=== PATIENT | female | born 1940 | race Caucasian/White ===

== ENCOUNTER 2020-01-12 11:29 | Outpatient (REF) | payer MEDICARE, SELFPAY ==
[2020-01-12 13:48] LABS: MANUAL DIFF FLAG NO
[2020-01-12 13:54] LABS: Basophils Percent Auto 0.4 % (0-2); Eosinophils Absolute Auto 0.4 X10*3/uL (0.0-0.4); Eosinophils Percent Auto 7.9 % (0-4); Hematocrit 42.9 % (37-47); Hemoglobin 13.9 g/dl (12.0-16.0); Imm Gran Abs Auto 0.05 X10*3/uL (0.00-0.03); Lymphocytes Absolute Auto 1.6 X10*3/uL (1.2-4.9); Lymphocytes Percent Auto 32.5 % (20-40); Mean Corpuscular HGB Conc 32.4 g/dl (31.0-35.0); Mean Corpuscular Hemoglobin 31.7 pg (27.0-33.0); Mean Corpuscular Volume 97.7 fL (80-98); Mean Platelet Volume 10.7 fL (9.4-12.3); Monocytes Absolute Auto 0.3 X10*3/uL (0.1-1.2); Monocytes Percent Auto 5.2 % (2-11); Neutrophils Absolute Auto 2.7 X10*3/uL (2.0-8.3); Platelet Count 162 X10*3/uL (160-400); Red Blood Count 4.39 X10*6/uL (4.20-5.50); Red Cell Distribution Width 12.6 % (11.0-16.0)
[2020-01-12 14:06] LABS: Estimated Average Glucose 103 mg/dL; Hemoglobin A1c % 5.2 %
[2020-01-12 14:30] LABS: Alanine Aminotransferase 18 U/L (0-31); Alkaline Phosphatase 49 U/L (39-117); Anion Gap 12 (12-20); Anion Gap 13 (12-20); Aspartate Amino Transferase 23 U/L (5-31); Bilirubin Total 0.5 mg/dL (0.0-1.0); Blood Urea Nitrogen 15 mg/dL (9-16); Calcium 9.1 mg/dL (8.4-10.2); Carbon Dioxide 29 mmol/L (22-29); Carbon Dioxide 30 mmol/L (22-29); Chloride 105 mmol/L (96-108); Estimated Glomerular Filt Rate > 60; Glucose Random 101 mg/dL (60-115); Glucose Random 99 mg/dL (60-115); Potassium 4.5 mmol/l (3.3-5.1); Potassium 5.3 mmol/l (3.3-5.1); Sodium 142 mmol/L (135-145); Total Protein 6.4 g/dL (6.5-8.0)
[2020-01-12 14:55] LABS: Free T4 (Free Thyroxine) 1.28 ng/dL (0.71-1.85); Thyroid Stimulating Hormone 4.03 mIU/mL (0.32-4.0)
== END 2020-01-12 11:30 | disposition home or self-care (01) ==
LOC: HO.10HDL 11:29
PROVIDERS: Referring Provider Internal Medicine Medical Oncology; Visit Provider Internal Medicine
DX: I10 Essential (primary) hypertension (principal); R73.03 Prediabetes; E03.9 Hypothyroidism, unspecified; C18.9 Malignant neoplasm of colon, unspecified; E66.3 Overweight
CPT/HCPCS: 36415; 80048; 80053; 82378; 83036; 84439; 84443; 85025

== ENCOUNTER 2020-09-14 06:26 | Day surgery (SDC) | payer MEDICARE, SELFPAY ==
[2020-09-08 15:21] VITALS: BMI 25.7
--- NOTE | 2020-09-13 10:17 | P.CONAN_ITS ---
Documented by User: Kat Condonney 09/13/20 10:18 HPI - Anesthesia Eval Consult details Narrative: 80yo F for Colonoscopy *multiple med allergies* h/o parital colectomy 2016 [facility] Past Medical History Medical History Anxiety Arthritis Barretts esophagus GERD (gastroesophageal reflux disease) History of colon cancer History of right bundle branch block (RBBB) Hyperlipidemia Hypothyroidism PONV (postoperative nausea and vomiting) Surgical History Surgical History History of breast biopsy History of cataract extraction with lens replacement History of foot surgery History of hysterectomy History of partial colectomy History of thyroidectomy History of total right knee replacement (TKR) Hx of colonoscopy Hx of esophagogastroduodenoscopy Social History Social History Are you a primary client care consultant to a significant other at home: No Do you presently have visiting nurse or other home services: No Patient Tobacco Use Status: Former Tobacco user Quit Date: 1966 Tobacco use type: Cigarette Use of substances other than those prescribed or required for medical reasons: No Have you been hit, kicked, punched, or otherwise hurt by someone within the past year? If so, by whom?: No Are you DNR?: No Advance Directives: No Advance Directives Information Provided: Yes Advance Directives on File: Yes Advance Directives Date on File: 01/12/20 Recently lost weight without trying: No Eating poorly because of decreased appetite: No Nutrition Risks: No Nutritional Risk Patient : No Meds Allergies Allergy/AdvReac Type Severity Reaction Status Date / Time adhesive tape [ADHESIVE TAPE] Allergy Intermediate ITCH, Rash Unverified 09/08/20 14:49 cefazolin [From KEFZOL] Allergy Intermediate RASH Unverified 09/08/20 14:49 clindamycin [From CLEOCIN] Allergy Intermediate RASH Unverified 09/08/20 14:49 gentamicin [From GARAMYCIN] Allergy Intermediate RASH Unverified 09/08/20 14:49 atropine Allergy Unknown localized Verified 09/08/20 15:17 eye rxn cephalexin Allergy Unknown Rash Verified 09/08/20 15:18 morphine [MORPHINE] AdvReac Intermediate VOMITING Unverified 09/08/20 14:49 Doxycycline Monohydrate Allergy Unknown Rash Uncoded 09/08/20 15:18 Home Medications Medication Instructions Recorded Confirmed Last Taken Type acetaminophen [Tylenol Extra 500 mg PO Q6H PRN 09/08/20 09/08/20 Unknown History Strength] alprazolam 1 tab PO DAILY PRN 09/08/20 09/08/20 09/14/20 History atorvastatin 1 tab PO DAILY 09/08/20 09/08/20 Unknown History diphenhydramine-acetaminophen 1 tab PO BEDTIME PRN 09/08/20 09/08/20 Unknown History [Tylenol PM Extra Strength] levothyroxine 1 tab PO DAILY 09/08/20 09/08/20 09/14/20 History lorazepam 1 tab PO DAILY PRN 09/08/20 09/08/20 Unknown History multivitamin,dc-sjob-Kk-FA-min tab 09/08/20 Unknown History [Multivitamin And Mineral] omeprazole 20 mg PO DAILY 09/08/20 09/08/20 09/14/20 History simethicone [Gas-X] 80 mg PO BEDTIME 09/08/20 09/08/20 Unknown History vit C,J-Wm-gthrt-lutein-zeaxan 1 tab PO BID 09/08/20 09/08/20 Unknown History [PreserVision AREDS-2] Exam Exam Date and Time: September 13, 2020 1017 Height,Weight and Vital Signs: Height 5 ft 4 in Weight 68.039 kg Assessment and Plan Assessment Anesthesia Assessment: Chart Reviewed Documented by User: Darcy Lewis 09/14/20 07:31 [facility] Past Medical History Medical History Anxiety Arthritis Barretts esophagus GERD (gastroesophageal reflux disease) History of colon cancer History of right bundle branch block (RBBB) Hyperlipidemia Hypothyroidism PONV (postoperative nausea and vomiting) Surgical History Surgical History History of breast biopsy History of cataract extraction with lens replacement History of foot surgery History of hysterectomy History of partial colectomy History of thyroidectomy History of total right knee replacement (TKR) Hx of colonoscopy Hx of esophagogastroduodenoscopy Social History Social History Are you a primary client care consultant to a significant other at home: No Do you presently have visiting nurse or other home services: No Patient Tobacco Use Status: Former Tobacco user Quit Date: 1966 Tobacco use type: Cigarette Use of substances other than those prescribed or required for medical reasons: No Have you been hit, kicked, punched, or otherwise hurt by someone within the past year? If so, by whom?: No Are you DNR?: No Advance Directives: No Advance Directives Information Provided: Yes Advance Directives on File: Yes Advance Directives Date on File: 01/12/20 Recently lost weight without trying: No Eating poorly because of decreased appetite: No Nutrition Risks: No Nutritional Risk Patient : No Meds Allergies Allergy/AdvReac Type Severity Reaction Status Date / Time adhesive tape [ADHESIVE TAPE] Allergy Intermediate ITCH, Rash Unverified 09/08/20 14:49 cefazolin [From KEFZOL] Allergy Intermediate RASH Unverified 09/08/20 14:49 clindamycin [From CLEOCIN] Allergy Intermediate RASH Unverified 09/08/20 14:49 gentamicin [From GARAMYCIN] Allergy Intermediate RASH Unverified 09/08/20 14:49 atropine Allergy Unknown localized Verified 09/08/20 15:17 eye rxn cephalexin Allergy Unknown Rash Verified 09/08/20 15:18 morphine [MORPHINE] AdvReac Intermediate VOMITING Unverified 09/08/20 14:49 Doxycycline Monohydrate Allergy Unknown Rash Uncoded 09/08/20 15:18 Home Medications Medication Instructions Recorded Confirmed Last Taken Type acetaminophen [Tylenol Extra 500 mg PO Q6H PRN 09/08/20 09/08/20 Unknown History Strength] alprazolam 1 tab PO DAILY PRN 09/08/20 09/08/20 09/14/20 History atorvastatin 1 tab PO DAILY 09/08/20 09/08/20 Unknown History diphenhydramine-acetaminophen 1 tab PO BEDTIME PRN 09/08/20 09/08/20 Unknown History [Tylenol PM Extra Strength] levothyroxine 1 tab PO DAILY 09/08/20 09/08/20 09/14/20 History lorazepam 1 tab PO DAILY PRN 09/08/20 09/08/20 Unknown History multivitamin,hg-jrae-Eq-FA-min tab 09/08/20 Unknown History [Multivitamin And Mineral] omeprazole 20 mg PO DAILY 09/08/20 09/08/20 09/14/20 History simethicone [Gas-X] 80 mg PO BEDTIME 09/08/20 09/08/20 Unknown History vit C,M-Ls-koheu-lutein-zeaxan 1 tab PO BID 09/08/20 09/08/20 Unknown History [PreserVision AREDS-2] Exam Airway Mallampati Class: III (Prominent upper incisors) TM Dist: >3cm Neck ROM: Full Loose/Missing/Broken Teeth: No Heart: RRR Lungs: CTA Assessment and Plan Assessment Anesthesia Assessment: Anesthesia Plan Discussed and Chart Reviewed Final Anesthetic Review NPO: Yes ASA Class: II Final Preanesthetic Review: Meds/Allgs Chart Reviewed, Consent Obtained/Reviewed and Anes Risks/Benef Reviewed Patient Risk: Low Procedure Risk: Low Anesthetic Plan Anesthetic Plan: MAC: Disposition: Standard PACU
[2020-09-14 06:54] VITALS: BP 134/72; PULSE 96; RESP 16; TEMP 36.9; O2SAT 96
[2020-09-14] MEDS: Lactated Ringers 1,000 ML 100 ML IVCONT (07:14)
[2020-09-14 08:32] VITALS: BP 118/62; PULSE 76; RESP 18; TEMP 36.1; O2SAT 100
--- NOTE | 2020-09-14 08:37 | P.BOP_ITS ---
Brief Operative Note Date of Service: 09/14/20 Pre-op diagnosis: Screening Post-op diagnosis: other (Polyps, Diverticulosis) Procedure: Colonoscopy to the anastomosis with snare polypectomy Surgeon: Grayson Keene Anesthesia: MAC Was an Combiner Operator used for this Procedure?: No Estimated blood loss (mL): 0 Pathology: other (A. Rectal polyps) Condition: stable Disposition: PACU
[2020-09-14 08:48] VITALS: BP 122/71; PULSE 82; RESP 16; TEMP 36.1; O2SAT 97
--- NOTE | 2020-09-14 10:38 | OP_ITS ---
SURGEON: Grayson Keene MD INDICATIONS: The patient presents for followup of personal history of colon cancer and tubular adenoma of the colon. Full consent has been obtained from her for this, including risks of bleeding and perforation. PREOPERATIVE DIAGNOSIS: Personal history of tubular adenoma of the colon, personal history of colon cancer, and colorectal cancer screening. POSTOPERATIVE DIAGNOSIS: Personal history of tubular adenoma of the colon, personal history of colon cancer, and colorectal cancer screening, rectal polyps, normal anastomosis, sigmoid diverticulosis, and internal and external hemorrhoids. PROCEDURE PERFORMED: Colonoscopy to the anastomosis with snare polypectomy. ESTIMATED BLOOD LOSS: COMPLICATIONS: ANESTHESIA: Medication used, monitored anesthesia care. ASSISTANTS: SPECIMENS: DESCRIPTION OF PROCEDURE: The patient was placed in left lateral decubitus position. The digital rectal exam revealed external hemorrhoidal tissue. The Olympus video pediatric colonoscope was entered into the rectum and advanced to the level of the anastomosis. Advancement past the sigmoid colon was somewhat difficult. Once at the anastomosis, I was able to visualize both normal small bowel and large bowel mucosa. The anastomosis appeared normal. The scope was then slowly withdrawn assessing all mucosal surfaces carefully. Preparation was excellent. There was a moderate amount of sigmoid diverticulosis. In the proximal rectum were 2 approximately 10 mm polyps, which were probably hyperplastic. These were both snared and recovered by suction. Both polypectomy sites appeared clean, without any sign of residual polyp nor bleeding. I did not visualize any other polyps, colitis, or angiodysplasia. In the rectum, scope was retroflexed visualizing internal hemorrhoids, but no other pathology. The rectal mucosa appeared normal. The scope was straightened and withdrawn from the patient. She tolerated the procedure well and was returned to the recovery area in stable condition. IMPRESSION: 1. Rectal polyps, status post snare polypectomy. 2. Diverticulosis. 3. Normal anastomosis. 4. Internal and external hemorrhoids. PLAN: The results of the pathology will be checked. She was instructed not to use any aspirin and NSAIDs for 1 week. Theoretically, she should have another colonoscopy in 2 to 3 years, although at that point she would be in her mid-80s and we would obviously have to take her clinical condition into account. She will otherwise see me on a p.r.n. basis. This has been discussed with her . MD GRACIE Rodriguez/VIKTOR / [id number] RIRI
== END 2020-09-14 09:28 | disposition home or self-care (01) ==
PROVIDERS: PCP Internal Medicine; Visit Provider Internal Medicine
PROC: 0DJD8ZZ Inspection of Lower Intestinal Tract, Via Natural or Artificial Opening Endoscopic (ICD-10-PCS; CPT 45378; principal; 2020-09-14 07:30)
DX: Z12.11 Encounter for screening for malignant neoplasm of colon (principal); K62.1 Rectal polyp; K57.30 Diverticulosis of large intestine without perforation or abscess without bleeding; K64.4 Residual hemorrhoidal skin tags; K64.8 Other hemorrhoids; Z85.038 Personal history of other malignant neoplasm of large intestine; Z86.010 Personal history of colon polyps; Z98.0 Intestinal bypass and anastomosis status
CPT/HCPCS: 45385; 88305; 88341; 88342; 88360

== ENCOUNTER 2020-09-23 12:02 | Outpatient (REF) | payer MEDICARE, SELFPAY ==
[2020-09-23 13:55] LABS: Anion Gap 13 (12-20); Blood Urea Nitrogen 15 mg/dL (9-16); Calcium 8.9 mg/dL (8.4-10.2); Carbon Dioxide 28 mmol/L (22-29); Chloride 106 mmol/L (96-108); Estimated Glomerular Filt Rate > 60; Glucose Random 83 mg/dL (60-115); Potassium 4.3 mmol/L (3.3-5.1); Sodium 143 mmol/L (135-145)
[2020-09-23 14:13] LABS: Free T4 (Free Thyroxine) 1.26 ng/dL (0.71-1.85); Thyroid Stimulating Hormone 1.67 uIU/mL (0.32-4.0)
== END 2020-09-23 12:03 | disposition home or self-care (01) ==
LOC: HO.10HDL 12:02
PROVIDERS: PCP Internal Medicine; Visit Provider Internal Medicine
DX: E03.9 Hypothyroidism, unspecified (principal); I10 Essential (primary) hypertension
CPT/HCPCS: 36415; 80048; 84439; 84443

== ENCOUNTER 2021-02-07 14:11 | Outpatient (REF) | payer MEDICARE, SELFPAY ==
--- NOTE | ~2021-02-07 | MM_ITS ---
EXAMINATION: MM SCREENING DIGITAL BREAST TOMOSYNTHESIS, BILATERAL CLINICAL INFORMATION: Screening. Asymptomatic. The lifetime risk of breast cancer based on the Tyrer-Cuzick Model is 1%. COMPARISON: Mammography: 12/24/2019, 12/18/2018, 12/02/2017 TECHNIQUE: Digital breast tomosynthesis is performed in both the craniocaudal and mediolateral oblique views along with computer-aided detection (CAD). Synthesized 2D images are generated from the tomosynthesis. Additional left MLO view is provided. FINDINGS: There are scattered areas of fibroglandular density (ACR BI-RADS breast composition Category b). There are no significant masses, abnormal calcifications, or other abnormalities. MM/MM tomosynthesis screening BI IMPRESSION: No mammographic evidence of malignancy. ASSESSMENT: BI-RADS 1: Negative RECOMMENDATION: Routine annual mammography screening. This patient's information was entered into a reminder system with a target due date for their next mammogram.
--- NOTE | ~2021-02-07 | MM_ITS ---
EXAMINATION: BONE DENSITOMETRY CLINICAL INDICATION: Menopause. COMPARISON: Previous BD dated 01/20/2019 and baseline BD dated 02/18/2006. TECHNIQUE: Using a [employer] DXA System (software version: 13.1) manufactured by [employer], dual-energy x-ray absorptiometry was performed of the lumbar spine and left hip. The images are of good technical quality. Summary results are attached. FINDINGS: AP SPINE L1-L4: Current: BMD 0.857 g/cm2, Z-score -1.0, T-score -2.7, osteoporosis, 2.1% decrease from previous, 10.4% decrease from baseline (<5% change is not significant). Prior: BMD 0.875 g/cm2. Baseline: BMD 0.956 g/cm2. LEFT FEMUR, NECK: Current: BMD 0.707 g/cm2, Z-score -0.2, T-score -2.4, osteopenia. Prior: BMD 0.703 g/cm2. Baseline: BMD 0.807 g/cm2. LEFT FEMUR, TOTAL: Current: BMD 0.747 g/cm2, Z-score 0.0, T-score -2.1, osteopenia, 0.8% increase from previous, 15.7% decrease from baseline (<5% change is not significant). Prior: BMD 0.741 g/cm2. Baseline: BMD 0.886 g/cm2. IDENTIFIED RISK FACTORS: Menopause, hysterectomy, bilateral oophorectomy, history of fracture (adult), height loss, family history (parental hip fracture). HISTORY OF FRACTURE: Wrist. MEDICATIONS: Calcium supplements or multivitamin, vitamin D. MM/XR DEXA axial skeleton IMPRESSION: 1. DIAGNOSIS: Osteoporosis based on the lowest T-score value of -2.7 in the lumbar spine applying World Health Organization criteria. 2. 10 2. 10-YEAR FRACTURE RISK PREDICTION, FRAX: According to the guidelines, FRAX calculation should only be performed on patients in the osteopenia bone density category. 3. Treatment Recommendations: NOF guidelines recommend consideration for treatment in postmenopausal women and men age 50 and older presenting with the following: -A hip or vertebral (clinical or morphometric) fracture. -T-score less than or equal to -2.5 at the femoral neck or spine after appropriate evaluation to exclude secondary causes. -Low bone mass at the hip or spine and a 10-year fracture probability by FRAX of greater than or equal to 3% for hip fracture or greater than or equal to 20% for major osteoporotic fracture based on the [place] adapted WHO algorithm. 4. Other Recommendations: All treatment decisions require clinical judgment and consideration of individual patient factors, including patient preferences, comorbidities, previous drug use, risk factors not captured in the FRAX model (e.g. frailty, falls, vitamin D deficiency, increased bone turnover, interval significant decline in bone density) and possible under or overestimation of fracture risk by FRAX. Additional medical evaluation for secondary cause of low bone mineral density may be appropriate. FUTURE SCAN RECOMMENDATION: People with diagnosed cases of osteoporosis or at high risk for fracture should have regular bone mineral density tests. For patients eligible for Medicare, routine testing is allowed once every 2 years. The testing frequency can be increased to one year for patients who have rapidly progressing disease, those who are receiving or discontinuing medical therapy to restore bone mass, or have additional risk factors.
== END 2021-02-07 14:12 | disposition home or self-care (01) ==
LOC: HO.MAMMO 14:11
PROVIDERS: Visit Provider Internal Medicine
DX: Z12.31 Encounter for screening mammogram for malignant neoplasm of breast (principal); Z13.820 Encounter for screening for osteoporosis; M81.0 Age-related osteoporosis without current pathological fracture; Z78.0 Asymptomatic menopausal state; Z98.890 Other specified postprocedural states; Z79.899 Other long term (current) drug therapy
CPT/HCPCS: 77063; 77067; 77080

== ENCOUNTER 2021-03-14 10:39 | Outpatient (REF) | payer MEDICARE, SELFPAY ==
[2021-03-14 13:52] LABS: Basophils Percent Auto 0.2 % (0-2); Eosinophils Absolute Auto 0.3 X10*3/uL (0.0-0.4); Imm Gran Abs Auto 0.04 X10*3/uL (0.00-0.03)
[2021-03-14 13:53] LABS: Eosinophils Percent Auto 6.5 % (0-4); Hemoglobin 13.3 g/dl (12.0-16.0); Lymphocytes Absolute Auto 1.9 X10*3/uL (1.2-4.9); Lymphocytes Percent Auto 45.3 % (20-40); Mean Corpuscular HGB Conc 32.4 g/dl (31.0-35.0); Mean Corpuscular Hemoglobin 31.7 pg (27.0-33.0); Mean Corpuscular Volume 97.9 fL (80.0-98.0); Mean Platelet Volume 10.5 fL (9.4-12.3); Monocytes Absolute Auto 0.3 X10*3/uL (0.1-1.2); Neutrophils Absolute Auto 1.7 x10*3/uL (2.0-8.3); Red Blood Count 4.19 X10*6/uL (4.20-5.50); Red Cell Distribution Width 12.8 % (11.0-16.0)
[2021-03-14 13:54] LABS: Appearance Urine CLEAR; Color Urine YELLOW; Glucose Urine UA NEG (NEG); Leukocyte Esterase Urine NEG (NEG); Nitrite Urine NEG (NEG); Specific Gravity - Urine 1.025 (1.005-1.025); Urine Blood NEG (NEG); Urine Ketones NEG (NEG); Urine Protein NEG (NEG-TRACE)
[2021-03-14 14:01] LABS: Platelet Count 126 X10*3/uL (160-400); White Blood Count 4.2 X10*3/uL (4.8-10.8)
[2021-03-14 14:02] LABS: MANUAL DIFF FLAG NO
[2021-03-14 14:25] LABS: Alanine Aminotransferase 17 U/L (0-31); Albumin Level 3.9 g/dL (3.5-5.0); Alkaline Phosphatase 47 U/L (39-117); Anion Gap 10 (12-20); Aspartate Amino Transferase 24 U/L (5-31); Bilirubin Total 0.7 mg/dL (0.0-1.0); Blood Urea Nitrogen 17 mg/dL (9-16); Carbon Dioxide 30 mmol/L (22-29); Chloride 106 mmol/L (96-108); Cholesterol 149 mg/dL; Estimated Glomerular Filt Rate > 60; Glucose Fasting 101 mg/dL (60-99); HDL Cholesterol 51 mg/dL; LDL Cholesterol Calculated 80 mg/dl; Potassium 4.3 mmol/L (3.3-5.1); Sodium 142 mmol/L (135-145); Total Protein 6.3 g/dL (6.5-8.0); Triglycerides 92 mg/dL
[2021-03-14 14:52] LABS: Free T4 (Free Thyroxine) 1.11 ng/dL (0.71-1.85); Thyroid Stimulating Hormone 4.53 uIU/mL (0.32-4.0)
[2021-03-14 15:00] LABS: Vitamin B12 1223 pg/mL (200-900)
== END 2021-03-14 10:40 | disposition home or self-care (01) ==
LOC: HO.10HDL 10:39
PROVIDERS: Visit Provider Internal Medicine
DX: I10 Essential (primary) hypertension (principal); E78.00 Pure hypercholesterolemia, unspecified; E03.9 Hypothyroidism, unspecified; M85.80 Other specified disorders of bone density and structure, unspecified site; Z85.038 Personal history of other malignant neoplasm of large intestine
CPT/HCPCS: 36415; 80053; 80061; 81003; 82306; 82607; 84439; 84443; 85025

== ENCOUNTER 2021-10-17 10:28 | Outpatient (REF) | payer MEDICARE, SELFPAY ==
[2021-10-17 14:14] LABS: Alanine Aminotransferase 19 U/L (0-31); Alkaline Phosphatase 53 U/L (39-117); Anion Gap 12 (12-20); Aspartate Amino Transferase 28 U/L (5-31); Bilirubin Total 0.5 mg/dL (0.0-1.0); Blood Urea Nitrogen 13 mg/dL (9-16); Calcium 8.9 mg/dL (8.4-10.2); Carbon Dioxide 30 mmol/L (22-29); Chloride 103 mmol/L (96-108); Estimated Glomerular Filt Rate > 60; Glucose Fasting 109 mg/dL (60-99); Potassium 4.3 mmol/L (3.3-5.1); Sodium 141 mmol/L (135-145); Total Protein 6.5 g/dL (6.5-8.0)
[2021-10-17 14:37] LABS: Free T4 (Free Thyroxine) 1.19 ng/dL (0.71-1.85)
== END 2021-10-17 10:29 | disposition home or self-care (01) ==
LOC: HO.10HDL 10:28
PROVIDERS: Visit Provider Internal Medicine
DX: E03.9 Hypothyroidism, unspecified (principal); E78.00 Pure hypercholesterolemia, unspecified; K21.9 Gastro-esophageal reflux disease without esophagitis
CPT/HCPCS: 36415; 80053; 84439; 84443

== ENCOUNTER 2021-11-11 08:31 | Emergency (ER) | payer MEDICARE, SELFPAY ==
--- NOTE | ~2021-11-11 | XR_ITS ---
EXAMINATION: 1. RADIOGRAPHS CHEST 2. RADIOGRAPHS RIGHT HIP WITH PELVIS CLINICAL INFORMATION: Pain after fall COMPARISON: Chest x-ray June 21, 2017 TECHNIQUE: 2 views of the chest, frontal view of the pelvis and 2 views of the right hip were obtained. FINDINGS: Chest x-ray: Cardiac silhouette is normal in size. Atherosclerotic disease of the aortic arch. The lungs are well aerated. There is mild asymmetric elevation of the left hemidiaphragm. Subtle opacity left lung base is nonspecific but suspected to represent atelectasis. There are mild degenerative changes of the visualized thoracic spine. Right hip: Visualized portions of the proximal right femur demonstrate no fracture. Right femoral head is well-seated within the acetabulum. There is moderate narrowing of the right femoral acetabular joint space. The pelvic ring is intact. Degenerative changes of the left hip also noted. Vascular calcifications appreciated. Suture line projects over the right lower abdomen. XR/XR hip RT w PEL1V IMPRESSION: -No acute pulmonary pathology. -Degenerative changes of the right hip without fracture or dislocation.
--- NOTE | ~2021-11-11 | XR_ITS ---
EXAMINATION: 1. RADIOGRAPHS CHEST 2. RADIOGRAPHS RIGHT HIP WITH PELVIS CLINICAL INFORMATION: Pain after fall COMPARISON: Chest x-ray June 21, 2017 TECHNIQUE: 2 views of the chest, frontal view of the pelvis and 2 views of the right hip were obtained. FINDINGS: Chest x-ray: Cardiac silhouette is normal in size. Atherosclerotic disease of the aortic arch. The lungs are well aerated. There is mild asymmetric elevation of the left hemidiaphragm. Subtle opacity left lung base is nonspecific but suspected to represent atelectasis. There are mild degenerative changes of the visualized thoracic spine. Right hip: Visualized portions of the proximal right femur demonstrate no fracture. Right femoral head is well-seated within the acetabulum. There is moderate narrowing of the right femoral acetabular joint space. The pelvic ring is intact. Degenerative changes of the left hip also noted. Vascular calcifications appreciated. Suture line projects over the right lower abdomen. XR/XR chest 2V IMPRESSION: -No acute pulmonary pathology. -Degenerative changes of the right hip without fracture or dislocation.
[2021-11-11 08:42] VITALS: BP 151/81; BP 156/76; PULSE 93; PULSE 98; RESP 18; TEMP 37.1; O2SAT 95; O2SAT 96; BMI 25.7
--- NOTE | 2021-11-11 08:50 | ED.FALL ---
HPI - Fall General Chief Complaint: Fall Stated Complaint: R leg pain post fall Time Seen by Provider: 11/11/21 08:46 Source: patient and EMS Mode of arrival: EMS Limitations: no limitations History of Present Illness HPI Narrative: 81-year-old female with a history of high cholesterol, hypothyroidism, anxiety presents with complaints of right hip pain after a fall during the night. Patient tells me she went up to go to the bathroom and she slipped falling landing on the right hip. She denies hitting her or loss of consciousness. She denies any anticoagulation. She currently does have shingles on the right upper extremity and started Valtrex and gabapentin on Saturday. Patient reports her picked her up and when he did he wrapped his arms around her chest. She felt some discomfort when he lifted her and still has some slight chest discomfort. No shortness of breath, cough, abdominal pain, fevers, chills, headache, neck pain or back pain. Patient reports initially she was able to walk a few steps on the right lower extremity but when she woke up this morning she was unable to ambulate due to pain. Related Data Home Medications Medication Instructions Recorded Confirmed alprazolam 0.25 mg tablet 1 tab PO BEDTIME PRN Anxiety 09/08/20 11/11/21 atorvastatin 40 mg tablet 1 tab PO BEDTIME 09/08/20 11/11/21 diphenhydramine 25 1 tab PO BEDTIME PRN Sleep 09/08/20 11/11/21 mg-acetaminophen 500 mg tablet (Tylenol PM Extra Strength) levothyroxine 100 mcg tablet 1 tab PO DAILY 09/08/20 11/11/21 lorazepam 0.5 mg tablet 1 tab PO DAILY PRN Anxiety 09/08/20 09/08/20 omeprazole 20 mg capsule,delayed 20 mg PO DAILY 09/08/20 11/11/21 release simethicone 80 mg chewable tablet 80 mg PO DAILY PRN GAS 09/08/20 11/11/21 vit C 250 mg-vit E 90 mg-zinc 40 1 tab PO BID 09/08/20 11/11/21 mg-copper 1 [id number] capsule (PreserVision AREDS-2) cholecalciferol (vitamin D3) 10 10 mcg PO DAILY 11/11/21 11/11/21 mcg (400 unit) capsule docusate sodium 100 mg capsule 100 mg PO DAILY 11/11/21 11/11/21 gabapentin 100 mg capsule 1 cap PO Q4H PRN pain 11/11/21 11/11/21 multivit with 1 tab PO DAILY 11/11/21 11/11/21 [id number]-[id number]-lutein 8 mg iron-400 mcg-300 mcg tablet (Centrum Silver Women) valacyclovir 1 gram tablet 1 tab PO TID 11/11/21 11/11/21 Previous Rx's Medication Instructions Recorded acetaminophen 300 mg-codeine 30 mg 1 tab PO Q6H PRN pain #10 tabs 11/11/21 tablet Allergies Allergy/AdvReac Type Severity Reaction Status Date / Time adhesive tape [ADHESIVE TAPE] Allergy Intermediate ITCH, Rash Verified 11/11/21 09:08 cefazolin [From KEFZOL] Allergy Intermediate RASH Verified 11/11/21 09:08 clindamycin [From CLEOCIN] Allergy Intermediate RASH Verified 11/11/21 09:08 gentamicin [From GARAMYCIN] Allergy Intermediate RASH Verified 11/11/21 09:08 atropine Allergy Unknown localized Verified 11/11/21 09:08 eye rxn cephalexin Allergy Unknown Rash Verified 11/11/21 09:08 Doxycycline Monohydrate Allergy Unknown Rash Uncoded 11/11/21 09:08 Review of Systems Review of Systems: Yes all other systems are reviewed and are negative Constitutional: Constitutional: Reports no additional constitutional complaints, Denies body ache(s), Denies chills, Denies fever(s), Denies headache(s) and Denies weakness Eyes: Eyes: Reports no additional eye complaints and Denies change in vision ENT: Reports system reviewed and no additional complaints, except as documented, Denies dizziness, Denies headache(s), Denies nasal congestion, Denies nasal discharge and Denies neck pain Cardiovascular: Cardiovascular: Reports no additional cardiovascular complaints, Reports chest pain, Denies leg edema and Denies dyspnea Respiratory: Respiratory: Reports no additional respiratory complaints, Denies cough and Denies dyspnea Gastrointestinal: Gastrointestinal: Reports no additional gastrointestinal complaints, Denies abdominal pain, Denies diarrhea, Denies nausea and Denies vomiting Genitourinary: Genitourinary: Reports no additional female genitourinary complaints and Denies urinary incontinence Musculoskeletal: Musculoskeletal: Reports no additional musculoskeletal complaints, Denies back pain, Reports arthralgias, Denies joint swelling, Reports limited range of motion, Denies neck pain, Denies numbness and Denies tingling Integumentary/Breasts: Skin/Breast: Reports system reviewed and no additional complaints, except as docu and Denies rash Neurologic: Reports system reviewed and no additional complaints, except as documented, Denies Abnormal speech present, Denies dizziness, Denies headache(s), Denies numbness, Denies tingling and Denies weakness PMF Past Medical History Attestation statement: The following information was validated with the patient. Source: old records reviewed and nursing notes reviewed Medical History Anxiety Arthritis Barretts esophagus GERD (gastroesophageal reflux disease) History of colon cancer History of right bundle branch block (RBBB) Hyperlipidemia Hypothyroidism PONV (postoperative nausea and vomiting) Surgical History History of breast biopsy History of cataract extraction with lens replacement History of foot surgery History of hysterectomy History of partial colectomy History of thyroidectomy History of total right knee replacement (TKR) Hx of colonoscopy Hx of esophagogastroduodenoscopy Social History Social History Are you a primary personal care home administrator to a significant other at home: No Do you presently have visiting nurse or other home services: No Patient Tobacco Use Status: Former Tobacco user Quit Date: 1966 Tobacco use type: Cigarette Advance Directives: Yes Advance Directives Information Provided: Yes Advance Directives on File: No Advance Directives Date on File: 01/12/20 Physical Exam Vital Signs: Vital Signs: Last Vital Signs Temp 98.2 F 11/11/21 16:00 Pulse 83 11/11/21 16:00 Resp 18 11/11/21 16:00 BP 129/50 L 11/11/21 16:00 Pulse Ox 98 11/11/21 16:00 O2 Del Method 11/11/21 16:00 O2 Flow Rate 94 11/11/21 12:13 BMI result Body Mass Index 25.7 Const: General: cooperative, healthy appearing, comfortable and no acute distress Orientation/consciousness: patient oriented x3 Limitations: no limitations HEENT: Head: Yes normal to inspection, No Ledezma's sign and No raccoon eyes Ears: hearing grossly normal bilaterally General nose exam: Normal external nose present Face and sinus: Yes normal facial exam Mouth: Normal oral and palatal mucosa present Throat: Yes posterior oropharynx normal Eyes: General: appearance normal, both eyes and all related structures Pupils: Equal, round and reactive pupils present Neck: Neck: Yes normal visual inspection Chest: Other: slight chest discomfort over the sternum with no ecchymosis or deformity or crepitus noted Chest palpation & inspection: normal inspection of the chest Resp: Effort & Inspection: normal respiratory effort Auscultation: clear to auscultation bilaterally Cardio: Rate: regular rate Rhythm: regular rhythm Peripheral pulses: Peripheral pulses 2+ throughout GI: Inspection: Yes normal to inspection Palpation (GI): Soft to palpation and nontender Auscultation: normal bowel sounds Back/Spine/Pelvis: Thoracic/Lumbar Spine: thoracic and lumbar spine normal to inspection Skin: General skin exam: no rashes or lesions noted Neuro: General: patient oriented x3, moves all extremities, no focal motor deficits, normal sensation to monofilament and Unable to assess gait Cranial nerves: Yes CN's II-XII intact bilaterally, Yes Equal, round and reactive pupils present, Yes Bilaterally intact EOM present, Yes Nystagmus not present, Yes Normal facial strength present and Yes Midline tongue present Cognition (Neuro): normal cognition Speech: No Abnormal speech present Gait exam (Neuro): Unable to assess gait Motor exam (neuro): 5/5 motor strength present throughout Sensory Exam: Normal double simultaneous stimulation for sensation Extrem: Other: There is tenderness over the right lateral hip and over the right posterior buttocks with no obvious shortening, rotation or deformity. There is no Ecchymosis over the hip however there is some slight ecchymosis noted over the perianal area. 2+ DP/PT pulses. Sensation normally distally over the right upper arm and extending down to the forearm and over the hand there are vesicle clustered like lesions noted that are painful General: Yes normal to inspection Course Course Course Narrative: x-rays of the right hip and pelvis show a nondisplaced pubic ramus fracture. No surgical intervention is warranted. Patient does live with her and is having difficulty with ambulation. She would likely benefit from short-term rehab and pain management. Will obtain a physical therapy consultation. Chest x-ray looks normal. Reviewed labs which show a thrombocytopenia no. Patient had a previous CBC which showed a mild thrombocytopenia. It does appear slightly worsened today. All other cell lines are normal. Additional labs are unremarkable including renal function. Patient is not on any anticoagulation or aspirin. ?idiopathic. No active bleeding. Due to fall with pelvic fracture will repeat CBC and 4 hours Reevaluation(s) Reevaluation #1: 1250-patient will be going to [facility] today for STR. Medications were reconciled. Patient placed in physician observation pending transfer. MDM - Fall MDM Narrative Medical decision making narrative: 81-year-old female here with mechanical fall with right hip pain and some chest discomfort after 's tried picking her up throughout the night. there is no head injury or loss of consciousness. Vitals are stable. Patient will need x-rays of hip and chest as well as labs and pain control. Consider fracture, contusion Medical Records Attestation: I reviewed the patient's medical records. Lab Data Attestation: I reviewed the patient's lab results. Result diagrams: 11/11/21 13:43 11/11/21 08:56 Labs: Lab Results 11/11/21 11/11/21 11/11/21 Range/Units 08:56 08:56 10:23 WBC 9.7 (4.8-10.8) X10*3/uL RBC 4.17 L (4.20-5.50) X10*6/uL Hgb 12.7 (12.0-16.0) g/dl Hct 38.7 (37.0-47.0) % MCV 92.8 (80.0-98.0) fL MCH 30.5 (27.0-33.0) pg MCHC 32.8 (31.0-35.0) g/dl RDW 12.8 (11.0-16.0) % Plt Count 76 L D (160-400) X10*3/uL MPV 10.4 (9.4-12.3) fL Immature Gran % (Auto) 3.4 H (0.0-0.4) % Neut % (Auto) 58.7 (45-73) % Lymph % (Auto) 24.3 (20-40) % Blaine % (Auto) 11.9 H (2-11) % Eos % (Auto) 1.5 (0-4) % Baso % (Auto) 0.2 (0-2) % Lymph # (Auto) 2.4 (1.2-4.9) X10*3/uL Blaine # (Auto) 1.2 (0.1-1.2) X10*3/uL Eos # (Auto) 0.2 (0.0-0.4) X10*3/uL Baso # (Auto) 0.0 (0.0-0.2) X10*3/uL Abs Immat Gran (auto) 0.33 H (0.00-0.03) X10*3/uL Absolute Neuts (auto) 5.7 (2.0-8.3) x10*3/uL Absolute Nucleated RBC 0.000 (0.0-0.012) X10*3/uL Nucleated RBC % (auto) 0.0 (0.0-0.2) /100WBC Sodium 138 (135-145) mmol/L Potassium 4.0 (3.3-5.1) mmol/L Chloride 101 (96-108) mmol/L Carbon Dioxide 27 (22-29) mmol/L Anion Gap 14 (12-20) BUN 11 (9-16) mg/dL Creatinine 0.68 (0.5-1.4) mg/dL Estim Creat Clear Calc 59.3 Estimated GFR > 60 Random Glucose 125 H (60-115) mg/dL Calcium 8.4 (8.4-10.2) mg/dL COVID-19 (KAREN) Negative (Negative) COVID-19 Clin Com See Note 11/11/21 Range/Units 13:43 WBC 7.6 (4.8-10.8) X10*3/uL RBC 4.17 L (4.20-5.50) X10*6/uL Hgb 12.7 (12.0-16.0) g/dl Hct 38.6 (37.0-47.0) % MCV 92.6 (80.0-98.0) fL MCH 30.5 (27.0-33.0) pg MCHC 32.9 (31.0-35.0) g/dl RDW 12.7 (11.0-16.0) % Plt Count 76 L (160-400) X10*3/uL MPV 10.0 (9.4-12.3) fL Immature Gran % (Auto) 3.3 H (0.0-0.4) % Neut % (Auto) 57.7 (45-73) % Lymph % (Auto) 20.8 (20-40) % Blaine % (Auto) 16.4 H (2-11) % Eos % (Auto) 1.7 (0-4) % Baso % (Auto) 0.1 (0-2) % Lymph # (Auto) 1.6 (1.2-4.9) X10*3/uL Blaine # (Auto) 1.3 H (0.1-1.2) X10*3/uL Eos # (Auto) 0.1 (0.0-0.4) X10*3/uL Baso # (Auto) 0.0 (0.0-0.2) X10*3/uL Abs Immat Gran (auto) 0.25 H (0.00-0.03) X10*3/uL Absolute Neuts (auto) 4.4 (2.0-8.3) x10*3/uL Absolute Nucleated RBC 0.000 (0.0-0.012) X10*3/uL Nucleated RBC % (auto) 0.0 (0.0-0.2) /100WBC Sodium (135-145) mmol/L Potassium (3.3-5.1) mmol/L Chloride (96-108) mmol/L Carbon Dioxide (22-29) mmol/L Anion Gap (12-20) BUN (9-16) mg/dL Creatinine (0.5-1.4) mg/dL Estim Creat Clear Calc Estimated GFR Random Glucose (60-115) mg/dL Calcium (8.4-10.2) mg/dL COVID-19 (KAREN) (Negative) COVID-19 Clin Com Imaging Data pelvic/hip xray: Attestation: I personally reviewed and interpreted this imaging study as follows: Radiologist's impression: There appears to be a subtle lucency through the medial aspect of the right inferior ramus with minimal offset which likely represents a nondisplaced fracture. This was discussed with the patient's care team. chest xray: Attestation: I personally reviewed and interpreted this imaging study as follows: Radiologist's impression: Chest x-ray: Cardiac silhouette is normal in size. Atherosclerotic disease of the aortic arch. The lungs are well aerated. There is mild asymmetric elevation of the left hemidiaphragm. Subtle opacity left lung base is nonspecific but suspected to represent atelectasis. There are mild degenerative changes of the visualized thoracic spine. Discharge Plan Discharge Clinical Impression: Fracture of pubic ramus Patient Disposition: Xfer SNF Transfer Details: [facility] Prescriptions: New acetaminophen-codeine 300-30 mg tablet 1 tab PO Q6H PRN (Reason: pain) Qty: 10 0RF No Action atorvastatin 40 mg tablet 1 tab PO BEDTIME levothyroxine 100 mcg tablet 1 tab PO DAILY alprazolam 0.25 mg tablet 1 tab PO BEDTIME PRN (Reason: Anxiety) lorazepam 0.5 mg tablet 1 tab PO DAILY PRN (Reason: Anxiety) omeprazole 20 mg Capsule,Delayed Release(Dr/Ec) 20 mg PO DAILY diphenhydramine-acetaminophen [Tylenol PM Extra Strength] 25-500 mg Tablet 1 tab PO BEDTIME PRN (Reason: Sleep) PreserVision AREDS-2 250-90-40-1 mg Capsule 1 tab PO BID simethicone [Gas-X] 80 mg Tablet,Chewable 80 mg PO DAILY PRN (Reason: GAS) valacyclovir 1 gram tablet 1 tab PO TID Rx Instructions: ORDERED 11/15/21 FOR 7 DAYS gabapentin 100 mg capsule 1 cap PO Q4H PRN (Reason: pain) Centrum Silver Women 8 mg iron-400 mcg-300 mcg Tablet 1 tab PO DAILY cholecalciferol (vitamin D3) 10 mcg (400 unit) Capsule 10 mcg PO DAILY docusate sodium 100 mg Capsule 100 mg PO DAILY Referrals: [facility] [Outside]
[2021-11-11 09:01] LABS: MANUAL DIFF FLAG NO
[2021-11-11 09:07] LABS: Basophils Percent Auto 0.2 % (0-2); Eosinophils Absolute Auto 0.2 X10*3/uL (0.0-0.4); Eosinophils Percent Auto 1.5 % (0-4); Hematocrit 38.7 % (37.0-47.0); Hemoglobin 12.7 g/dl (12.0-16.0); Imm Gran Abs Auto 0.33 X10*3/uL (0.00-0.03); Imm Gran Pct Auto 3.4 % (0.0-0.4); Lymphocytes Absolute Auto 2.4 X10*3/uL (1.2-4.9); Lymphocytes Percent Auto 24.3 % (20-40); Mean Corpuscular HGB Conc 32.8 g/dl (31.0-35.0); Mean Corpuscular Hemoglobin 30.5 pg (27.0-33.0); Mean Corpuscular Volume 92.8 fL (80.0-98.0); Monocytes Absolute Auto 1.2 X10*3/uL (0.1-1.2); Monocytes Percent Auto 11.9 % (2-11); Neutrophils Absolute Auto 5.7 x10*3/uL (2.0-8.3); Neutrophils Percent Auto 58.7 % (45-73); Red Blood Count 4.17 X10*6/uL (4.20-5.50); Red Cell Distribution Width 12.8 % (11.0-16.0); White Blood Count 9.7 X10*3/uL (4.8-10.8)
[2021-11-11] MEDS: ondansetron HCL 4 MG/2 ML VIAL IVPUSH ×2 (09:08→14:50)
[2021-11-11] MEDS: Morphine Sulfate 2 MG/ML CARTRIDGE IVPUSH ×2 (09:08→14:50)
[2021-11-11 09:16] LABS: Anion Gap 14 (12-20); Blood Urea Nitrogen 11 mg/dL (9-16); Calcium 8.4 mg/dL (8.4-10.2); Carbon Dioxide 27 mmol/L (22-29); Chloride 101 mmol/L (96-108); Creatinine Clr Calc Pharmacy 59.3; Estimated Glomerular Filt Rate > 60; Glucose Random 125 mg/dL (60-115); Sodium 138 mmol/L (135-145)
[2021-11-11 09:31] LABS: Mean Platelet Volume 10.4 fL (9.4-12.3); Platelet Count 76 X10*3/uL (160-400)
[2021-11-11 09:50] VITALS: BP 122/71; PULSE 94; RESP 14; TEMP 36.4; O2SAT 93
[2021-11-11 10:43] LABS: COVID-19 Test Negative (Negative)
--- NOTE | 2021-11-11 10:56 | PHA.MEDREC ---
MED REC COMPLETE, Patient also states she has a prescription for lorazepam at home that she will sometimes take. She has a recent prescription for alprazolam as needed at bedtime, so for now only put that on her list as this has been filled more recently Pharmacy Consult ? Medication Reconciliation Pharmacy has completed the medication reconciliation.
--- NOTE | 2021-11-11 12:09 | MHC.CM.ED ---
PER CONVERSATION WITH PATIENT, REFERRAL TO [facility]. PATIENT IS COVID VAX X 4. CM FOLLOWING. PATIENT DOES HAVE SHINGLES AND WILL NEED A PROVIDE ROOM.
[2021-11-11 12:13] VITALS: BP 138/65; PULSE 91; RESP 12; TEMP 36.6
--- NOTE | 2021-11-11 13:07 | MHC.CM.ED ---
PATIENT TO TRANSFER TO [facility] REQUEST MADE FOR A [employer]. UNIT, RN, PA, PATIENT AND SPOUSE AWARE OF PLAN.
[2021-11-11 13:48] LABS: MANUAL DIFF FLAG NO
[2021-11-11 13:52] LABS: Basophils Percent Auto 0.1 % (0-2); Eosinophils Absolute Auto 0.1 X10*3/uL (0.0-0.4); Eosinophils Percent Auto 1.7 % (0-4); Hematocrit 38.6 % (37.0-47.0); Hemoglobin 12.7 g/dl (12.0-16.0); Imm Gran Abs Auto 0.25 X10*3/uL (0.00-0.03); Imm Gran Pct Auto 3.3 % (0.0-0.4); Lymphocytes Absolute Auto 1.6 X10*3/uL (1.2-4.9); Lymphocytes Percent Auto 20.8 % (20-40); Mean Corpuscular HGB Conc 32.9 g/dl (31.0-35.0); Mean Corpuscular Hemoglobin 30.5 pg (27.0-33.0); Mean Corpuscular Volume 92.6 fL (80.0-98.0); Monocytes Absolute Auto 1.3 X10*3/uL (0.1-1.2); Monocytes Percent Auto 16.4 % (2-11); Neutrophils Absolute Auto 4.4 x10*3/uL (2.0-8.3); Neutrophils Percent Auto 57.7 % (45-73); Red Blood Count 4.17 X10*6/uL (4.20-5.50); Red Cell Distribution Width 12.7 % (11.0-16.0); White Blood Count 7.6 X10*3/uL (4.8-10.8)
[2021-11-11 13:53] LABS: Platelet Count 76 X10*3/uL (160-400)
[2021-11-11 14:49] VITALS: BP 136/60; PULSE 87; O2SAT 96
[2021-11-11 16:00] VITALS: BP 129/50; PULSE 83; RESP 18; TEMP 36.8; O2SAT 98
--- NOTE | 2021-11-11 16:54 | PC.NURSE ---
PATIENT WAS ASSISTED WITH THE BEDPAN ,VOID LARGE AMOUNT OF URINE .CARE GIVEN .
[2021-11-11 18:00] VITALS: BP 140/53; PULSE 88; RESP 16; TEMP 36.6; O2SAT 98
--- NOTE | 2021-11-11 18:47 | PC.NURSE ---
pt resting comfortably in bed, reports 4/10 pain. pt ate dinner. awaiting transport to [facility]
--- NOTE | 2021-11-11 19:01 | PC.NURSE ---
IV removed, pt left via [facility].
== END 2021-11-11 19:14 | disposition skilled nursing facility (03) ==
PROVIDERS: Nurse Practitioner Family; Emergency Provider Emergency Medicine; PCP Internal Medicine
DX: S32.591A Other specified fracture of right pubis, initial encounter for closed fracture (principal); W01.0XXA Fall on same level from slipping, tripping and stumbling without subsequent striking against object, initial encounter; Z20.822 Contact with and (suspected) exposure to COVID-19; Y93.89 Activity, other specified; Y92.012 Bathroom of single-family (private) house as the place of occurrence of the external cause; Y99.9 Unspecified external cause status
CPT/HCPCS: 36415; 71046; 73502; 80048; 85025; 87635; 96374; 96375; 96376; 97162; 99284; 99285; J2270; J2405

== ENCOUNTER → 2021-11-30 11:17 | Outpatient (BNVA) | payer MEDICARE, SELFPAY | PROVIDERS: PCP Internal Medicine; Visit Provider Physician Assistant | DX: S32.591A Other specified fracture of right pubis, initial encounter for closed fracture (principal); W01.0XXA Fall on same level from slipping, tripping and stumbling without subsequent striking against object, initial encounter; Y93.89 Activity, other specified; Y92.002 Bathroom of unspecified non-institutional (private) residence as the place of occurrence of the external cause; Y99.8 Other external cause status | CPT/HCPCS: 99202 ==

== ENCOUNTER 2022-03-06 13:41 | Outpatient (REF) | payer MEDICARE, SELFPAY ==
--- NOTE | ~2022-03-06 | MM_ITS ---
EXAMINATION: MM SCREENING DIGITAL BREAST TOMOSYNTHESIS, BILATERAL CLINICAL INFORMATION: Screening. Asymptomatic. COMPARISON: Mammography: 02/07/2021, 12/24/2019, 12/18/2018 TECHNIQUE: Digital breast tomosynthesis is performed in both the craniocaudal and mediolateral oblique views along with computer-aided detection (CAD). Synthesized 2D images are generated from the tomosynthesis. FINDINGS: There are scattered areas of fibroglandular density (ACR BI-RADS breast composition Category b). There are no significant masses, abnormal calcifications, or other abnormalities. Parenchymal pattern is similar to prior studies. There is no developing density or architectural abnormality. The axilla and skin contours are unremarkable. No significant changes. MM/MM tomosynthesis screening BI IMPRESSION: No mammographic evidence of malignancy. ASSESSMENT: BI-RADS 1: Negative RECOMMENDATION: Routine annual mammography screening. This patient's information was entered into a reminder system with a target due date for their next mammogram.
== END 2022-03-06 13:42 | disposition home or self-care (01) ==
LOC: HO.MAMMO 13:41
PROVIDERS: PCP Internal Medicine; Visit Provider Internal Medicine Medical Oncology
DX: Z12.31 Encounter for screening mammogram for malignant neoplasm of breast (principal)
CPT/HCPCS: 77063; 77067

== ENCOUNTER 2022-03-20 09:45 | Outpatient (REF) | payer MEDICARE, SELFPAY ==
[2022-03-20 10:55] LABS: MANUAL DIFF FLAG NO
[2022-03-20 11:06] LABS: Basophils Percent Auto 0.2 % (0-2); Eosinophils Absolute Auto 0.2 X10*3/uL (0.0-0.4); Eosinophils Percent Auto 4.3 % (0-4); Hematocrit 43.7 % (37.0-47.0); Hemoglobin 13.7 g/dl (12.0-16.0); Imm Gran Abs Auto 0.04 X10*3/uL (0.00-0.03); Lymphocytes Percent Auto 47.5 % (20-40); Mean Corpuscular HGB Conc 31.4 g/dl (31.0-35.0); Mean Corpuscular Hemoglobin 30.1 pg (27.0-33.0); Mean Platelet Volume 10.5 fL (9.4-12.3); Monocytes Absolute Auto 0.2 X10*3/uL (0.1-1.2); Neutrophils Absolute Auto 1.8 x10*3/uL (2.0-8.3); Platelet Count 124 X10*3/uL (160-400); Red Blood Count 4.55 X10*6/uL (4.20-5.50); Red Cell Distribution Width 12.7 % (11.0-16.0); White Blood Count 4.2 X10*3/uL (4.8-10.8)
[2022-03-20 11:45] LABS: Alanine Aminotransferase 13 U/L (0-31); Albumin Level 3.9 g/dL (3.5-5.0); Alkaline Phosphatase 96 U/L (39-117); Anion Gap 11 (12-20); Aspartate Amino Transferase 23 U/L (5-31); Bilirubin Total 0.7 mg/dL (0.0-1.0); Blood Urea Nitrogen 17 mg/dL (9-16); Calcium 9.4 mg/dL (8.4-10.2); Carbon Dioxide 29 mmol/L (22-29); Chloride 106 mmol/L (96-108); Cholesterol 148 mg/dL; Estimated Glomerular Filt Rate > 60; Free T4 (Free Thyroxine) 1.05 ng/dL (0.71-1.85); Glucose Fasting 109 mg/dL (60-99); HDL Cholesterol 50 mg/dL; LDL Cholesterol Calculated 79 mg/dl; Potassium 3.9 mmol/L (3.3-5.1); Sodium 142 mmol/L (135-145); Thyroid Stimulating Hormone 4.44 uIU/mL (0.32-4.0); Total Protein 6.3 g/dL (6.5-8.0); Triglycerides 99 mg/dL; Vitamin D 25-OH Total 41.2 ng/mL (>30)
== END 2022-03-20 09:46 | disposition home or self-care (01) ==
LOC: HO.10HDL 09:45
PROVIDERS: Visit Provider Internal Medicine
DX: E78.00 Pure hypercholesterolemia, unspecified (principal); E03.9 Hypothyroidism, unspecified; I10 Essential (primary) hypertension; E55.9 Vitamin D deficiency, unspecified
CPT/HCPCS: 36415; 80053; 80061; 82306; 84439; 84443; 85025

== ENCOUNTER 2022-08-15 09:40 | Outpatient (REF) | payer MEDICARE, SELFPAY ==
[2022-08-15 11:07] LABS: Estimated Average Glucose 100 mg/dL; Hemoglobin A1c % 5.1 %
[2022-08-15 11:49] LABS: Anion Gap 12 (12-20); Blood Urea Nitrogen 13 mg/dL (9-16); Calcium 9.1 mg/dL (8.4-10.2); Carbon Dioxide 29 mmol/L (22-29); Chloride 106 mmol/L (96-108); Estimated Glomerular Filt Rate > 60; Glucose Random 113 mg/dL (60-115); Potassium 4.2 mmol/L (3.3-5.1); Sodium 143 mmol/L (135-145)
[2022-08-15 11:52] LABS: Free T4 (Free Thyroxine) 1.14 ng/dL (0.71-1.85); Thyroid Stimulating Hormone 2.67 uIU/mL (0.32-4.0)
== END 2022-08-15 09:41 | disposition home or self-care (01) ==
LOC: HO.10HDL 09:40
PROVIDERS: Visit Provider Internal Medicine
DX: E03.9 Hypothyroidism, unspecified (principal); R73.03 Prediabetes
CPT/HCPCS: 36415; 80048; 83036; 84439; 84443

== ENCOUNTER 2022-11-28 08:25 | Day surgery (SDC) | payer MEDICARE, SELFPAY ==
--- NOTE | 2022-11-27 10:13 | HO.ANESPROP2 ---
Documented by User: Kat Gentile NP 11/27/22 10:14 HPI - Anesthesia Eval Consult details Narrative: 82yo F [facility] Past Medical History Medical History Anxiety Arthritis Barretts esophagus GERD (gastroesophageal reflux disease) History of colon cancer History of right bundle branch block (RBBB) Hyperlipidemia Hypothyroidism PONV (postoperative nausea and vomiting) Surgical History Surgical History History of breast biopsy History of cataract extraction with lens replacement History of foot surgery History of hysterectomy History of partial colectomy History of thyroidectomy History of total right knee replacement (TKR) Hx of colonoscopy Hx of esophagogastroduodenoscopy Social History Social History Are you a primary summer child caregiver to a significant other at home: No Do you presently have visiting nurse or other home services: No Patient Tobacco Use Status: Former Tobacco user Quit Date: 1966 Tobacco use type: Cigarette Advance Directives: No Advance Directives Information Provided: Yes Advance Directives Date on File: 01/12/20 Meds Allergies Allergy/AdvReac Type Severity Reaction Status Date / Time adhesive tape [ADHESIVE TAPE] Allergy Intermediate ITCH, Rash Verified 11/11/21 09:08 cefazolin [From KEFZOL] Allergy Intermediate RASH Verified 11/11/21 09:08 clindamycin [From CLEOCIN] Allergy Intermediate RASH Verified 11/11/21 09:08 gentamicin [From GARAMYCIN] Allergy Intermediate RASH Verified 11/11/21 09:08 atropine Allergy Unknown localized Verified 11/11/21 09:08 eye rxn cephalexin Allergy Unknown Rash Verified 11/11/21 09:08 Doxycycline Monohydrate Allergy Unknown Rash Uncoded 11/11/21 09:08 Home Medications Medication Instructions Recorded Confirmed Last Taken Type alprazolam 0.25 mg tablet 1 tab PO BEDTIME PRN Anxiety 09/08/20 11/11/21 09/14/20 History atorvastatin 40 mg tablet 1 tab PO BEDTIME 09/08/20 11/11/21 Unknown History diphenhydramine 25 1 tab PO BEDTIME PRN Sleep 09/08/20 11/11/21 Unknown History mg-acetaminophen 500 mg tablet (Tylenol PM Extra Strength) levothyroxine 100 mcg tablet 1 tab PO DAILY 09/08/20 11/11/21 11/11/21 History lorazepam 0.5 mg tablet 1 tab PO DAILY PRN Anxiety 09/08/20 09/08/20 Unknown History omeprazole 20 mg capsule,delayed 20 mg PO DAILY 09/08/20 11/11/21 09/14/20 History release simethicone 80 mg chewable tablet 80 mg PO DAILY PRN GAS 09/08/20 11/11/21 Unknown History vit C 250 mg-vit E 90 mg-zinc 40 1 tab PO BID 09/08/20 11/11/21 Unknown History mg-copper 1 kv-lhieeq-jaqrdk capsule (PreserVision AREDS-2) cholecalciferol (vitamin D3) 10 10 mcg PO DAILY 11/11/21 11/11/21 Unknown History mcg (400 unit) capsule docusate sodium 100 mg capsule 100 mg PO DAILY 11/11/21 11/11/21 Unknown History gabapentin 100 mg capsule 1 cap PO Q4H PRN pain 11/11/21 11/11/21 Unknown History lgwrifwk-kxhe-fnqy 8 mg-folic 400 1 tab PO DAILY 11/11/21 11/11/21 Unknown History mcg-K 50 mcg-lutein 300 mcg tablet (Centrum Silver Women) valacyclovir 1 gram tablet 1 tab PO TID 11/11/21 11/11/21 11/11/21 History Exam Exam Date and Time: November 27, 2022 1013 Pertinent Lab Results Pertinent Lab Results: Laboratory Tests 08/15/22 09:50 Sodium 143 Potassium 4.2 Chloride 106 Carbon Dioxide 29 BUN 13 Creatinine 0.73 Assessment and Plan Assessment Anesthesia Assessment: Chart Reviewed Documented by User: Bonita Downs MD 11/28/22 09:44 PMFSH Past Medical History Medical History Anxiety Arthritis Barretts esophagus GERD (gastroesophageal reflux disease) History of colon cancer History of right bundle branch block (RBBB) Hyperlipidemia Hypothyroidism PONV (postoperative nausea and vomiting) Family History Family history of problems with anesthesia: No Surgical History Surgical History History of breast biopsy History of cataract extraction with lens replacement History of foot surgery History of hysterectomy History of partial colectomy History of thyroidectomy History of total right knee replacement (TKR) Hx of colonoscopy Hx of esophagogastroduodenoscopy History of Problems with Anesthesia: No Social History Social History Are you a primary summer child caregiver to a significant other at home: No Do you presently have visiting nurse or other home services: No Patient Tobacco Use Status: Former Tobacco user Quit Date: 1966 Tobacco use type: Cigarette Advance Directives: No Advance Directives Information Provided: Yes Advance Directives Date on File: 01/12/20 Meds Allergies Allergy/AdvReac Type Severity Reaction Status Date / Time adhesive tape [ADHESIVE TAPE] Allergy Intermediate ITCH, Rash Verified 11/11/21 09:08 cefazolin [From KEFZOL] Allergy Intermediate RASH Verified 11/11/21 09:08 clindamycin [From CLEOCIN] Allergy Intermediate RASH Verified 11/11/21 09:08 gentamicin [From GARAMYCIN] Allergy Intermediate RASH Verified 11/11/21 09:08 atropine Allergy Unknown localized Verified 11/11/21 09:08 eye rxn cephalexin Allergy Unknown Rash Verified 11/11/21 09:08 Doxycycline Monohydrate Allergy Unknown Rash Uncoded 11/11/21 09:08 Home Medications Medication Instructions Recorded Confirmed Last Taken Type alprazolam 0.25 mg tablet 1 tab PO BEDTIME PRN Anxiety 09/08/20 11/11/21 09/14/20 History atorvastatin 40 mg tablet 1 tab PO BEDTIME 09/08/20 11/11/21 Unknown History diphenhydramine 25 1 tab PO BEDTIME PRN Sleep 09/08/20 11/11/21 Unknown History mg-acetaminophen 500 mg tablet (Tylenol PM Extra Strength) levothyroxine 100 mcg tablet 1 tab PO DAILY 09/08/20 11/11/21 11/11/21 History lorazepam 0.5 mg tablet 1 tab PO DAILY PRN Anxiety 09/08/20 09/08/20 Unknown History omeprazole 20 mg capsule,delayed 20 mg PO DAILY 09/08/20 11/11/21 09/14/20 History release simethicone 80 mg chewable tablet 80 mg PO DAILY PRN GAS 09/08/20 11/11/21 Unknown History vit C 250 mg-vit E 90 mg-zinc 40 1 tab PO BID 09/08/20 11/11/21 Unknown History mg-copper 1 ev-pfkmkx-mkhspo capsule (PreserVision AREDS-2) cholecalciferol (vitamin D3) 10 10 mcg PO DAILY 11/11/21 11/11/21 Unknown History mcg (400 unit) capsule docusate sodium 100 mg capsule 100 mg PO DAILY 11/11/21 11/11/21 Unknown History gabapentin 100 mg capsule 1 cap PO Q4H PRN pain 11/11/21 11/11/21 Unknown History rofintpz-uyke-xhfb 8 mg-folic 400 1 tab PO DAILY 11/11/21 11/11/21 Unknown History mcg-K 50 mcg-lutein 300 mcg tablet (Centrum Silver Women) valacyclovir 1 gram tablet 1 tab PO TID 11/11/21 11/11/21 11/11/21 History Exam Airway Mallampati Class: II TM Dist: >3cm Neck ROM: Limited Heart: rrr Lungs: cta Assessment and Plan Assessment Anesthesia Assessment: Anesthesia Plan Discussed Final Anesthetic Review Family History of Problems with Anesthesia: No History of Problems with Anesthesia: No ASA Class: III Final Preanesthetic Review: No Changes in Pt Med Stat, Meds/Allgs Chart Reviewed, Consent Obtained/Reviewed and Anes Risks/Benef Reviewed Patient Risk: Low Procedure Risk: Low Anesthetic Plan Anesthetic Plan: MAC: Disposition: Standard PACU
--- OUTSIDE RECORDS SUMMARY | 2022-11-28 08:27 | XMS_ITS ---
Author Name Grayson Paredes Address [address] [place] [address] Organization Grayson Paredes III, MD Address [address] [place] [address] Care Team Providers Care Food And Beverage Lead Name Role Phone Grayson Paredes [facility] [phone] PROBLEMS Type Condition ICD9-CM Code RZO07-BR Code Onset Dates Condition Status SNOMED Code Problem GERD (gastroesophageal reflux disease) K21.9 Active 269635279 Problem Dyslipidemia E78.5 Active 229444427 Problem Hypothyroidism E03.9 Active 37550366 Problem Former smoker Z87.891 Active 8052500 Problem Internal hemorrhoids K64.8 Active 90179973 Problem Overweight (BMI 25.0-29.9) E66.3 Active 108792583 Problem Constipation K59.00 Active 38963987 Problem Hypokalemia E87.6 Active 08799926 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 38887720 Problem Ischemic colitis K55.9 Active 5930736 4 Problem Adenocarcinoma of colon C18.9 Active 588086605 ALLERGIES Substance Reaction Event Type Date Status Doxycycline Unknown Drug Allergy Apr, Active Cefazolin Sodium-Dextrose Unknown Drug Allergy Apr, Active Atropine Sulfate Unknown Drug Allergy Apr, Acti ve Surgical tape Unknown Non Drug Allergy Apr, Act kellen Cephalexin Unknown Drug Allergy Apr, Active Cleocin Unknown Drug Allergy Apr, Active ENCOUNTERS Encounter Location Date Diagnosis Grayson Paredes III, MD [address] [place] [address] [place] [address] Apr, Adenocarcinoma of colon C18.9 ; Former smoker Z87.891 ; GERD (gastroesophageal reflux disease) K21.9 ; Dyslipidemia E78.5 and Hypothyroidism E03.9 Grayson Paredes III, MD [address] [place] [address] [place] [address] 19 Jan, 2022 Encounter for screening mammogram for malignant neoplasm of breast Z12.31 ; Adenocarcinoma of colon C18.9 ; Former smoker Z87.891 and GERD (gastroesophageal reflux disease) K21.9 Grayson Paredes III, MD [address] [place] [address] [place] [address] 18 Jan, 2021 Adenocarcinoma of colon C18.9 ; Hypothyroidism E03.9 ; Dyslipidemia E78.5 ; GERD (gastroesophageal reflux disease) K21.9 ; Former smoker Z87.891 and Overweight (BMI 25.0-29.9) E66.3 Grayson Paredes III, MD [address] [place] [address] [place] [address] 16 Jul, 2020 Adenocarcinoma of colon C18.9 ; Hypothyroidism E03.9 ; Dyslipidemia E78.5 ; GERD (gastroesophageal reflux disease) K21.9 ; Former smoker Z87.891 and Overweight (BMI 25.0-29.9) E66.3 Grayson Paredes III, MD [address] [place] [address] [place] [address] 16 Jan, 2020 Adenocarcinoma of colon C18.9 ; Hypothyroidism E03.9 ; Dyslipidemia E78.5 ; GERD (gastroesophageal reflux disease) K21.9 ; Former smoker Z87.891 and Overweight (BMI 25.0-29.9) E66.3 Grayson Paredes III, MD [address] [place] [address] [place] [address] 15 Jul, 2019 Adenocarcinoma of colon C18.9 ; Overweight (BMI 25.0-29.9) E66.3 ; Hypothyroidism E03.9 ; GERD (gastroesophageal reflux disease) K21.9 ; Dyslipidemia E78.5 ; Constipation K59.00 and Former smoker Z87.891 Grayson Paredes III, MD [address] [place] [address] [place] [address] 16 Jan, 2019 Adenocarcinoma of colon C18.9 ; Hypothyroidism E03.9 ; Dyslipidemia E78.5 ; GERD (gastroesophageal reflux disease) K21.9 ; Constipation K59.00 ; Former smoker Z87.891 and Overweight (BMI 25.0-29.9) E66.3 Grayson Paredes III, MD [address] [place] [address] [place] [address] Jul, Adenocarcinoma of colon C18.9 ; Hypothyroidism E03.9 ; GERD (gastroesophageal reflux disease) K21.9 ; Former smoker Z87.891 and Overweight (BMI 25.0-29.9) E66.3 Grayson Paredes III, MD [address] [place] [address] [place] [address] Mar, Adenocarcinoma of colon C18.9 ; GERD (gastroesophageal reflux disease) K21.9 ; Dyslipidemia E78.5 ; Hypothyroidism E03.9 ; Former smoker Z87.891 and Overweight (BMI 25.0-29.9) E66.3 Grayson Paredes III, MD [address] [place] [address] [place] [address] Nov, Adenocarcinoma of colon C18.9 ; Hypothyroidism E03.9 ; Dyslipidemia E78.5 ; GERD (gastroesophageal reflux disease) K21.9 ; Former smoker Z87.891 and Overweight (BMI 25.0-29.9) E66.3 Grayson Paredes III, MD [address] [place] [address] [place] [address] Jul, Adenocarcinoma of colon C18.9 ; Hypothyroidism E03.9 ; Dyslipidemia E78.5 ; GERD (gastroesophageal reflux disease) K21.9 ; Former smoker Z87.891 and Overweight (BMI 25.0-29.9) E66.3 Grayson Paredes III, MD [address] [place] [address] [place] [address] Apr, Adenocarcinoma of colon C18.9 ; Former smoker Z87.891 and Overweight (BMI 25.0-29.9) E66.3 Grayson Paredes III, MD [address] [place] [address] [place] [address] Jan, Adenocarcinoma of colon C18.9 and Former smoker Z87.891 Grayson Paredes III, MD [address] [place] [address] [place] [address] Oct, Adenocarcinoma of colon C18.9 and Former smoker Z87.891 Grayson Paredes III, MD [address] [place] [address] [place] [address] Jul, Adenocarcinoma of colon C18.9 ; Ischemic colitis K55.9 ; Hypothyroidism E03.9 ; Former smoker Z87.891 and Pain, unspecified R52 Grayson Paredes III, MD [address] [place] [address] [place] [address] Jun, Adenocarcinoma of colon C18.9 and Former smoker Z87.891 Grayson Paredes III, MD [address] [place] [address] [place] [address] Jun, IMMUNIZATIONS No Known Immunizations SOCIAL HISTORY Qualifiers Date Former Smoker REASON FOR REFERRAL FUNCTIONAL STATUS PLAN OF CARE Activity Details VITAL SIGNS Height 64 in 2022-04-25 Height 64 in 2022-01-24 Height 64 in 2021-01-23 Height 64 in 2020-07-22 Height 64 in 2020-01-22 Height 64 in 2019-07-22 Height 64 in 2019-01-21 Height 64 in 2018-07-22 Height 64 in 2018-03-17 Height 64 in 2017-11-11 Height 64 in 2017-07-30 Height 64 in 2017-05-01 Height 64 in 2017-01-23 Height 64 in 2016-10-23 Height 64 in 2016-07-24 Height 64 in 2016-06-26 Weight 142 lbs 2022-04-25 Weight 136 lbs 2022-01-24 Weight 153 lbs 2021-01-23 Weight 156 lbs 2020-07-22 Weight 154 lbs 2020-01-22 Weight 150 lbs 2019-07-22 Weight 153 lbs 2019-01-21 Weight 148 lbs 2018-07-22 Weight 150 lbs 2018-03-17 Weight 149 lbs 2017-11-11 Weight 147 lbs 2017-07-30 Weight 146 lbs 2017-05-01 Weight 140 lbs 2017-01-23 Weight 135 lbs 2016-10-23 Weight 136 lbs 2016-07-24 Weight 138 lbs 2016-06-26 BMI 24.37 kg/m2 2022-04-25 BMI 23.34 kg/m2 2022-01-24 BMI 26.26 kg/m2 2021-01-23 BMI 26.77 kg/m2 2020-07-22 BMI 26.43 kg/m2 2020-01-22 BMI 25.74 kg/m2 2019-07-22 BMI 26.26 kg/m2 2019-01-21 BMI 25.40 kg/m2 2018-07-22 BMI 25.74 kg/m2 2018-03-17 BMI 25.57 kg/m2 2017-11-11 BMI 25.23 kg/m2 2017-07-30 BMI 25.06 kg/m2 2017-05-01 BMI 24.03 kg/m2 2017-01-23 BMI 23.17 kg/m2 2016-10-23 BMI 23.34 kg/m2 2016-07-24 BMI 23.69 kg/m2 2016-06-26 Heart Rate 77 /min 2022-04-25 Heart Rate 92 /min 2021-01-23 Heart Rate 86 /min 2020-07-22 Heart Rate 76 /min 2020-01-22 Heart Rate 88 /min 2019-01-21 Heart Rate 75 /min 2018-07-22 Heart Rate 86 /min 2018-03-17 Heart Rate 78 /min 2017-11-11 Heart Rate 88 /min 2017-07-30 Heart Rate 80 /min 2017-05-01 Heart Rate 87 /min 2017-01-23 Heart Rate 79 /min 2016-10-23 Heart Rate 88 /min 2016-07-24 Heart Rate 83 /min 2016-06-26 Temperature 97.0 degrees Fahrenheit Temperature 96.4 degrees Fahrenheit Temperature 97.0 degrees Fahrenheit Temperature 95.7 degrees Fahrenheit Oximetry 93 % 2017-11-11 Blood pressure systolic 114 mm Hg Blood pressure diastolic 60 mm Hg 2022-04 MEDICATIONS Medication Instructions Dosage Frequency Start Date End Date Duration Status ALPRAZolam 0.25 MG Orally Twice a day 1 tablet 12h Active Probiotic - as directed Active Atorvastatin Calcium 40 MG Orally Once a day 1 tablet 24h Active Levothyroxine Sodium 100 MCG Orally Saturday and Saturday 1 tablet on an empty stomach in the morning Active Tylenol 325 MG Orally every 6 hrs 2 tablets as needed 6h Active Gas Relief 80 MG Orally Four times a day 1 tablet after meals and at bedtime as needed 6h Active Centrum Silver Ultra Womens - Activ e Omeprazole Magnesium 20 MG Orally Once a day 1 tablet 30 minutes before morning meal 24h Active LORazepam 0.5 MG (Schedule IV Drug) TAKE 1 TABLET AT BEDTIME NEEDED Active Vitamin D3 25 MCG (1000 UT) Orally Once a day 1 tablet 24h Active PROCEDURES Procedure Date Ordered Result Body Site MEASURE BLOOD OXYGEN LEVEL Nov 11, 2017 PHONE E/M BY PHYS 11-20 MIN July 22, 2019 RESULTS Name Result Date Reference Range MM tomosynthesis screening BI 2022-03-06 PROFILE, FASTING (COMPREHENSIVE METABOLIC) 2019-07-14 NA 143 135-145 K 4.0 3.3-5.1 CL 101 96-108 CO2 29 22-29 ANION GAP 17 12-20 FASTING BLOOD SUGAR 123 60-99 BUN 15 9-16 CREATININE 0.79 0.5-1.4 ESTIMATED GFR >60 PROTEIN, TOTAL 6.5 6.5-8.0 ALBUMIN 4.1 3.5-5.0 BILIRUBIN, TOTAL 0.5 0.0-1.0 CALCIUM 9.1 8.4-10.2 ALK. PHOS. 62 39-117 GOT 24 5-31 GPT 18 0-31 LIPID PANEL 2019-07-14 CHOLESTEROL 151 TRIGLYCERIDE 110 HDL 51 LDL CALCULATED 78 FREE T4 (FT4) 2019-07-14 FREE T4 1.28 0.71-1.85 TSH (THYROID STIMULATING HORMONE) 2019-07 TSH 3.76 0.32-4.0 CEA 2019-07-14 CEA 2.00 CBC w DIFF 2019-07-14 WBC 7.2 4.8-10.8 ABSOLUTE NEUTROPHIL COUNT 3.0 2. 2-7.9 RBC 4.50 4.20-5.50 HEMOGLOBIN 14.7 12.0-16.0 HEMATOCRIT 42.4 37-47 MCV 94.3 80-98 MCH 32.7 27.0-33.0 MCHC 34.6 31.0-35.0 PLATELET COUNT 222 160-400 RDW 11.7 11.0-16.0 NEUTROPHILS 41.0 45-73 LYMPHOCYTES 43.1 20-40 MONOCYTES 5.1 2-11 EOSINOPHILS 9.7 0-4 BASOPHILS 1.2 0-2 VITAMIN D 25-OH TOTAL 2019-07-14 VITAMIN D 25-OH TOTAL 34.5 >30 URINALYSIS + MICROSCOPIC 2019-01-13 COLOR YELLOW APPEARANCE,(UA) CLEAR SPECIFIC GRAVITY 1.010 1.005-1.025 LEUKOCYTES TRACE NEG NITRITE NEG NEG PROTEIN,QUALITATIVE NEG NEG - TR GONZALES PH 6.5 5.0-8.0 URINE BLOOD NEG NEG KETONES NEG NEG GLUCOSE NEG NEG MICROSCOPIC WBC 1-4 0-4 MICROSCOPIC RBC 0 0 EPITHELIAL CELLS 1+ BACTERIA NONE RENAL EPITHELIAL CELLS TRACE MUCUS 2+ CRYSTALS URATE AMORPH 1+ PROFILE, RANDOM (COMPREHENSIVE METABOLIC) 2019-01-13 NA 142 135-145 K 4.7 3.3-5.1 CL 104 96-108 CO2 31 22-29 ANION GAP 12 12-20 GLUCOSE,RANDOM 109 60-115 BUN 16 9-16 CREATININE 0.78 0.5-1.4 ESTIMATED GFR >60 PROTEIN, TOTAL 6.5 6.5-8.0 ALBUMIN 4.1 3.5-5.0 BILIRUBIN, TOTAL 0.7 0.0-1.0 CALCIUM 9.4 8.4-10.2 ALK. PHOS. 65 39-117 GOT 22 5-31 GPT 17 0-31 LIPID PANEL 2019-01-13 CHOLESTEROL 168 TRIGLYCERIDE 108 HDL 54 LDL CALCULATED 93 FREE T4 (FT4) 2019-01-13 FREE T4 1.15 0.71-1.85 TSH (THYROID STIMULATING HORMONE) 2019-01 TSH 3.44 0.32-4.0 CEA 2019-01-13 CEA 1.80 CBC w DIFF 2019-01-13 WBC 7.3 4.8-10.8 ABSOLUTE NEUTROPHIL COUNT 3.7 2. 2-7.9 RBC 4.82 4.20-5.50 HEMOGLOBIN 15.3 12.0-16.0 HEMATOCRIT 44.9 37-47 MCV 93.2 80-98 MCH 31.7 27.0-33.0 MCHC 34.0 31.0-35.0 PLATELET COUNT 189 160-400 RDW 11.1 11.0-16.0 NEUTROPHILS 51.1 45-73 LYMPHOCYTES 33.8 20-40 MONOCYTES 5.8 2-11 EOSINOPHILS 7.9 0-4 BASOPHILS 1.4 0-2 PROFILE, RANDOM (COMPREHENSIVE METABOLIC) 2018-07-15 NA 142 135-145 K 4.2 3.3-5.1 CL 104 96-108 CO2 30 22-29 ANION GAP 12 12-20 GLUCOSE,RANDOM 115 60-115 BUN 15 9-16 CREATININE 0.81 0.5-1.4 ESTIMATED GFR >60 PROTEIN, TOTAL 6.3 6.5-8.0 ALBUMIN 4.0 3.5-5.0 BILIRUBIN, TOTAL 0.5 0.0-1.0 CALCIUM 9.4 8.4-10.2 ALK. PHOS. 55 39-117 GOT 20 5-31 GPT 15 0-31 CEA 2018-07-15 CEA 1.90 CBC w DIFF 2018-07-15 WBC 6.4 4.8-10.8 ABSOLUTE NEUTROPHIL COUNT 3.3 2. 2-7.9 RBC 4.64 4.20-5.50 HEMOGLOBIN 14.7 12.0-16.0 HEMATOCRIT 42.4 37-47 MCV 91.3 80-98 MCH 31.7 27.0-33.0 MCHC 34.7 31.0-35.0 PLATELET COUNT 173 160-400 RDW 11.0 11.0-16.0 NEUTROPHILS 51.1 45-73 LYMPHOCYTES 31.8 20-40 MONOCYTES 5.5 2-11 EOSINOPHILS 10.1 0-4 BASOPHILS 1.5 0-2 PROFILE, RANDOM (COMPREHENSIVE METABOLIC) 2018-03-07 NA 140 135-145 K 3.9 3.3-5.1 CL 103 96-108 CO2 31 22-29 ANION GAP 10 12-20 GLUCOSE,RANDOM 66 60-115 BUN 20 9-16 CREATININE 0.76 0.5-1.4 ESTIMATED GFR >60 PROTEIN, TOTAL 6.6 6.5-8.0 ALBUMIN 4.1 3.5-5.0 BILIRUBIN, TOTAL 0.7 0.0-1.0 CALCIUM 9.4 8.4-10.2 ALK. PHOS. 55 39-117 GOT 19 5-31 GPT 16 0-31 CEA 2018-03-07 CEA 2.00 CBC w DIFF 2018-03-07 WBC 6.8 4.8-10.8 ABSOLUTE NEUTROPHIL COUNT 3.1 2. 2-7.9 RBC 4.59 4.20-5.50 HEMOGLOBIN 14.9 12.0-16.0 HEMATOCRIT 43.5 37-47 MCV 94.6 80-98 MCH 32.4 27.0-33.0 MCHC 34.2 31.0-35.0 PLATELET COUNT 188 160-400 RDW 11.1 11.0-16.0 NEUTROPHILS 45.9 45-73 LYMPHOCYTES 35.5 20-40 MONOCYTES 7.3 2-11 EOSINOPHILS 9.8 0-4 BASOPHILS 1.4 0-2 SED RATE (ESR) 2018-03-07 SED RATE 6 0-20 PROFILE, RANDOM (COMPREHENSIVE METABOLIC) 2017-11-04 NA 141 135-145 K 4.2 3.3-5.1 CL 104 96-108 CO2 28 22-29 ANION GAP 13 12-20 GLUCOSE,RANDOM 80 60-115 BUN 17 9-16 CREATININE 0.78 0.5-1.4 ESTIMATED GFR >60 PROTEIN, TOTAL 6.6 6.5-8.0 ALBUMIN 4.2 3.5-5.0 BILIRUBIN, TOTAL 0.5 0.0-1.0 CALCIUM 9.3 8.4-10.2 ALK. PHOS. 56 39-117 GOT 24 5-31 GPT 19 0-31 CEA 2017-11-04 CEA 1.70 CBC w DIFF 2017-11-04 WBC 7.1 4.8-10.8 ABSOLUTE NEUTROPHIL COUNT 3.6 2. 2-7.9 RBC 4.70 4.20-5.50 HEMOGLOBIN 14.9 12.0-16.0 HEMATOCRIT 43.1 37-47 MCV 91.6 80-98 MCH 31.6 27.0-33.0 MCHC 34.5 31.0-35.0 PLATELET COUNT 183 160-400 RDW 11.0 11.0-16.0 NEUTROPHILS 50.7 45-73 LYMPHOCYTES 31.8 20-40 MONOCYTES 7.9 2-11 EOSINOPHILS 8.2 0-4 BASOPHILS 1.4 0-2 PROFILE, RANDOM (COMPREHENSIVE METABOLIC) 2017-07-19 NA 142 135-145 K 4.3 3.3-5.1 CL 104 96-108 CO2 30 22-29 ANION GAP 12 12-20 GLUCOSE,RANDOM 77 60-115 BUN 18 9-16 CREATININE 0.78 0.5-1.4 ESTIMATED GFR >60 PROTEIN, TOTAL 6.8 6.5-8.0 ALBUMIN 4.1 3.5-5.0 BILIRUBIN, TOTAL 0.6 0.0-1.0 CALCIUM 9.3 8.4-10.2 ALK. PHOS. 52 39-117 GOT 21 5-31 GPT 14 0-31 CEA 2017-07-19 CEA 1.70 CBC w DIFF 2017-07-19 WBC 7.4 4.8-10.8 ABSOLUTE NEUTROPHIL COUNT 3.7 2. 2-7.9 RBC 4.77 4.20-5.50 HEMOGLOBIN 14.8 12.0-16.0 HEMATOCRIT 43.0 37-47 MCV 90.1 80-98 MCH 30.9 27.0-33.0 MCHC 34.3 31.0-35.0 PLATELET COUNT 199 160-400 RDW 11.5 11.0-16.0 NEUTROPHILS 50.1 45-73 LYMPHOCYTES 33.4 20-40 MONOCYTES 6.5 2-11 EOSINOPHILS 8.6 0-4 BASOPHILS 1.5 0-2 PROFILE, RANDOM (COMPREHENSIVE METABOLIC) 2017-04-23 NA 143 135-145 K 4.0 3.3-5.1 CL 105 96-108 CO2 30 22-29 ANION GAP 12 12-20 GLUCOSE,RANDOM 140 60-115 BUN 24 9-16 CREATININE 0.80 0.5-1.4 ESTIMATED GFR >60 PROTEIN, TOTAL 6.4 6.5-8.0 ALBUMIN 3.8 3.5-5.0 BILIRUBIN, TOTAL 0.6 0.0-1.0 CALCIUM 9.0 8.4-10.2 ALK. PHOS. 52 39-117 GOT 19 5-31 GPT 15 0-31 CEA 2017-04-23 CEA 1.70 CBC w DIFF 2017-04-23 WBC 7.2 4.8-10.8 ABSOLUTE NEUTROPHIL COUNT 3.9 2. 2-7.9 RBC 4.51 4.20-5.50 HEMOGLOBIN 14.1 12.0-16.0 HEMATOCRIT 40.9 37-47 MCV 90.8 80-98 MCH 31.4 27.0-33.0 MCHC 34.6 31.0-35.0 PLATELET COUNT 200 160-400 RDW 11.9 11.0-16.0 NEUTROPHILS 53.6 45-73 LYMPHOCYTES 30.0 20-40 MONOCYTES 4.2 2-11 EOSINOPHILS 11.0 0-4 BASOPHILS 1.2 0-2 PROFILE, RANDOM (COMPREHENSIVE METABOLIC) 2016-10-16 NA 140 135-145 K 4.8 3.3-5.1 CL 102 96-108 CO2 31 22-29 ANION GAP 12 12-20 GLUCOSE,RANDOM 93 60-115 BUN 12 9-16 CREATININE 0.79 0.5-1.4 ESTIMATED GFR >60 PROTEIN, TOTAL 7.0 6.5-8.0 ALBUMIN 3.7 3.5-5.0 BILIRUBIN, TOTAL 0.3 0.0-1.0 CALCIUM 9.4 8.4-10.2 ALK. PHOS. 126 39-117 GOT 24 5-31 GPT 31 0-31 CEA 2016-10-16 CEA 1.50 CBC w DIFF 2016-10-16 WBC 14.4 4.8-10.8 ABSOLUTE NEUTROPHIL COUNT 10.5 2. 2-7.9 RBC 4.74 4.20-5.50 HEMOGLOBIN 13.8 12.0-16.0 HEMATOCRIT 41.5 37-47 MCV 87.4 80-98 MCH 29.2 27.0-33.0 MCHC 33.4 31.0-35.0 PLATELET COUNT 409 160-400 RDW 14.4 11.0-16.0 NEUTROPHILS 73.3 45-73 LYMPHOCYTES 17.0 20-40 MONOCYTES 5.9 2-11 EOSINOPHILS 3.0 0-4 BASOPHILS 0.8 0-2 SCREENING COLONOSCOPY REASON FOR VISIT follow up, History of colon cancer, Hypothyroid, Hyperlipidemia, GERD, History of ischemic colitis,History of colon cancer, Hypothyroid, Dyslipidemia, GERD, Hypothyroid, Adenocarcinoma of colon, Esophageal reflux, colon cancer, GERD, hypothyroidism, overweight, hyperlipidemia, colon cancer, hypothyroidism, hyperlipidemia, GERD, overweight, colon cancer, hypothyroid, dyslipidemia, GERD, colon cancer, colon cancer, colon cancer, colon cancer, colon cancer, colon cancer, colon cancer, colon cancer, colon cancer, colon cancer, recent hematochezia, colon cancer, rescheduled appt for tomorrow Insurance Providers Health Insurance Type Health Plan Insurance Address Health Plan Insurance Phone Health Plan Insurance Name Health Plan Coverage Dates Member ID Patient Relationship to Subscriber Patient Address Patient Phone Patient Name Patient Date of Subscriber ID Subscriber Name Subscriber Date of Group No [employer] [address] [facility] [id number] [facility] SH[facility] self Radha Catalucc i [id number] MEDICARE NGS [address] [place] [address] MEDICARE N[place] self Radha Catalucc i [id number]
--- OUTSIDE RECORDS SUMMARY | 2022-11-28 08:27 | XMS_ITS ---
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 Active 159894601 Problem Left lower quadrant pain R10.32 Active 567583200 Problem Diverticulosis of sigmoid colon K57.30 Active 398958131 Problem Personal history of colon cancer Z85.038 Active Problem Abdominal gas pain R14.1 Active 26163 2001 Problem Gastroesophageal reflux disease without esophagitis K21.9 Active 64091648 5 Problem Encounter for screening for malignant neoplasm of colon Z12.11 Active 644014224 ALLERGIES Substance Reaction Event Type Date Status Zocor Unknown Drug Allergy Sep, Active Atropine Sulfate Unknown Drug Allergy Sep, Acti ve Adhesive Tape Unknown Drug Allergy Sep, Active Garamycin Unknown Drug Allergy Sep, Active Cephalexin Unknown Drug Allergy Sep, Active Cleocin Unknown Drug Allergy Sep, Active Keflex Unknown Drug Allergy Sep, Active Doxycycline Unknown Drug Allergy Sep, Active ENCOUNTERS Encounter Location Date Diagnosis [facility] Outpatient [address], [place] [id number] Nov, [facility] [address] [place] [address] Sep, History of colon cancer Z85.038 ; Gastroesophageal reflux disease without esophagitis K21.9 ; History of adenomatous polyp of colon Z86.010 and Encounter for screening for malignant neoplasm of colon Z12.11 [facility] [address] [place] [address] Nov, [facility] Outpatient [address], [place] [id number] Sep, 2020 History of colon cancer Z85.038 ; History of adenomatous polyp of colon Z86.010 ; Rectal polyp K62.1 ; Diverticulosis of sigmoid colon K57.30 ; Internal hemorrhoid K64.8 ; External hemorrhoids K64.4 and 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 [facility] [address] [place] [address] August, Abdominal gas pain R14.1 ; Personal history of colon cancer Z85.038 ; History of adenomatous polyp of colon Z86.010 ; Preprocedural examination Z01.818 ; Encounter for screening for malignant neoplasm of colon Z12.11 and Gastroesophageal reflux disease without esophagitis K21.9 [facility] [address] [place] [address] August, [facility] Outpatient [address], [place] [id number] Jul, [facility] [address] [place] [address] Mar, Personal history of colon cancer Z85.038 ; History of adenomatous polyp of colon Z86.010 and Preprocedural examination Z01.818 [facility] Outpatient [address], [place] [id number] Jul, [facility] [address] [place] [address] Jun, Left lower quadrant pain R10.32 ; History of colon cancer Z85.038 and Encounter for screening for malignant neoplasm of colon Z12.11 [facility] [address] [place] [phone] Mar, [facility] [address] [place] [address] Jun, [facility] [address] [place] [address] Jun, [facility] Inpatient [address] [facility] [place] [id number] Jun, [facility] [address] [place] [address] Mar, [facility] [address] [facility] [place] [id number] Dec, [facility] [address] [place] [address] Nov, [facility] [address] [place] [address] Nov, GERD (gastroesophageal reflux disease) 530.81 ; Brito's esophagus 530.85 and Colon cancer screening V76.51 [facility] Outpatient [address], [place] [id number] Sep, [facility] ER [address], [place] [id number] Mar, [facility] Outpatient [address], [place] [id number] Jul, [facility] Outpatient [address], [place] [id number] Mar, IMMUNIZATIONS Vaccine Route Administration Date Status Influenza Unknown Jan 23, 2022 Administered Influenza Unknown Jan 20, 2020 Administered Influenza Unknown Dec 10, 2017 Administered Influenza Unknown Dec 07, 2016 Administered SOCIAL HISTORY Never Assessed REASON FOR REFERRAL FUNCTIONAL STATUS PLAN OF CARE Activity Details VITAL SIGNS Weight 143.0 lbs 2022-09-12 Weight 156 lbs 2020-08-10 Weight 152 lbs 2018-03-19 Weight 145 lbs 2017-06-27 Weight 182 lbs 2011-12-07 Height 64 in 2022-09-12 Height 64 in 2020-08-10 Height 64 in 2018-03-19 Height 64 in 2017-06-27 Height 64 in 2011-12-07 BMI 24.54 kg/m2 2022-09-12 BMI 26.77 kg/m2 2020-08-10 BMI 26.09 kg/m2 2018-03-19 BMI 24.89 kg/m2 2017-06-27 BMI 31.24 kg/m2 2011-12-07 Heart Rate 68 /min 2017-06-27 Heart Rate 84 /min 2011-12-07 Temperature 96.9 degrees Fahrenheit Temperature 98.0 degrees Fahrenheit Blood pressure systolic 000 mm Hg Blood pressure diastolic 00 mm Hg 2022-09 MEDICATIONS Medication Instructions Dosage Frequency Start Date End Date Duration Status Omeprazole 20 MG Orally QD 1 capsule 24h Active Probiotic - as directed Active Atorvastatin Calcium 40 MG Orally Once a day 1 tablet 24h Active Levothyroxine Sodium 100mcg Orally Saturday and Saturday 1 capsule Active Vitamin D-3 125 MCG (5000 UT) as directed Acti ve Tylenol PM Extra Strength 500-25 MG Orally Once a day 1 tablet at bedtime as needed 24h Active Gas-X 80 MG Orally prn 1 tablet after meals and at bedtime as needed Active Multi Vitamin/Minerals - Orally QD 1 24h Active Tylenol Extra Strength 500 MG Orally as needed 1 tablet as needed Active Stool Softener 100 MG Orally Once a day/prn 2 capsule as needed Active ALPRAZolam 0.25 MG Orally Twice a day prn anxiety 1 tablet Active LORazepam 0.5 MG Orally prn insomnia 1 tablet as needed Active PreserVision AREDS 2 Active Vitamin B Complex - as directed Active PROCEDURES Procedure Date Ordered Result Body Site LESION REMOVAL COLONOSCOPY September 14, 2020 HOSP SUB DAY-LOW CPLX Jun 05, 2016 BP SCR PRFRM RCMDD DEFIND SCR INTVL August 10, 2020 INIT HOSP-HI CPLX Jun 04, 2016 HOSP SUB DAY-LOW CPLX Jun 05, 2016 TOBACCO NON-USER August 10, 2020 BMI<30 AND >=22 CALC & DOCU June 27, 2017 INTRVL 3+YRS PTS CLNSCP DOCD September 14, 2020 INIT HOSP-HI CPLX Jun 04, 2016 PRES/ABSN URINE INCON ASSESS June 27, 2017 BP SCR PRFRM RCMDD DEFIND SCR INTVL June 27, 2017 Use for Medicare: COLOR[place] CANCR SCR;COLNSCPY BA ENEMA June 06, 2016 DOC MEDS VERIFIED W/PT OR RE September 12, 2022 TOBACCO NON-USER June 27, 2017 PRECOLON VISIT MEDICARE MEDICAID GIC Mar 19, 2018 PRES/ABSN URINE INCON ASSESS August 10, 2020 DOC MEDS VERIFIED W/PT OR RE June 27, 2017 BP SCR NOT PRFRM REC REASON NOS September 12, 2022 DOC MEDS VERIFIED W/PT OR RE August 10, 2020 FLU IMMUNIZE ORDER/ADMIN June 27, 2017 TOBACCO NON-USER September 12, 2022 RESULTS Name Result Date Reference Range Pathology 2020-09-14 GI BIOPSY 2018-07-30 G.I. BIOPSY GI BIOPSY 2017-07-24 G.I. BIOPSY CEA 2016-06-07 CEA 1.60 GI BIOPSY 2016-06-06 G.I. BIOPSY BASIC METABOLIC PROFILE FAST 2016-06-06 NA 141 135-145 K 3.1 3.3-5.1 CL 105 96-108 CO2 27 22-29 ANION GAP 12 12-20 FASTING BLOOD SUGAR 80 60-99 BUN 9 9-16 CREATININE 0.62 0.5-1.4 ESTIMATED GFR >60 ESTIMATED CrCl 64.5 CALCIUM 8.1 8.4-10.2 CBC w DIFF 2016-06-06 WBC 8.7 4.8-10.8 ABSOLUTE NEUTROPHIL COUNT 5.1 2. 2-7.9 RBC 3.81 4.20-5.50 HEMOGLOBIN 11.1 12.0-16.0 HEMATOCRIT 33.2 37-47 MCV 87.1 80-98 MCH 29.0 27.0-33.0 MCHC 33.4 31.0-35.0 PLATELET COUNT 198 160-400 RDW 11.8 11.0-16.0 NEUTROPHILS 58.0 45-73 LYMPHOCYTES 25.8 20-40 MONOCYTES 8.4 2-11 EOSINOPHILS 6.9 0-4 BASOPHILS 1.0 0-2 BASIC METABOLIC PROFILE FAST 2016-06-05 NA 140 135-145 K 3.4 3.3-5.1 CL 105 96-108 CO2 30 22-29 ANION GAP 8 12-20 FASTING BLOOD SUGAR 91 60-99 BUN 7 9-16 CREATININE 0.66 0.5-1.4 ESTIMATED GFR >60 ESTIMATED CrCl 60.6 CALCIUM 8.3 8.4-10.2 LIVER PROFILE 2016-06-05 PROTEIN, TOTAL 5.0 6.5-8.0 ALBUMIN 3.1 3.5-5.0 BILIRUBIN, TOTAL 0.5 0.0-1.0 BILIRUBIN, DIRECT 0.2 0.0-0.5 ALK. PHOS. 54 39-117 GOT 20 5-31 GPT 9 0-31 AMYLASE 2016-06-05 AMYLASE 36 28-100 LIPASE 2016-06-05 LIPASE 4 8-78 CRP 2016-06-05 CRP 0.70 < OR = 0.50 CBC with MANUAL DIFFERENTIAL 2016-06-05 WBC 9.8 4.8-10.8 ABSOLUTE NEUTROPHIL COUNT 5.7 2. 2-7.9 RBC 4.01 4.20-5.50 HEMOGLOBIN 11.4 12.0-16.0 HEMATOCRIT 35.3 37-47 MCV 87.9 80-98 MCH 28.4 27.0-33.0 MCHC 32.3 31.0-35.0 PLATELET COUNT 197 160-400 RDW 12.2 11.0-16.0 SEGS 59 45-73 BANDS 3 3-5 LYMPHOCYTES 24 20-40 MONOCYTES 7 2-11 EOSINOPHILS 6 0-4 BASOPHILS 1 0-1 PLATELET ESTIMATE NORMAL NORMAL PLATELET MORPHOLOGY NORMAL NORMAL RBC MORPHOLOGY 1+ POIK NORMAL RBC MORPHOLOGY ELLIPTOCYTES NORMAL RBC MORPHOLOGY 1+ HYPO NORMAL SED RATE (ESR) 2016-06-05 SED RATE 9 0-20 MRI ABDOMEN WOW CONT 2016-06-04 GI BIOPSY 2011-12-25 G.I. BIOPSY REASON FOR VISIT hx colon ca,hx polyps,screening, Patient presents today for a colon recall, requesting results of procedure , screeening, recall colonoscopy, PATIENT PRESENTS TODAY FOR recall colonoscopy, COVID Screen, Personal hx colon cancer, hx of polyps, patient presents today for pre-colon screening, hx of colon cancer, , PATIENT PRESENTS TODAY FOR Colon Screening, PATIENT PRESENTS TODAY FOR Colon Screening, ? when pt needs another colon, abnormal ct of colon, FYI, Bowel Prep RX, screening colonoscopy, EGD Insurance Providers Health Insurance Type Health Plan Insurance Address Health Plan Insurance Phone Health Plan Insurance Name Health Plan Coverage Dates Member ID Patient Relationship to Subscriber Patient Address Patient Phone Patient Name Patient Date of Subscriber ID Subscriber Name Subscriber Date of Group No MEDEX ATTN CLAIMS [address] [facility] [phone] MEDEX roge WEIR I [id number] MEDICARE OF [place] [address] [facility] [address] [place] [id number]
[2022-11-28 09:44] VITALS: BMI 24.0
[2022-11-28 09:50] VITALS: BP 139/69; PULSE 88; RESP 18; TEMP 31; O2SAT 98
[2022-11-28] MEDS: Lactated Ringers 1,000 ML 100 ML IVCONT (09:53)
[2022-11-28 11:00] VITALS: BP 93/46; PULSE 73; RESP 13; TEMP 36.2; O2SAT 99
--- NOTE | 2022-11-28 11:00 | P.BOP_ITS ---
Brief Operative Note Date of Service: 11/28/22 Pre-op diagnosis: Screening, History of colon cancer Post-op diagnosis: other (Colon polyp) Procedure: Colonoscopy to the anastomosis and small bowel with hot snare polypectomy Surgeon: Grayson Keene Anesthesia: MAC Was an Conservation Educator used for this Procedure?: No Estimated blood loss (mL): 0 Pathology: other (A. Rectal polyp) Condition: stable Disposition: PACU
--- NOTE | 2022-11-28 11:11 | OP_ITS ---
DATE OF SERVICE: 11/28/2022 SURGEON: Grayson Keene MD INDICATIONS: The patient presents for evaluation of colorectal cancer screening in regard to personal history of colon cancer and tubular adenomas of the colon. Full consent has been obtained from her for this, including risks of bleeding and perforation. PREOPERATIVE DIAGNOSIS: POSTOPERATIVE DIAGNOSIS: PROCEDURE PERFORMED: Colonoscopy to the anastomosis and small bowel with hot snare polypectomy. ESTIMATED BLOOD LOSS: COMPLICATIONS: ANESTHESIA: Monitored anesthesia care. ASSISTANTS: SPECIMENS: PREOPERATIVE DIAGNOSES: Personal history of colon cancer and colon polyps, colorectal cancer screening. POSTOPERATIVE DIAGNOSES: Personal history of colon cancer and colon polyps, colorectal cancer screening, diverticulosis, colon polyp, internal hemorrhoids. DESCRIPTION OF PROCEDURE: The patient was placed in the left lateral decubitus position. The digital rectal exam revealed no abnormalities. The Olympus video pediatric colonoscope was entered into the rectum and advanced to the level of the anastomosis. Advancement past the sigmoid colon was difficult. Once at the anastomosis, I did cannulate the small bowel, which appeared normal. The scope was withdrawn back in the colon. The entire anastomosis was well visualized and appeared normal. The scope was slowly withdrawn assessing all mucosal surfaces carefully. Preparation was excellent. There was a moderate amount of sigmoid diverticulosis with a lot of spasm, but adequate inspection was made. I did not visualize any sign of colitis nor angiodysplasia. The only polyp I visualized was in the proximal rectum. This was approximately 8 mm in diameter and was removed by hot snare polypectomy and then recovered by suction. The polypectomy site appeared clean, without any sign of residual polyp nor bleeding. I did not visualize any other polyps. In the rectum, scope was retroflexed visualizing internal hemorrhoids, but no other pathology. The rectal mucosa appeared normal. The scope was straightened and withdrawn from the patient. She tolerated the procedure well and was returned to recovery area in stable condition. IMPRESSION: 1. Colon polyp. 2. Diverticulosis. 3. Internal hemorrhoids. PLAN: The results of the pathology will be checked. At this point, given her age and previous findings, I do not think she would need any further screening colonoscopies. She was advised not to use any aspirin and NSAIDs for 1 week. This has been discussed with her . She will see me on a p.r.n. basis. MD GRACIE Rodriguez/VIKTOR / [phone] MTDKingsley
[2022-11-28 11:15] VITALS: BP 119/58; PULSE 84; RESP 14; O2SAT 100
[2022-11-28 11:30] VITALS: BP 113/56; PULSE 75; RESP 20; TEMP 36.4; O2SAT 98
--- NOTE | 2022-11-28 13:59 | PC.NURSE ---
Temperature at 0950 was 97.8 temporal, unable to edit original note.
== END 2022-11-28 12:01 | disposition home or self-care (01) ==
PROVIDERS: PCP Internal Medicine; Visit Provider Internal Medicine
PROC: 0DJD8ZZ Inspection of Lower Intestinal Tract, Via Natural or Artificial Opening Endoscopic (ICD-10-PCS; CPT 45378; principal; 2022-11-28 09:40)
DX: Z12.11 Encounter for screening for malignant neoplasm of colon (principal); D12.8 Benign neoplasm of rectum; K57.30 Diverticulosis of large intestine without perforation or abscess without bleeding; K64.8 Other hemorrhoids; K63.89 Other specified diseases of intestine; Z85.038 Personal history of other malignant neoplasm of large intestine; Z86.010 Personal history of colon polyps; E78.5 Hyperlipidemia, unspecified; K21.9 Gastro-esophageal reflux disease without esophagitis; Z79.899 Other long term (current) drug therapy
CPT/HCPCS: 45385; 88305

== ENCOUNTER 2023-02-12 10:16 | Outpatient (REF) | payer MEDICARE, SELFPAY ==
[2023-02-12 10:40] LABS: MANUAL DIFF FLAG NO
[2023-02-12 10:54] LABS: Basophils Percent Auto 0.4 % (0-2); Eosinophils Absolute Auto 0.2 X10*3/uL (0.0-0.4); Eosinophils Percent Auto 3.3 % (0-4); Hematocrit 44.7 % (37.0-47.0); Hemoglobin 14.3 g/dl (12.0-16.0); Imm Gran Abs Auto 0.03 X10*3/uL (0.00-0.03); Imm Gran Pct Auto 0.6 % (0.0-0.4); Lymphocytes Absolute Auto 1.9 X10*3/uL (1.2-4.9); Lymphocytes Percent Auto 38.9 % (20-40); Mean Corpuscular Volume 93.9 fL (80.0-98.0); Mean Platelet Volume 10.3 fL (9.4-12.3); Monocytes Absolute Auto 0.3 X10*3/uL (0.1-1.2); Monocytes Percent Auto 6.3 % (2-11); Neutrophils Absolute Auto 2.5 x10*3/uL (2.0-8.3); Neutrophils Percent Auto 50.5 % (45-73); Platelet Count 140 X10*3/uL (160-400); Red Blood Count 4.76 X10*6/uL (4.20-5.50); Red Cell Distribution Width 13.3 % (11.0-16.0); White Blood Count 4.9 X10*3/uL (4.8-10.8)
[2023-02-12 12:04] LABS: Alanine Aminotransferase 14 U/L (0-31); Albumin Level 3.9 g/dL (3.5-5.0); Alkaline Phosphatase 57 U/L (39-117); Anion Gap 12 (12-20); Aspartate Amino Transferase 24 U/L (5-31); Bilirubin Total 0.7 mg/dL (0.0-1.0); Blood Urea Nitrogen 13 mg/dL (9-16); Calcium 9.2 mg/dL (8.4-10.2); Carbon Dioxide 30 mmol/L (22-29); Chloride 104 mmol/L (96-108); Cholesterol 143 mg/dL (<200); Estimated Glomerular Filt Rate > 60; Glucose Fasting 118 mg/dL (60-99); HDL Cholesterol 54 mg/dL (>40); LDL Cholesterol Calculated 75 mg/dL (<100); Potassium 4.2 mmol/L (3.3-5.1); Sodium 142 mmol/L (135-145); Triglycerides 73 mg/dL (<150)
[2023-02-12 12:07] LABS: Free T4 (Free Thyroxine) 1.11 ng/dL (0.71-1.85); Thyroid Stimulating Hormone 3.71 uIU/mL (0.32-4.0)
== END 2023-02-12 10:17 | disposition home or self-care (01) ==
LOC: HO.10HDL 10:16
PROVIDERS: Visit Provider Internal Medicine
DX: E78.00 Pure hypercholesterolemia, unspecified (principal); E03.9 Hypothyroidism, unspecified; J44.9 Chronic obstructive pulmonary disease, unspecified; K21.9 Gastro-esophageal reflux disease without esophagitis
CPT/HCPCS: 36415; 80053; 80061; 84439; 84443; 85025

== ENCOUNTER 2023-04-10 12:27 | Outpatient (REF) | payer MEDICARE, SELFPAY ==
--- NOTE | ~2023-04-10 | MM_ITS ---
EXAMINATION: MM SCREENING DIGITAL BREAST TOMOSYNTHESIS, BILATERAL CLINICAL INFORMATION: Screening. Asymptomatic. COMPARISON: Mammography: 03/06/2022, 02/07/2021, 02/07/2021, 12/24/2019, 12/18/2018 TECHNIQUE: Digital breast tomosynthesis is performed in both the craniocaudal and mediolateral oblique views along with computer-aided detection (CAD). Synthesized 2D images are generated from the tomosynthesis. FINDINGS: There are scattered areas of fibroglandular density (ACR BI-RADS breast composition Category b). There are no suspicious masses, suspicious grouped calcifications, or areas of architectural distortion in either breast. The parenchymal pattern is stable from prior exams. No axillary or skin abnormalities. MM/MM tomosynthesis screening BI IMPRESSION: No mammographic evidence of malignancy. ASSESSMENT: BI-RADS BI-RADS 1 - Negative RECOMMENDATION: Routine annual mammography screening. 1 year F/U This examination should not preclude the clinical evaluation of a suspicious palpable abnormality. This patient's information was entered into a reminder system with a target due date for their next mammogram.
== END 2023-04-10 12:28 | disposition home or self-care (01) ==
LOC: HO.MAMMO 12:27
PROVIDERS: PCP Internal Medicine; Visit Provider Internal Medicine
DX: Z12.31 Encounter for screening mammogram for malignant neoplasm of breast (principal); Z13.820 Encounter for screening for osteoporosis; Z78.0 Asymptomatic menopausal state
CPT/HCPCS: 77063; 77067; 77080

== ENCOUNTER → 2023-04-10 13:00 | Outpatient (BNV) | payer MEDICARE, SELFPAY | PROVIDERS: PCP Internal Medicine; Visit Provider Radiology Diagnostic Radiology | DX: Z12.31 Encounter for screening mammogram for malignant neoplasm of breast (principal) | CPT/HCPCS: 77063; 77067 ==

== ENCOUNTER 2023-05-26 17:27 | Inpatient (IN) | payer MEDICARE, SELFPAY ==
--- NOTE | ~2023-05-26 | CT_ITS ---
EXAMINATION: CT ABDOMEN AND PELVIS WITH CONTRAST CLINICAL INFORMATION: rectal bleeding, hx colon ca COMPARISON: 06/24/2017 TECHNIQUE: Multidetector volumetric imaging was performed from the superior aspect of the liver through the pubic symphysis following administration of 85 mL Omnipaque 300 intravenous contrast. Sagittal and coronal reformatted images were obtained on the technologist workstation.. This CT examination was performed using dose optimization techniques as appropriate, variously including the following: *Automated exposure control *Adjustment of mA and/or kV according to patient size (this includes techniques or standardized protocols for targeted exams where dose is matched to indication/reason for exam; i.e. extremities or head) *Use of iterative reconstruction technique DLP: 313 mGy-cm FINDINGS: LUNG BASES: Atelectatic changes seen at the left lung base. LIVER, GALLBLADDER, AND BILIARY TREE: Low-attenuation probable cysts are seen within the liver parenchyma with ill-defined lesions with coarse calcification in the lateral segment 3 of the left lobe the liver and posterior segment 6, similar to the 2018 study. I do not appreciate any new hepatic lesions The gallbladder is unremarkable with no evidence of radiopaque gallstones, gallbladder wall thickening, or obvious pericholecystic inflammatory changes. PANCREAS: Atrophic pancreatic parenchyma with marked pancreatic ductal dilatation as noted on the prior study. Sequela of chronic pancreatitis would be suspected with this morphology and persistence from 2018. I do not appreciate any acute peripancreatic inflammatory changes or fluid to suggest superimposed acute pancreatitis. SPLEEN: Unremarkable. ADRENAL GLANDS: Unremarkable. KIDNEYS AND URETERS: The kidneys are normal in size, shape, and attenuation. Multiple low-attenuation probable cortical cysts seen throughout the kidneys bilaterally with a hyperdense 2.2 cm probable cyst in the lateral lower pole of the left kidney which was hyperdense on the 2018 CT scan as well. No further evaluation of these cysts would be needed. No hydronephrosis, hydroureter, or perinephric stranding. No calculi. BLADDER: Decompressed GASTROINTESTINAL TRACT: Oral contrast is seen throughout colon to the rectum. There is extensive colonic diverticulosis. I do not appreciate any focal colonic wall thickening or pericolonic inflammatory change to suggest diverticulitis. Patient is likely status post right hemicolectomy. Visualized small bowel is decompressed and unremarkable. Stomach is decompressed but there does appear to be diffuse mucosal thickening and a component of gastritis would be suspected given with this degree of decompression ABDOMINAL WALL: No significant hernia is appreciated. LYMPHOVASCULAR STRUCTURES: Vascular calcification within the aorta iliac system PELVIC VISCERA: Surgically absent OSSEOUS STRUCTURES: Multilevel degenerative changes in the spine. Healed right pubic fractures. No acute bony abnormality. CT/CT abdomen pelvis w IV con IMPRESSION: Chronic appearing and postoperative changes as described above. I do not appreciate any acute intra-abdominal process. There is extensive diverticulosis but I do not appreciate any focal colonic wall thickening or pericolonic inflammatory change to suggest diverticulitis. Patient is status post right hemicolectomy. There is diffuse mucosal thickening in the stomach and a component of gastritis would be suspected given this degree of decompression.
[2023-05-26 17:32] VITALS: BP 174/71; PULSE 82; RESP 16; TEMP 36.5; O2SAT 96; BMI 25.2
--- NOTE | 2023-05-26 17:34 | ED.GENADULT ---
HPI - General Adult General Chief complaint: General Medical Stated complaint: blood in stools since this morning, off/ on Time Seen by Provider: 05/26/23 18:06 Source: patient Mode of arrival: ambulatory History of Present Illness HPI narrative: 83-year-old female with prior history of colon CA with partial colectomy presents with new onset of multiple episodes of bowel movement today and noting that there was blood since last night in the toilet bowl and mixed in with stool. She denies any abdominal discomfort and states that her colonoscopy is up-to-date by Dr. Keene Related Data Home Medications Medication Instructions Recorded Confirmed alprazolam 0.25 mg tablet 1 tab PO BEDTIME PRN Anxiety 09/08/20 11/11/21 atorvastatin 40 mg tablet 1 tab PO BEDTIME 09/08/20 11/11/21 diphenhydramine 25 1 tab PO BEDTIME PRN Sleep 09/08/20 11/11/21 mg-acetaminophen 500 mg tablet (Tylenol PM Extra Strength) levothyroxine 100 mcg tablet 1 tab PO DAILY 09/08/20 11/11/21 lorazepam 0.5 mg tablet 1 tab PO DAILY PRN Anxiety 09/08/20 09/08/20 omeprazole 20 mg capsule,delayed 20 mg PO DAILY 09/08/20 11/11/21 release simethicone 80 mg chewable tablet 80 mg PO DAILY PRN GAS 09/08/20 11/11/21 vit C 250 mg-vit E 90 mg-zinc 40 1 tab PO BID 09/08/20 11/11/21 mg-copper 1 nb-jvbiqs-shvfsf capsule (PreserVision AREDS-2) cholecalciferol (vitamin D3) 10 10 mcg PO DAILY 11/11/21 11/11/21 mcg (400 unit) capsule docusate sodium 100 mg capsule 100 mg PO DAILY 11/11/21 11/11/21 gabapentin 100 mg capsule 1 cap PO Q4H PRN pain 11/11/21 11/11/21 vwztfsdr-uamt-pala 8 mg-folic 400 1 tab PO DAILY 11/11/21 11/11/21 mcg-K 50 mcg-lutein 300 mcg tablet (Centrum Silver Women) valacyclovir 1 gram tablet 1 tab PO TID 11/11/21 11/11/21 Previous Rx's Medication Instructions Recorded acetaminophen 300 mg-codeine 30 mg 1 tab PO Q6H PRN pain #10 tabs 11/11/21 tablet Allergies Allergy/AdvReac Type Severity Reaction Status Date / Time adhesive tape [ADHESIVE TAPE] Allergy Intermediate ITCH, Rash Verified 05/26/23 17:32 cefazolin [From KEFZOL] Allergy Intermediate RASH Verified 05/26/23 17:32 clindamycin [From CLEOCIN] Allergy Intermediate RASH Verified 05/26/23 17:32 gentamicin [From GARAMYCIN] Allergy Intermediate RASH Verified 05/26/23 17:32 atropine Allergy Unknown localized Verified 05/26/23 17:32 eye rxn cephalexin Allergy Unknown Rash Verified 05/26/23 17:32 Doxycycline Monohydrate Allergy Unknown Rash Uncoded 11/11/21 09:08 Review of Systems Review of Systems: Pertinent positives and negatives as stated in [facility] Past Medical History Source: nursing notes reviewed Medical History Arthritis History of right bundle branch block (RBBB) Anxiety PONV (postoperative nausea and vomiting) GERD (gastroesophageal reflux disease) History of colon cancer Hypothyroidism Barretts esophagus Hyperlipidemia Surgical History History of foot surgery History of cataract extraction with lens replacement Hx of esophagogastroduodenoscopy History of total right knee replacement (TKR) History of breast biopsy History of hysterectomy History of thyroidectomy Hx of colonoscopy History of partial colectomy Social History Social History Are you a primary care center manager to a significant other at home: No Do you presently have visiting nurse or other home services: No Patient Tobacco Use Status: Former Tobacco user Quit Date: quit 1966 Tobacco use type: Cigarette Advance Directives: No Advance Directives Information Provided: No Advance Directives Date on File: 01/12/20 Physical Exam ED Vital Signs: Vital Signs - 24 hr 05/26/23 17:32 05/26/23 18:29 05/26/23 21:35 Temperature 97.7 F 97.8 F 97.7 F Pulse Rate 82 86 89 Respiratory Rate 16 18 18 Blood Pressure 174/71 H 155/38 H 179/69 H Pulse Oximetry 96 98 97 Oxygen Delivery Method Room Air Room Air Room Air BMI result Body Mass Index 25.2 VITAL SIGNS: Reviewed. GENERAL: Well developed, well nourished, in no acute distress. HEAD: Normocephalic/atraumatic EYES: PERRLA, EOMI EARS: Ext canals without abnormality NOSE: Nares patent bilateral OROPHARYNX: no oral lesions noted, posterior pharynx clear NECK: Supple, no adenopathy LUNGS: Normal breath sounds. No adventitious sounds or accessory muscle use. SpO2<98> CARDIOVASCULAR: Regular rate and rhythm without noted murmurs ABDOMEN: Soft, non-tender, non-distended with bowel sounds. ANORECTAL: non-inflamed external hemorrhoids without friability, hard pieces of stool in rectal vault with brick red blood/stool contamination MUSCULOSKELETAL: No tenderness, deformities, or effusions noted on gross inspection. EXTREMITIES: No cyanosis, clubbing or edema. SKIN: Inspection of the skin reveals no rashes NEUROLOGIC: Alert and oriented x 4. Strength and sensation to light touch were grossly intact x 4. Course Course Course Narrative: RME:?83 yo female hx of colitis here for eval of BRBPR on passing BM and passing gas beginning this morning. Endorses blood in toilet bowl and on wiping. Has history of hemorrhoids - unsure if external or internal. Denies fever/ chills, N/V, abd pain. Last colonoscopy few mo ago was normal however hx of colon CA - in remission. no recent travel. no abx use. labs ordered, defer to primary provider for OBS +/- imaging. Full HPI, ROS and PE to be performed by the primary ED provider. Medications Administered Generic Name Dose Route Start Last Admin Trade Name Freq PRN Reason Stop Dose Admin Sodium Chloride 1,000 mls @ 125 mls/hr 05/26/23 20:12 05/26/23 20:29 Ns IVCONT 05/27/23 04:11 125 mls/hr .Q8H ONE Administration Discontinued Medications Generic Name Dose Route Start Last Admin Trade Name Freq PRN Reason Stop Dose Admin Iohexol 85 ml 05/26/23 22:07 05/26/23 22:08 Iohexol 350 Mg/Ml 100 Ml Infus..Btl IV 05/26/23 22:08 85 ml ONCE ONE Administration Medical Decision Making Medical Decision Making [facility] Narrative: 1900: 83-year-old female with history and clinical presentation, DDX: Doubt hemorrhoidal bleeding, suspect diverticular bleed although given patient's history of colon CA there is a possibility of possible recurrence, she has no abdominal discomfort and is not noted to be tachycardic or hypotensive and clinically otherwise appears well. She is not currently on any blood thinners. Colonoscopy 11/28/2022 with 1 polyp removed. I reviewed all investigations and hematologic indices are not significant for leukocytosis or left shift, there is no anemia and there is a chronic thrombocytopenia. Chemistry indices do not demonstrate an KAYA and there is no electrolyte or liver enzyme derangements. Stool guaiac is positive. 1947: I discussed the case with Dr. Betancourt who agrees with CT imaging study and given age and presentation defers to my clinical assessment for obs admit. Patient underwent CT scan of abdomen pelvis with both p.o. and IV contrast and on review of CT scan there are no acute intra-abdominal findings. Patient is typed and screened but will otherwise be admitted for observation, this was discussed with the inpatient hospitalist who accepts admission. Differential Diagnosis Differential Diagnoses: The differential diagnosis associated with the presentation includes Please see the discussion above Admission/Observation Consideration of admission/observation: Escalation of care including admission/observation considered Please see the discussion above Consult Healthcare Provider Management of the patient was discussed with: Hospitalist and [employer]ra[employer] Worker Please see the discussion above Lab Data MDM Lab Attestation statement: I reviewed the patient's lab results. Please see the discussion above 05/26/23 17:43 05/26/23 17:43 Labs: Lab Results 05/26/23 05/26/23 05/26/23 Range/Units 17:43 18:48 20:05 WBC 7.4 (4.8-10.8) X10*3/uL RBC 4.57 (4.20-5.50) X10*6/uL Hgb 14.1 (12.0-16.0) g/dl Hct 43.2 (37.0-47.0) % MCV 94.5 (80.0-98.0) fL MCH 30.9 (27.0-33.0) pg MCHC 32.6 (31.0-35.0) g/dl RDW 13.3 (11.0-16.0) % Plt Count 127 L (160-400) X10*3/uL MPV 11.1 (9.4-12.3) fL Immature Gran % (Auto) 0.5 H (0.0-0.4) % Neut % (Auto) 56.8 (45-73) % Lymph % (Auto) 30.6 (20-40) % Boundary % (Auto) 8.2 (2-11) % Eos % (Auto) 3.6 (0-4) % Baso % (Auto) 0.3 (0-2) % Lymph # (Auto) 2.3 (1.2-4.9) X10*3/uL Boundary # (Auto) 0.6 (0.1-1.2) X10*3/uL Eos # (Auto) 0.3 (0.0-0.4) X10*3/uL Baso # (Auto) 0.0 (0.0-0.2) X10*3/uL Abs Immat Gran (auto) 0.04 H (0.00-0.03) X10*3/uL Absolute Neuts (auto) 4.2 (2.0-8.3) x10*3/uL Absolute Nucleated RBC 0.000 (0.0-0.012) X10*3/uL Nucleated RBC % (auto) 0.0 (0.0-0.2) /100WBC Sodium 142 (135-145) mmol/L Potassium 3.9 (3.3-5.1) mmol/L Chloride 105 (96-108) mmol/L Carbon Dioxide 29 (22-29) mmol/L Anion Gap 12 (12-20) BUN 19 H (9-16) mg/dL Creatinine 0.86 (0.5-1.4) mg/dL Estim Creat Clear Calc 44.9 Estimated GFR > 60 Random Glucose 112 (60-115) mg/dL Calcium 9.0 (8.4-10.2) mg/dL Magnesium 2.2 (1.6-2.6) mg/dL Total Bilirubin 0.4 (0.0-1.0) mg/dL AST 24 (5-31) U/L ALT 15 (0-31) U/L Alkaline Phosphatase 68 (39-117) U/L Total Protein 7.0 (6.5-8.0) g/dL Albumin 4.0 (3.5-5.0) g/dL Stool Occult Blood POSITIVE (NEGATIVE) Blood Type A Positive Antibody Screen NEGATIVE Radiology Impression Discussion of test interpretation with radiology: I have reviewed the radiologist's reading. Radiologist Impression: Please see the discussion above External Record Review External record reviewed: Outpatient record, Prior outpatient labs and Prior outpatient radiology Critical Care Time Critical Care Time Critical Care Time: Yes Total Critical Care Time: 60 Attestation: I personally attest to this time spent taking care of the patient. Discharge Plan Discharge Clinical Impression: Acute GI bleeding Patient Disposition: Admitted As Inpatient
--- OUTSIDE RECORDS SUMMARY | 2023-05-26 17:44 | XMS_ITS | Patient Health Record ---
Author Name Unknown Organization [facility] Address [address] [place] [address] Care Team Providers Care Acid Filler Name Role Phone Sandip Castro MD Primary Care Provider Grayson Canas Unavailable [phone] ALLERGIES Allergen (clinical drug ingredient) Drug/Non Drug Allergy documented on EMR Reaction Allergy Type Onset Date Status Keflex Unknown Drug Allergy Active clindamycin Cleocin Unknown Drug Allergy Activ e cephalexin Cephalexin Unknown Drug Allergy Activ e atropine Atropine Sulfate Unknown Drug Allergy Active doxycycline Doxycycline Unknown Drug Allergy Act kellen Adhesive Tape Unknown Drug Allergy Act kellen Garamycin Unknown Drug Allergy Active simvastatin Zocor Unknown Drug Allergy Activ e REASON FOR REFERRAL No Information MEDICATIONS Medication SIG (Take, Route, Frequency, Duration) Notes Start Date End Date Status Levothyroxine Sodium 100mcg 1 capsule Or ally Saturday and Saturday Active Vitamin B Complex - as directed Orally Active Omeprazole 20 MG 1 capsule Orally QD Active Probiotic - as directed Orally Active Gas-X 80 MG 1 tablet after meals and at bedtime as needed Orally prn prn Active Vitamin D-3 125 MCG (5000 UT) as directed Orally Active PreserVision AREDS 2 2x daily Active ALPRAZolam 0.25 MG 1 tablet Orally Twic e a day prn anxiety Active Tylenol Extra Strength 500 MG 1 tablet as needed Orally as needed Active Tylenol PM Extra Strength 500-25 MG 1 tablet at bedtime as needed Orally Once a day Active Stool Softener 100 MG 2 capsule as neede d Orally Once a day/prn Active Atorvastatin Calcium 40 MG 1 tablet Oral ly Once a day Active Multi Vitamin/Minerals - 1 Orally QD Active LORazepam 0.5 MG 1 tablet as needed Orally prn insomnia prn Active IMMUNIZATIONS Vaccine Route Administration Date Status Comme nts Influenza Unknown 12/07/2016 Administered Influenza Unknown 12/10/2017 Administered Influenza Unknown 01/20/2020 Administered Influenza Unknown 01/23/2022 Administered SOCIAL HISTORY Sex Assigned At : Social History Observation Description Sex Assigned At Unknown PROBLEMS Problem Type ICD Code Onset Dates Problem Status W/U Status Risk SNOMED Code Notes Problem Left lower quadrant pain (R10.32) Active confirmed 982014416 Problem Encounter for screening for malignant neoplasm of colon (Z12.11) Active confirmed 086793495 Problem History of adenomatous polyp of colon (Z86.010) Active confirmed 959522722 Problem Gastroesophageal reflux disease without esophagitis (K21.9) Active confirmed 137534577 Problem Preprocedural examination (Z01.818) Active confirmed 752946665788416 Problem History of colon cancer (Z85.038) Active confirmed 327895768 Problem Personal history of colon cancer (Z85.038) Active confirmed 869967716 Problem Diverticulosis of sigmoid colon (K57.30) Active confirmed Diverticulosis of sigmoid colon (432273986) Problem Abdominal gas pain (R14.1) Active confirmed 86080702 Problem Diverticulosis of colon (K57.30) Active confirmed Diverticulosi s of colon (097829896) Problem 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 (670492843) Problem 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 History of gastrointestinal tract bypass (068829808) Encounters Encounter Location Date Provider Diagnosis [facility] Outpatient [address], [place] [id number] 11/28/2022 Grayson Keene Colon cancer screeni ng Z12.11 ; Colon polyp K63.5 ; History of colon cancer Z85.038 ; Diverticulosis of colon K57.30 ; Internal hemorrhoids K64.8 and Hx of Billroth II operation Z98.0 [facility] [address] [place] [address] 09/12/2022 Grayson Keene History of colon can cer Z85.038 ; Gastroesophageal reflux disease without esophagitis K21.9 ; History of adenomatous polyp of colon Z86.010 and Encounter for screening for malignant neoplasm of colon Z12.11 ASSESSMENTS Encounter Date Diagnosis Assessment Notes Treatment Notes Treatment Clinical Notes 11/28/2022 Colon cancer screeni ng (ICD-10 - Z12.11) 11/28/2022 Colon polyp (ICD-10 - K63.5) 09/12/2022 Gastroesophageal ref lux disease without esophagitis (ICD-10 - K21.9) 09/12/2022 History of colon can cer (ICD-10 - Z85.038) 11/28/2022 History of colon can cer (ICD-10 - Z85.038) 09/12/2022 History of adenomato us polyp of colon (ICD-10 - Z86.010) 11/28/2022 Diverticulosis of co bella (ICD-10 - K57.30) 09/12/2022 Encounter for screen ing for malignant neoplasm of colon (ICD-10 - Z12.11) 11/28/2022 Internal hemorrhoids (ICD-10 - K64.8) 11/28/2022 Hx of Billroth II operation (ICD-10 - Z98.0) PLAN OF TREATMENT Pending Test Test Name Order Date Pathology 11/28/2022 Future Test Test Name Order Date COLONOSCOPY 12/07/2011 COLONOSCOPY 06/27/2017 COLONOSCOPY 03/19/2018 COLONOSCOPY 08/10/2020 COLONOSCOPY 09/12/2022 Insurance Providers Payer Name Payer Address Payer Phone Subscriber Number Group Number Insured Name Patient Relationship to Insured Coverage Start Date Coverage End Date MEDICARE OF [place] [address] [place] [address] [phone] [id number] CARMELLA HILARIO Davis Self - patient is the insured [employer] ATT[employer] CLAIMS [address] [place] [address] [id number] CARMELLA DavisHILARIO Self - patient is the insured MEDICAL (GENERAL) HISTORY Medical History History ICD Code Hyperlipidemia Brito's esophagus/GERD--la st EGD was in 2006--no Briot's mucosa--upper endoscopies in 1999 and 2001 revealed a small area of Brito's esophagus, but followup endoscopies in 2004 and 2006 were negative for any Brito's mucosa Hx of colon polyps with tubu lar adenomas in 2001 and 2006--colonoscopy in 2011 revealed only a hyperplastic polyp and significant sigmoid diverticulosis Hypothyroidism Denies [place],DM,CVA,Lung disease,renal dise ase Colon cancer 06/3016--- adeno carcinoma of the hepatic flexure--underwent surgery with Dr. Alford with a right colectomy--she did not require any postoperative chemotherapy Colonoscopy 07/2017--hyperpla stic polyps only, divertciulosis,and internal hemorrhoids Colonoscopy 07/2018 with inflammatory shannan yps in the rectum Colonoscopy 09/2020 with hyperplastic shannan yps removed Shingles in 2021 Fractured pelvis in November of 2021 Surgical History Surgery Date(Month/Year) Partial throidectomy Hysterectomy Breast biopsy-benign Both ovaries removed Heel surgery Right knee replacement 2015 Right colectomy for colon cancer in 06/[address] Alford Cataract-lens implants in both eyes
--- OUTSIDE RECORDS SUMMARY | 2023-05-26 17:44 | XMS_ITS | Patient Health Record ---
Author Name Unknown Organization Grayson Paredes III, MD Address [address] [place] [address] Care Team Providers Care Brokerage Purchase And Sale Clerk Name Role Phone Sandip Castro MD Primary Care Provider Grayson Martin Unavailable [phone] ALLERGIES Allergen (clinical drug ingredient) Drug/Non Drug Allergy documented on EMR Reaction Allergy Type Onset Date Status doxycycline Doxycycline Unknown Drug Allergy Act kellen clindamycin Cleocin Unknown Drug Allergy Activ e cephalexin Cephalexin Unknown Drug Allergy Activ e cefazolin Cefazolin Sodium-Dextrose Unknown Drug Allergy Active atropine Atropine Sulfate Unknown Drug Allergy Active Surgical tape (uncoded) Unknown Allergy Active REASON FOR REFERRAL No Information MEDICATIONS Medication SIG (Take, Route, Frequency, Duration) Notes Start Date End Date Status Vitamin B Complex - as directed Orally Active Tylenol 325 MG 2 tablets as needed Orally every 6 hrs Active Vitamin D3 25 MCG (1000 UT) 1 tablet Ora lly Once a day Active Gas Relief 80 MG 1 tablet after meals and at bedtime as needed Orally Four times a day Active Omeprazole Magnesium 20 MG 1 tablet 30 m inutes before morning meal Orally Once a day Active Probiotic - as directed Orally Active Levothyroxine Sodium 100 MCG 1 tablet on an empty stomach in the morning Orally Saturday and Saturday Active Atorvastatin Calcium 40 MG 1 tablet Oral ly Once a day Active Centrum Silver Ultra Womens - Orally Active LORazepam 0.5 MG (Schedule IV Drug) T JOSÉ ANTONIO 1 TABLET AT BEDTIME NEEDED Oral Active ALPRAZolam 0.25 MG 1 tablet Orally e a day Active SOCIAL HISTORY Tobacco Use: Social History Observation Description Date Details (start date - stop date) Former Smoker NA - NA Sex Assigned At : Social History Observation Description Sex Assigned At Unknown Tobacco Use/Smoking Question Answer Notes Patient is a former smoker How long has it been since you last smoked? > 10 years Additional Findings: Tobacco Non-User Ex-cigaret te smoker Alcohol Screen Question Answer Notes Did you have a drink contain ing alcohol in the past year? Yes How often did you have a dri nk containing alcohol in the past year? Monthly or less (1 point) How many drinks did you have on a typical day when you were drinking in the past year? 1 or 2 drinks (0 point) How often did you have 6 or more drinks on one occasion in the past year? Never (0 point) Points 1 Interpretation Negative PROBLEMS Problem Type ICD Code Onset Dates Problem Status W/U Status Risk SNOMED Code Notes Problem Ischemic colitis (K55.9) Active confirmed 41369065 She presented initially with pancolitis and diarrhea. This has resolved. She has had no hematochezia or protracted diarrhea or watery stool. No change in her regimen was necessary today. Problem Hepatic flexure mass (K63.9) Active confirmed 426962262 Problem Hypokalemia (E87.6) Active confirmed 65521565 Problem Hypothyroidism (E03.9) Active confirmed 69025515 She was advise d to continue her thyroid medication. She appeared euthyroid today. Problem Dyslipidemia (E78.5) Active confirmed 834081904 Her fasting li pid profile shows good control of her lipids and no change in her regimen was made today. Problem GERD (gastroesophagea l reflux disease) (K21.9) Active confirmed 537618301 Her refl exes well controlled with fulo-vxy-kjjxlpp medications. Problem Internal hemorrhoids (K64.8) Active confirmed 40627143 Problem Constipation (K59.00) Active confirmed 35366776 This is an intermittent problem, not present today, which is well controlled with dlog-jmw-jsmtiyc medications. No hematochezia has been noted. Problem Former smoker (Z87.891) Active confirmed 3648388 She is highly motivated not to smoke. She has a plan to prevent relapse in times of stress or illness. Problem Adenocarcinoma of colon (C18.9) Active confirmed 440905541 There is no sign of recurrent disease or new primary. Surveillance will continue. She will proceed to see the solderer electronic to discuss colonoscopy. Problem Overweight (BMI 25.0-29.9) (E66.3) Active confirmed 782891238 Her weight is 150 on her scale at home today. This gives a body mass index 25.7. I recommended stabilizing her weight at this level in pursuing good nutrition. VITAL SIGNS Heart Rate 81 /min 04/29/2023 Temperature 97.5 degrees Fahrenheit 04/29/2023 Blood pressure diastolic 76 mm Hg 04/29/2023 Height 64 in 04/29/2023 Blood pressure systolic 140 mm Hg 04/29/2023 Weight 145 lbs 04/29/2023 BMI 24.89 kg/m2 04/29/2023 Encounters Encounter Location Date Provider Diagnosis Grayson Paredes III, MD [address] [place] [address] [address] [place], [place] [address] 04/29/2023 Grayson Paredes Adenocarcinoma of co bella C18.9 ; Former smoker Z87.891 ; Constipation K59.00 ; Hypothyroidism E03.9 and Dyslipidemia E78.5 ASSESSMENTS Encounter Date Diagnosis Assessment Notes Treatment Notes Treatment Clinical Notes 04/29/2023 Former smoker (ICD-10 - Z87.891) She is highly motivated not to smoke. She has a plan to prevent relapse in times of stress or illness. 04/29/2023 Adenocarcinoma of colon (ICD-10 - C18.9) There is no sign of recurrent disease or new primary. Surveillance will continue. She will proceed to see the solderer electronic to discuss colonoscopy. 04/29/2023 Constipation (ICD-10 - K59.00) This is an intermittent problem, not present today, which is well controlled with yise-yqr-nljcjgq medications. No hematochezia has been noted. 04/29/2023 Hypothyroidism (ICD-10 - E03.9) She was advised to continue her thyroid medication. She appeared euthyroid today. 04/29/2023 Dyslipidemia (ICD-10 - E78.5) Her fasting lipid profile shows good control of her lipids and no change in her regimen was made today. PLAN OF TREATMENT Pending Test Test Name Order Date PROFILE, RANDOM (COMPREHENSIVE METABOLIC ) 03/17/2018 PROFILE, RANDOM (COMPREHENSIVE METABOLIC ) 05/01/2017 PROFILE, RANDOM (COMPREHENSIVE METABOLIC ) 01/21/2019 PROFILE, RANDOM (COMPREHENSIVE METABOLIC ) 11/11/2017 PROFILE, RANDOM (COMPREHENSIVE METABOLIC ) 07/22/2018 PROFILE, RANDOM (COMPREHENSIVE METABOLIC ) 07/30/2017 PROFILE, RANDOM (COMPREHENSIVE METABOLIC ) 07/22/2019 CEA 03/17/2018 CEA 05/01/2017 CEA 01/21/2019 CEA 11/11/2017 CEA 07/22/2018 CEA 07/30/2017 CEA 07/22/2019 CBC w DIFF 07/30/2017 CBC w DIFF 07/22/2019 CBC w DIFF 03/17/2018 CBC w DIFF 05/01/2017 CBC w DIFF 01/21/2019 CBC w DIFF 11/11/2017 CBC w DIFF 07/22/2018 SED RATE (ESR) 11/11/2017 MAMMOGRAM DIGITAL BILATERAL SCREEN 01/24 Next Appt Details Provider Name:Grayson Paredes, 04/29/2024 02:15:00 PM, [address] [place] [address] [address], [place], [address], Insurance Providers Payer Name Payer Address Payer Phone Subscriber Number Group Number Insured Name Patient Relationship to Insured Coverage Start Date Coverage End Date MEDICARE NGS [address] [place] [address] [id number] Jon Radha gonzales Self - patient is the insured [facility] [address] [place], [place] [id number] [phone] [id number] Jon Radha gonzales Self - patient is the insured MEDICAL (GENERAL) HISTORY Medical History History ICD Code Ischemic colitis K55.9 Hypothyroidism E03.9 Dyslipidemia E78.5 GERD (gastroesophageal reflux disease) K 21.9 Internal hemorrhoids K64.8 adenocarcinoma of the hepatic flexure of the colon, Dr. Keene, Dr. Alford colonic polyps, tubular adenoma osteoarthritis right bundle branch block every 201 7 Surgical History Surgery Date(Month/Year) Knee replacement 2016 Colonoscopy showed a tubular adenoma in the transverse colon 2012 basal cell carcinoma on back excised [address] Chew 2018
[2023-05-26 17:48] LABS: MANUAL DIFF FLAG NO
[2023-05-26 18:04] LABS: Alanine Aminotransferase 15 U/L (0-31); Alkaline Phosphatase 68 U/L (39-117); Anion Gap 12 (12-20); Aspartate Amino Transferase 24 U/L (5-31); Bilirubin Total 0.4 mg/dL (0.0-1.0); Blood Urea Nitrogen 19 mg/dL (9-16); Carbon Dioxide 29 mmol/L (22-29); Chloride 105 mmol/L (96-108); Creatinine Clr Calc Pharmacy 44.9; Estimated Glomerular Filt Rate > 60; Glucose Random 112 mg/dL (60-115); Magnesium 2.2 mg/dL (1.6-2.6); Potassium 3.9 mmol/L (3.3-5.1); Sodium 142 mmol/L (135-145)
[2023-05-26 18:18] LABS: Basophils Percent Auto 0.3 % (0-2); Eosinophils Absolute Auto 0.3 X10*3/uL (0.0-0.4); Eosinophils Percent Auto 3.6 % (0-4); Hematocrit 43.2 % (37.0-47.0); Hemoglobin 14.1 g/dl (12.0-16.0); Imm Gran Abs Auto 0.04 X10*3/uL (0.00-0.03); Imm Gran Pct Auto 0.5 % (0.0-0.4); Lymphocytes Absolute Auto 2.3 X10*3/uL (1.2-4.9); Lymphocytes Percent Auto 30.6 % (20-40); Mean Corpuscular HGB Conc 32.6 g/dl (31.0-35.0); Mean Corpuscular Hemoglobin 30.9 pg (27.0-33.0); Mean Corpuscular Volume 94.5 fL (80.0-98.0); Mean Platelet Volume 11.1 fL (9.4-12.3); Monocytes Absolute Auto 0.6 X10*3/uL (0.1-1.2); Monocytes Percent Auto 8.2 % (2-11); Neutrophils Absolute Auto 4.2 x10*3/uL (2.0-8.3); Neutrophils Percent Auto 56.8 % (45-73); Platelet Count 127 X10*3/uL (160-400); Red Blood Count 4.57 X10*6/uL (4.20-5.50); Red Cell Distribution Width 13.3 % (11.0-16.0); White Blood Count 7.4 X10*3/uL (4.8-10.8)
[2023-05-26 18:29] VITALS: BP 155/38; PULSE 86; RESP 18; TEMP 36.6; O2SAT 98
[2023-05-26 18:55] LABS: OBS Int Ctl Valid YES; OBS1 POSITIVE (NEGATIVE)
--- NOTE | 2023-05-26 19:12 | PC.NURSE ---
Assumed care of pt at 1900. PT alert and oriented in no acute distress at this time. Call young within reach. Plan of care ongoing
[2023-05-26] MEDS: 0.9 % Sodium Chloride 1,000 ML 125 ML IVCONT (20:29)
[2023-05-26 21:35] VITALS: BP 179/69; PULSE 89; RESP 18; TEMP 36.5; O2SAT 97
[2023-05-26] MEDS: iohexoL 350 MG/ML 100 ML INFUS..BTL 85 ML IV (22:08)
--- NOTE | 2023-05-26 23:03 | PM.IMHP ---
History of Present Illness Date of Service: 05/26/23 Chief Complaint: GI bleed This is a 83-year-old female with pertinent history of colon cancer status post right hemicolectomy, mood disorder, gastroesophageal reflux disease, hypothyroidism, mixed hyperlipidemia who presents to the emergency department for evaluation of bright red blood per rectum. Patient states she started having painless bright red blood per rectum on the day of presentation. Patient had 5-6 episodes before coming to the ER. No nausea, vomiting, fever, chills or abdominal discomfort. This has not happened before. Patient does have history of colon cancer and is status post right hemicolectomy. States she follows with Dr. Keene and is compliant with her colonoscopy follow-ups. No chest discomfort, not on anticoagulation, palpitations, shortness of breath, changes in urinary habits. In the emergency department, stool occult blood positive. Gastroenterology was consulted who requested admission for observation. Review of Systems Constitutional: Constitutional: Reports no additional constitutional complaints Cardiovascular: Cardiovascular: Reports no additional cardiovascular complaints Respiratory: Respiratory: Reports no additional respiratory complaints Gastrointestinal: Gastrointestinal: Reports hematochezia Genitourinary: Genitourinary: Reports no additional female genitourinary complaints [facility] Medical History Arthritis History of right bundle branch block (RBBB) Anxiety PONV (postoperative nausea and vomiting) GERD (gastroesophageal reflux disease) History of colon cancer Hypothyroidism Barretts esophagus Hyperlipidemia Pertinent family history: No family history of early CAD Surgical History History of foot surgery History of cataract extraction with lens replacement Hx of esophagogastroduodenoscopy History of total right knee replacement (TKR) History of breast biopsy History of hysterectomy History of thyroidectomy Hx of colonoscopy History of partial colectomy Social History Are you a primary pet care associate to a significant other at home: No Do you presently have visiting nurse or other home services: No Patient Tobacco Use Status: Former Tobacco user Quit Date: 1966 Tobacco use type: Cigarette Advance Directives: No Advance Directives Information Provided: No Advance Directives Date on File: 01/12/20 Meds Allergies Allergy/AdvReac Type Severity Reaction Status Date / Time adhesive tape [ADHESIVE TAPE] Allergy Intermediate ITCH, Rash Verified 05/26/23 17:32 cefazolin [From KEFZOL] Allergy Intermediate RASH Verified 05/26/23 17:32 clindamycin [From CLEOCIN] Allergy Intermediate RASH Verified 05/26/23 17:32 gentamicin [From GARAMYCIN] Allergy Intermediate RASH Verified 05/26/23 17:32 atropine Allergy Unknown localized Verified 05/26/23 17:32 eye rxn cephalexin Allergy Unknown Rash Verified 05/26/23 17:32 Doxycycline Monohydrate Allergy Unknown Rash Uncoded 11/11/21 09:08 Active Medications: Current Medications Sodium Chloride (Ns) 1,000 mls @ 125 mls/hr IVCONT .Q8H ONE Stop: 05/27/23 04:11 Last Admin: 05/26/23 20:29 Dose: 125 mls/hr Home Medications Medication Instructions Recorded Confirmed Last Taken Type alprazolam 0.25 mg tablet 1 tab PO BEDTIME PRN Anxiety 09/08/20 11/11/21 09/14/20 History atorvastatin 40 mg tablet 1 tab PO BEDTIME 09/08/20 11/11/21 Unknown History diphenhydramine 25 1 tab PO BEDTIME PRN Sleep 09/08/20 11/11/21 Unknown History mg-acetaminophen 500 mg tablet (Tylenol PM Extra Strength) levothyroxine 100 mcg tablet 1 tab PO DAILY 09/08/20 11/11/21 11/11/21 History lorazepam 0.5 mg tablet 1 tab PO DAILY PRN Anxiety 09/08/20 09/08/20 Unknown History omeprazole 20 mg capsule,delayed 20 mg PO DAILY 09/08/20 11/11/21 11/28/22 08:15 History release simethicone 80 mg chewable tablet 80 mg PO DAILY PRN GAS 09/08/20 11/11/21 Unknown History vit C 250 mg-vit E 90 mg-zinc 40 1 tab PO BID 09/08/20 11/11/21 Unknown History mg-copper 1 [id number] capsule (PreserVision AREDS-2) cholecalciferol (vitamin D3) 10 10 mcg PO DAILY 11/11/21 11/11/21 Unknown History mcg (400 unit) capsule docusate sodium 100 mg capsule 100 mg PO DAILY 11/11/21 11/11/21 Unknown History gabapentin 100 mg capsule 1 cap PO Q4H PRN pain 11/11/21 11/11/21 Unknown History pgpamzet-fsjp-uvpf 8 mg-folic 400 1 tab PO DAILY 11/11/21 11/11/21 Unknown History mcg-K 50 mcg-lutein 300 mcg tablet (Centrum Silver Women) valacyclovir 1 gram tablet 1 tab PO TID 11/11/21 11/11/21 11/11/21 History Physical Exam Vital Signs and Narrative: Vital Signs: Last Vital Signs Temp 97.7 F 05/26/23 21:35 Pulse 89 05/26/23 21:35 Resp 18 05/26/23 21:35 BP 179/69 H 05/26/23 21:35 Pulse Ox 97 05/26/23 21:35 O2 Del Method Room Air 05/26/23 21:35 BMI result Body Mass Index 25.2 Elderly female lying in bed in no distress Neck supple, no JVD Regular rate and rhythm, S1-S2 heard Regular breath sounds bilaterally, no wheezing or crackles appreciated Abdomen soft nontender, no guarding, no rigidity Patient is awake, alert and oriented to self, place, time and person ; no focal motor deficit Psych: Normal mood No pedal edema Results Labs 05/26/23 17:43 05/26/23 17:43 Labs: Laboratory Results - last 24 hr 05/26/23 05/26/23 05/26/23 17:43 18:48 20:05 MCV 94.5 MCH 30.9 MCHC 32.6 RDW 13.3 Plt Count 127 L MPV 11.1 Immature Gran % (Auto) 0.5 H Neut % (Auto) 56.8 Lymph % (Auto) 30.6 [place] % (Auto) 8.2 Eos % (Auto) 3.6 Baso % (Auto) 0.3 Lymph # (Auto) 2.3 [place] # (Auto) 0.6 Eos # (Auto) 0.3 Baso # (Auto) 0.0 Abs Immat Gran (auto) 0.04 H Absolute Neuts (auto) 4.2 Absolute Nucleated RBC 0.000 Nucleated RBC % (auto) 0.0 Anion Gap 12 Estim Creat Clear Calc 44.9 Estimated GFR > 60 Random Glucose 112 Calcium 9.0 Magnesium 2.2 Total Bilirubin 0.4 AST 24 ALT 15 Alkaline Phosphatase 68 Total Protein 7.0 Albumin 4.0 Stool Occult Blood POSITIVE Blood Type A Positive Antibody Screen NEGATIVE Imaging Radiologist's Impressions: Impressions Abdomen/Pelvis CT 05/26/23 22:10 IMPRESSION: Chronic appearing and postoperative changes as described above. I do not appreciate any acute intra-abdominal process. There is extensive diverticulosis but I do not appreciate any focal colonic wall thickening or pericolonic inflammatory change to suggest diverticulitis. Patient is status post right hemicolectomy. There is diffuse mucosal thickening in the stomach and a component of gastritis would be suspected given this degree of decompression. Assessment and Plan (1) Acute GI bleeding: Status: Acute Plan This is a 83-year-old female with pertinent history of colon cancer status post right hemicolectomy, mood disorder, gastroesophageal reflux disease, hypothyroidism, mixed hyperlipidemia who presents to the emergency department for evaluation of bright red blood per rectum. #. Painless bright red blood per rectum: Will admit patient with cardiac monitoring. Consulted Gastroenterology, appreciate assistance. Closely monitor H&H. Imaging without any acute abnormalities #. Gastroesophageal reflux disease: On PPI #. Mood disorder: Continue home mood stabilizers #. Hypothyroidism: On Synthroid #. Mixed hyperlipidemia: On statin Med rec pending DVT prophylaxis: Mechanical Full code Quality Stroke Does the patient have a stroke diagnosis?: No VTE Prior VTE?: No VTE Risk Level:: Medical - moderate - high VTE Device Contraindication: N/A - Device Ordered VTE Drug Contraindication: Treatment Not Indicated
--- NOTE | 2023-05-26 23:40 | PC.NURSE ---
Addendum entered by Elsa Mcgill 05/27/23 06:11: Denies ABD pain, dizziness or SOB. Addendum entered by Elsa Mcgill 05/27/23 06:10: Denies diarrhea, reports gas and BRB with every BR use. Original Note: This business writer assumed care of this Pt at 2300. Pt A&Ox3, denies any pain. Reports having diarrhea more frequent after drinking CT scan drink with noticeable blood. IV fluids running per JUN.
[2023-05-26 23:58] VITALS: BP 163/51; PULSE 88; RESP 16; TEMP 36.4; O2SAT 96
[2023-05-27 03:05] VITALS: BP 161/64; PULSE 89; RESP 16; TEMP 36.5; O2SAT 99
--- NOTE | 2023-05-27 03:56 | PC.NURSE ---
Pt ambulated to BR with steady gait.
--- NOTE | 2023-05-27 05:09 | PC.NURSE ---
Med rec complete, Pt able to verbalize and provide med list.
[2023-05-27 05:46] LABS: PLT CLUMP 1; SCAN SMEAR FLAG 1
[2023-05-27 05:48] LABS: Basophils Percent Auto 0.3 % (0-2); Eosinophils Absolute Auto 0.2 X10*3/uL (0.0-0.4); Eosinophils Percent Auto 2.4 % (0-4); Hematocrit 42.9 % (37.0-47.0); Hemoglobin 13.8 g/dl (12.0-16.0); Imm Gran Abs Auto 0.07 X10*3/uL (0.00-0.03); Imm Gran Pct Auto 0.9 % (0.0-0.4); Lymphocytes Absolute Auto 1.8 X10*3/uL (1.2-4.9); Lymphocytes Percent Auto 22.1 % (20-40); Mean Corpuscular HGB Conc 32.2 g/dl (31.0-35.0); Mean Corpuscular Hemoglobin 30.5 pg (27.0-33.0); Mean Corpuscular Volume 94.9 fL (80.0-98.0); Mean Platelet Volume 10.5 fL (9.4-12.3); Monocytes Absolute Auto 0.6 X10*3/uL (0.1-1.2); Monocytes Percent Auto 7.5 % (2-11); Neutrophils Absolute Auto 5.3 x10*3/uL (2.0-8.3); Neutrophils Percent Auto 66.8 % (45-73); Red Blood Count 4.52 X10*6/uL (4.20-5.50); Red Cell Distribution Width 13.2 % (11.0-16.0)
[2023-05-27 05:50] LABS: MANUAL DIFF FLAG NO; Platelet Count 127 X10*3/uL (160-400); White Blood Count 8.2 X10*3/uL (4.8-10.8)
[2023-05-27 06:00] LABS: Anion Gap 11 (12-20); Blood Urea Nitrogen 11 mg/dL (9-16); Calcium 8.6 mg/dL (8.4-10.2); Carbon Dioxide 27 mmol/L (22-29); Chloride 105 mmol/L (96-108); Creatinine Clr Calc Pharmacy 55.2; Estimated Glomerular Filt Rate > 60; Glucose Random 99 mg/dL (60-115); Potassium 3.3 mmol/L (3.3-5.1); Sodium 140 mmol/L (135-145)
--- NOTE | 2023-05-27 07:49 | PC.NURSE ---
Assumed care of this patient at 7am, patient comfortable and pvc monitor and VSS. Denies any pain or SOB. Lungs clear throughout. Largest compliant is lack of sleep due to constant noise. Waiting on GI consult and Room assignment.
[2023-05-27] MEDS: Omeprazole 20 MG CAPSULE.DR PO (08:47)
[2023-05-27] MEDS: Cholecalciferol (Vitamin D3) 10 MCG TABLET PO (08:47)
[2023-05-27] MEDS: Levothyroxine Sodium 100 MCG TABLET PO (08:47)
[2023-05-27] MEDS: 0.9 % Sodium Chloride Flush 3 ML SYRINGE IVFLUSH ×3 (08:48→21:34)
[2023-05-27] MEDS: ALPRAZolam 0.25 MG TABLET PO ×2 (08:50→22:24)
--- NOTE | 2023-05-27 11:39 | P.PNIM_ITS ---
Subjective Subjective Date of Service: 05/27/23 Interval History: ongoing brbpr Physical Exam 2 Vital Signs: Vital Signs: Last Vital Signs Temp 97.7 F 05/27/23 03:05 Pulse 89 05/27/23 03:05 Resp 16 05/27/23 03:05 BP 161/64 H 05/27/23 03:05 Pulse Ox 99 05/27/23 03:05 O2 Del Method Room Air 05/27/23 03:05 BMI result Body Mass Index 25.2 General: AO X 3, no acute distress Resp: CTA bilateral, no accessory muscles used CVS: S1,S2,RRR GI: soft, non tender, non distended Neuro: motor grossly intact, alert Psych: appropriate affect, appropriate insight Objective Data Active Medications Acetaminophen (Acetaminophen 325 Mg Tablet) 650 mg PO Q6H PRN PRN Reason: Pain, Mild (Pain Scale 1-3) Alprazolam (Alprazolam 0.25 Mg Tablet) 0.25 mg PO BEDTIME PRN PRN Reason: Anxiety Last Admin: 05/27/23 08:50 Dose: 0.25 mg Documented By: MIREYA Atorvastatin Calcium (Atorvastatin Calcium 40 Mg Tablet) 40 mg PO BEDTIME [facility] Levothyroxine Sodium (Levothyroxine Sodium 100 Mcg Tablet) 100 mcg PO DAILY@0630 [facility] Last Admin: 05/27/23 08:47 Dose: 100 mcg Documented By: MIREYA Melatonin (Melatonin 3 Mg Tablet) 6 mg PO BEDTIME PRN PRN Reason: Insomnia Omeprazole (Omeprazole 20 Mg Capsule.Dr) 20 mg PO DAILY@0630 [facility] Last Admin: 05/27/23 08:47 Dose: 20 mg Documented By: MIREYA Ondansetron HCl (Ondansetron Hcl 4 Mg/2 Ml Vial) 4 mg IVPUSH Q8H PRN PRN Reason: Nausea and Vomiting Sodium Chloride (0.9 % Sodium Chloride Flush 3 Ml Syringe) 3 ml IVFLUSH QSHIFT [facility] Last Admin: 05/27/23 08:48 Dose: 3 ml Documented By: MIREYA Vitamin D (Cholecalciferol (Vitamin D3) 10 Mcg Tablet) 10 mcg PO DAILY [facility] Last Admin: 05/27/23 08:47 Dose: 10 mcg Documented By: MIREYA Labs 05/27/23 05:17 05/27/23 05:17 Labs: Laboratory Results - last 24 hr 05/26/23 05/26/23 05/26/23 17:43 18:48 20:05 MCV 94.5 MCH 30.9 MCHC 32.6 RDW 13.3 Plt Count 127 L MPV 11.1 Immature Gran % (Auto) 0.5 H Neut % (Auto) 56.8 Lymph % (Auto) 30.6 [place] % (Auto) 8.2 Eos % (Auto) 3.6 Baso % (Auto) 0.3 Lymph # (Auto) 2.3 [place] # (Auto) 0.6 Eos # (Auto) 0.3 Baso # (Auto) 0.0 Abs Immat Gran (auto) 0.04 H Absolute Neuts (auto) 4.2 Absolute Nucleated RBC 0.000 Nucleated RBC % (auto) 0.0 Anion Gap 12 Estim Creat Clear Calc 44.9 Estimated GFR > 60 Random Glucose 112 Calcium 9.0 Magnesium 2.2 Total Bilirubin 0.4 AST 24 ALT 15 Alkaline Phosphatase 68 Total Protein 7.0 Albumin 4.0 Stool Occult Blood POSITIVE Blood Type A Positive Antibody Screen NEGATIVE 05/27/23 05:17 MCV 94.9 MCH 30.5 MCHC 32.2 RDW 13.2 Plt Count 127 L MPV 10.5 Immature Gran % (Auto) 0.9 H Neut % (Auto) 66.8 Lymph % (Auto) 22.1 [place] % (Auto) 7.5 Eos % (Auto) 2.4 Baso % (Auto) 0.3 Lymph # (Auto) 1.8 [place] # (Auto) 0.6 Eos # (Auto) 0.2 Baso # (Auto) 0.0 Abs Immat Gran (auto) 0.07 H Absolute Neuts (auto) 5.3 Absolute Nucleated RBC 0.000 Nucleated RBC % (auto) 0.0 Anion Gap 11 L Estim Creat Clear Calc 55.2 Estimated GFR > 60 Random Glucose 99 Calcium 8.6 Magnesium Total Bilirubin AST ALT Alkaline Phosphatase Total Protein Albumin Stool Occult Blood Blood Type Antibody Screen Assessment and Plan (1) Acute GI bleeding: Status: Acute Plan 83F PMH colon ca s/p right hemicolectomy, gerd, mood disorder ,hypothyroid, hld, presented with brbpr brbpr hgb stable, monitor gi eval gerd ppi hypothyroid synthroid hld statin dvt prophylaxis - mechanical due to gi bleed full code reason for continued hospitalization: gi bleed ongoing Quality Stroke Does the patient have a stroke diagnosis?: No VTE Prior VTE?: No VTE Risk Level:: Medical - moderate - high VTE Device Contraindication: N/A - Device Ordered VTE Drug Contraindication: Treatment Not Indicated
--- NOTE | 2023-05-27 11:59 | CONS_ITS ---
DATE OF SERVICE: 05/27/2023 REFERRING PHYSICIAN: Tavo Nagy MD REASON FOR CONSULTATION: GI bleed. HISTORY OF PRESENT ILLNESS: The patient is a pleasant 83-year-old woman who was admitted to the hospital after presenting to the emergency room complaining of rectal bleeding. She reports symptoms began the morning of admission when she started to have rectal bleeding, which was painless. This was bright red blood and persisted. She came to the emergency department for evaluation. She was admitted to the hospital and overnight reports her stools, although still bloody, are becoming more cloudy and burgundy. She has no abdominal or rectal pain. Evaluation in the emergency room included laboratory studies, which are reviewed as well as abdominal and pelvic CT scanning. The CT scan showed postsurgical changes from her prior right colectomy for colon cancer, but no evidence of diverticulitis or colitis. Her hematocrit on admission was 43.2 and has remained stable overnight at 42.9. She has been tolerating a liquid diet. She denies any prior history of GI bleeding. She did undergo colonoscopy in November because of her personal history of colon cancer and polyps. This showed a small tubular adenoma in the rectum, but no evidence of recurrent carcinoma. Diverticulosis was noted as well. PAST MEDICAL HISTORY: 1. Colon cancer as above. 2. Hypothyroidism. 3. Brito esophagus. 4. Anxiety. 5. Arthritis. 6. Right bundle-branch block. 7. Hyperlipidemia. CURRENT MEDICATIONS: Her current medication list is reviewed in the chart. ALLERGIES: MULTIPLE MEDICATION ALLERGIES ARE REVIEWED. FAMILY HISTORY: This is reviewed with the patient and is noncontributory. SOCIAL HISTORY: There is no current tobacco, alcohol, or substance abuse. REVIEW OF SYSTEMS: SKIN: No pruritus. HEENT: Negative. CARDIOPULMONARY: She denies shortness of breath or chest pain. GASTROINTESTINAL: As above. GENITOURINARY: Negative. NEUROPSYCHIATRIC: Negative. PHYSICAL EXAMINATION: GENERAL: A pleasant female, lying comfortably in bed. VITAL SIGNS: Stable. SKIN: Anicteric. HEENT: No scleral icterus. NECK: Without lymphadenopathy or thyromegaly. LUNGS: Clear. HEART: A regular rate and rhythm. S1, S2. No murmur. ABDOMEN: Soft without focal masses or tenderness. Bowel sounds are present. No organomegaly is noted. EXTREMITIES: Without edema. LABORATORY DATA AND IMAGING STUDIES: Reviewed. IMPRESSION: Gastrointestinal bleeding. Her presentation appears most consistent with a diverticular bleed and I discussed this with her. This appears self-limited. Other possible causes would include hemorrhoidal bleeding, arteriovenous malformations and malignancy, which is extremely unlikely given her recent colonoscopy findings earlier in the year. At this time, she appears stable. I would recommend advancing her diet and once her bleeding has, she can be safely discharged home. Thanks for asking me to see her. I will follow her in the hospital with you. MD YI Ramirez/VIKTOR / [phone]
[2023-05-27 18:05] VITALS: BP 165/58; PULSE 82; RESP 14; TEMP 36.5; O2SAT 98
[2023-05-27 21:23] VITALS: BP 138/62; PULSE 75; RESP 16; TEMP 36.6; O2SAT 99
[2023-05-27] MEDS: Atorvastatin Calcium 40 MG TABLET PO (21:33)
[2023-05-27 23:24] VITALS: BP 147/72; PULSE 72; RESP 16; TEMP 36.8; O2SAT 98
--- NOTE | 2023-05-28 03:37 | PC.NURSE ---
TRANSFERRED FROM MAIN ER TO ER OVERFLOW BED 3 APPROX 8:30PM...ALERT..ORIENTED X3...VSS....DENIES NAUSEA OR PAIN...OOB TO BR WITH STEADY GAIT..DENIES DIZZYNESS...VOIDING IN BATHROOM...REPORTS SMALL SMEARS/STREAKS OF OLD BLOODY STOOL....TOLERATING REGULAR DIET W/O NAUSEA OR EMESIS...HS PRN XANAX FOR SLEEP PER REQUEST FOR SLEEP...RESTFULOVERNIGHT..DENIES/OFFERS NO COMPLAINTS
[2023-05-28 05:18] VITALS: BP 126/70; PULSE 72; RESP 18; TEMP 36.7; O2SAT 95
[2023-05-28] MEDS: Levothyroxine Sodium 100 MCG TABLET PO (05:32)
[2023-05-28] MEDS: Omeprazole 20 MG CAPSULE.DR PO (05:32)
[2023-05-28 05:37] LABS: PLT CLUMP 1; Red Cell Distribution Width 13.2 % (11.0-16.0)
[2023-05-28 05:39] LABS: Hematocrit 39.1 % (37.0-47.0); Hemoglobin 12.7 g/dl (12.0-16.0); Mean Corpuscular HGB Conc 32.5 g/dl (31.0-35.0); Mean Corpuscular Hemoglobin 30.5 pg (27.0-33.0); Mean Corpuscular Volume 93.8 fL (80.0-98.0); Mean Platelet Volume 10.6 fL (9.4-12.3); Red Blood Count 4.17 X10*6/uL (4.20-5.50); White Blood Count 6.7 X10*3/uL (4.8-10.8)
[2023-05-28 05:40] LABS: Platelet Count 119 X10*3/uL (160-400)
[2023-05-28 05:54] LABS: Anion Gap 12 (12-20); Blood Urea Nitrogen 14 mg/dL (9-16); Calcium 8.8 mg/dL (8.4-10.2); Carbon Dioxide 28 mmol/L (22-29); Chloride 106 mmol/L (96-108); Creatinine Clr Calc Pharmacy 51.5; Estimated Glomerular Filt Rate > 60; Glucose Fasting 90 mg/dL (60-99); Potassium 3.6 mmol/L (3.3-5.1); Sodium 142 mmol/L (135-145)
--- NOTE | 2023-05-28 07:09 | PC.NURSE ---
Resumed care of patient, she is currently resting comfortably, all needs met, call young within reach
[2023-05-28] MEDS: Cholecalciferol (Vitamin D3) 10 MCG TABLET PO (08:56)
[2023-05-28] MEDS: 0.9 % Sodium Chloride Flush 3 ML SYRINGE IVFLUSH ×2 (08:58→16:19)
--- NOTE | 2023-05-28 09:01 | HO.PM.IMPN ---
Subjective Subjective Date of Service: 05/28/23 Interval History: bleeding slowed, but still with some brbpr when passing gas Physical Exam Vital Signs: Vital Signs: Last Vital Signs Temp 98.0 F 05/28/23 05:18 Pulse 72 05/28/23 05:18 Resp 18 05/28/23 05:18 BP 126/70 05/28/23 05:18 Pulse Ox 95 05/28/23 05:18 O2 Del Method Room Air 05/28/23 05:18 BMI result Body Mass Index 25.2 General: AO X 3, no acute distress Resp: CTA bilateral, no accessory muscles used CVS: S1,S2,RRR GI: soft, non tender, non distended Neuro: motor grossly intact, alert Psych: appropriate affect, appropriate insight Objective Data Active Medications Acetaminophen (Acetaminophen 325 Mg Tablet) 650 mg PO Q6H PRN PRN Reason: Pain, Mild (Pain Scale 1-3) Alprazolam (Alprazolam 0.25 Mg Tablet) 0.25 mg PO BEDTIME PRN PRN Reason: Anxiety Last Admin: 05/27/23 22:24 Dose: 0.25 mg Documented By: RONNI Atorvastatin Calcium (Atorvastatin Calcium 40 Mg Tablet) 40 mg PO BEDTIME [facility] Last Admin: 05/27/23 21:33 Dose: 40 mg Documented By: RONNI Levothyroxine Sodium (Levothyroxine Sodium 100 Mcg Tablet) 100 mcg PO DAILY@629 [facility] Last Admin: 05/28/23 05:32 Dose: 100 mcg Documented By: RONNI Melatonin (Melatonin 3 Mg Tablet) 6 mg PO BEDTIME PRN PRN Reason: Insomnia Omeprazole (Omeprazole 20 Mg Capsule.Dr) 20 mg PO DAILY@629 [facility] Last Admin: 05/28/23 05:32 Dose: 20 mg Documented By: RONNI Ondansetron HCl (Ondansetron Hcl 4 Mg/2 Ml Vial) 4 mg IVPUSH Q8H PRN PRN Reason: Nausea and Vomiting Sodium Chloride (0.9 % Sodium Chloride Flush 3 Ml Syringe) 3 ml IVFLUSH QSHIFT [facility] Last Admin: 05/28/23 08:58 Dose: 3 ml Documented By: CAMMIE Vitamin D (Cholecalciferol (Vitamin D3) 10 Mcg Tablet) 10 mcg PO DAILY [facility] Last Admin: 05/28/23 08:56 Dose: 10 mcg Documented By: CAMMIE Labs 05/28/23 05:00 05/28/23 05:00 Labs: Laboratory Results - last 24 hr 05/28/23 05:00 MCV 93.8 MCH 30.5 MCHC 32.5 RDW 13.2 Plt Count 119 L MPV 10.6 Absolute Nucleated RBC 0.000 Nucleated RBC % (auto) 0.0 Anion Gap 12 Estim Creat Clear Calc 51.5 Estimated GFR > 60 Fasting Glucose 90 Calcium 8.8 Assessment and Plan (1) Acute GI bleeding: Status: Acute Plan 83F PMH colon ca s/p right hemicolectomy, gerd, mood disorder ,hypothyroid, hld, presented with brbpr brbpr likely diverticular vs hemorrhoidal hgb stable, monitor gi appreciated still with some blood when passing gas, will continue to monitor gerd ppi hypothyroid synthroid hld statin dvt prophylaxis - mechanical due to gi bleed full code reason for continued hospitalization: gi bleed ongoing Quality Stroke Does the patient have a stroke diagnosis?: No VTE Prior VTE?: No VTE Risk Level:: Medical - moderate - high VTE Device Contraindication: N/A - Device Ordered VTE Drug Contraindication: Treatment Not Indicated
--- NOTE | 2023-05-28 09:27 | PC.NURSE ---
Pt reporting she had a small nugget of stool Pt reporting when she wiped she still did have blood on the toilet paper.
[2023-05-28 15:25] VITALS: BP 146/65; PULSE 82; RESP 16; TEMP 36.4; O2SAT 98
[2023-05-28] MEDS: Atorvastatin Calcium 40 MG TABLET PO (20:42)
[2023-05-28] MEDS: ALPRAZolam 0.25 MG TABLET PO (20:43)
[2023-05-28 21:34] VITALS: BP 123/60; PULSE 77; RESP 16; TEMP 36.9; O2SAT 96
--- NOTE | 2023-05-28 23:53 | PC.NURSE ---
Assumed care for pt. Pt is currently in the right lateral position sleeping at the bedside. No apparent distress noted. Breaths are regular and unlabored. Pending bed assignment. Monitoring is ongoing.
--- NOTE | 2023-05-29 01:56 | PC.NURSE ---
Pt ambulatory to the restroom with steady gait.
[2023-05-29] MEDS: Omeprazole 20 MG CAPSULE.DR PO (06:09)
[2023-05-29] MEDS: Levothyroxine Sodium 100 MCG TABLET PO (06:09)
[2023-05-29 06:21] VITALS: BP 134/62; PULSE 76; RESP 18; TEMP 36.3; O2SAT 97
[2023-05-29 06:57] LABS: Hematocrit 38.2 % (37.0-47.0); Hemoglobin 12.6 g/dl (12.0-16.0); Mean Corpuscular Hemoglobin 30.5 pg (27.0-33.0); Mean Corpuscular Volume 92.5 fL (80.0-98.0); Mean Platelet Volume 10.6 fL (9.4-12.3); Platelet Count 118 X10*3/uL (160-400); Red Blood Count 4.13 X10*6/uL (4.20-5.50); Red Cell Distribution Width 13.2 % (11.0-16.0); White Blood Count 6.2 X10*3/uL (4.8-10.8)
[2023-05-29 07:02] LABS: Anion Gap 11 (12-20); Blood Urea Nitrogen 14 mg/dL (9-16); Calcium 8.6 mg/dL (8.4-10.2); Carbon Dioxide 28 mmol/L (22-29); Chloride 106 mmol/L (96-108); Creatinine Clr Calc Pharmacy 55.9; Estimated Glomerular Filt Rate > 60; Glucose Fasting 98 mg/dL (60-99); Potassium 3.6 mmol/L (3.3-5.1); Sodium 141 mmol/L (135-145)
[2023-05-29 08:00] VITALS: BP 147/70; PULSE 84; RESP 20; TEMP 36.4; O2SAT 99
[2023-05-29] MEDS: Cholecalciferol (Vitamin D3) 10 MCG TABLET PO (08:23)
[2023-05-29] MEDS: 0.9 % Sodium Chloride Flush 3 ML SYRINGE IVFLUSH (08:24)
[2023-05-29 12:00] VITALS: BP 158/70; PULSE 95; RESP 18; TEMP 36.8; O2SAT 99
--- NOTE | 2023-05-29 14:02 | PM.DS ---
DS: Providers Provider Date of Service: 05/29/23 Date of admission: 05/28/23 09:15 Primary care physician: Sandip Castro MD Consults: 05/26/23 23:08 Consult to Gastroenterology Routine Consulting Provider: Fito Betancourt Reason for consultation: acute gi bleed DS: Diagnosis Discharge Diagnosis (1) Acute GI bleeding: Status: Acute DS: Summary Hospital Course Hospital Course: Admission note HPI This is a 83-year-old female with pertinent history of colon cancer status post right hemicolectomy, mood disorder, gastroesophageal reflux disease, hypothyroidism, mixed hyperlipidemia who presents to the emergency department for evaluation of bright red blood per rectum. Patient states she started having painless bright red blood per rectum on the day of presentation. Patient had 5-6 episodes before coming to the ER. No nausea, vomiting, fever, chills or abdominal discomfort. This has not happened before. Patient does have history of colon cancer and is status post right hemicolectomy. States she follows with Dr. Keene and is compliant with her colonoscopy follow-ups. No chest discomfort, not on anticoagulation, palpitations, shortness of breath, changes in urinary habits. In the emergency department, stool occult blood positive. Gastroenterology was consulted who requested admission for observation. Hospital course The patient was admitted for evaluation of rectal bleeding that was believed to be likely diverticular vs hemorrhoidal as she was evaluated by dr Betancourt who reviewed her recent colonoscopy from 1 year ago. treated with IV fluids and advancing diet as tolerated as hemoglobin level remained stable and bleeding stopped. Increase fiber in diet use Proctozone bedtime come back to hospital for any recurrent bleeding Time Attestation Discharge coordination time: Greater than 30 minutes Quality: Safe Use of Opioids Does Pt have an Active Cancer Diagnosis on the Problem List?: No Quality: Stroke Does the patient have a stroke diagnosis?: No Physical Exam Vital Signs: Vital Signs: Last Vital Signs Temp 98.2 F 05/29/23 12:00 Pulse 95 05/29/23 12:00 Resp 18 05/29/23 12:00 BP 158/70 H 05/29/23 12:00 Pulse Ox 99 05/29/23 12:00 O2 Del Method Room Air 05/29/23 12:00 BMI result Body Mass Index 25.2 Const: Other: Constitutional : Awake, interactive, not in distress Neck : Normal inspection, Supple Cardiovascular : RRR, no JVP, no lower extremity edema Respiratory : good bilateral air entry, no crackles, wheezes or rhonchi Gastrointestinal: soft, lax, Normal bowel sounds, Non tender Skin : Warm, Dry Neurological : Alert & oriented x3, No focal deficit DS: Data Data Completed and Pending Labs on day of discharge: Laboratory Results - last 24 hr 05/29/23 05:52 WBC 6.2 RBC 4.13 L Hgb 12.6 Hct 38.2 MCV 92.5 MCH 30.5 MCHC 33.0 RDW 13.2 Plt Count 118 L MPV 10.6 Absolute Nucleated RBC 0.000 Nucleated RBC % (auto) 0.0 Sodium 141 Potassium 3.6 Chloride 106 Carbon Dioxide 28 Anion Gap 11 L BUN 14 Creatinine 0.69 Estim Creat Clear Calc 55.9 Estimated GFR > 60 Fasting Glucose [address] scan - abdomen: Radiologist's impression: ITS Impressions Abdomen/Pelvis CT 05/26/23 22:10 IMPRESSION: Chronic appearing and postoperative changes as described above. I do not appreciate any acute intra-abdominal process. There is extensive diverticulosis but I do not appreciate any focal colonic wall thickening or pericolonic inflammatory change to suggest diverticulitis. Patient is status post right hemicolectomy. There is diffuse mucosal thickening in the stomach and a component of gastritis would be suspected given this degree of decompression. Discharge Plan Discharge Anticipated Discharge Date/Time: 05/29/23 13:52 Patient Disposition: Home, Self-Care Discharge Diagnosis: GI bleed Referrals: Sandip Castro MD [Primary Care Provider] - 1 Week Discharge Medications: New hydrocortisone [Proctozone-HC] 2.5 % Cream With Perineal Applicator 1 appl AR BEDTIME Qty: 30 1RF Continued atorvastatin 40 mg tablet 1 tab PO BEDTIME levothyroxine 100 mcg tablet 1 tab PO DAILY alprazolam 0.25 mg tablet 1 tab PO BEDTIME PRN (Reason: Anxiety) lorazepam 0.5 mg tablet 1 tab PO DAILY PRN (Reason: Anxiety) omeprazole 20 mg Capsule,Delayed Release(Dr/Ec) 20 mg PO DAILY diphenhydramine-acetaminophen [Tylenol PM Extra Strength] 25-500 mg Tablet 1 tab PO BEDTIME PRN (Reason: Sleep) PreserVision AREDS-2 250-90-40-1 mg Capsule 1 tab PO BID simethicone 80 mg Tablet,Chewable 80 mg PO DAILY PRN (Reason: GAS) Centrum Silver Women 8 mg iron-400 mcg-300 mcg Tablet 1 tab PO DAILY cholecalciferol (vitamin D3) 10 mcg (400 unit) Capsule 10 mcg PO DAILY docusate sodium 100 mg Capsule 100 mg PO DAILY Discharge Orders: Discharge Order (Routine); Ordered 05/29/23 Ordered By: Leo Duarte Diet: Advance to usual diet Activity on Discharge: As tolerated Stand Alone Forms: Patient Portal Discharge page Care Plan Goals: Read below Health Concerns: Read below Plan of Treatment: Read below Assessment: You were admitted for evaluation of rectal bleeding. evaluated by financial processing clerk dr Betancourt and monitored during hospital stay as your blood levels remained stable. we believe the bleeding is likely from diverticulae or haemorrhoids. Increase fiber in your diet use Proctozone bedtime come back to hospital for any recurrent bleeding Discharge Date/Time: 05/29/23 15:21
== END 2023-05-29 15:21 | disposition home or self-care (01) | DRG 379 ==
LOC: HO.ED 18:06 → HO.EDOVER 23:21
PROVIDERS: Internal Medicine; Physician Assistant Medical; Admitting Provider Student in an Organized Health Care Education/Training Program; Emergency Provider Student in an Organized Health Care Education/Training Program; PCP Internal Medicine; Visit Provider Student in an Organized Health Care Education/Training Program
DX: K57.31 Diverticulosis of large intestine without perforation or abscess with bleeding (principal); E03.9 Hypothyroidism, unspecified; E78.5 Hyperlipidemia, unspecified; K21.9 Gastro-esophageal reflux disease without esophagitis; K64.9 Unspecified hemorrhoids; F39 Unspecified mood [affective] disorder; E78.2 Mixed hyperlipidemia; Z85.038 Personal history of other malignant neoplasm of large intestine; Z79.890 Hormone replacement therapy; Z79.899 Other long term (current) drug therapy
CPT/HCPCS: 36415; 74177; 80048; 80053; 82272; 83735; 85025; 85027; 86850; 86900; 86901; 99221; 99285; Q9967

== ENCOUNTER → 2023-05-26 17:41 | Outpatient (BNV) | payer MEDICARE, SELFPAY | PROVIDERS: Emergency Provider Student in an Organized Health Care Education/Training Program; PCP Internal Medicine; Visit Provider Student in an Organized Health Care Education/Training Program | DX: K92.2 Gastrointestinal hemorrhage, unspecified (principal); Z85.038 Personal history of other malignant neoplasm of large intestine | CPT/HCPCS: 99222; 99232; 99233; 99238 ==

== ENCOUNTER 2023-06-18 11:11 | Outpatient (REF) | payer MEDICARE, SELFPAY ==
[2023-06-18 13:32] LABS: Basophils Percent Auto 0.3 % (0-2); Eosinophils Absolute Auto 0.2 X10*3/uL (0.0-0.4); Eosinophils Percent Auto 3.1 % (0-4); Hematocrit 43.1 % (37.0-47.0); Hemoglobin 13.8 g/dl (12.0-16.0); Imm Gran Abs Auto 0.05 X10*3/uL (0.00-0.03); Imm Gran Pct Auto 0.9 % (0.0-0.4); Lymphocytes Absolute Auto 1.5 X10*3/uL (1.2-4.9); MANUAL DIFF FLAG SCAN; Mean Corpuscular Hemoglobin 30.4 pg (27.0-33.0); Mean Corpuscular Volume 94.9 fL (80.0-98.0); Mean Platelet Volume 10.9 fL (9.4-12.3); Monocytes Absolute Auto 0.4 X10*3/uL (0.1-1.2); Monocytes Percent Auto 6.9 % (2-11); Neutrophils Absolute Auto 3.6 x10*3/uL (2.0-8.3); Neutrophils Percent Auto 62.8 % (45-73); Platelet Count 121 X10*3/uL (160-400); Red Blood Count 4.54 X10*6/uL (4.20-5.50); Red Cell Distribution Width 13.2 % (11.0-16.0); SCAN SMEAR FLAG 1; White Blood Count 5.8 X10*3/uL (4.8-10.8)
[2023-06-18 13:51] LABS: Anion Gap 11 (12-20); Blood Urea Nitrogen 14 mg/dL (9-16); Carbon Dioxide 30 mmol/L (22-29); Chloride 105 mmol/L (96-108); Estimated Glomerular Filt Rate > 60; Glucose Random 170 mg/dL (60-115); Potassium 3.9 mmol/L (3.3-5.1); Sodium 142 mmol/L (135-145)
[2023-06-18 14:01] LABS: SLIDE REVIEW VERIFIED
[2023-06-18 14:11] LABS: Free T4 (Free Thyroxine) 1.16 ng/dL (0.71-1.85); Thyroid Stimulating Hormone 3.73 uIU/mL (0.32-4.0)
[2023-06-18 14:18] LABS: Vitamin B12 > 2000 pg/mL (200-900)
== END 2023-06-18 11:12 | disposition home or self-care (01) ==
LOC: HO.10HDL 11:11
PROVIDERS: Visit Provider Internal Medicine
DX: R53.83 Other fatigue (principal); K21.9 Gastro-esophageal reflux disease without esophagitis; K57.90 Diverticulosis of intestine, part unspecified, without perforation or abscess without bleeding
CPT/HCPCS: 36415; 80048; 82607; 84439; 84443; 85025

== ENCOUNTER 2023-07-21 10:56 | Inpatient (IN) | payer MEDICARE, SELFPAY ==
--- NOTE | ~2023-07-21 | CT_ITS ---
EXAMINATION: CT ABDOMEN AND PELVIS WITH CONTRAST CLINICAL INFORMATION: Left lower quadrant pain COMPARISON: CT abdomen and pelvis 05/26/2023 TECHNIQUE: Multidetector volumetric images were obtained from the superior aspect of the liver through the pubic symphysis following administration 85 mL of Omnipaque 350 intravenous contrast. Sagittal and coronal reformatted images were obtained on the technologist's workstation. Oral contrast: No This CT examination was performed using dose optimization techniques as appropriate, variously including the following: *Automated exposure control *Adjustment of mA and/or kV according to patient size (this includes techniques or standardized protocols for targeted exams where dose is matched to indication/reason for exam; i.e. extremities or head) *Use of iterative reconstruction technique DLP: 392 mGy-cm FINDINGS: LUNG BASES: Multifocal ground last nodules in the left lung base. LIVER, GALLBLADDER, AND BILIARY TREE: The liver is normal in size. Unchanged hepatic cysts, some of which contain coarse calcifications. The gallbladder is unremarkable with no evidence of radiopaque gallstones, gallbladder wall thickening, or obvious pericholecystic inflammatory changes. PANCREAS: Unchanged pancreatic duct dilation and diffuse atrophy of the pancreas. No appreciable pancreatic mass. SPLEEN: Unremarkable. ADRENAL GLANDS: Unremarkable. KIDNEYS AND URETERS: The kidneys are normal in size. No hydronephrosis. No nephrolithiasis. Multiple unchanged hepatic cysts, one of which in the left kidney is hyperdense consistent with a hemorrhagic cyst. These require no further imaging follow-up. BLADDER: Unremarkable. GASTROINTESTINAL TRACT: Severe colonic diverticulosis. Diffuse thickening of the sigmoid colon wall with pericolonic fat stranding. Additionally there is an intramural abscess measuring 2.4 x 1.8 cm in the sigmoid colon. ABDOMINAL WALL: No significant hernia is appreciated. LYMPH NODES: Normal. VASCULAR: Unremarkable. PELVIC VISCERA: Unremarkable. OSSEOUS STRUCTURES: Chronic right-sided pelvic fractures. New compression fracture of L1. CT/CT abdomen pelvis w IV con IMPRESSION: 1. Acute sigmoid diverticulitis with intramural abscess measuring 2.4 x 1.8 cm. This abscess is not amenable to percutaneous drainage. 2. New compression fracture of L1. Recommend correlation for point tenderness. Fleischner guidelines were followed.
--- NOTE | ~2023-07-21 | CT_ITS ---
EXAMINATION: CT LUMBAR SPINE WITHOUT CONTRAST CLINICAL INFORMATION: Pain after fall COMPARISON: Previous CT of the abdomen and pelvis May 2023 TECHNIQUE: Axial images through the lumbar spine and sacrum without IV contrast. Sagittal and coronal reconstructions on the technologist work station were performed. This CT examination was performed using dose optimization techniques as appropriate, variously including the following: *Automated exposure control *Adjustment of mA and/or kV according to patient size (this includes techniques or standardized protocols for targeted exams where dose is matched to indication/reason for exam; i.e. extremities or head) *Use of iterative reconstruction technique DLP; 330+1 8 5 mg/cm. mGy-cm FINDINGS: Lumbar spine CT: There is a moderate to severe compression fracture of the superior endplate of the L1 vertebral body. This appears acute. No other fracture. Degenerative spondylosis and degenerative disc disease at L2-L3. There is mild disc bulge and facet arthritis at L3/L4. No disc herniation. There is diffuse disc bulge at L4-L5. There is moderate secondary spinal stenosis due to disc bulge, short pedicles and facet arthritis. No disc herniation seen. There is diffuse disc bulge and facet arthritis at L5-S1. There is evidence of atherosclerotic disease. No aneurysm. Sacral CT: There is a fracture of the right iliac bone extending to the sacroiliac joint. This does not appear acute. No acute sacral or visualized proximal coccyx fracture seen. There is symmetric arthritis of the superior bilateral sacroiliac joints. The sacroiliac joints are otherwise normal. There is diverticulosis of the colon. There is wall thickening of the distal sigmoid colon. There is wall thickening of the sigmoid colon and some stranding of the fat questionable for acute sigmoid diverticulitis. There is a small air-fluid level seen in the left side of the sigmoid colon questionable for intramural abscess for example image [address]/CT sacrum IMPRESSION: Lumbar spine CT: Moderate to severe acute compression fracture of the superior endplate of the L1 vertebral body. Sacrum: Old healed fracture of the right iliac bone extending to the right sacroiliac joint. No acute fracture seen. Question sigmoid diverticulitis with intramural abscess. Findings will be communicated by the [place] work flow oil burner installer.
--- NOTE | ~2023-07-21 | CT_ITS ---
EXAMINATION: CT LUMBAR SPINE WITHOUT CONTRAST CLINICAL INFORMATION: Pain after fall COMPARISON: Previous CT of the abdomen and pelvis May 2023 TECHNIQUE: Axial images through the lumbar spine and sacrum without IV contrast. Sagittal and coronal reconstructions on the technologist work station were performed. This CT examination was performed using dose optimization techniques as appropriate, variously including the following: *Automated exposure control *Adjustment of mA and/or kV according to patient size (this includes techniques or standardized protocols for targeted exams where dose is matched to indication/reason for exam; i.e. extremities or head) *Use of iterative reconstruction technique DLP; 330+1 8 5 mg/cm. mGy-cm FINDINGS: Lumbar spine CT: There is a moderate to severe compression fracture of the superior endplate of the L1 vertebral body. This appears acute. No other fracture. Degenerative spondylosis and degenerative disc disease at L2-L3. There is mild disc bulge and facet arthritis at L3/L4. No disc herniation. There is diffuse disc bulge at L4-L5. There is moderate secondary spinal stenosis due to disc bulge, short pedicles and facet arthritis. No disc herniation seen. There is diffuse disc bulge and facet arthritis at L5-S1. There is evidence of atherosclerotic disease. No aneurysm. Sacral CT: There is a fracture of the right iliac bone extending to the sacroiliac joint. This does not appear acute. No acute sacral or visualized proximal coccyx fracture seen. There is symmetric arthritis of the superior bilateral sacroiliac joints. The sacroiliac joints are otherwise normal. There is diverticulosis of the colon. There is wall thickening of the distal sigmoid colon. There is wall thickening of the sigmoid colon and some stranding of the fat questionable for acute sigmoid diverticulitis. There is a small air-fluid level seen in the left side of the sigmoid colon questionable for intramural abscess for example image [address]/CT lumbar spine wo IV con IMPRESSION: Lumbar spine CT: Moderate to severe acute compression fracture of the superior endplate of the L1 vertebral body. Sacrum: Old healed fracture of the right iliac bone extending to the right sacroiliac joint. No acute fracture seen. Question sigmoid diverticulitis with intramural abscess. Findings will be communicated by the [place] work flow air export coordinator.
--- NOTE | ~2023-07-21 | CT_ITS ---
EXAMINATION: CT ABDOMEN AND PELVIS WITH CONTRAST CLINICAL INFORMATION: Follow-up for diverticulitis COMPARISON: CT abdomen pelvis 07/21/2023: Acute sigmoid diverticulitis with intramural abscess measuring 2.4 x 1.8 cm. TECHNIQUE: Multidetector volumetric images were obtained from the superior aspect of the liver through the pubic symphysis following administration 85 mL of Omnipaque 350 intravenous contrast. Sagittal and coronal reformatted images were obtained on the technologist's workstation. Oral contrast: No This CT examination was performed using dose optimization techniques as appropriate, variously including the following: *Automated exposure control *Adjustment of mA and/or kV according to patient size (this includes techniques or standardized protocols for targeted exams where dose is matched to indication/reason for exam; i.e. extremities or head) *Use of iterative reconstruction technique DLP: 582 mGy-cm FINDINGS: LUNG BASES: Marked coronary calcium is present. Bronchial thickening is seen. Some tree-in-bud opacities are noted in the lower lobes. LIVER, GALLBLADDER, AND BILIARY TREE: The liver is normal in size, shape, and attenuation. Multiple hepatic cysts are again seen a few of which are complicated by some mural calcification. No concerning solid focal hepatic lesion or biliary ductal dilatation is present. The gallbladder is significantly more dilated than noted previously but otherwise unremarkable with no evidence of radiopaque gallstones, gallbladder wall thickening, or obvious pericholecystic inflammatory changes. PANCREAS: The pancreas continues to be atrophied and is essentially a dilated duct. No ductal calculi. No pancreatic masses. SPLEEN: Unremarkable. ADRENAL GLANDS: Unremarkable. KIDNEYS AND URETERS: The kidneys are normal in size, shape, and attenuation. No hydronephrosis, hydroureter, or calculi seen. No perinephric stranding. There are bilateral small benign Bosniak class I renal cysts noted, the largest measuring 1 cm. There is a larger 2.2 cm hyperattenuating left cortical mass consistent with a benign Bosniak class II hemorrhagic cyst which measures 80 Hounsfield units on a noncontrast CT abdomen pelvis on 06/24/2017. These are all require no additional imaging or follow-up. No solid suspicious solid renal masses are seen. BLADDER: Empty but unremarkable. GASTROINTESTINAL TRACT: Patient status post right hemicolectomy and the appendix is no longer present. Extensive diverticular changes are seen in the rectosigmoid with other diverticula scattered throughout the colon. Again seen is a somewhat distinct 2.3 cm possible collection in this region of extensive diverticular within the wall of the sigmoid (6:59), unchanged from prior. This could be within the lumen of the sigmoid itself. Only mild inflammatory changes are present around the sigmoid. Differential would include an intramural abscess versus no abnormality. Rectal contrast could clear this up if this is important to know. The small bowel is unremarkable. The appendix is no longer present. ABDOMINAL WALL: No significant hernia is appreciated. LYMPH NODES: Normal. VASCULAR: Calcific atherosclerotic changes are present in the aorta and iliac vessels. There is no evidence of an abdominal aortic aneurysm. PELVIC VISCERA: The uterus is not seen. An abnormal adnexal mass is not detected. No free intraperitoneal fluid is present. OSSEOUS STRUCTURES: Compression fracture of L1 is unchanged. Old healed right-sided pelvic fractures again noted. Degenerative changes are present in the spine. CT/CT abdomen pelvis w IV con IMPRESSION: 1. Extensive diverticular changes are seen in the rectosigmoid with a possible 2.3 cm intramural abscess. Rectal contrast could better define this is a real finding if this is important to know. 2. Other incidental findings as described above including hepatic and renal cysts which need no additional imaging or follow-up. Fleischner guidelines were followed.
[2023-07-21 11:04] VITALS: BP 168/94; BP 182/68; PULSE 94; RESP 18; TEMP 36.6; O2SAT 96; O2SAT 97; BMI 22.2
--- NOTE | 2023-07-21 11:32 | ED.FALL ---
HPI - Fall General Chief Complaint: Fall Stated Complaint: BACK PAIN Time Seen by Provider: 07/21/23 11:12 Source: patient and family Mode of arrival: ambulatory History of Present Illness HPI Narrative: 83-year-old female who presents after having fallen on Saturday and states that she had pain in her lower back but after that had no difficulty with walking and then woke up morning with experiencing some difficulty with defecation but denies any difficulty with urination, denies any difficulty with lower leg weakness/numbness/tingling, denies any numbness to the groin area in began taking stool softeners which she states has helped. Patient states that since that time the pain has gotten worse despite her taking high-dose Tylenol 3 times a day. Related Data Home Medications ?Medication ?Instructions ?Recorded ?Confirmed alprazolam 0.25 mg tablet 1 tab PO BEDTIME PRN Anxiety 09/08/20 05/27/23 atorvastatin 40 mg tablet 1 tab PO BEDTIME 09/08/20 05/27/23 diphenhydramine 25 1 tab PO BEDTIME PRN Sleep 09/08/20 05/27/23 mg-acetaminophen 500 mg tablet (Tylenol PM Extra Strength) levothyroxine 100 mcg tablet 1 tab PO DAILY 09/08/20 05/27/23 lorazepam 0.5 mg tablet 1 tab PO DAILY PRN Anxiety 09/08/20 05/27/23 omeprazole 20 mg capsule,delayed 20 mg PO DAILY 09/08/20 05/27/23 release simethicone 80 mg chewable tablet 80 mg PO DAILY PRN GAS 09/08/20 05/27/23 vit C 250 mg-vit E 90 mg-zinc 40 1 tab PO BID 09/08/20 05/27/23 mg-copper 1 st-wjonut-lubwmk capsule (PreserVision AREDS-2) cholecalciferol (vitamin D3) 10 10 mcg PO DAILY 11/11/21 05/27/23 mcg (400 unit) capsule docusate sodium 100 mg capsule 100 mg PO DAILY 11/11/21 05/27/23 slimxyfc-pcar-eiog 8 mg-folic 400 1 tab PO DAILY 11/11/21 05/27/23 mcg-K 50 mcg-lutein 300 mcg tablet (Centrum Silver Women) Previous Rx's ?Medication ?Instructions ?Recorded hydrocortisone 2.5 % topical cream 1 appl [place] BEDTIME #30 grams 05/29/23 with perineal applicator (Proctozone-HC) ciprofloxacin HCl 500 mg tablet 500 mg PO BID 10 days #20 tabs 07/21/23 metronidazole 500 mg tablet 500 mg PO BID 10 days #20 tabs 07/21/23 Allergies Allergy/AdvReac Type Severity Reaction Status Date / Time adhesive tape [ADHESIVE TAPE] Allergy Intermediate ITCH, Rash Verified 07/21/23 11:08 cefazolin [From KEFZOL] Allergy Intermediate RASH Verified 07/21/23 11:08 clindamycin [From CLEOCIN] Allergy Intermediate RASH Verified 07/21/23 11:08 gentamicin [From GARAMYCIN] Allergy Intermediate RASH Verified 07/21/23 11:08 atropine Allergy Unknown localized Verified 07/21/23 11:08 eye rxn cephalexin Allergy Unknown Rash Verified 07/21/23 11:08 tizanidine AdvReac Nausea Verified 07/21/23 11:08 tramadol AdvReac Nausea Verified 07/21/23 11:08 Doxycycline Monohydrate Allergy Intermediate Rash Uncoded 07/21/23 11:08 Review of Systems Review of Systems: Pertinent positives and negatives as stated in HPI [facility] Past Medical History Source: nursing notes reviewed Medical History Arthritis History of right bundle branch block (RBBB) Anxiety PONV (postoperative nausea and vomiting) GERD (gastroesophageal reflux disease) History of colon cancer Hypothyroidism Barretts esophagus Hyperlipidemia Surgical History History of foot surgery History of cataract extraction with lens replacement Hx of esophagogastroduodenoscopy History of total right knee replacement (TKR) History of breast biopsy History of hysterectomy History of thyroidectomy Hx of colonoscopy History of partial colectomy Social History Social History Are you a primary caregivers homecare to a significant other at home: No Do you presently have visiting nurse or other home services: No Alcohol intake: current Alcohol intake frequency: a few times a month Patient Tobacco Use Status: Former Tobacco user Quit Date: 1968 Tobacco use type: Cigarette Smoked in Last 30 Days: No Use of substances other than those prescribed or required for medical reasons: No Advance Directives: Yes Advance Directives Information Provided: No Advance Directives on File: No Advance Directives Date on File: 01/12/20 Physical Exam Vital Signs: Vital Signs: Last Vital Signs Temp 97.8 F 07/21/23 11:04 Pulse 94 07/21/23 11:04 Resp 18 07/21/23 11:04 BP 182/68 H 07/21/23 11:04 Pulse Ox 96 07/21/23 11:04 O2 Del Method Room Air 07/21/23 11:04 BMI result Body Mass Index 22.2 VITAL SIGNS: Reviewed. GENERAL: Well developed, well nourished, in no acute distress. HEAD: Normocephalic/atraumatic EYES: PERRLA, EOMI EARS: Ext canals without abnormality NOSE: Nares patent bilateral OROPHARYNX: no oral lesions noted, posterior pharynx clear NECK: Supple, no adenopathy LUNGS: Normal breath sounds. No adventitious sounds or accessory muscle use. SpO2<96> CARDIOVASCULAR: Regular rate and rhythm without noted murmurs ABDOMEN: Soft, non-tender, non-distended with bowel sounds. BACK: No gross step-offs or midline vertebral tenderness but there is bilateral paraspinal tenderness at the approximate L5 S1 location without any overlying erythema or induration. MUSCULOSKELETAL: No tenderness, deformities, or effusions noted on gross inspection. EXTREMITIES: No cyanosis, clubbing or edema. SKIN: Inspection of the skin reveals no rashes NEUROLOGIC: Alert and oriented x 4. Strength and sensation to light touch were grossly intact x 4, DTRs intact. Medications Administered Discontinued Medications Generic Name Dose Route Start Last Admin Trade Name Freq PRN Reason Stop Dose Admin Diphenhydramine HCl 25 mg 07/21/23 11:31 07/21/23 12:03 Diphenhydramine Hcl 25 Mg Capsule PO 07/21/23 11:32 25 mg ONCE ONE Administration Lidocaine 1 patch 07/21/23 11:30 07/21/23 12:03 Lidocaine 4 % Patch Adh..Patch TRANSDERMA 07/21/23 11:31 1 patch ONCE ONE Administration Protocol Medical Decision Making Medical Decision Making MDM Narrative: 83-year-old female with history and clinical presentation, no clinical suspicion for cauda equina but suspect possibility of compression fracture. Patient given 25 mg of Benadryl in conjunction with a lidocaine patch as she has already taken Tylenol for today. I reviewed all investigations and L-spine is significant for moderate to severe acute compression fracture of the superior endplate of the L1 vertebral body which was not in the location of palpated tenderness on physical exam. Patient has no neurologic deficits associated with this compression fracture at this time, no concern for cauda equina or spinal cord compression. radiologist identifying possibility of sigmoid diverticulitis with intramural abscess but patient has no symptoms of abdominal pain, nausea, vomiting, fever, chills but does report what she feels has been an increase in constipation but has improved with stool softeners. On re-evaluation and discussion with the patient she then endorses that yes she has had abdominal discomfort but she thought it was secondary to constipation as she did get some relief from the stool softeners. However, she denies any nausea, vomiting, fever or chills. Her history is significant for colon CA and she had diverticulitis in May and has not had a follow-up colonoscopy. Signed out to Dr Flores: - Labs - CT scan - d/c papers are ready (Cipro/Flagyl) Differential Diagnosis Differential Diagnoses: The differential diagnosis associated with the presentation includes Please see the discussion above Admission/Observation Consideration of admission/observation: Escalation of care including admission/observation considered Please see the discussion above Lab Data 07/21/23 16:00 07/21/23 16:00 Labs: Lab Results 07/21/23 Range/Units 16:00 WBC 13.8 H (4.8-10.8) X10*3/uL RBC 4.47 (4.20-5.50) X10*6/uL Hgb 13.9 (12.0-16.0) g/dl Hct 41.9 (37.0-47.0) % MCV 93.7 (80.0-98.0) fL MCH 31.1 (27.0-33.0) pg MCHC 33.2 (31.0-35.0) g/dl RDW 12.8 (11.0-16.0) % Plt Count 101 L (160-400) X10*3/uL MPV 10.9 (9.4-12.3) fL Immature Gran % (Auto) 1.0 H (0.0-0.4) % Neut % (Auto) 65.2 (45-73) % Lymph % (Auto) 13.1 L (20-40) % Grimes % (Auto) 18.3 H (2-11) % Eos % (Auto) 2.3 (0-4) % Baso % (Auto) 0.1 (0-2) % Lymph # (Auto) 1.8 (1.2-4.9) X10*3/uL Grimes # (Auto) 2.5 H (0.1-1.2) X10*3/uL Eos # (Auto) 0.3 (0.0-0.4) X10*3/uL Baso # (Auto) 0.0 (0.0-0.2) X10*3/uL Abs Immat Gran (auto) 0.14 H (0.00-0.03) X10*3/uL Absolute Neuts (auto) 9.0 H (2.0-8.3) x10*3/uL Absolute Nucleated RBC 0.000 (0.0-0.012) X10*3/uL Nucleated RBC % (auto) 0.0 (0.0-0.2) /100WBC Sodium 140 (135-145) mmol/L Potassium 3.7 (3.3-5.1) mmol/L Chloride 105 (96-108) mmol/L Carbon Dioxide 27 (22-29) mmol/L Anion Gap 12 (12-20) BUN 11 (9-16) mg/dL Creatinine 0.60 (0.5-1.4) mg/dL Estim Creat Clear Calc 69.1 Estimated GFR > 60 Random Glucose 102 (60-115) mg/dL Calcium 8.9 (8.4-10.2) mg/dL Total Bilirubin 0.8 (0.0-1.0) mg/dL AST 31 (5-31) U/L ALT 17 (0-31) U/L Alkaline Phosphatase 65 (39-117) U/L Total Protein 6.7 (6.5-8.0) g/dL Albumin 3.7 (3.5-5.0) g/dL Discharge Plan Discharge Clinical Impression: Compression fracture of L1 vertebra, Abdominal pain, left lower quadrant Patient Disposition: Still a Patient Instructions: Diverticulitis (ED), Vertebral Compression Fracture (ED), Diverticulitis Diet (ED) Additional Instructions: You should get a follow-up colonoscopy 6 weeks after resolution diverticulitis. Tylenol/ibuprofen as well as lidocaine patch as needed for pain control of your back. Follow-up with your primary care doctor on Saturday morning. Return to the ER for any worsening symptoms. Prescriptions: New ciprofloxacin HCl 500 mg tablet 500 mg PO BID 10 Days Qty: 20 0RF metronidazole 500 mg tablet 500 mg PO BID 10 Days Qty: 20 0RF No Action atorvastatin 40 mg tablet 1 tab PO BEDTIME levothyroxine 100 mcg tablet 1 tab PO DAILY alprazolam 0.25 mg tablet 1 tab PO BEDTIME PRN (Reason: Anxiety) lorazepam 0.5 mg tablet 1 tab PO DAILY PRN (Reason: Anxiety) omeprazole 20 mg Capsule,Delayed Release(Dr/Ec) 20 mg PO DAILY diphenhydramine-acetaminophen [Tylenol PM Extra Strength] 25-500 mg Tablet 1 tab PO BEDTIME PRN (Reason: Sleep) PreserVision AREDS-2 250-90-40-1 mg Capsule 1 tab PO BID simethicone 80 mg Tablet,Chewable 80 mg PO DAILY PRN (Reason: GAS) Centrum Silver Women 8 mg iron-400 mcg-300 mcg Tablet 1 tab PO DAILY cholecalciferol (vitamin D3) 10 mcg (400 unit) Capsule 10 mcg PO DAILY docusate sodium 100 mg Capsule 100 mg PO DAILY hydrocortisone [Proctozone-HC] 2.5 % Cream With Perineal Applicator 1 appl [place] BEDTIME Qty: 30 1RF Referrals: Sandip Castro MD [Primary Care Provider] - Print Language: Colombian
[2023-07-21] MEDS: Lidocaine 4 % Patch ADH..PATCH 1 PATCH TRANSDERMA (12:03)
[2023-07-21] MEDS: diphenhydrAMINE HCL 25 MG CAPSULE PO (12:03)
[2023-07-21 16:09] LABS: Basophils Percent Auto 0.1 % (0-2); Eosinophils Absolute Auto 0.3 X10*3/uL (0.0-0.4); Eosinophils Percent Auto 2.3 % (0-4); Hematocrit 41.9 % (37.0-47.0); Hemoglobin 13.9 g/dl (12.0-16.0); Imm Gran Abs Auto 0.14 X10*3/uL (0.00-0.03); Lymphocytes Absolute Auto 1.8 X10*3/uL (1.2-4.9); Lymphocytes Percent Auto 13.1 % (20-40); MANUAL DIFF FLAG SCAN; Mean Corpuscular HGB Conc 33.2 g/dl (31.0-35.0); Mean Corpuscular Hemoglobin 31.1 pg (27.0-33.0); Mean Corpuscular Volume 93.7 fL (80.0-98.0); Mean Platelet Volume 10.9 fL (9.4-12.3); Monocytes Absolute Auto 2.5 X10*3/uL (0.1-1.2); Monocytes Percent Auto 18.3 % (2-11); Neutrophils Percent Auto 65.2 % (45-73); Platelet Count 101 X10*3/uL (160-400); Red Blood Count 4.47 X10*6/uL (4.20-5.50); Red Cell Distribution Width 12.8 % (11.0-16.0); SCAN SMEAR FLAG 1; White Blood Count 13.8 X10*3/uL (4.8-10.8)
[2023-07-21 16:23] LABS: Alanine Aminotransferase 17 U/L (0-31); Albumin Level 3.7 g/dL (3.5-5.0); Alkaline Phosphatase 65 U/L (39-117); Anion Gap 12 (12-20); Aspartate Amino Transferase 31 U/L (5-31); Bilirubin Total 0.8 mg/dL (0.0-1.0); Blood Urea Nitrogen 11 mg/dL (9-16); Calcium 8.9 mg/dL (8.4-10.2); Carbon Dioxide 27 mmol/L (22-29); Chloride 105 mmol/L (96-108); Creatinine Clr Calc Pharmacy 69.1; Estimated Glomerular Filt Rate > 60; Glucose Random 102 mg/dL (60-115); Potassium 3.7 mmol/L (3.3-5.1); Sodium 140 mmol/L (135-145); Total Protein 6.7 g/dL (6.5-8.0)
[2023-07-21 16:32] LABS: SLIDE REVIEW VERIFIED
[2023-07-21] MEDS: iohexoL 350 MG/ML 100 ML INFUS..BTL IV (16:44)
[2023-07-21 17:31] VITALS: BP 185/78; PULSE 100; RESP 18; O2SAT 95
[2023-07-21] MEDS: ondansetron HCL 4 MG/2 ML VIAL IVPUSH (17:40)
[2023-07-21] MEDS: Morphine Sulfate 4 MG/ML CARTRIDGE IVPUSH (17:40)
--- NOTE | 2023-07-21 18:28 | P.HPHOSP_ITS ---
History of Present Illness Date of Service: 07/21/23 Attending physician on admission: Colin Mims Chief Complaint: Lower back pain Pt is an 83-year-old female with a PMH significant for?colon cancer s/p right hemicolectomy, HLD, GERD, hypothyroidism, diverticulitis, and mood disorder who presents to the ED for evaluation of worsening lower back pain. Patient reports on Saturday morning at 04:[address] the [address] to the bathroom, landing on her lower back. Patient denies lightheadedness or dizziness, stating that in the darkness she became disoriented when she missed took the closet door for the bathroom door. Patient denies head strike. At that time patient was able to get up and walk to the bathroom and deferred coming to the emergency room for further evaluation. Patient had some lower back discomfort, but took Tylenol for the pain. Reports was able to go up and down stairs without much difficulty. Patient also notes around that time was having abdominal discomfort that she attributed to constipation. Had no bowel movement on either Saturday or . Took Dulcolax and eventually had bowel movement late Saturday night and another on early Saturday morning. Denies diarrhea. No blood in the stool. Reports this morning had worsening lower back pain and decided to come to the ED for further evaluation. No nausea, vomiting. Denies abdominal pain, describes it more as a ?discomfort?. Denies fever, chills. No chest pain/pressure, palpitations. Denies shortness of breath. No saddle anesthesia, numbness and tingling in extremities, or loss of bowel or bladder function. Of note, patient was recently admitted on 05/26-05/29 for evaluation of rectal bleeding thought to be likely diverticular versus hemorrhoidal. In the ED pt was afebrile with elevated heart rate of 100 and hypertensive up to 185/78. Labs were significant for leukocytosis 13.8, otherwise grossly unremarkable. No significant electrolyte abnormalities. Hepatic and renal function WNL. CT?of lumbar spine found moderate to severe acute compression fracture of the superior endplate of L1 vertebral body. CT of sacrum found old healed fracture of right iliac bone extending to the right sacroiliac joint but no acute fractures seen. CT of abdomen and pelvis found acute sigmoid diverticulitis with intramural abscess measuring 2.4 x 1.8 cm, abscess not amenable to percutaneous drainage. Pt was treated with lidocaine patch, diphenhydramine, ondansetron, morphine, ceftriaxone, and metronidazole. Pt will be admitted to the hospital for treatment and further evaluation of diverticulitis with abscess and L1 vertebral body compression fracture secondary to fall at home. Review of Systems 2 Review of Systems: Lower back pain s/p mechanical fall at home Constipation Abdominal discomfort Denies fever, chills No nausea, vomiting Denies hematochezia or melena No lightheadedness or dizziness [facility] Medical History Arthritis History of right bundle branch block (RBBB) Anxiety PONV (postoperative nausea and vomiting) GERD (gastroesophageal reflux disease) History of colon cancer Hypothyroidism Barretts esophagus Hyperlipidemia Surgical History History of foot surgery History of cataract extraction with lens replacement Hx of esophagogastroduodenoscopy History of total right knee replacement (TKR) History of breast biopsy History of hysterectomy History of thyroidectomy Hx of colonoscopy History of partial colectomy Social History Are you a primary career development director to a significant other at home: No Do you presently have visiting nurse or other home services: No Alcohol intake: current Alcohol intake frequency: a few times a month Patient Tobacco Use Status: Former Tobacco user Quit Date: 1966 Tobacco use type: Cigarette Smoked in Last 30 Days: No Use of substances other than those prescribed or required for medical reasons: No Advance Directives: Yes Advance Directives Information Provided: No Advance Directives on File: No Advance Directives Date on File: 01/12/20 Nutrition Risks: No Nutritional Risk Meds Allergies Allergy/AdvReac Type Severity Reaction Status Date / Time adhesive tape [ADHESIVE TAPE] Allergy Intermediate ITCH, Rash Verified 07/21/23 11:08 cefazolin [From KEFZOL] Allergy Intermediate RASH Verified 07/21/23 11:08 clindamycin [From CLEOCIN] Allergy Intermediate RASH Verified 07/21/23 11:08 gentamicin [From GARAMYCIN] Allergy Intermediate RASH Verified 07/21/23 11:08 atropine Allergy Unknown localized Verified 07/21/23 11:08 eye rxn cephalexin Allergy Unknown Rash Verified 07/21/23 11:08 tizanidine AdvReac Nausea Verified 07/21/23 11:08 tramadol AdvReac Nausea Verified 07/21/23 11:08 Doxycycline Monohydrate Allergy Intermediate Rash Uncoded 07/21/23 11:08 Active Medications: Current Medications Metronidazole (Flagyl) 500 mg in 100 mls @ 100 mls/hr IV ONCE ONE Stop: 07/21/23 18:50 Home Medications ?Medication ?Instructions ?Recorded ?Confirmed ?Last Taken ?Type alprazolam 0.25 mg tablet 1 tab PO BEDTIME PRN Anxiety 09/08/20 05/27/23 09/14/20 History atorvastatin 40 mg tablet 1 tab PO BEDTIME 09/08/20 05/27/23 Unknown History diphenhydramine 25 1 tab PO BEDTIME PRN Sleep 09/08/20 05/27/23 Unknown History mg-acetaminophen 500 mg tablet (Tylenol PM Extra Strength) levothyroxine 100 mcg tablet 1 tab PO DAILY 09/08/20 05/27/23 11/11/21 History lorazepam 0.5 mg tablet 1 tab PO DAILY PRN Anxiety 09/08/20 05/27/23 Unknown History omeprazole 20 mg capsule,delayed 20 mg PO DAILY 09/08/20 05/27/23 11/28/22 08:15 History release simethicone 80 mg chewable tablet 80 mg PO DAILY PRN GAS 09/08/20 05/27/23 Unknown History vit C 250 mg-vit E 90 mg-zinc 40 1 tab PO BID 09/08/20 05/27/23 Unknown History mg-copper 1 [id number] capsule (PreserVision AREDS-2) cholecalciferol (vitamin D3) 10 10 mcg PO DAILY 11/11/21 05/27/23 Unknown History mcg (400 unit) capsule docusate sodium 100 mg capsule 100 mg PO DAILY 11/11/21 05/27/23 Unknown History [id number] 8 mg-folic 400 1 tab PO DAILY 11/11/21 05/27/23 Unknown History mcg-K 50 mcg-lutein 300 mcg tablet (Centrum Silver Women) Physical Exam 2 Vital Signs and Narrative: Vital Signs: Last Vital Signs Temp 97.8 F 07/21/23 11:04 Pulse 100 07/21/23 17:31 Resp 18 04/14/24 17:31 BP 185/78 H 07/21/23 17:31 Pulse Ox 95 07/21/23 17:31 O2 Del Method Room Air 07/21/23 17:31 BMI result Body Mass Index 22.2 Constitutional: Alert, in no acute distress. Mental Status: Oriented to person, place and time. Eyes: Pupils are equal, round, and reactive to light. Ear, Nose, and Throat: Oropharynx clear, mucous membranes moist. Ears and nose without deformities. Trachea midline. Respiratory: Clear to auscultation bilaterally. No wheezing, rales, or rhonchi. Cardiovascular: S1, S2 regular. 3/6 murmur heard at right sternal border. Gastrointestinal: Abdomen soft, non-tender, non-distended. Normal bowel sounds. Neurologic: Cranial nerves II-XII are grossly intact bilaterally. No focal neurological deficits. Moves all extremities spontaneously. Skin: Warm, dry. Back: Sacral point tenderness of bilateral paraspinous processes Extremities: No edema. Psychiatric: Normal mood and affect. Results Labs 07/21/23 16:00 07/21/23 16:00 Labs: Laboratory Results - last 24 hr 07/21/23 16:00 MCV 93.7 MCH 31.1 MCHC 33.2 RDW 12.8 Plt Count 101 L MPV 10.9 Immature Gran % (Auto) 1.0 H Neut % (Auto) 65.2 Lymph % (Auto) 13.1 L [place] % (Auto) 18.3 H Eos % (Auto) 2.3 Baso % (Auto) 0.1 Lymph # (Auto) 1.8 [place] # (Auto) 2.5 H Eos # (Auto) 0.3 Baso # (Auto) 0.0 Abs Immat Gran (auto) 0.14 H Absolute Neuts (auto) 9.0 H Absolute Nucleated RBC 0.000 Nucleated RBC % (auto) 0.0 Smear Tech's Comments VERIFIED Anion Gap 12 Estim Creat Clear Calc 69.1 Estimated GFR > 60 Random Glucose 102 Calcium 8.9 Total Bilirubin 0.8 AST 31 ALT 17 Alkaline Phosphatase 65 Total Protein 6.7 Albumin 3.7 Imaging Radiologist's Impressions: Impressions CT Sacrum 07/21/23 12:15 IMPRESSION: Lumbar spine CT: Moderate to severe acute compression fracture of the superior endplate of the L1 vertebral body. Sacrum: Old healed fracture of the right iliac bone extending to the right sacroiliac joint. No acute fracture seen. Question sigmoid diverticulitis with intramural abscess. Findings will be communicated by the [place] work flow supervisor [employer] fabrication. Lumbar Spine CT 07/21/23 12:15 IMPRESSION: Lumbar spine CT: Moderate to severe acute compression fracture of the superior endplate of the L1 vertebral body. Sacrum: Old healed fracture of the right iliac bone extending to the right sacroiliac joint. No acute fracture seen. Question sigmoid diverticulitis with intramural abscess. Findings will be communicated by the [place] work flow supervisor [employer]. Abdomen/Pelvis CT 07/21/23 16:42 IMPRESSION: 1. Acute sigmoid diverticulitis with intramural abscess measuring 2.4 x 1.8 cm. This abscess is not amenable to percutaneous drainage. 2. New compression fracture of L1. Recommend correlation for point tenderness. Fleischner guidelines were followed. Assessment and Plan (1) Compression fracture of L1 vertebra: Status: Acute (2) Diverticulitis of sigmoid colon: Status: Acute Plan Pt is an 83-year-old female with a PMH significant for?colon cancer s/p right hemicolectomy, HLD, GERD, hypothyroidism, diverticulitis, and mood disorder who presents to the ED for evaluation of worsening lower back pain. Pt will be admitted to the hospital for treatment and further evaluation of diverticulitis with abscess and L1 vertebral body compression fracture secondary to fall at home. Diverticulitis with abscess CT of abdomen and pelvis found acute sigmoid diverticulitis with abscess not amenable to percutaneous drainage Pt's symptoms mild: reports abdominal ?discomfort and constipation; denies abd pain, fevers, chills, nausea, or vomiting Abd exam benign Will treat with Zosyn, started 07/21/2023 Patient will be made NPO IVF General surgery consult Spinal compression fracture Patient with mechanical fall at home 4 days prior Lumbar spine CT found moderate to severe acute compression fracture of L1 vertebral body Analgesics for pain management Patient will be made NPO IVF IR consultation with Dr. Camargo for possible kyphoplasty Will start intranasal calcitonin 200 units once daily in alternating nostrils HLD Continue statin Hypothyroidism Continue levothyroxine GERD Continue PPI Mood disorder Continue mood stabilizers Full Code Attending:?Dr. Nagy DVT Prophylaxis: Pneumatic boots Pt will require a hospitalization of at least two nights for treatment and further evaluation of?diverticulitis with abscess and L1 vertebral body compression fracture secondary to mechanical fall at home. Given patient's complicated diverticulitis, she will require hospitalization for administration of IV antibiotics and specialist consultation with General surgery. Patient will also require specialist consultation with Interventional Radiology for possible kyphoplasty. Quality Stroke Does the patient have a stroke diagnosis?: No VTE Prior VTE?: No VTE Risk Level:: Medical - moderate - high VTE Device Contraindication: N/A - Device Ordered VTE Drug Contraindication: Treatment Not Indicated
--- NOTE | 2023-07-21 18:34 | PC.NURSE ---
per ok to given abx without blood cultures being drawn
[2023-07-21 19:06] VITALS: BP 145/65; PULSE 97; RESP 16; O2SAT 95
[2023-07-21] MEDS: cefTRIAXone sodium 2 GM in 0.9 % Sodium Chloride 50 ML IV (19:07)
--- NOTE | 2023-07-21 19:31 | PC.NURSE ---
Assumed care of pt. Pt maricruz arroyo, no acute distress at this time. IV Abx running in L AC. Continuing plan of care for admission.
[2023-07-21] MEDS: metroNIDAZOLE/NS 500 MG/100 ML PIGGYBACK 100 MG IV (19:56)
[2023-07-21] MEDS: Acetaminophen 325 MG TABLET 650 MG PO (20:01)
--- NOTE | 2023-07-21 20:29 | MHC.EDTECH ---
pt transferred to hospital bed for admission stay in ER
[2023-07-21] MEDS: Piperacillin Sodium/Tazobactam 4.5 GM in 0.9 % Sodium Chloride 100 ML IV (21:12)
[2023-07-21 21:47] VITALS: BP 119/71; PULSE 58; RESP 13; TEMP 35.5; O2SAT 97
--- NOTE | 2023-07-21 21:48 | PC.NURSE ---
Trialing pt off Norepi in favor of IVF bolus
[2023-07-22] VITALS (9 sets, daily range): BP systolic 112–165; BP diastolic 59–82; PULSE 79–90; RESP 16–20; TEMP 36–36.9; O2SAT 96–99; BMI 22.1
[2023-07-22] MEDS: Famotidine/PF 20 MG/2 ML VIAL IVPUSH (00:11)
[2023-07-22] MEDS: ondansetron HCL 4 MG/2 ML VIAL IVPUSH ×2 (02:04→10:26)
[2023-07-22] MEDS: Morphine Sulfate 4 MG/ML CARTRIDGE IVPUSH ×2 (02:04→10:27)
--- NOTE | 2023-07-22 02:23 | PC.NURSE ---
Pt placed on 2L O2 for support with mild desaturation with narcotic pain medication
[2023-07-22] MEDS: Piperacillin Sodium/Tazobactam 4.5 GM in 0.9 % Sodium Chloride 100 ML IV ×4 (03:01→20:05)
--- NOTE | 2023-07-22 04:51 | PC.NURSE ---
Pt demonstrating mild desaturation as previous, placed back on 2L via NC for support, aware.
[2023-07-22] MEDS: Levothyroxine Sodium 100 MCG TABLET PO (05:58)
[2023-07-22 06:02] LABS: Basophils Percent Auto 0.2 % (0-2); PLT CLUMP 1; SCAN SMEAR FLAG 1
[2023-07-22 06:04] LABS: Eosinophils Absolute Auto 0.4 X10*3/uL (0.0-0.4); Eosinophils Percent Auto 2.8 % (0-4); Hematocrit 40.5 % (37.0-47.0); Imm Gran Abs Auto 0.18 X10*3/uL (0.00-0.03); Imm Gran Pct Auto 1.4 % (0.0-0.4); Lymphocytes Absolute Auto 0.9 X10*3/uL (1.2-4.9); Lymphocytes Percent Auto 7.2 % (20-40); MANUAL DIFF FLAG SCAN; Mean Corpuscular HGB Conc 32.1 g/dl (31.0-35.0); Mean Corpuscular Volume 96.4 fL (80.0-98.0); Mean Platelet Volume 11.3 fL (9.4-12.3); Monocytes Absolute Auto 1.6 X10*3/uL (0.1-1.2); Monocytes Percent Auto 12.2 % (2-11); Neutrophils Absolute Auto 9.9 x10*3/uL (2.0-8.3); Neutrophils Percent Auto 76.2 % (45-73); Red Cell Distribution Width 12.9 % (11.0-16.0)
[2023-07-22 06:05] LABS: Platelet Count 95 X10*3/uL (160-400)
[2023-07-22 06:24] LABS: SLIDE REVIEW VERIFIED
[2023-07-22 06:27] LABS: Anion Gap 15 (12-20); Blood Urea Nitrogen 11 mg/dL (9-16); Calcium 8.6 mg/dL (8.4-10.2); Carbon Dioxide 26 mmol/L (22-29); Chloride 105 mmol/L (96-108); Estimated Glomerular Filt Rate > 60; Glucose Random 111 mg/dL (60-115); Potassium 4.7 mmol/L (3.3-5.1); Sodium 141 mmol/L (135-145)
[2023-07-22 07:52] LABS: Prothrombin Time 12.6 SEC (11.1-13.3)
--- NOTE | 2023-07-22 09:16 | P.CONGS_ITS ---
History of Present Illness Consult details Consult date: 07/22/23 Narrative: 83F admitted because of back pain with compression fracture of L1 vertebrae. She had fallen at home last July 17, 2023 and had back pain. She says this seemed to improved after day. However, this seemed to get worse again over the weekend. She was therefore brought to the ED yesterday. She also described having constipation last week. She was prescribed a stool softener which she says helped and she had some good BMs. She says feels constipated again. She is passing flatus. She denies abdominal at this time. She admits to feeling 'gassy . She underwent a CT scan for her fall and this also showed some inflammatory changes in the sigmoid and what apepars to be an intramural abscess. She says her abdomen does not bother her at this time. She states her back hurts whenever she gets out of bed and moves. Review of Systems 2 Constitutional: Constitutional: Denies chills and Denies fever(s) Cardiovascular: Cardiovascular: Denies chest pain, Denies dyspnea and Denies dyspnea on exertion Respiratory: Respiratory: Denies cough, Denies dyspnea and Denies dyspnea on exertion Gastrointestinal: Gastrointestinal: Denies hematochezia and Denies change in bowel habits Genitourinary: Genitourinary: Denies hematuria Musculoskeletal: Musculoskeletal: Reports back pain and Denies limited range of motion Neurologic: Denies focal weakness and Denies convulsions Psychiatric: Psychiatric: Denies depression and Denies mood swings PMF Past Medical History Medical History Arthritis History of right bundle branch block (RBBB) Anxiety PONV (postoperative nausea and vomiting) GERD (gastroesophageal reflux disease) History of colon cancer Hypothyroidism Barretts esophagus Hyperlipidemia Surgical History Surgical History History of foot surgery History of cataract extraction with lens replacement Hx of esophagogastroduodenoscopy History of total right knee replacement (TKR) History of breast biopsy History of hysterectomy History of thyroidectomy Hx of colonoscopy History of partial colectomy Social History Social History Household Members: Spouse Housing: House Are you a primary managed care liaison to a significant other at home: No Do you presently have visiting nurse or other home services: No Alcohol intake: current Alcohol intake frequency: a few times a month Comment: low fall per dr [place]? Patient Tobacco Use Status: Former Tobacco user Quit Date: 1968 Tobacco use type: Cigarette Advance Directives Date on File: 07/22/23 service: No Meds Allergies Allergy/AdvReac Type Severity Reaction Status Date / Time adhesive tape [ADHESIVE TAPE] Allergy Intermediate ITCH, Rash Verified 07/21/23 11:08 cefazolin [From KEFZOL] Allergy Intermediate RASH Verified 07/21/23 11:08 clindamycin [From CLEOCIN] Allergy Intermediate RASH Verified 07/21/23 11:08 gentamicin [From GARAMYCIN] Allergy Intermediate RASH Verified 07/21/23 11:08 atropine Allergy Unknown localized Verified 07/21/23 11:08 eye rxn cephalexin Allergy Unknown Rash Verified 07/21/23 11:08 tizanidine AdvReac Nausea Verified 07/21/23 11:08 tramadol AdvReac Nausea Verified 07/21/23 11:08 Doxycycline Monohydrate Allergy Intermediate Rash Uncoded 07/21/23 11:08 Active Medications: Current Medications Acetaminophen (Acetaminophen 325 Mg Tablet) 650 mg PO Q6H PRN PRN Reason: Pain, Mild (Pain Scale 1-3) Last Admin: 07/21/23 20:01 Dose: 650 mg Acetaminophen (Acetaminophen Supp 650 Mg Supp.Rect) 650 mg [place] Q6H PRN PRN Reason: Pain, Mild (Pain Scale 1-3) Calcitonin [place] (Calcitonin,[place],Synth Nasal 3.7 Ml Bottle) 1 spray NOSTRILALT DAILY [facility] Last Admin: 07/21/23 20:07 Dose: Not Given Docusate Sodium (Docusate Sodium 100 Mg Capsule) 100 mg PO BID [facility] Piperacillin Sod/Tazobactam (Sod 4.5 gm/ Sodium Chloride) 100 mls @ 200 mls/hr IV Q6H [facility] Last Infusion: 07/22/23 03:36 Dose: Infused Levothyroxine Sodium (Levothyroxine Sodium 100 Mcg Tablet) 100 mcg PO DAILY@0600 [facility] Last Admin: 07/22/23 05:58 Dose: 100 mcg Melatonin (Melatonin 3 Mg Tablet) 6 mg PO BEDTIME PRN PRN Reason: Insomnia Morphine Sulfate (Morphine Sulfate 4 Mg/Ml Cartridge) 4 mg IVPUSH Q4H PRN; Protocol PRN Reason: Pain, Severe (Pain Scale 7-10) Last Admin: 07/22/23 02:04 Dose: 4 mg Ondansetron HCl (Ondansetron Hcl 4 Mg/2 Ml Vial) 4 mg IVPUSH Q8H PRN PRN Reason: Nausea and Vomiting Last Admin: 07/22/23 02:04 Dose: 4 mg Simethicone (Simethicone 80 Mg Tab.Chew) 80 mg PO QIDWMHS PRN PRN Reason: Gas Sodium Chloride (0.9 % Sodium Chloride Flush 3 Ml Syringe) 3 ml IVFLUSH QSHIFT TAMMY Last Admin: 07/22/23 07:09 Dose: Not Given Home Medications ?Medication ?Instructions ?Recorded ?Confirmed ?Last Taken ?Type alprazolam 0.25 mg tablet 1 tab PO BID PRN Anxiety 09/08/20 07/22/23 09/14/20 History atorvastatin 40 mg tablet 1 tab PO BEDTIME 09/08/20 07/22/23 Unknown History diphenhydramine 25 1 tab PO BEDTIME PRN Sleep 09/08/20 07/22/23 Unknown History mg-acetaminophen 500 mg tablet (Tylenol PM Extra Strength) levothyroxine 100 mcg tablet 1 tab PO DAILY@0600 09/08/20 07/22/23 11/11/21 History lorazepam 0.5 mg tablet 1 tab PO BEDTIME PRN Anxiety 09/08/20 07/22/23 Unknown History omeprazole 20 mg capsule,delayed 20 mg PO DAILY@0630 09/08/20 07/22/23 11/28/22 08:15 History release simethicone 80 mg chewable tablet 80 mg PO DAILY PRN GAS 09/08/20 07/22/23 Unknown History vit C 250 mg-vit E 90 mg-zinc 40 1 tab PO BID 09/08/20 07/22/23 Unknown History mg-copper 1 [id number] capsule (PreserVision AREDS-2) cholecalciferol (vitamin D3) 10 10 mcg PO DAILY 11/11/21 07/22/23 Unknown History mcg (400 unit) capsule docusate sodium 100 mg capsule 100 mg PO DAILY 11/11/21 07/22/23 Unknown History itmaaxnd-ruoe-uhip 8 mg-folic 400 1 tab PO DAILY@1200 11/11/21 07/22/23 Unknown History mcg-K 50 mcg-lutein 300 mcg tablet (Centrum Silver Women) calcium carbonate 600 mg calcium 600 mg PO BID@1200,2100 07/22/23 07/22/23 Unknown History (1,500 mg) tablet (Calcium) lactobacillus combination no.4 3 3,000 mmu cells PO DAILY@1200 07/22/23 07/22/23 Unknown History billion cell capsule (Probiotic) witch atul-glycerin (hamamel) 1 pad topical QID PRN Hemorrhoids 07/22/23 07/22/23 Unknown History topical pads Physical Exam 2 Vital Signs: Vital Signs: Last Vital Signs Temp 97.4 F 07/22/23 09:08 Pulse 84 07/22/23 09:08 Resp 18 07/22/23 09:08 BP 143/71 H 07/22/23 09:08 Pulse Ox 99 07/22/23 09:08 O2 Del Method Room Air 07/22/23 09:08 O2 Flow Rate 2 07/22/23 04:52 BMI result Body Mass Index 22.2 Const: Other: looks well General: comfortable and no acute distress Orientation/consciousness: p atient oriented x3 Neck: Neck: Yes no lymphadenopathy Resp: Auscultation: clear to auscultation bilaterally Cardio: Rhythm: regular rhythm GI: Other: no tenderness, even on the LLQ Palpation (GI): Soft to palpation, nontender and no guarding Neuro: General: patient oriented x3 Results Labs 07/30/23 05:42 07/30/23 05:42 Labs: Abnormal lab results 07/21/23 07/22/23 Range/Units 16:00 05:15 WBC 13.8 H 13.0 H (4.8-10.8) X10*3/uL Plt Count 101 L 95 L (160-400) X10*3/uL Immature Gran % (Auto) 1.0 H 1.4 H (0.0-0.4) % Neut % (Auto) 76.2 H (45-73) % Lymph % (Auto) 13.1 L 7.2 L (20-40) % [place] % (Auto) 18.3 H 12.2 H (2-11) % Lymph # (Auto) 0.9 L (1.2-4.9) X10*3/uL [place] # (Auto) 2.5 H 1.6 H (0.1-1.2) X10*3/uL Abs Immat Gran (auto) 0.14 H 0.18 H (0.00-0.03) X10*3/uL Absolute Neuts (auto) 9.0 H 9.9 H (2.0-8.3) x10*3/uL Short CBC 07/21/23 07/22/23 Range/Units 16:00 05:15 WBC 13.8 H 13.0 H (4.8-10.8) X10*3/uL Hgb 13.9 13.0 (12.0-16.0) g/dl Hct 41.9 40.5 (37.0-47.0) % Plt Count 101 L 95 L (160-400) X10*3/uL BMP 07/21/23 07/22/23 16:00 05:15 Sodium 140 141 Potassium 3.7 4.7 D Chloride 105 105 Carbon Dioxide 27 26 BUN 11 11 Creatinine 0.60 0.74 Calcium 8.9 8.6 Liver Function 07/21/23 Range/Units 16:00 Total Bilirubin 0.8 (0.0-1.0) mg/dL AST 31 (5-31) U/L ALT 17 (0-31) U/L Alkaline Phosphatase 65 (39-117) U/L Albumin 3.7 (3.5-5.0) g/dL All other labs normal. Imaging Abdomen CT scan report/results: report reviewed and image reviewed CT scan - pelvis: report reviewed and image reviewed Additional studies: Laboratory Results WBC 13.0 X10*3/uL (4.8-10.8) H 07/22/23 05:15 RBC 4.20 X10*6/uL (4.20-5.50) 07/22/23 05:15 Hgb 13.0 g/dl (12.0-16.0) 07/22/23 05:15 Hct 40.5 % (37.0-47.0) 07/22/23 05:15 MCV 96.4 fL (80.0-98.0) 07/22/23 05:15 MCH 31.0 pg (27.0-33.0) 07/22/23 05:15 MCHC 32.1 g/dl (31.0-35.0) 07/22/23 05:15 RDW 12.9 % (11.0-16.0) 07/22/23 05:15 Plt Count 95 X10*3/uL (160-400) L 07/22/23 05:15 MPV 11.3 fL (9.4-12.3) 07/22/23 05:15 Immature Gran % (Auto) 1.4 % (0.0-0.4) H 07/22/23 05:15 Neut % (Auto) 76.2 % (45-73) H 07/22/23 05:15 Lymph % (Auto) 7.2 % (20-40) L 07/22/23 05:15 [place] % (Auto) 12.2 % (2-11) H 07/22/23 05:15 Eos % (Auto) 2.8 % (0-4) 07/22/23 05:15 Baso % (Auto) 0.2 % (0-2) 07/22/23 05:15 Lymph # (Auto) 0.9 X10*3/uL (1.2-4.9) L 07/22/23 05:15 [place] # (Auto) 1.6 X10*3/uL (0.1-1.2) H 07/22/23 05:15 Eos # (Auto) 0.4 X10*3/uL (0.0-0.4) 07/22/23 05:15 Baso # (Auto) 0.0 X10*3/uL (0.0-0.2) 07/22/23 05:15 Abs Immat Gran (auto) 0.18 X10*3/uL (0.00-0.03) H 07/22/23 05:15 Absolute Neuts (auto) 9.9 x10*3/uL (2.0-8.3) H 07/22/23 05:15 Absolute Nucleated RBC 0.000 X10*3/uL (0.0-0.012) 07/22/23 05:15 Nucleated RBC % (auto) 0.0 /100WBC (0.0-0.2) 07/22/23 05:15 Smear Tech's Comments VERIFIED 07/22/23 05:15 PT 12.6 SEC (11.1-13.3) 07/22/23 07:38 INR 1.0 (0.9-1.1) 07/22/23 07:38 Sodium 141 mmol/L (135-145) 07/22/23 05:15 Potassium 4.7 mmol/L (3.3-5.1) D 07/22/23 05:15 Chloride 105 mmol/L (96-108) 07/22/23 05:15 Carbon Dioxide 26 mmol/L (22-29) 07/22/23 05:15 Anion Gap 15 (12-20) 07/22/23 05:15 BUN 11 mg/dL (9-16) 07/22/23 05:15 Creatinine 0.74 mg/dL (0.5-1.4) 07/22/23 05:15 Estim Creat Clear Calc 56.0 07/22/23 05:15 Estimated GFR > 60 07/22/23 05:15 Random Glucose 111 mg/dL (60-115) 07/22/23 05:15 Calcium 8.6 mg/dL (8.4-10.2) 07/22/23 05:15 Total Bilirubin 0.8 mg/dL (0.0-1.0) 07/21/23 16:00 AST 31 U/L (5-31) 07/21/23 16:00 ALT 17 U/L (0-31) 07/21/23 16:00 Alkaline Phosphatase 65 U/L (39-117) 07/21/23 16:00 Total Protein 6.7 g/dL (6.5-8.0) 07/21/23 16:00 Albumin 3.7 g/dL (3.5-5.0) 07/21/23 16:[address] Sacrum 07/21/23 12:15 IMPRESSION: Lumbar spine CT: Moderate to severe acute compression fracture of the superior endplate of the L1 vertebral body. Sacrum: Old healed fracture of the right iliac bone extending to the right sacroiliac joint. No acute fracture seen. Question sigmoid diverticulitis with intramural abscess. Findings will be communicated by the [place] work flow hospice volunteer coordinator. Lumbar Spine CT 07/21/23 12:15 IMPRESSION: Lumbar spine CT: Moderate to severe acute compression fracture of the superior endplate of the L1 vertebral body. Sacrum: Old healed fracture of the right iliac bone extending to the right sacroiliac joint. No acute fracture seen. Question sigmoid diverticulitis with intramural abscess. Findings will be communicated by the [place] work flow hospice volunteer coordinator. Abdomen/Pelvis CT 07/21/23 16:42 IMPRESSION: 1. Acute sigmoid diverticulitis with intramural abscess measuring 2.4 x 1.8 cm. This abscess is not amenable to percutaneous drainage. 2. New compression fracture of L1. Recommend correlation for point tenderness. Fleischner guidelines were followed. Assessment and Plan (1) Diverticulitis of sigmoid colon: Status: Acute She was admitted for a compression fracture of L1 after a fall. Her CT scan also shows inflammatory changes in the sigmoid c/w diverticulitis along with what appears to be an intramural abscess. She does not have significant pain or tenderness at this time. I agree with IV abx . She can gave clear liquids. I will start her on Colace for her constipation with heavy stool volume on CT scan. Her abdominal exam is very benign. I will follow along while she is in the hospital. I actually know her for her right colon resecion for cancer in 2017. Procedures Date of Service Date of Service: 07/30/23
[2023-07-22] MEDS: Calcium Carbonate 750 MG TAB.CHEW 1500 MG PO (09:32)
[2023-07-22] MEDS: Simethicone 80 MG TAB.CHEW PO (09:33)
--- NOTE | 2023-07-22 10:32 | PHA.MEDREC ---
Pharmacy Consult ? Medication Reconciliation Pharmacy has completed the medication reconciliation.PT HAS A LIST WE REVIEWED. LIST AND CLAIM HISTORY UTILIZED TO COMPLETE MED REC.
[2023-07-22] MEDS: Metoclopramide HCl 10 MG/2 ML VIAL 5 MG IVPUSH (12:24)
--- NOTE | 2023-07-22 12:30 | MHC.CM.PN ---
PT REPORTS SHE LIVES WITH HER AND IS INDEPENDENT WITH CARE SHE HAS NO SERVICES SHE HAS A [facility] HOWEVER DOES NOT REQUIRE AN AD AT BASELINE PT SAYS SHE HAS A HCP, COPY REQUESTED PCP: ARIC CHOU IMM DELIVERED DCP: HOME NO SERVICES VIA PRIVATE TRANSPORT
--- NOTE | 2023-07-22 12:38 | HO.PM.IMPN ---
Subjective Subjective Date of Service: 07/22/23 Interval History: Patient complains of lower back pain and gas pain. No episodes of vomiting Gastrointestinal Gastrointestinal: Reports abdominal pain and Reports belching Physical Exam Vital Signs: Vital Signs: Last Vital Signs Temp 96.8 F 07/22/23 11:03 Pulse 84 07/22/23 11:03 Resp 20 07/22/23 11:03 BP 137/63 07/22/23 11:03 Pulse Ox 98 07/22/23 11:03 O2 Del Method Nasal Cannula 07/22/23 11:03 O2 Flow Rate 2 07/22/23 11:03 BMI result Body Mass Index 22.1 Constitutional: Alert, in no acute distress. Mental Status: Oriented to person, place and time. Eyes: Pupils are equal, round, and reactive to light. Ear, Nose, and Throat: Oropharynx clear, mucous membranes moist. Ears and nose without deformities. Trachea midline. Respiratory: Clear to auscultation bilaterally. No wheezing, rales, or rhonchi. Cardiovascular: S1, S2 regular. 3/6 murmur heard at right sternal border. Gastrointestinal: Abdomen soft, non-tender, non-distended. Normal bowel sounds. Neurologic: Cranial nerves II-XII are grossly intact bilaterally. No focal neurological deficits. Moves all extremities spontaneously. Skin: Warm, dry. Back: Sacral point tenderness of bilateral paraspinous processes Extremities: No edema. Psychiatric: Normal mood and affect. Objective Data Active Medications Acetaminophen (Acetaminophen 325 Mg Tablet) 650 mg PO Q6H PRN PRN Reason: Pain, Mild (Pain Scale 1-3) Last Admin: 07/21/23 20:01 Dose: 650 mg Documented By: RONALD Acetaminophen (Acetaminophen Supp 650 Mg Supp.Rect) 650 mg DC Q6H PRN PRN Reason: Pain, Mild (Pain Scale 1-3) Calcitonin [place] (Calcitonin,[place],Synth Nasal 3.7 Ml Bottle) 1 spray NOSTRILALT DAILY [facility] Last Admin: 07/22/23 11:35 Dose: Not Given Documented By: KAMRYN Non-Admin Reason: Patient Refused Docusate Sodium (Docusate Sodium 100 Mg Capsule) 100 mg PO BID [facility] Piperacillin Sod/Tazobactam (Sod 4.5 gm/ Sodium Chloride) 100 mls @ 200 mls/hr IV Q6H [facility] Last Infusion: 07/22/23 10:11 Dose: Infused Documented By: KAMRYN Levothyroxine Sodium (Levothyroxine Sodium 100 Mcg Tablet) 100 mcg PO DAILY@0600 [facility] Last Admin: 07/22/23 05:58 Dose: 100 mcg Documented By: RONALD Melatonin (Melatonin 3 Mg Tablet) 6 mg PO BEDTIME PRN PRN Reason: Insomnia Morphine Sulfate (Morphine Sulfate 4 Mg/Ml Cartridge) 4 mg IVPUSH Q4H PRN; Protocol PRN Reason: Pain, Severe (Pain Scale 7-10) Last Admin: 07/22/23 10:27 Dose: 4 mg Documented By: KAMRYN Ondansetron HCl (Ondansetron Hcl 4 Mg/2 Ml Vial) 4 mg IVPUSH Q8H PRN PRN Reason: Nausea and Vomiting Last Admin: 07/22/23 10:26 Dose: 4 mg Documented By: KAMRYN Simethicone (Simethicone 80 Mg Tab.Chew) 80 mg PO QIDWMHS PRN PRN Reason: Gas Last Admin: 07/22/23 09:33 Dose: 80 mg Documented By: KAMRYN Sodium Chloride (0.9 % Sodium Chloride Flush 3 Ml Syringe) 3 ml IVFLUSH QSHIFT [facility] Last Admin: 07/22/23 07:09 Dose: Not Given Documented By: SOFIE Non-Admin Reason: Med Not Available Labs 07/22/23 05:15 07/22/23 05:15 Labs: Laboratory Results - last 24 hr 07/21/23 07/22/23 07/22/23 16:00 05:15 07:38 MCV 93.7 96.4 MCH 31.1 31.0 MCHC 33.2 32.1 RDW 12.8 12.9 Plt Count 101 L 95 L MPV 10.9 11.3 Immature Gran % (Auto) 1.0 H 1.4 H Neut % (Auto) 65.2 76.2 H Lymph % (Auto) 13.1 L 7.2 L [place] % (Auto) 18.3 H 12.2 H Eos % (Auto) 2.3 2.8 Baso % (Auto) 0.1 0.2 Lymph # (Auto) 1.8 0.9 L [place] # (Auto) 2.5 H 1.6 H Eos # (Auto) 0.3 0.4 Baso # (Auto) 0.0 0.0 Abs Immat Gran (auto) 0.14 H 0.18 H Absolute Neuts (auto) 9.0 H 9.9 H Absolute Nucleated RBC 0.000 0.000 Nucleated RBC % (auto) 0.0 0.0 Smear Tech's Comments VERIFIED VERIFIED PT 12.6 INR 1.0 Anion Gap 12 15 Estim Creat Clear Calc 69.1 56.0 Estimated GFR > 60 > 60 Random Glucose 102 111 Calcium 8.9 8.6 Total Bilirubin 0.8 AST 31 ALT 17 Alkaline Phosphatase 65 Total Protein 6.7 Albumin 3.7 Assessment and Plan (1) Diverticulitis of sigmoid colon: Status: Acute (2) Compression fracture of L1 vertebra: Status: Acute Plan Pt is an 83-year-old female with a PMH significant for?colon cancer s/p right hemicolectomy, HLD, GERD, hypothyroidism, diverticulitis, and mood disorder who presents to the ED for evaluation of worsening lower back pain. Pt will be admitted to the hospital for treatment and further evaluation of diverticulitis with abscess and L1 vertebral body compression fracture secondary to fall at home. Diverticulitis with abscess Continue Zosyn, started 07/21/2023 Clear liquid diet General surgery appreciated Spinal compression fracture IR consultation with Dr. Camargo for possible kyphoplasty Will start intranasal calcitonin 200 units once daily in alternating nostrils HLD Continue statin Hypothyroidism Continue levothyroxine GERD Continue PPI Mood disorder Continue mood stabilizers Full Code DVT Prophylaxis: Pneumatic boots for possible surgical intervention Reason for continued hospitalization: IV antibiotics. Possible surgical intervention with general surgery and IR Quality Stroke Does the patient have a stroke diagnosis?: No VTE Prior VTE?: No VTE Risk Level:: Medical - moderate - high VTE Device Contraindication: N/A - Device Ordered VTE Drug Contraindication: Treatment Not Indicated
[2023-07-22] MEDS: polyethylene glycoL 3350 17 GM POWD.PACK PO (13:19)
[2023-07-22] MEDS: Omeprazole 20 MG CAPSULE.DR PO (13:19)
[2023-07-22] MEDS: ALPRAZolam 0.25 MG TABLET PO (13:23)
[2023-07-22] MEDS: Lactated Ringers 1,000 ML 100 ML IVCONT ×2 (13:27→23:52)
[2023-07-22] MEDS: 0.9 % Sodium Chloride Flush 3 ML SYRINGE IVFLUSH ×2 (15:37→23:51)
[2023-07-22] MEDS: Acetaminophen 325 MG TABLET 650 MG PO ×2 (17:41→23:49)
[2023-07-22] MEDS: Docusate Sodium 100 MG CAPSULE PO (20:04)
[2023-07-22] MEDS: LORazepam 0.5 MG TABLET PO (20:04)
[2023-07-22] MEDS: Atorvastatin Calcium 40 MG TABLET PO (20:04)
[2023-07-23 02:22] VITALS: BP 141/72; PULSE 80; RESP 18; TEMP 36.2; O2SAT 95
[2023-07-23] MEDS: Piperacillin Sodium/Tazobactam 4.5 GM in 0.9 % Sodium Chloride 100 ML IV ×4 (02:22→20:42)
[2023-07-23] MEDS: ALPRAZolam 0.25 MG TABLET PO ×2 (03:00→15:16)
[2023-07-23] MEDS: Levothyroxine Sodium 100 MCG TABLET PO (05:47)
[2023-07-23] MEDS: Omeprazole 20 MG CAPSULE.DR PO (05:47)
[2023-07-23] MEDS: Acetaminophen 325 MG TABLET 650 MG PO ×3 (06:10→22:38)
[2023-07-23 06:13] LABS: Mean Platelet Volume 10.6 fL (9.4-12.3); PLT CLUMP 1; SCAN SMEAR FLAG 1
[2023-07-23 06:15] LABS: Basophils Percent Auto 0.1 % (0-2); Eosinophils Absolute Auto 0.3 X10*3/uL (0.0-0.4); Hemoglobin 11.3 g/dl (12.0-16.0); Imm Gran Abs Auto 0.11 X10*3/uL (0.00-0.03); Imm Gran Pct Auto 1.2 % (0.0-0.4); Lymphocytes Absolute Auto 1.6 X10*3/uL (1.2-4.9); Lymphocytes Percent Auto 16.5 % (20-40); Mean Corpuscular HGB Conc 32.3 g/dl (31.0-35.0); Mean Corpuscular Hemoglobin 30.5 pg (27.0-33.0); Mean Corpuscular Volume 94.6 fL (80.0-98.0); Monocytes Absolute Auto 1.4 X10*3/uL (0.1-1.2); Monocytes Percent Auto 14.5 % (2-11); Neutrophils Absolute Auto 6.2 x10*3/uL (2.0-8.3); Neutrophils Percent Auto 64.7 % (45-73); Red Cell Distribution Width 12.7 % (11.0-16.0)
[2023-07-23 06:16] LABS: MANUAL DIFF FLAG NO; Platelet Count 94 X10*3/uL (160-400); White Blood Count 9.6 X10*3/uL (4.8-10.8)
[2023-07-23 06:24] LABS: Anion Gap 11 (12-20); Blood Urea Nitrogen 11 mg/dL (9-16); Calcium 8.2 mg/dL (8.4-10.2); Carbon Dioxide 27 mmol/L (22-29); Chloride 105 mmol/L (96-108); Creatinine Clr Calc Pharmacy 65.8; Estimated Glomerular Filt Rate > 60; Glucose Random 83 mg/dL (60-115); Potassium 3.7 mmol/L (3.3-5.1); Sodium 139 mmol/L (135-145)
[2023-07-23 07:25] VITALS: BP 146/64; PULSE 82; RESP 18; TEMP 36.3; O2SAT 95
[2023-07-23] MEDS: 0.9 % Sodium Chloride Flush 3 ML SYRINGE IVFLUSH ×2 (08:03→15:16)
[2023-07-23] MEDS: Docusate Sodium 100 MG CAPSULE PO ×2 (08:03→20:41)
[2023-07-23] MEDS: Cholecalciferol (Vitamin D3) 10 MCG TABLET PO (08:03)
--- NOTE | 2023-07-23 08:26 | PM.PNGS ---
Subjective Subjective Date of Service: 07/24/23 Interval history: Denies any abdominal pain No nausea or vomiting Passing flatus Says she has chronic constipation Continues to have back pain moving Physical Exam Vital Signs: Vital Signs: Last Vital Signs Temp 97.3 F 07/23/23 07:25 Pulse 82 07/23/23 07:25 Resp 18 07/23/23 07:25 BP 146/64 H 07/23/23 07:25 Pulse Ox 95 07/23/23 07:25 O2 Del Method Room Air 07/23/23 07:25 O2 Flow Rate 2 07/23/23 02:22 BMI result Body Mass Index 22.1 Const: General: comfortable and no acute distress Resp: Effort & Inspection: normal respiratory effort Cardio: Rate: regular rate GI: Palpation (GI): Soft to palpation, not firm, nontender and no guarding Objective Data Active Medications Acetaminophen (Acetaminophen 325 Mg Tablet) 650 mg PO Q6H PRN PRN Reason: Pain, Mild (Pain Scale 1-3) Last Admin: 07/23/23 06:10 Dose: 650 mg Documented By: ANTABELINO Acetaminophen (Acetaminophen Supp 650 Mg Supp.Rect) 650 mg SC Q6H PRN PRN Reason: Pain, Mild (Pain Scale 1-3) Alprazolam (Alprazolam 0.25 Mg Tablet) 0.25 mg PO BID PRN PRN Reason: Anxiety Last Admin: 07/23/23 03:00 Dose: 0.25 mg Documented By: YARI Atorvastatin Calcium (Atorvastatin Calcium 40 Mg Tablet) 40 mg PO BEDTIME [facility] Last Admin: 07/22/23 20:04 Dose: 40 mg Documented By: BREA Calcitonin [place] (Calcitonin,[place],Synth Nasal 3.7 Ml Bottle) 1 spray NOSTRILALT DAILY [facility] Last Admin: 07/22/23 11:35 Dose: Not Given Documented By: KAMRYN Non-Admin Reason: Patient Refused Calcium Carbonate (Calcium Carbonate 500 Mg Tablet) 500 mg PO BID@1200,2100 [facility] Last Admin: 07/22/23 20:04 Dose: 500 mg Documented By: BREA Diphenhydramine HCl (Diphenhydramine Hcl 25 Mg Capsule) 25 mg PO BEDTIME PRN PRN Reason: Sleep Docusate Sodium (Docusate Sodium 100 Mg Capsule) 100 mg PO BID [facility] Last Admin: 07/23/23 08:03 Dose: 100 mg Documented By: HERNAN Piperacillin Sod/Tazobactam (Sod 4.5 gm/ Sodium Chloride) 100 mls @ 200 mls/hr IV Q6H [facility] Last Admin: 07/23/23 08:03 Dose: 200 mls/hr Documented By: HERNAN Lactated Ringer's (Lr) 1,000 mls @ 100 mls/hr IVCONT .Q10H [facility] Last Admin: 07/22/23 23:52 Dose: 100 mls/hr Documented By: ANTABELINO Levothyroxine Sodium (Levothyroxine Sodium 100 Mcg Tablet) 100 mcg PO DAILY@0600 [facility] Last Admin: 07/23/23 05:47 Dose: 100 mcg Documented By: ANTABELINO Lorazepam (Lorazepam 0.5 Mg Tablet) 0.5 mg PO BEDTIME PRN PRN Reason: Anxiety Last Admin: 07/22/23 20:04 Dose: 0.5 mg Documented By: BREA Melatonin (Melatonin 3 Mg Tablet) 6 mg PO BEDTIME PRN PRN Reason: Insomnia Morphine Sulfate (Morphine Sulfate 4 Mg/Ml Cartridge) 4 mg IVPUSH Q4H PRN; Protocol PRN Reason: Pain, Severe (Pain Scale 7-10) Last Admin: 07/22/23 10:27 Dose: 4 mg Documented By: KAMRYN Multivitamins/Vitamin C (Multivitamin Tablet) 1 tab PO DAILY@1200 [facility] Omeprazole (Omeprazole 20 Mg Capsule.Dr) 20 mg PO DAILY@0630 [facility] Last Admin: 07/23/23 05:47 Dose: 20 mg Documented By: YARI Ondansetron HCl (Ondansetron Hcl 4 Mg/2 Ml Vial) 4 mg IVPUSH Q8H PRN PRN Reason: Nausea and Vomiting Last Admin: 07/22/23 10:26 Dose: 4 mg Documented By: KAMRYN Simethicone (Simethicone 80 Mg Tab.Chew) 80 mg PO QIDWMHS PRN PRN Reason: Gas Last Admin: 07/22/23 09:33 Dose: 80 mg Documented By: KAMRYN Sodium Chloride (0.9 % Sodium Chloride Flush 3 Ml Syringe) 3 ml IVFLUSH QSHIFT [facility] Last Admin: 07/23/23 08:03 Dose: 3 ml Documented By: HERNAN Vitamin D (Cholecalciferol (Vitamin D3) 10 Mcg Tablet) 10 mcg PO DAILY [facility] Last Admin: 07/23/23 08:03 Dose: 10 mcg Documented By: HERNAN Labs 07/24/23 05:29 07/24/23 05:29 Labs: Laboratory Results - last 24 hr 07/23/23 05:49 MCV 94.6 MCH 30.5 MCHC 32.3 RDW 12.7 Plt Count 94 L MPV 10.6 Immature Gran % (Auto) 1.2 H Neut % (Auto) 64.7 Lymph % (Auto) 16.5 L [place] % (Auto) 14.5 H Eos % (Auto) 3.0 Baso % (Auto) 0.1 Lymph # (Auto) 1.6 [place] # (Auto) 1.4 H Eos # (Auto) 0.3 Baso # (Auto) 0.0 Abs Immat Gran (auto) 0.11 H Absolute Neuts (auto) 6.2 Absolute Nucleated RBC 0.000 Nucleated RBC % (auto) 0.0 Anion Gap 11 L Estim Creat Clear Calc 65.8 Estimated GFR > 60 Random Glucose 83 Calcium 8.2 L Procedures Date of Service Date of Service: 07/24/23 Progress Note: A&P Assessment and plan (1) Diverticulitis of sigmoid colon: Status: Acute Assessment and Plan: Actually asymptomatic despite suggestion of intramural abscess Keep on clear liquids for today Continue IV antibiotic Abdomen remains soft and benign and nontender Colace for constipation Time Spent With Patient Time: Total time managing care of this patient today ____ minutes. Quality Stroke Does the patient have a stroke diagnosis?: No VTE Prior VTE?: No VTE Risk Level:: Medical - moderate - high VTE Device Contraindication: N/A - Device Ordered VTE Drug Contraindication: Treatment Not Indicated
[2023-07-23] MEDS: Morphine Sulfate 4 MG/ML CARTRIDGE IVPUSH (09:16)
[2023-07-23] MEDS: ondansetron HCL 4 MG/2 ML VIAL IVPUSH (09:16)
[2023-07-23] MEDS: Lactated Ringers 1,000 ML 100 ML IVCONT ×2 (09:54→20:40)
--- NOTE | 2023-07-23 10:30 | HO.PM.IMPN ---
Subjective Subjective Date of Service: 07/23/23 Interval History: Patient complains of lower back pain. No abdominal pain Review of Systems Lower back pain s/p mechanical fall at home Constipation Denies fever, chills No nausea, vomiting Denies hematochezia or melena No lightheadedness or dizziness Gastrointestinal Gastrointestinal: Reports abdominal pain and Reports belching Physical Exam Vital Signs: Vital Signs: Last Vital Signs Temp 97.3 F 07/23/23 07:25 Pulse 82 07/23/23 07:25 Resp 18 07/23/23 07:25 BP 146/64 H 07/23/23 07:25 Pulse Ox 95 07/23/23 07:25 O2 Del Method Room Air 07/23/23 07:25 O2 Flow Rate 2 07/23/23 02:22 BMI result Body Mass Index 22.1 Constitutional: Alert, in no acute distress. Mental Status: Oriented to person, place and time. Eyes: Pupils are equal, round, and reactive to light. Ear, Nose, and Throat: Oropharynx clear, mucous membranes moist. Ears and nose without deformities. Trachea midline. Respiratory: Clear to auscultation bilaterally. No wheezing, rales, or rhonchi. Cardiovascular: S1, S2 regular. 3/6 murmur heard at right sternal border. Gastrointestinal: Abdomen soft, non-tender, non-distended. Normal bowel sounds. Neurologic: Cranial nerves II-XII are grossly intact bilaterally. No focal neurological deficits. Moves all extremities spontaneously. Skin: Warm, dry. Back: Sacral point tenderness of bilateral paraspinous processes Extremities: No edema. Psychiatric: Normal mood and affect. Objective Data Active Medications Acetaminophen (Acetaminophen 325 Mg Tablet) 650 mg PO Q6H PRN PRN Reason: Pain, Mild (Pain Scale 1-3) Last Admin: 07/23/23 06:10 Dose: 650 mg Documented By: ANTABELINO Acetaminophen (Acetaminophen Supp 650 Mg Supp.Rect) 650 mg SD Q6H PRN PRN Reason: Pain, Mild (Pain Scale 1-3) Alprazolam (Alprazolam 0.25 Mg Tablet) 0.25 mg PO BID PRN PRN Reason: Anxiety Last Admin: 07/23/23 03:00 Dose: 0.25 mg Documented By: YARI Atorvastatin Calcium (Atorvastatin Calcium 40 Mg Tablet) 40 mg PO BEDTIME [facility] Last Admin: 07/22/23 20:04 Dose: 40 mg Documented By: BREA Calcitonin [place] (Calcitonin,[place],Synth Nasal 3.7 Ml Bottle) 1 spray NOSTRILALT DAILY [facility] Last Admin: 07/22/23 11:35 Dose: Not Given Documented By: KAMRYN Non-Admin Reason: Patient Refused Calcium Carbonate (Calcium Carbonate 500 Mg Tablet) 500 mg PO BID@1200,2100 [facility] Last Admin: 07/22/23 20:04 Dose: 500 mg Documented By: BREA Diphenhydramine HCl (Diphenhydramine Hcl 25 Mg Capsule) 25 mg PO BEDTIME PRN PRN Reason: Sleep Docusate Sodium (Docusate Sodium 100 Mg Capsule) 100 mg PO BID [facility] Last Admin: 07/23/23 08:03 Dose: 100 mg Documented By: HERNAN Docusate Sodium (Docusate Sodium 100 Mg Capsule) 100 mg PO BID [facility] Last Admin: 07/23/23 09:45 Dose: Not Given Documented By: HERNAN Non-Admin Reason: Duplicate Order Piperacillin Sod/Tazobactam (Sod 4.5 gm/ Sodium Chloride) 100 mls @ 200 mls/hr IV Q6H [facility] Last Infusion: 07/23/23 08:46 Dose: Infused Documented By: HERNAN Lactated Ringer's (Lr) 1,000 mls @ 100 mls/hr IVCONT .Q10H [facility] Last Admin: 07/23/23 09:54 Dose: 100 mls/hr Documented By: HERNAN Levothyroxine Sodium (Levothyroxine Sodium 100 Mcg Tablet) 100 mcg PO DAILY@0600 [facility] Last Admin: 07/23/23 05:47 Dose: 100 mcg Documented By: ANTABELINO Lorazepam (Lorazepam 0.5 Mg Tablet) 0.5 mg PO BEDTIME PRN PRN Reason: Anxiety Last Admin: 07/22/23 20:04 Dose: 0.5 mg Documented By: BREA Melatonin (Melatonin 3 Mg Tablet) 6 mg PO BEDTIME PRN PRN Reason: Insomnia Morphine Sulfate (Morphine Sulfate 4 Mg/Ml Cartridge) 4 mg IVPUSH Q4H PRN; Protocol PRN Reason: Pain, Severe (Pain Scale 7-10) Last Admin: 07/23/23 09:16 Dose: 4 mg Documented By: OLEGARIO Multivitamins/Vitamin C (Multivitamin Tablet) 1 tab PO DAILY@1200 [facility] Omeprazole (Omeprazole 20 Mg Capsule.Dr) 20 mg PO DAILY@0630 [facility] Last Admin: 07/23/23 05:47 Dose: 20 mg Documented By: YARI Ondansetron HCl (Ondansetron Hcl 4 Mg/2 Ml Vial) 4 mg IVPUSH Q8H PRN PRN Reason: Nausea and Vomiting Last Admin: 07/23/23 09:16 Dose: 4 mg Documented By: OLEGARIO Simethicone (Simethicone 80 Mg Tab.Chew) 80 mg PO QIDWMHS PRN PRN Reason: Gas Last Admin: 07/22/23 09:33 Dose: 80 mg Documented By: KAMRYN Sodium Chloride (0.9 % Sodium Chloride Flush 3 Ml Syringe) 3 ml IVFLUSH QSHIFT [facility] Last Admin: 07/23/23 08:03 Dose: 3 ml Documented By: HERNAN Vitamin D (Cholecalciferol (Vitamin D3) 10 Mcg Tablet) 10 mcg PO DAILY [facility] Last Admin: 07/23/23 08:03 Dose: 10 mcg Documented By: HERNAN Labs 07/23/23 05:49 07/23/23 05:49 Labs: Laboratory Results - last 24 hr 07/23/23 05:49 MCV 94.6 MCH 30.5 MCHC 32.3 RDW 12.7 Plt Count 94 L MPV 10.6 Immature Gran % (Auto) 1.2 H Neut % (Auto) 64.7 Lymph % (Auto) 16.5 L [place] % (Auto) 14.5 H Eos % (Auto) 3.0 Baso % (Auto) 0.1 Lymph # (Auto) 1.6 [place] # (Auto) 1.4 H Eos # (Auto) 0.3 Baso # (Auto) 0.0 Abs Immat Gran (auto) 0.11 H Absolute Neuts (auto) 6.2 Absolute Nucleated RBC 0.000 Nucleated RBC % (auto) 0.0 Anion Gap 11 L Estim Creat Clear Calc 65.8 Estimated GFR > 60 Random Glucose 83 Calcium 8.2 L Assessment and Plan (1) Diverticulitis of sigmoid colon: Status: Acute (2) Compression fracture of L1 vertebra: Status: Acute Plan Pt is an 83-year-old female with a PMH significant for?colon cancer s/p right hemicolectomy, HLD, GERD, hypothyroidism, diverticulitis, and mood disorder who presents to the ED for evaluation of worsening lower back pain. Pt will be admitted to the hospital for treatment and further evaluation of diverticulitis with abscess and L1 vertebral body compression fracture secondary to fall at home. Diverticulitis with abscess Continue Zosyn, started 07/21/2023 Clear liquid diet for today, may advance diet larry General surgery appreciated Spinal compression fracture IR consultation with Dr. Camargo for possible kyphoplasty Will start intranasal calcitonin 200 units once daily in alternating nostrils HLD Continue statin Hypothyroidism Continue levothyroxine GERD Continue PPI Mood disorder Continue mood stabilizers Full Code DVT Prophylaxis: Pneumatic boots for possible surgical intervention Reason for continued hospitalization: IV antibiotics. Possible surgical intervention with general surgery and IR Quality Stroke Does the patient have a stroke diagnosis?: No VTE Prior VTE?: No VTE Risk Level:: Medical - moderate - high VTE Device Contraindication: N/A - Device Ordered VTE Drug Contraindication: Treatment Not Indicated
[2023-07-23] MEDS: Multivitamin TABLET 1 TAB PO (11:21)
[2023-07-23 13:11] VITALS: BP 146/64; PULSE 82; O2SAT 95
[2023-07-23] MEDS: Lidocaine 4 % Patch ADH..PATCH 1 PATCH TRANSDERMA (15:17)
[2023-07-23 15:29] VITALS: BP 134/60; PULSE 70; RESP 16; TEMP 36.3; O2SAT 93
[2023-07-23 19:13] VITALS: BP 134/63; PULSE 74; RESP 16; TEMP 36.6; O2SAT 93
[2023-07-23] MEDS: Atorvastatin Calcium 40 MG TABLET PO (20:41)
[2023-07-23] MEDS: diphenhydrAMINE HCL 25 MG CAPSULE PO (22:38)
[2023-07-23] MEDS: LORazepam 0.5 MG TABLET PO (22:41)
[2023-07-24] MEDS: Piperacillin Sodium/Tazobactam 4.5 GM in 0.9 % Sodium Chloride 100 ML IV ×4 (02:47→20:52)
[2023-07-24 03:29] VITALS: BP 169/65; PULSE 72; RESP 16; TEMP 36.2; O2SAT 95
[2023-07-24] MEDS: Omeprazole 20 MG CAPSULE.DR PO (05:33)
[2023-07-24] MEDS: Levothyroxine Sodium 100 MCG TABLET PO (05:33)
[2023-07-24 06:06] LABS: MANUAL DIFF FLAG NO
[2023-07-24 06:17] LABS: Basophils Percent Auto 0.1 % (0-2); Eosinophils Absolute Auto 0.3 X10*3/uL (0.0-0.4); Eosinophils Percent Auto 4.3 % (0-4); Hematocrit 33.6 % (37.0-47.0); Hemoglobin 10.8 g/dl (12.0-16.0); Imm Gran Abs Auto 0.08 X10*3/uL (0.00-0.03); Imm Gran Pct Auto 1.2 % (0.0-0.4); Lymphocytes Absolute Auto 1.3 X10*3/uL (1.2-4.9); Lymphocytes Percent Auto 18.9 % (20-40); Mean Corpuscular HGB Conc 32.1 g/dl (31.0-35.0); Mean Corpuscular Hemoglobin 30.6 pg (27.0-33.0); Mean Corpuscular Volume 95.2 fL (80.0-98.0); Mean Platelet Volume 10.4 fL (9.4-12.3); Monocytes Absolute Auto 0.9 X10*3/uL (0.1-1.2); Monocytes Percent Auto 13.2 % (2-11); Neutrophils Absolute Auto 4.2 x10*3/uL (2.0-8.3); Neutrophils Percent Auto 62.3 % (45-73); Platelet Count 100 X10*3/uL (160-400); Red Blood Count 3.53 X10*6/uL (4.20-5.50); Red Cell Distribution Width 12.7 % (11.0-16.0); White Blood Count 6.7 X10*3/uL (4.8-10.8)
[2023-07-24 06:36] LABS: Anion Gap 10 (12-20); Blood Urea Nitrogen 5 mg/dL (9-16); Calcium 8.1 mg/dL (8.4-10.2); Carbon Dioxide 30 mmol/L (22-29); Chloride 106 mmol/L (96-108); Creatinine Clr Calc Pharmacy 64.8; Estimated Glomerular Filt Rate > 60; Glucose Random 91 mg/dL (60-115); Potassium 3.6 mmol/L (3.3-5.1); Sodium 142 mmol/L (135-145)
[2023-07-24 07:57] VITALS: BP 145/65; PULSE 77; RESP 16; TEMP 36.4; O2SAT 97
[2023-07-24 08:30] VITALS: BP 145/65; PULSE 77; O2SAT 97
[2023-07-24] MEDS: Docusate Sodium 100 MG CAPSULE PO ×2 (08:46→20:46)
[2023-07-24] MEDS: Simethicone 80 MG TAB.CHEW PO ×3 (08:46→20:47)
[2023-07-24] MEDS: Cholecalciferol (Vitamin D3) 10 MCG TABLET PO (08:46)
[2023-07-24] MEDS: Lactated Ringers 1,000 ML 100 ML IVCONT (08:46)
[2023-07-24] MEDS: Lidocaine 4 % Patch ADH..PATCH 1 PATCH TRANSDERMA (08:47)
[2023-07-24] MEDS: ALPRAZolam 0.25 MG TABLET PO ×2 (08:55→15:13)
[2023-07-24] MEDS: Acetaminophen 325 MG TABLET 650 MG PO ×3 (08:55→22:57)
--- NOTE | 2023-07-24 09:37 | PM.PNGS ---
Subjective Subjective Date of Service: 07/24/23 Interval history: Said she had some discomfort on the abdomen last night Feels constipated Continues to have back pain Physical Exam Vital Signs: Vital Signs: Last Vital Signs Temp 97.6 F 07/24/23 07:57 Pulse 77 07/24/23 08:30 Resp 16 07/24/23 07:57 BP 145/65 H 07/24/23 08:30 Pulse Ox 97 07/24/23 08:30 O2 Del Method Room Air 07/24/23 07:57 O2 Flow Rate 2 07/23/23 02:22 BMI result Body Mass Index 22.1 Const: General: comfortable and no acute distress Resp: Effort & Inspection: normal respiratory effort Cardio: Rate: regular rate GI: Palpation (GI): Soft to palpation, not firm, nontender and no guarding Objective Data Active Medications Acetaminophen (Acetaminophen 325 Mg Tablet) 650 mg PO Q6H PRN PRN Reason: Pain, Mild (Pain Scale 1-3) Last Admin: 07/24/23 08:55 Dose: 650 mg Documented By: NITIN Acetaminophen (Acetaminophen Supp 650 Mg Supp.Rect) 650 mg [place] Q6H PRN PRN Reason: Pain, Mild (Pain Scale 1-3) Alprazolam (Alprazolam 0.25 Mg Tablet) 0.25 mg PO BID PRN PRN Reason: Anxiety Last Admin: 07/24/23 08:55 Dose: 0.25 mg Documented By: NITIN Atorvastatin Calcium (Atorvastatin Calcium 40 Mg Tablet) 40 mg PO BEDTIME [facility] Last Admin: 07/23/23 20:41 Dose: 40 mg Documented By: YUSEF Calcitonin [place] (Calcitonin,[place],Synth Nasal 3.7 Ml Bottle) 1 spray NOSTRILALT DAILY [facility] Last Admin: 07/24/23 07:18 Dose: Not Given Documented By: NITIN Non-Admin Reason: Patient Refused Calcium Carbonate (Calcium Carbonate 500 Mg Tablet) 500 mg PO BID@1200,2100 [facility] Last Admin: 07/23/23 20:56 Dose: 500 mg Documented By: YUSEF Diphenhydramine HCl (Diphenhydramine Hcl 25 Mg Capsule) 25 mg PO BEDTIME PRN PRN Reason: Sleep Last Admin: 07/23/23 22:38 Dose: 25 mg Documented By: YUSEF Docusate Sodium (Docusate Sodium 100 Mg Capsule) 100 mg PO BID [facility] Last Admin: 07/24/23 08:46 Dose: 100 mg Documented By: NITIN Docusate Sodium (Docusate Sodium 100 Mg Capsule) 100 mg PO BID [facility] Last Admin: 07/24/23 07:19 Dose: Not Given Documented By: NITIN Non-Admin Reason: Duplicate Order Piperacillin Sod/Tazobactam (Sod 4.5 gm/ Sodium Chloride) 100 mls @ 200 mls/hr IV Q6H [facility] Last Infusion: 07/24/23 09:23 Dose: Infused Documented By: NITIN Lactated Ringer's (Lr) 1,000 mls @ 100 mls/hr IVCONT .Q10H [facility] Last Admin: 07/24/23 08:46 Dose: 100 mls/hr Documented By: NITIN Levothyroxine Sodium (Levothyroxine Sodium 100 Mcg Tablet) 100 mcg PO DAILY@0600 [facility] Last Admin: 07/24/23 05:33 Dose: 100 mcg Documented By: YUSEF Lidocaine (Lidocaine 4 % Patch Adh..Patch) 1 patch TRANSDERMA DAILY [facility]; Protocol Last Admin: 07/24/23 08:47 Dose: 1 patch Documented By: NITIN Lorazepam (Lorazepam 0.5 Mg Tablet) 0.5 mg PO BEDTIME PRN PRN Reason: Anxiety Last Admin: 07/23/23 22:41 Dose: 0.5 mg Documented By: YUSEF Melatonin (Melatonin 3 Mg Tablet) 6 mg PO BEDTIME PRN PRN Reason: Insomnia Morphine Sulfate (Morphine Sulfate 4 Mg/Ml Cartridge) 4 mg IVPUSH Q4H PRN; Protocol PRN Reason: Pain, Severe (Pain Scale 7-10) Last Admin: 07/23/23 09:16 Dose: 4 mg Documented By: OLEGARIO Multivitamins/Vitamin C (Multivitamin Tablet) 1 tab PO DAILY@1200 [facility] Last Admin: 07/23/23 11:21 Dose: 1 tab Documented By: HERNAN Non-Formulary Medication (Vit C,B-Jb-Tusni-Lutein-Zeaxan [Preservision Areds-2]) 1 tab PO BID [facility] Omeprazole (Omeprazole 20 Mg Ana.) 20 mg PO DAILY@0630 [facility] Last Admin: 07/24/23 05:33 Dose: 20 mg Documented By: YUSEF Ondansetron HCl (Ondansetron Hcl 4 Mg/2 Ml Vial) 4 mg IVPUSH Q8H PRN PRN Reason: Nausea and Vomiting Last Admin: 07/23/23 09:16 Dose: 4 mg Documented By: OLEGARIO Simethicone (Simethicone 80 Mg Tab.Chew) 80 mg PO QIDWMHS PRN PRN Reason: Gas Last Admin: 07/24/23 08:46 Dose: 80 mg Documented By: NITIN Sodium Chloride (0.9 % Sodium Chloride Flush 3 Ml Syringe) 3 ml IVFLUSH QSHIFT [facility] Last Admin: 07/24/23 07:18 Dose: Not Given Documented By: NITIN Non-Admin Reason: Previously Administered Vitamin D (Cholecalciferol (Vitamin D3) 10 Mcg Tablet) 10 mcg PO DAILY [facility] Last Admin: 07/24/23 08:46 Dose: 10 mcg Documented By: NITIN Labs 07/24/23 05:29 07/24/23 05:29 Labs: Laboratory Results - last 24 hr 07/24/23 05:29 MCV 95.2 MCH 30.6 MCHC 32.1 RDW 12.7 Plt Count 100 L MPV 10.4 Immature Gran % (Auto) 1.2 H Neut % (Auto) 62.3 Lymph % (Auto) 18.9 L [place] % (Auto) 13.2 H Eos % (Auto) 4.3 H Baso % (Auto) 0.1 Lymph # (Auto) 1.3 [place] # (Auto) 0.9 Eos # (Auto) 0.3 Baso # (Auto) 0.0 Abs Immat Gran (auto) 0.08 H Absolute Neuts (auto) 4.2 Absolute Nucleated RBC 0.000 Nucleated RBC % (auto) 0.0 Anion Gap 10 L Estim Creat Clear Calc 64.8 Estimated GFR > 60 Random Glucose 91 Calcium 8.1 L Procedures Date of Service Date of Service: 07/24/23 Progress Note: A&P Assessment and plan (1) Diverticulitis of sigmoid colon: Status: Acute Assessment and Plan: Abdomen remained soft, nontender Will start on Colace We will keep on clear liquids for now Plan on repeating CT scan tomorrow Exam otherwise benign and patient clinically well Time Spent With Patient Time: Total time managing care of this patient today ____ minutes. Quality Stroke Does the patient have a stroke diagnosis?: No VTE Prior VTE?: No VTE Risk Level:: Medical - moderate - high VTE Device Contraindication: N/A - Device Ordered VTE Drug Contraindication: Treatment Not Indicated
[2023-07-24] MEDS: Multivitamin TABLET 1 TAB PO (11:19)
--- NOTE | 2023-07-24 13:45 | MHC.CM.PN ---
EMR reviewed. Per MD rounds patient is not medically cleared. PT recommending home w/ services. Patient is agreeable to plan and prefers [facility]. Referral placed. CM will continue to follow.
[2023-07-24] MEDS: polyethylene glycoL 3350 17 GM POWD.PACK PO (13:56)
--- NOTE | 2023-07-24 14:07 | HO.PM.IMPN ---
Subjective Subjective Date of Service: 07/24/23 Interval History: Still complains of abdominal ?soreness?. Awaiting clear liquid diet but states no appetite Review of Systems Denies chest pain Denies shortness of breath Denies nausea vomiting diarrhea Denies fever chills Physical Exam Vital Signs: Vital Signs: Last Vital Signs Temp 97.6 F 07/24/23 07:57 Pulse 77 07/24/23 08:30 Resp 16 07/24/23 07:57 BP 145/65 H 07/24/23 08:30 Pulse Ox 97 07/24/23 08:30 O2 Del Method Room Air 07/24/23 07:57 O2 Flow Rate 2 07/23/23 02:22 BMI result Body Mass Index 22.1 Const: Other: Awake alert oriented x3 no acute distress Resp: Other: Clear to auscultation bilaterally no rales rhonchi or wheezes Cardio: Other: No S4; positive S1-S2; no S3 murmurs rubs or gallops GI: Other: Soft nontender nondistended quite bowel sounds Neuro: Other: Cranial nerves 2-12 grossly intact as tested. Motor is 5 of 5 all extremities. Sensation is intact. Cognition appropriate Extrem: Other: No edema bilaterally Objective Data Active Medications Acetaminophen (Acetaminophen 325 Mg Tablet) 650 mg PO Q6H PRN PRN Reason: Pain, Mild (Pain Scale 1-3) Last Admin: 07/24/23 08:55 Dose: 650 mg Documented By: NITIN Acetaminophen (Acetaminophen Supp 650 Mg Supp.Rect) 650 mg [place] Q6H PRN PRN Reason: Pain, Mild (Pain Scale 1-3) Alprazolam (Alprazolam 0.25 Mg Tablet) 0.25 mg PO BID PRN PRN Reason: Anxiety Last Admin: 07/24/23 08:55 Dose: 0.25 mg Documented By: NITIN Atorvastatin Calcium (Atorvastatin Calcium 40 Mg Tablet) 40 mg PO BEDTIME [facility] Last Admin: 07/23/23 20:41 Dose: 40 mg Documented By: YUSEF Calcitonin [place] (Calcitonin,[place],Synth Nasal 3.7 Ml Bottle) 1 spray NOSTRILALT DAILY [facility] Last Admin: 07/24/23 07:18 Dose: Not Given Documented By: NITIN Non-Admin Reason: Patient Refused Calcium Carbonate (Calcium Carbonate 500 Mg Tablet) 500 mg PO BID@1200,2100 [facility] Last Admin: 07/24/23 11:19 Dose: 500 mg Documented By: NITIN Diphenhydramine HCl (Diphenhydramine Hcl 25 Mg Capsule) 25 mg PO BEDTIME PRN PRN Reason: Sleep Last Admin: 07/23/23 22:38 Dose: 25 mg Documented By: YUSEF Docusate Sodium (Docusate Sodium 100 Mg Capsule) 100 mg PO BID [facility] Last Admin: 07/24/23 08:46 Dose: 100 mg Documented By: NITIN Docusate Sodium (Docusate Sodium 100 Mg Capsule) 100 mg PO BID [facility] Last Admin: 07/24/23 07:19 Dose: Not Given Documented By: NITIN Non-Admin Reason: Duplicate Order Piperacillin Sod/Tazobactam (Sod 4.5 gm/ Sodium Chloride) 100 mls @ 200 mls/hr IV Q6H [facility] Last Infusion: 07/24/23 09:23 Dose: Infused Documented By: NITIN Levothyroxine Sodium (Levothyroxine Sodium 100 Mcg Tablet) 100 mcg PO DAILY@0600 [facility] Last Admin: 07/24/23 05:33 Dose: 100 mcg Documented By: YUSEF Lidocaine (Lidocaine 4 % Patch Adh..Patch) 1 patch TRANSDERMA DAILY [facility]; Protocol Last Admin: 07/24/23 08:47 Dose: 1 patch Documented By: NITIN Lorazepam (Lorazepam 0.5 Mg Tablet) 0.5 mg PO BEDTIME PRN PRN Reason: Anxiety Last Admin: 07/23/23 22:41 Dose: 0.5 mg Documented By: YUSEF Melatonin (Melatonin 3 Mg Tablet) 6 mg PO BEDTIME PRN PRN Reason: Insomnia Morphine Sulfate (Morphine Sulfate 4 Mg/Ml Cartridge) 4 mg IVPUSH Q4H PRN; Protocol PRN Reason: Pain, Severe (Pain Scale 7-10) Last Admin: 07/23/23 09:16 Dose: 4 mg Documented By: OLEGARIO Multivitamins/Vitamin C (Multivitamin Tablet) 1 tab PO DAILY@1200 [facility] Last Admin: 07/24/23 11:19 Dose: 1 tab Documented By: NITIN Non-Formulary Medication (Vit C,U-Si-Msdns-Lutein-Zeaxan [Preservision Areds-2]) 1 tab PO BID [facility] Omeprazole (Omeprazole 20 Mg Capsule.Dr) 20 mg PO DAILY@0630 [facility] Last Admin: 07/24/23 05:33 Dose: 20 mg Documented By: YUSEF Ondansetron HCl (Ondansetron Hcl 4 Mg/2 Ml Vial) 4 mg IVPUSH Q8H PRN PRN Reason: Nausea and Vomiting Last Admin: 07/23/23 09:16 Dose: 4 mg Documented By: OLEGARIO Polyethylene Glycol (Polyethylene Glycol 3350 17 Gm Powd.Pack) 17 gm PO DAILY [facility] Last Admin: 07/24/23 13:56 Dose: 17 gm Documented By: NITIN Simethicone (Simethicone 80 Mg Tab.Chew) 80 mg PO QIDWMHS PRN PRN Reason: Gas Last Admin: 07/24/23 13:58 Dose: 80 mg Documented By: NITIN Sodium Chloride (0.9 % Sodium Chloride Flush 3 Ml Syringe) 3 ml IVFLUSH QSHIFT [facility] Last Admin: 07/24/23 07:18 Dose: Not Given Documented By: NITIN Non-Admin Reason: Previously Administered Vitamin D (Cholecalciferol (Vitamin D3) 10 Mcg Tablet) 10 mcg PO DAILY [facility] Last Admin: 07/24/23 08:46 Dose: 10 mcg Documented By: NITIN Labs 07/24/23 05:29 07/24/23 05:29 Labs: Laboratory Results - last 24 hr 07/24/23 05:29 MCV 95.2 MCH 30.6 MCHC 32.1 RDW 12.7 Plt Count 100 L MPV 10.4 Immature Gran % (Auto) 1.2 H Neut % (Auto) 62.3 Lymph % (Auto) 18.9 L [place] % (Auto) 13.2 H Eos % (Auto) 4.3 H Baso % (Auto) 0.1 Lymph # (Auto) 1.3 [place] # (Auto) 0.9 Eos # (Auto) 0.3 Baso # (Auto) 0.0 Abs Immat Gran (auto) 0.08 H Absolute Neuts (auto) 4.2 Absolute Nucleated RBC 0.000 Nucleated RBC % (auto) 0.0 Anion Gap 10 L Estim Creat Clear Calc 64.8 Estimated GFR > 60 Random Glucose 91 Calcium 8.1 L Assessment and Plan (1) Diverticulitis of sigmoid colon: Status: Acute (2) Compression fracture of L1 vertebra: Status: Acute Plan Pt is an 83-year-old female with a PMH significant for?colon cancer s/p right hemicolectomy, HLD, GERD, hypothyroidism, diverticulitis, and mood disorder who presents to the ED for evaluation of worsening lower back pain. Pt will be admitted to the hospital for treatment and further evaluation of diverticulitis with abscess and L1 vertebral body compression fracture secondary to fall at home. Slowly improving 1.Diverticulitis with abscess -Zosyn(4) -cont clear liquid diet -repeat CT scan in a.m. as per surgery 2.Spinal compression fracture -IR consultation with Dr. Camargo for possible kyphoplasty -intranasal calcitonin 200 units once daily in alternating nostrils 3.GERD -continue PPI Full Code Pneumatic boots Reason for continued hospitalization: IV antibiotics. Possible surgical intervention with general surgery and IR Quality Stroke Does the patient have a stroke diagnosis?: No VTE Prior VTE?: No VTE Risk Level:: Medical - moderate - high VTE Device Contraindication: N/A - Device Ordered VTE Drug Contraindication: Treatment Not Indicated
[2023-07-24 15:19] VITALS: BP 143/84; PULSE 75; RESP 16; TEMP 36.6; O2SAT 94
[2023-07-24 19:52] VITALS: BP 139/79; PULSE 74; RESP 16; TEMP 36.6; O2SAT 95
[2023-07-24] MEDS: Atorvastatin Calcium 40 MG TABLET PO (20:47)
[2023-07-24] MEDS: 0.9 % Sodium Chloride Flush 3 ML SYRINGE IVFLUSH (20:50)
[2023-07-24] MEDS: LORazepam 0.5 MG TABLET PO (22:57)
[2023-07-25 03:11] VITALS: BP 165/70; PULSE 67; RESP 16; TEMP 36; O2SAT 95
[2023-07-25] MEDS: Piperacillin Sodium/Tazobactam 4.5 GM in 0.9 % Sodium Chloride 100 ML IV ×4 (03:13→21:45)
[2023-07-25] MEDS: Omeprazole 20 MG CAPSULE.DR PO (05:52)
[2023-07-25] MEDS: Levothyroxine Sodium 100 MCG TABLET PO (05:52)
[2023-07-25] MEDS: Simethicone 80 MG TAB.CHEW PO ×3 (05:52→21:35)
[2023-07-25] MEDS: Acetaminophen 325 MG TABLET 650 MG PO ×3 (05:53→22:58)
[2023-07-25 06:38] LABS: MANUAL DIFF FLAG NO
[2023-07-25 06:59] LABS: Basophils Percent Auto 0.3 % (0-2); Eosinophils Absolute Auto 0.3 X10*3/uL (0.0-0.4); Eosinophils Percent Auto 4.3 % (0-4); Hematocrit 38.2 % (37.0-47.0); Hemoglobin 12.4 g/dl (12.0-16.0); Imm Gran Abs Auto 0.08 X10*3/uL (0.00-0.03); Lymphocytes Absolute Auto 1.2 X10*3/uL (1.2-4.9); Lymphocytes Percent Auto 14.4 % (20-40); Mean Corpuscular HGB Conc 32.5 g/dl (31.0-35.0); Mean Corpuscular Hemoglobin 30.2 pg (27.0-33.0); Mean Corpuscular Volume 92.9 fL (80.0-98.0); Mean Platelet Volume 10.6 fL (9.4-12.3); Monocytes Absolute Auto 1.2 X10*3/uL (0.1-1.2); Monocytes Percent Auto 14.6 % (2-11); Neutrophils Absolute Auto 5.2 x10*3/uL (2.0-8.3); Neutrophils Percent Auto 65.4 % (45-73); Platelet Count 120 X10*3/uL (160-400); Red Blood Count 4.11 X10*6/uL (4.20-5.50); Red Cell Distribution Width 12.8 % (11.0-16.0)
[2023-07-25 07:02] LABS: Alanine Aminotransferase 22 U/L (0-31); Albumin Level 3.1 g/dL (3.5-5.0); Alkaline Phosphatase 88 U/L (39-117); Anion Gap 11 (12-20); Aspartate Amino Transferase 32 U/L (5-31); Bilirubin Total 0.7 mg/dL (0.0-1.0); Blood Urea Nitrogen 4 mg/dL (9-16); Calcium 8.4 mg/dL (8.4-10.2); Carbon Dioxide 28 mmol/L (22-29); Chloride 107 mmol/L (96-108); Creatinine Clr Calc Pharmacy 69.1; Estimated Glomerular Filt Rate > 60; Glucose Fasting 93 mg/dL (60-99); Potassium 3.1 mmol/L (3.3-5.1); Sodium 143 mmol/L (135-145); Total Protein 5.8 g/dL (6.5-8.0)
[2023-07-25] MEDS: 0.9 % Sodium Chloride Flush 3 ML SYRINGE IVFLUSH ×3 (07:33→21:40)
[2023-07-25 07:45] VITALS: BP 174/81; PULSE 83; RESP 18; TEMP 36.3; O2SAT 94
[2023-07-25] MEDS: Docusate Sodium 100 MG CAPSULE PO ×2 (07:46→21:36)
[2023-07-25] MEDS: polyethylene glycoL 3350 17 GM POWD.PACK PO (07:46)
[2023-07-25] MEDS: Cholecalciferol (Vitamin D3) 10 MCG TABLET PO (07:46)
[2023-07-25] MEDS: Lidocaine 4 % Patch ADH..PATCH 1 PATCH TRANSDERMA (07:48)
--- NOTE | 2023-07-25 08:14 | PM.PNGS ---
Subjective Subjective Date of Service: 07/25/23 Interval history: denies abdl pain passing flatus denies BMs has back pain Physical Exam Vital Signs: Vital Signs: Last Vital Signs Temp 97.3 F 07/25/23 07:45 Pulse 83 07/25/23 07:45 Resp 18 07/25/23 07:45 BP 174/81 H 07/25/23 07:45 Pulse Ox 94 07/25/23 07:45 O2 Del Method Room Air 07/25/23 07:45 O2 Flow Rate 2 07/23/23 02:22 BMI result Body Mass Index 22.1 Const: General: comfortable and no acute distress Resp: Effort & Inspection: normal respiratory effort GI: Palpation (GI): Soft to palpation, not firm and nontender Objective Data Active Medications Acetaminophen (Acetaminophen 325 Mg Tablet) 650 mg PO Q6H PRN PRN Reason: Pain, Mild (Pain Scale 1-3) Last Admin: 07/25/23 05:53 Dose: 650 mg Documented By: ROSA Acetaminophen (Acetaminophen Supp 650 Mg Supp.Rect) 650 mg [place] Q6H PRN PRN Reason: Pain, Mild (Pain Scale 1-3) Alprazolam (Alprazolam 0.25 Mg Tablet) 0.25 mg PO TID PRN PRN Reason: anxiety/restlessness Atorvastatin Calcium (Atorvastatin Calcium 40 Mg Tablet) 40 mg PO BEDTIME [facility] Last Admin: 07/24/23 20:47 Dose: 40 mg Documented By: ROSA Calcitonin [place] (Calcitonin,[place],Synth Nasal 3.7 Ml Bottle) 1 spray NOSTRILALT DAILY [facility] Last Admin: 07/25/23 07:49 Dose: Not Given Documented By: SHARMAINE Non-Admin Reason: does not take at home Calcium Carbonate (Calcium Carbonate 500 Mg Tablet) 500 mg PO BID@1200,2100 [facility] Last Admin: 07/24/23 20:47 Dose: 500 mg Documented By: ROSA Diphenhydramine HCl (Diphenhydramine Hcl 25 Mg Capsule) 25 mg PO BEDTIME PRN PRN Reason: Sleep Last Admin: 07/23/23 22:38 Dose: 25 mg Documented By: YUSEF Docusate Sodium (Docusate Sodium 100 Mg Capsule) 100 mg PO BID [facility] Last Admin: 07/25/23 07:46 Dose: 100 mg Documented By: SHARMAINE Docusate Sodium (Docusate Sodium 100 Mg Capsule) 100 mg PO BID [facility] Last Admin: 07/25/23 07:46 Dose: Not Given Documented By: SHARMAINE Non-Admin Reason: Duplicate Order Piperacillin Sod/Tazobactam (Sod 4.5 gm/ Sodium Chloride) 100 mls @ 200 mls/hr IV Q6H [facility] Last Infusion: 07/25/23 03:43 Dose: Infused Documented By: ROSA Levothyroxine Sodium (Levothyroxine Sodium 100 Mcg Tablet) 100 mcg PO DAILY@0600 [facility] Last Admin: 07/25/23 05:52 Dose: 100 mcg Documented By: ROSA Lidocaine (Lidocaine 4 % Patch Adh..Patch) 1 patch TRANSDERMA DAILY [facility]; Protocol Last Admin: 07/25/23 07:48 Dose: 1 patch Documented By: SHARMAINE Lorazepam (Lorazepam 0.5 Mg Tablet) 0.5 mg PO BEDTIME PRN PRN Reason: Anxiety Last Admin: 07/24/23 22:57 Dose: 0.5 mg Documented By: ROSA Melatonin (Melatonin 3 Mg Tablet) 6 mg PO BEDTIME PRN PRN Reason: Insomnia Morphine Sulfate (Morphine Sulfate 4 Mg/Ml Cartridge) 4 mg IVPUSH Q4H PRN; Protocol PRN Reason: Pain, Severe (Pain Scale 7-10) Last Admin: 07/23/23 09:16 Dose: 4 mg Documented By: OLEGARIO Multivitamins/Vitamin C (Multivitamin Tablet) 1 tab PO DAILY@1200 [facility] Last Admin: 07/24/23 11:19 Dose: 1 tab Documented By: NITIN Non-Formulary Medication (Vit C,G-Gv-Pakrr-Lutein-Zeaxan [Preservision Areds-2]) 1 tab PO BID [facility] Omeprazole (Omeprazole 20 Mg Capsule.) 20 mg PO DAILY@0630 [facility] Last Admin: 07/25/23 05:52 Dose: 20 mg Documented By: ROSA Ondansetron HCl (Ondansetron Hcl 4 Mg/2 Ml Vial) 4 mg IVPUSH Q8H PRN PRN Reason: Nausea and Vomiting Last Admin: 07/23/23 09:16 Dose: 4 mg Documented By: OLEGARIO Polyethylene Glycol (Polyethylene Glycol 3350 17 Gm Powd.Pack) 17 gm PO DAILY [facility] Last Admin: 07/25/23 07:46 Dose: 17 gm Documented By: SHARMAINE Simethicone (Simethicone 80 Mg Tab.Chew) 80 mg PO QIDWMHS PRN PRN Reason: Gas Last Admin: 07/25/23 05:52 Dose: 80 mg Documented By: RSOA Sodium Chloride (0.9 % Sodium Chloride Flush 3 Ml Syringe) 3 ml IVFLUSH QSHIFT [facility] Last Admin: 07/25/23 07:33 Dose: 3 ml Documented By: SHARMAINE Vitamin D (Cholecalciferol (Vitamin D3) 10 Mcg Tablet) 10 mcg PO DAILY [facility] Last Admin: 07/25/23 07:46 Dose: 10 mcg Documented By: SHARMAINE Labs 07/25/23 05:45 07/25/23 05:45 Labs: Laboratory Results - last 24 hr 07/25/23 05:45 MCV 92.9 MCH 30.2 MCHC 32.5 RDW 12.8 Plt Count 120 L MPV 10.6 Immature Gran % (Auto) 1.0 H Neut % (Auto) 65.4 Lymph % (Auto) 14.4 L [place] % (Auto) 14.6 H Eos % (Auto) 4.3 H Baso % (Auto) 0.3 Lymph # (Auto) 1.2 [place] # (Auto) 1.2 Eos # (Auto) 0.3 Baso # (Auto) 0.0 Abs Immat Gran (auto) 0.08 H Absolute Neuts (auto) 5.2 Absolute Nucleated RBC 0.000 Nucleated RBC % (auto) 0.0 Anion Gap 11 L Estim Creat Clear Calc 69.1 Estimated GFR > 60 Fasting Glucose 93 Calcium 8.4 Total Bilirubin 0.7 AST 32 H ALT 22 Alkaline Phosphatase 88 Total Protein 5.8 L Albumin 3.1 L Procedures Date of Service Date of Service: 07/25/23 Progress Note: A&P Assessment and plan (1) Diverticulitis of sigmoid colon: Status: Acute Assessment and Plan: doing well overall no tenderness WBC normal ffup CT scan today in view of intramural abscess has back pain on Colace for constipation - may need to be on bowel regimen eventually Time Spent With Patient Time: Total time managing care of this patient today ____ minutes. Quality Stroke Does the patient have a stroke diagnosis?: No VTE Prior VTE?: No VTE Risk Level:: Medical - moderate - high VTE Device Contraindication: N/A - Device Ordered VTE Drug Contraindication: Treatment Not Indicated
[2023-07-25] MEDS: iohexoL 350 MG/ML 100 ML INFUS..BTL IV (13:41)
[2023-07-25] MEDS: ALPRAZolam 0.25 MG TABLET PO (13:41)
--- NOTE | 2023-07-25 13:56 | HO.PM.IMPN ---
Subjective Subjective Date of Service: 07/25/23 Interval History: Improved today. Mild stomach discomfort however ambulatory without acute issues. Review of Systems Denies chest pain Denies shortness of breath Denies nausea vomiting diarrhea Denies fever chills Physical Exam Vital Signs: Vital Signs: Last Vital Signs Temp 97.3 F 07/25/23 07:45 Pulse 83 07/25/23 07:45 Resp 18 07/25/23 07:45 BP 174/81 H 07/25/23 07:45 Pulse Ox 94 07/25/23 07:45 O2 Del Method Room Air 07/25/23 07:45 O2 Flow Rate 2 07/23/23 02:22 BMI result Body Mass Index 22.1 Const: Other: Awake alert oriented x3 no acute distress Resp: Other: Clear to auscultation bilaterally no rales rhonchi or wheezes Cardio: Other: No S4; positive S1-S2; no S3 murmurs rubs or gallops GI: Other: Soft nontender nondistended quite bowel sounds Neuro: Other: Cranial nerves 2-12 grossly intact as tested. Motor is 5 of 5 all extremities. Sensation is intact. Cognition appropriate Extrem: Other: No edema bilaterally Objective Data Active Medications Acetaminophen (Acetaminophen 325 Mg Tablet) 650 mg PO Q6H PRN PRN Reason: Pain, Mild (Pain Scale 1-3) Last Admin: 07/25/23 13:42 Dose: 650 mg Documented By: SHARMAINE Acetaminophen (Acetaminophen Supp 650 Mg Supp.Rect) 650 mg [place] Q6H PRN PRN Reason: Pain, Mild (Pain Scale 1-3) Alprazolam (Alprazolam 0.25 Mg Tablet) 0.25 mg PO TID PRN PRN Reason: anxiety/restlessness Last Admin: 07/25/23 13:41 Dose: 0.25 mg Documented By: SHARMAINE Atorvastatin Calcium (Atorvastatin Calcium 40 Mg Tablet) 40 mg PO BEDTIME [facility] Last Admin: 07/24/23 20:47 Dose: 40 mg Documented By: ROSA Calcitonin [place] (Calcitonin,[place],Synth Nasal 3.7 Ml Bottle) 1 spray NOSTRILALT DAILY [facility] Last Admin: 07/25/23 07:49 Dose: Not Given Documented By: SHARMAINE Non-Admin Reason: does not take at home Calcium Carbonate (Calcium Carbonate 500 Mg Tablet) 500 mg PO BID@1200,2100 [facility] Last Admin: 07/25/23 11:32 Dose: Not Given Documented By: SHARMAINE Non-Admin Reason: NPO Diphenhydramine HCl (Diphenhydramine Hcl 25 Mg Capsule) 25 mg PO BEDTIME PRN PRN Reason: Sleep Last Admin: 07/23/23 22:38 Dose: 25 mg Documented By: YUSEF Docusate Sodium (Docusate Sodium 100 Mg Capsule) 100 mg PO BID [facility] Last Admin: 07/25/23 07:46 Dose: 100 mg Documented By: SHARMAINE Docusate Sodium (Docusate Sodium 100 Mg Capsule) 100 mg PO BID [facility] Last Admin: 07/25/23 07:46 Dose: Not Given Documented By: SHARMAINE Non-Admin Reason: Duplicate Order Piperacillin Sod/Tazobactam (Sod 4.5 gm/ Sodium Chloride) 100 mls @ 200 mls/hr IV Q6H [facility] Last Infusion: 07/25/23 09:25 Dose: Infused Documented By: SHARMAINE Levothyroxine Sodium (Levothyroxine Sodium 100 Mcg Tablet) 100 mcg PO DAILY@0600 [facility] Last Admin: 07/25/23 05:52 Dose: 100 mcg Documented By: ROSA Lidocaine (Lidocaine 4 % Patch Adh..Patch) 1 patch TRANSDERMA DAILY [facility]; Protocol Last Admin: 07/25/23 07:48 Dose: 1 patch Documented By: SHARMAINE Lorazepam (Lorazepam 0.5 Mg Tablet) 0.5 mg PO BEDTIME PRN PRN Reason: Anxiety Last Admin: 07/24/23 22:57 Dose: 0.5 mg Documented By: ROSA Melatonin (Melatonin 3 Mg Tablet) 6 mg PO BEDTIME PRN PRN Reason: Insomnia Morphine Sulfate (Morphine Sulfate 4 Mg/Ml Cartridge) 4 mg IVPUSH Q4H PRN; Protocol PRN Reason: Pain, Severe (Pain Scale 7-10) Last Admin: 07/23/23 09:16 Dose: 4 mg Documented By: OLEGARIO Multivitamins/Vitamin C (Multivitamin Tablet) 1 tab PO DAILY@1200 [facility] Last Admin: 07/25/23 11:32 Dose: Not Given Documented By: SHARMAINE Non-Admin Reason: NPO Non-Formulary Medication (Vit C,E-Mr-Ymkln-Lutein-Zeaxan [Preservision Areds-2]) 1 tab PO BID [facility] Omeprazole (Omeprazole 20 Mg Capsule.Dr) 20 mg PO DAILY@0630 [facility] Last Admin: 07/25/23 05:52 Dose: 20 mg Documented By: ROSA Ondansetron HCl (Ondansetron Hcl 4 Mg/2 Ml Vial) 4 mg IVPUSH Q8H PRN PRN Reason: Nausea and Vomiting Last Admin: 07/23/23 09:16 Dose: 4 mg Documented By: OLEGARIO Polyethylene Glycol (Polyethylene Glycol 3350 17 Gm Powd.Pack) 17 gm PO DAILY [facility] Last Admin: 07/25/23 07:46 Dose: 17 gm Documented By: SHARMAINE Simethicone (Simethicone 80 Mg Tab.Chew) 80 mg PO QIDWMHS PRN PRN Reason: Gas Last Admin: 07/25/23 13:41 Dose: 80 mg Documented By: SHARMAINE Sodium Chloride (0.9 % Sodium Chloride Flush 3 Ml Syringe) 3 ml IVFLUSH QSHIFT [facility] Last Admin: 07/25/23 07:33 Dose: 3 ml Documented By: SHARMAINE Vitamin D (Cholecalciferol (Vitamin D3) 10 Mcg Tablet) 10 mcg PO DAILY [facility] Last Admin: 07/25/23 07:46 Dose: 10 mcg Documented By: SHARMAINE Labs 07/25/23 05:45 07/25/23 05:45 Labs: Laboratory Results - last 24 hr 07/25/23 05:45 MCV 92.9 MCH 30.2 MCHC 32.5 RDW 12.8 Plt Count 120 L MPV 10.6 Immature Gran % (Auto) 1.0 H Neut % (Auto) 65.4 Lymph % (Auto) 14.4 L [place] % (Auto) 14.6 H Eos % (Auto) 4.3 H Baso % (Auto) 0.3 Lymph # (Auto) 1.2 [place] # (Auto) 1.2 Eos # (Auto) 0.3 Baso # (Auto) 0.0 Abs Immat Gran (auto) 0.08 H Absolute Neuts (auto) 5.2 Absolute Nucleated RBC 0.000 Nucleated RBC % (auto) 0.0 Anion Gap 11 L Estim Creat Clear Calc 69.1 Estimated GFR > 60 Fasting Glucose 93 Calcium 8.4 Total Bilirubin 0.7 AST 32 H ALT 22 Alkaline Phosphatase 88 Total Protein 5.8 L Albumin 3.1 L Assessment and Plan (1) Diverticulitis of sigmoid colon: Status: Acute Plan Pt is an 83-year-old female with a PMH significant for?colon cancer s/p right hemicolectomy, HLD, GERD, hypothyroidism, diverticulitis, and mood disorder who presents to the ED for evaluation of worsening lower back pain. Pt will be admitted to the hospital for treatment and further evaluation of diverticulitis with abscess and L1 vertebral body compression fracture secondary to fall at home. Slowly improving 1.Diverticulitis with abscess -Zosyn(5) -cont clear liquid diet -repeat CT scan in a.m. as per surgery 2.Spinal compression fracture -IR consultation with Dr. Camargo for possible kyphoplasty -intranasal calcitonin 200 units once daily in alternating nostrils 3.GERD -continue PPI Full Code Pneumatic boots Reason for continued hospitalization: IV antibiotics. Possible surgical intervention with general surgery and IR Quality Stroke Does the patient have a stroke diagnosis?: No VTE Prior VTE?: No VTE Risk Level:: Medical - moderate - high VTE Device Contraindication: N/A - Device Ordered VTE Drug Contraindication: Treatment Not Indicated
[2023-07-25 15:03] VITALS: BP 164/75; PULSE 88; TEMP 36.2; O2SAT 96
--- NOTE | 2023-07-25 16:20 | PM.EVENT ---
Event Note Date of Service: 07/26/23 Event Note: Comfortable No severe abdominal pain Abdomen remained soft CT scan not officially read - seems to have intramural abscess, last inflammatory changes Exam remains benign Continue current care for now Await official CT scan report Time Spent With Patient Time: Total time managing care of this patient today ____ minutes.
[2023-07-25 19:43] VITALS: BP 186/82; PULSE 83; RESP 18; TEMP 36; O2SAT 96
[2023-07-25] MEDS: Atorvastatin Calcium 40 MG TABLET PO (21:35)
[2023-07-25] MEDS: diphenhydrAMINE HCL 25 MG CAPSULE PO (22:58)
[2023-07-25] MEDS: LORazepam 0.5 MG TABLET PO (22:58)
[2023-07-26 03:08] VITALS: BP 172/74; PULSE 89; RESP 18; TEMP 36.7; O2SAT 97
[2023-07-26] MEDS: Piperacillin Sodium/Tazobactam 4.5 GM in 0.9 % Sodium Chloride 100 ML IV ×4 (03:36→20:46)
[2023-07-26] MEDS: Omeprazole 20 MG CAPSULE.DR PO (05:43)
[2023-07-26] MEDS: Levothyroxine Sodium 100 MCG TABLET PO (05:43)
[2023-07-26] MEDS: Acetaminophen 325 MG TABLET 650 MG PO ×3 (05:47→22:29)
[2023-07-26 07:32] VITALS: BP 167/74; PULSE 80; RESP 18; TEMP 36.3; O2SAT 97
[2023-07-26] MEDS: Lidocaine 4 % Patch ADH..PATCH 1 PATCH TRANSDERMA (08:29)
[2023-07-26] MEDS: Cholecalciferol (Vitamin D3) 10 MCG TABLET PO (08:30)
[2023-07-26] MEDS: Docusate Sodium 100 MG CAPSULE PO ×3 (08:31→20:42)
--- NOTE | 2023-07-26 08:41 | PM.PNGS ---
Subjective Subjective Date of Service: 07/29/23 Interval history: Denies abdominal pain Tolerated full last night Passing good amounts of flatus, witnessed Her main complaint remains back pain Physical Exam Vital Signs: Vital Signs: Last Vital Signs Temp 97.4 F 07/26/23 07:32 Pulse 80 07/26/23 07:32 Resp 18 07/26/23 07:32 BP 167/74 H 07/26/23 07:32 Pulse Ox 97 07/26/23 07:32 O2 Del Method Room Air 07/26/23 07:32 O2 Flow Rate 2 07/23/23 02:22 BMI result Body Mass Index 22.1 Const: General: comfortable and no acute distress Resp: Effort & Inspection: normal respiratory effort Cardio: Rate: regular rate GI: Inspection: No distended Palpation (GI): Soft to palpation, not firm, nontender and no guarding Objective Data Active Medications Acetaminophen (Acetaminophen 325 Mg Tablet) 650 mg PO Q6H PRN PRN Reason: Pain, Mild (Pain Scale 1-3) Last Admin: 07/26/23 05:47 Dose: 650 mg Documented By: YUSEF Acetaminophen (Acetaminophen Supp 650 Mg Supp.Rect) 650 mg [place] Q6H PRN PRN Reason: Pain, Mild (Pain Scale 1-3) Alprazolam (Alprazolam 0.25 Mg Tablet) 0.25 mg PO TID PRN PRN Reason: anxiety/restlessness Last Admin: 07/25/23 13:41 Dose: 0.25 mg Documented By: SHARMAINE Atorvastatin Calcium (Atorvastatin Calcium 40 Mg Tablet) 40 mg PO BEDTIME [facility] Last Admin: 07/25/23 21:35 Dose: 40 mg Documented By: YUSEF Calcitonin [place] (Calcitonin,[place],Synth Nasal 3.7 Ml Bottle) 1 spray NOSTRILALT DAILY [facility] Last Admin: 07/25/23 07:49 Dose: Not Given Documented By: SHARMAINE Non-Admin Reason: does not take at home Calcium Carbonate (Calcium Carbonate 500 Mg Tablet) 500 mg PO BID@1200,2100 [facility] Last Admin: 07/25/23 21:35 Dose: 500 mg Documented By: YUSEF Diphenhydramine HCl (Diphenhydramine Hcl 25 Mg Capsule) 25 mg PO BEDTIME PRN PRN Reason: Sleep Last Admin: 07/25/23 22:58 Dose: 25 mg Documented By: YUSEF Docusate Sodium (Docusate Sodium 100 Mg Capsule) 100 mg PO BID [facility] Last Admin: 07/25/23 21:36 Dose: 100 mg Documented By: YUSEF Docusate Sodium (Docusate Sodium 100 Mg Capsule) 100 mg PO BID [facility] Last Admin: 07/26/23 07:19 Dose: Not Given Documented By: ROSSY Non-Admin Reason: Duplicate Order Piperacillin Sod/Tazobactam (Sod 4.5 gm/ Sodium Chloride) 100 mls @ 200 mls/hr IV Q6H [facility] Last Infusion: 07/26/23 04:15 Dose: Infused Documented By: YUSEF Levothyroxine Sodium (Levothyroxine Sodium 100 Mcg Tablet) 100 mcg PO DAILY@0600 [facility] Last Admin: 07/26/23 05:43 Dose: 100 mcg Documented By: YUSEF Lidocaine (Lidocaine 4 % Patch Adh..Patch) 1 patch TRANSDERMA DAILY [facility]; Protocol Last Admin: 07/25/23 07:48 Dose: 1 patch Documented By: SHARMAINE Lorazepam (Lorazepam 0.5 Mg Tablet) 0.5 mg PO BEDTIME PRN PRN Reason: Anxiety Last Admin: 07/25/23 22:58 Dose: 0.5 mg Documented By: YUSEF Melatonin (Melatonin 3 Mg Tablet) 6 mg PO BEDTIME PRN PRN Reason: Insomnia Morphine Sulfate (Morphine Sulfate 4 Mg/Ml Cartridge) 4 mg IVPUSH Q4H PRN; Protocol PRN Reason: Pain, Severe (Pain Scale 7-10) Last Admin: 07/23/23 09:16 Dose: 4 mg Documented By: OLEGARIO Multivitamins/Vitamin C (Multivitamin Tablet) 1 tab PO DAILY@1200 [facility] Last Admin: 07/25/23 11:32 Dose: Not Given Documented By: SHARMAINE Non-Admin Reason: NPO Non-Formulary Medication (Vit C,V-Qi-Sqldz-Lutein-Zeaxan [Preservision Areds-2]) 1 tab PO BID [facility] Omeprazole (Omeprazole 20 Mg Capsule.Dr) 20 mg PO DAILY@0630 [facility] Last Admin: 07/26/23 05:43 Dose: 20 mg Documented By: YUSEF Ondansetron HCl (Ondansetron Hcl 4 Mg/2 Ml Vial) 4 mg IVPUSH Q8H PRN PRN Reason: Nausea and Vomiting Last Admin: 07/23/23 09:16 Dose: 4 mg Documented By: OLEGARIO Polyethylene Glycol (Polyethylene Glycol 3350 17 Gm Powd.Pack) 17 gm PO DAILY [facility] Last Admin: 07/25/23 07:46 Dose: 17 gm Documented By: SHARMAINE Simethicone (Simethicone 80 Mg Tab.Chew) 80 mg PO QIDWMHS PRN PRN Reason: Gas Last Admin: 07/25/23 21:35 Dose: 80 mg Documented By: YUSEF Sodium Chloride (0.9 % Sodium Chloride Flush 3 Ml Syringe) 3 ml IVFLUSH QSHIFT [facility] Last Admin: 07/25/23 21:40 Dose: 3 ml Documented By: YUSEF Vitamin D (Cholecalciferol (Vitamin D3) 10 Mcg Tablet) 10 mcg PO DAILY [facility] Last Admin: 07/25/23 07:46 Dose: 10 mcg Documented By: SHARMAINE Labs 07/28/23 06:00 07/28/23 06:00 Procedures Date of Service Date of Service: 07/29/23 Progress Note: A&P Assessment and plan (1) Diverticulitis of sigmoid colon: Status: Acute Assessment and Plan: Repeat CT scan done yesterday seems unchanged Suggestion of intramural abscess, same size However, clinically she does not have any tenderness or pain She says she tolerated diet last night I would recommend keeping her over the weekend with IV antibiotics Continue stool softeners I did tell her that if she becomes symptomatic or has clinical worsening specific to her diverticulitis, she may require laparotomy She has a history of right colon resection for colon cancer Continue antibiotics Time Spent With Patient Time: Total time managing care of this patient today ____ minutes. Quality Stroke Does the patient have a stroke diagnosis?: No VTE Prior VTE?: No VTE Risk Level:: Medical - moderate - high VTE Device Contraindication: N/A - Device Ordered VTE Drug Contraindication: Treatment Not Indicated
[2023-07-26] MEDS: 0.9 % Sodium Chloride Flush 3 ML SYRINGE IVFLUSH ×3 (08:49→20:47)
[2023-07-26] MEDS: Simethicone 80 MG TAB.CHEW PO ×3 (09:16→22:28)
[2023-07-26 10:25] VITALS: BP 167/74; PULSE 80; O2SAT 97
--- NOTE | 2023-07-26 11:01 | MHC.CM.PN ---
Per MD rounds patient not medically cleared for dc, will stay over the weekend. No change to dc plan - home w/ new [facility]. CM will continue to follow.
[2023-07-26] MEDS: Multivitamin TABLET 1 TAB PO (11:23)
[2023-07-26] MEDS: ALPRAZolam 0.25 MG TABLET PO (11:25)
--- NOTE | 2023-07-26 14:27 | P.PNIM_ITS ---
Subjective Subjective Date of Service: 07/26/23 Interval History: Slowly improving. Tolerating diet Review of Systems Denies chest pain Denies shortness of breath Denies nausea vomiting diarrhea Denies fever chills Physical Exam 2 Vital Signs: Vital Signs: Last Vital Signs Temp 97.4 F 07/26/23 07:32 Pulse 80 07/26/23 10:25 Resp 18 07/26/23 07:32 BP 167/74 H 07/26/23 10:25 Pulse Ox 97 07/26/23 10:25 O2 Del Method Room Air 07/26/23 07:32 O2 Flow Rate 2 07/23/23 02:22 BMI result Body Mass Index 22.1 Const: Other: Awake alert oriented x3 no acute distress Resp: Other: Clear to auscultation bilaterally no rales rhonchi or wheezes Cardio: Other: No S4; positive S1-S2; no S3 murmurs rubs or gallops GI: Other: Soft nontender nondistended quite bowel sounds Neuro: Other: Cranial nerves 2-12 grossly intact as tested. Motor is 5 of 5 all extremities. Sensation is intact. Cognition appropriate Extrem: Other: No edema bilaterally Objective Data Active Medications Acetaminophen (Acetaminophen 325 Mg Tablet) 650 mg PO Q6H PRN PRN Reason: Pain, Mild (Pain Scale 1-3) Last Admin: 07/26/23 11:24 Dose: 650 mg Documented By: ELISA Acetaminophen (Acetaminophen Supp 650 Mg Supp.Rect) 650 mg [place] Q6H PRN PRN Reason: Pain, Mild (Pain Scale 1-3) Alprazolam (Alprazolam 0.25 Mg Tablet) 0.25 mg PO TID PRN PRN Reason: anxiety/restlessness Last Admin: 07/26/23 11:25 Dose: 0.25 mg Documented By: ELISA Atorvastatin Calcium (Atorvastatin Calcium 40 Mg Tablet) 40 mg PO BEDTIME [facility] Last Admin: 07/25/23 21:35 Dose: 40 mg Documented By: YUSEF Calcitonin [place] (Calcitonin,[place],Synth Nasal 3.7 Ml Bottle) 1 spray NOSTRILALT DAILY [facility] Last Admin: 07/26/23 08:57 Dose: Not Given Documented By: ELISA Non-Admin Reason: Patient Refused Calcium Carbonate (Calcium Carbonate 500 Mg Tablet) 500 mg PO BID@1200,2100 [facility] Last Admin: 07/26/23 11:25 Dose: 500 mg Documented By: ELISA Diphenhydramine HCl (Diphenhydramine Hcl 25 Mg Capsule) 25 mg PO BEDTIME PRN PRN Reason: Sleep Last Admin: 07/25/23 22:58 Dose: 25 mg Documented By: YUSEF Docusate Sodium (Docusate Sodium 100 Mg Capsule) 100 mg PO BID [facility] Last Admin: 07/26/23 08:31 Dose: 100 mg Documented By: ELISA Docusate Sodium (Docusate Sodium 100 Mg Capsule) 100 mg PO BID [facility] Last Admin: 07/26/23 07:19 Dose: Not Given Documented By: ROSSY Non-Admin Reason: Duplicate Order Piperacillin Sod/Tazobactam (Sod 4.5 gm/ Sodium Chloride) 100 mls @ 200 mls/hr IV Q6H [facility] Last Infusion: 07/26/23 09:39 Dose: Infused Documented By: ROSSY Levothyroxine Sodium (Levothyroxine Sodium 100 Mcg Tablet) 100 mcg PO DAILY@0600 [facility] Last Admin: 07/26/23 05:43 Dose: 100 mcg Documented By: YUSEF Lidocaine (Lidocaine 4 % Patch Adh..Patch) 1 patch TRANSDERMA DAILY [facility]; Protocol Last Admin: 07/26/23 08:29 Dose: 1 patch Documented By: ELISA Lorazepam (Lorazepam 0.5 Mg Tablet) 0.5 mg PO BEDTIME PRN PRN Reason: Anxiety Last Admin: 07/25/23 22:58 Dose: 0.5 mg Documented By: YUSEF Melatonin (Melatonin 3 Mg Tablet) 6 mg PO BEDTIME PRN PRN Reason: Insomnia Morphine Sulfate (Morphine Sulfate 4 Mg/Ml Cartridge) 4 mg IVPUSH Q4H PRN; Protocol PRN Reason: Pain, Severe (Pain Scale 7-10) Last Admin: 07/23/23 09:16 Dose: 4 mg Documented By: OLEGARIO Multivitamins/Vitamin C (Multivitamin Tablet) 1 tab PO DAILY@1200 [facility] Last Admin: 07/26/23 11:23 Dose: 1 tab Documented By: ELISA Non-Formulary Medication (Vit C,F-Ln-Vqbdm-Lutein-Zeaxan [Preservision Areds-2]) 1 tab PO BID [facility] Omeprazole (Omeprazole 20 Mg Ana.) 20 mg PO DAILY@0630 [facility] Last Admin: 07/26/23 05:43 Dose: 20 mg Documented By: YUSEF Ondansetron HCl (Ondansetron Hcl 4 Mg/2 Ml Vial) 4 mg IVPUSH Q8H PRN PRN Reason: Nausea and Vomiting Last Admin: 07/23/23 09:16 Dose: 4 mg Documented By: OLEGARIO Polyethylene Glycol (Polyethylene Glycol 3350 17 Gm Powd.Pack) 17 gm PO DAILY [facility] Last Admin: 07/26/23 08:58 Dose: Not Given Documented By: ELISA Non-Admin Reason: Patient Refused Simethicone (Simethicone 80 Mg Tab.Chew) 80 mg PO QIDWMHS PRN PRN Reason: Gas Last Admin: 07/26/23 09:16 Dose: 80 mg Documented By: ROSSY Sodium Chloride (0.9 % Sodium Chloride Flush 3 Ml Syringe) 3 ml IVFLUSH QSHIFT [facility] Last Admin: 07/26/23 08:49 Dose: 3 ml Documented By: ELISA Vitamin D (Cholecalciferol (Vitamin D3) 10 Mcg Tablet) 10 mcg PO DAILY [facility] Last Admin: 07/26/23 08:30 Dose: 10 mcg Documented By: ELISA Labs 07/25/23 05:45 07/25/23 05:45 Assessment and Plan (1) Diverticulitis of sigmoid colon: Status: Acute Plan Pt is an 83-year-old female with a PMH significant for?colon cancer s/p right hemicolectomy, HLD, GERD, hypothyroidism, diverticulitis, and mood disorder who presents to the ED for evaluation of worsening lower back pain. Pt will be admitted to the hospital for treatment and further evaluation of diverticulitis with abscess and L1 vertebral body compression fracture secondary to fall at home. Slowly improving 1.Diverticulitis with abscess -Zosyn(6) -advance to regular diet as per surgery -repeat CT scan in a.m. as per surgery 2.Spinal compression fracture -IR consultation with Dr. Camargo for possible kyphoplasty -intranasal calcitonin 200 units once daily in alternating nostrils 3.GERD -continue PPI Full Code Pneumatic boots Reason for continued hospitalization: IV antibiotics. Possible surgical intervention with general surgery and IR Quality Stroke Does the patient have a stroke diagnosis?: No VTE Prior VTE?: No VTE Risk Level:: Medical - moderate - high VTE Device Contraindication: N/A - Device Ordered VTE Drug Contraindication: Treatment Not Indicated
[2023-07-26 15:22] VITALS: BP 146/67; PULSE 86; RESP 18; TEMP 36.5; O2SAT 96
[2023-07-26] MEDS: traMADoL HCL 50 MG TABLET PO (18:51)
[2023-07-26 19:42] VITALS: BP 170/78; PULSE 88; RESP 16; TEMP 36.8; O2SAT 97
[2023-07-26] MEDS: Atorvastatin Calcium 40 MG TABLET PO (20:42)
[2023-07-26] MEDS: LORazepam 0.5 MG TABLET PO (22:28)
[2023-07-26] MEDS: diphenhydrAMINE HCL 25 MG CAPSULE PO (22:29)
[2023-07-27 03:05] VITALS: BP 171/77; PULSE 89; RESP 16; TEMP 37.4; O2SAT 95
[2023-07-27] MEDS: Piperacillin Sodium/Tazobactam 4.5 GM in 0.9 % Sodium Chloride 100 ML IV ×4 (03:07→20:51)
[2023-07-27] MEDS: Levothyroxine Sodium 100 MCG TABLET PO (06:17)
[2023-07-27] MEDS: Omeprazole 20 MG CAPSULE.DR PO (06:17)
[2023-07-27] MEDS: Acetaminophen 325 MG TABLET 650 MG PO ×3 (06:17→22:08)
[2023-07-27] MEDS: ALPRAZolam 0.25 MG TABLET PO ×3 (06:19→22:07)
[2023-07-27 07:24] VITALS: BP 162/76; PULSE 80; RESP 12; TEMP 36.6; O2SAT 94
[2023-07-27] MEDS: Docusate Sodium 100 MG CAPSULE PO ×3 (08:34→20:52)
[2023-07-27] MEDS: Lidocaine 4 % Patch ADH..PATCH 1 PATCH TRANSDERMA (08:34)
[2023-07-27] MEDS: Cholecalciferol (Vitamin D3) 10 MCG TABLET PO (08:34)
[2023-07-27] MEDS: 0.9 % Sodium Chloride Flush 3 ML SYRINGE IVFLUSH ×2 (09:32→20:52)
[2023-07-27] MEDS: traMADoL HCL 50 MG TABLET PO ×2 (11:16→18:16)
[2023-07-27] MEDS: Multivitamin TABLET 1 TAB PO (11:18)
--- NOTE | 2023-07-27 11:40 | PM.PNGS ---
Subjective Subjective Date of Service: 07/27/23 Interval history: feels fine - little discomfort lower abdomen but not bad, says feeling tired and not sleeping well at night has been having bowel movements Physical Exam Vital Signs: Vital Signs: Last Vital Signs Temp 97.8 F 07/27/23 07:24 Pulse 80 07/27/23 07:24 Resp 12 07/27/23 07:24 BP 162/76 H 07/27/23 07:24 Pulse Ox 94 07/27/23 07:24 O2 Del Method Room Air 07/27/23 07:24 O2 Flow Rate 2 07/23/23 02:22 BMI result Body Mass Index 22.1 Const: General: cooperative, healthy appearing, comfortable and no acute distress GI: Other: abdomen soft mild distension and mild tenderness with deep palpation left abdomen no guarding or peritonitis Objective Data Active Medications Acetaminophen (Acetaminophen 325 Mg Tablet) 650 mg PO Q6H PRN PRN Reason: Pain, Mild (Pain Scale 1-3) Last Admin: 07/27/23 06:17 Dose: 650 mg Documented By: RAMILA Acetaminophen (Acetaminophen Supp 650 Mg Supp.Rect) 650 mg [place] Q6H PRN PRN Reason: Pain, Mild (Pain Scale 1-3) Alprazolam (Alprazolam 0.25 Mg Tablet) 0.25 mg PO TID PRN PRN Reason: anxiety/restlessness Last Admin: 07/27/23 06:19 Dose: 0.25 mg Documented By: RAMILA Atorvastatin Calcium (Atorvastatin Calcium 40 Mg Tablet) 40 mg PO BEDTIME [facility] Last Admin: 07/26/23 20:42 Dose: 40 mg Documented By: RAMILA Calcitonin [place] (Calcitonin,[place],Synth Nasal 3.7 Ml Bottle) 1 spray NOSTRILALT DAILY [facility] Last Admin: 07/27/23 10:37 Dose: Not Given Documented By: EDILIA Non-Admin Reason: Patient Refused Calcium Carbonate (Calcium Carbonate 500 Mg Tablet) 500 mg PO BID@1200,2100 [facility] Last Admin: 07/27/23 11:18 Dose: 500 mg Documented By: OLEGARIO Diphenhydramine HCl (Diphenhydramine Hcl 25 Mg Capsule) 25 mg PO BEDTIME PRN PRN Reason: Sleep Last Admin: 07/26/23 22:29 Dose: 25 mg Documented By: RAMILA Docusate Sodium (Docusate Sodium 100 Mg Capsule) 100 mg PO BID [facility] Last Admin: 07/27/23 09:43 Dose: Not Given Documented By: EDILIA Non-Admin Reason: Duplicate Order Docusate Sodium (Docusate Sodium 100 Mg Capsule) 100 mg PO BID [facility] Last Admin: 07/27/23 08:34 Dose: 100 mg Documented By: EDILIA Piperacillin Sod/Tazobactam (Sod 4.5 gm/ Sodium Chloride) 100 mls @ 200 mls/hr IV Q6H [facility] Last Infusion: 07/27/23 09:34 Dose: Infused Documented By: EDILIA Levothyroxine Sodium (Levothyroxine Sodium 100 Mcg Tablet) 100 mcg PO DAILY@0600 [facility] Last Admin: 07/27/23 06:17 Dose: 100 mcg Documented By: RAMILA Lidocaine (Lidocaine 4 % Patch Adh..Patch) 1 patch TRANSDERMA DAILY [facility]; Protocol Last Admin: 07/27/23 08:34 Dose: 1 patch Documented By: EDILIA Lorazepam (Lorazepam 0.5 Mg Tablet) 0.5 mg PO BEDTIME PRN PRN Reason: Anxiety Last Admin: 07/26/23 22:28 Dose: 0.5 mg Documented By: RAMILA Melatonin (Melatonin 3 Mg Tablet) 6 mg PO BEDTIME PRN PRN Reason: Insomnia Multivitamins/Vitamin C (Multivitamin Tablet) 1 tab PO DAILY@1200 [facility] Last Admin: 07/27/23 11:18 Dose: 1 tab Documented By: OLEGARIO Omeprazole (Omeprazole 20 Mg Ana.) 20 mg PO DAILY@0630 [facility] Last Admin: 07/27/23 06:17 Dose: 20 mg Documented By: RAMILA Ondansetron HCl (Ondansetron Hcl 4 Mg/2 Ml Vial) 4 mg IVPUSH Q8H PRN PRN Reason: Nausea and Vomiting Last Admin: 07/23/23 09:16 Dose: 4 mg Documented By: OLEGARIO Polyethylene Glycol (Polyethylene Glycol 3350 17 Gm Powd.Pack) 17 gm PO DAILY [facility] Last Admin: 07/27/23 09:42 Dose: Not Given Documented By: EDILIA Non-Admin Reason: Patient Refused Simethicone (Simethicone 80 Mg Tab.Chew) 80 mg PO QIDWMHS PRN PRN Reason: Gas Last Admin: 07/26/23 22:28 Dose: 80 mg Documented By: RAMILA Sodium Chloride (0.9 % Sodium Chloride Flush 3 Ml Syringe) 3 ml IVFLUSH QSHIFT [facility] Last Admin: 07/27/23 09:32 Dose: 3 ml Documented By: EDILIA Tramadol HCl (Tramadol Hcl 50 Mg Tablet) 50 mg PO Q6H PRN PRN Reason: Pain, Moderate(Pain Scale 4-6) Last Admin: 07/27/23 11:16 Dose: 50 mg Documented By: OLEGARIO Vitamin D (Cholecalciferol (Vitamin D3) 10 Mcg Tablet) 10 mcg PO DAILY [facility] Last Admin: 07/27/23 08:34 Dose: 10 mcg Documented By: EDILIA Labs 07/25/23 05:45 07/25/23 05:45 Procedures Date of Service Date of Service: 07/27/23 Progress Note: A&P Assessment and plan (1) Diverticulitis of sigmoid colon: Status: Acute Plan pt with a diverticulitis intrmural abscess but doing well- repeat ct scan showing area still present - pt otherwise not very symptomatic - agree with two more days of iv antibx and then switch to po and then can dc home . she agrees with the plan Time Spent With Patient Time: Total time managing care of this patient today ____ minutes. Quality Stroke Does the patient have a stroke diagnosis?: No VTE Prior VTE?: No VTE Risk Level:: Medical - moderate - high VTE Device Contraindication: N/A - Device Ordered VTE Drug Contraindication: Treatment Not Indicated
--- NOTE | 2023-07-27 14:03 | P.PNIM_ITS ---
Subjective Subjective Date of Service: 07/27/23 Interval History: Still with mild abdominal discomfort after eating Review of Systems Denies chest pain Denies shortness of breath Denies nausea vomiting diarrhea Denies fever chills Physical Exam 2 Vital Signs: Vital Signs: Last Vital Signs Temp 97.8 F 07/27/23 07:24 Pulse 80 07/27/23 07:24 Resp 12 07/27/23 07:24 BP 162/76 H 07/27/23 07:24 Pulse Ox 94 07/27/23 07:24 O2 Del Method Room Air 07/27/23 07:24 O2 Flow Rate 2 07/23/23 02:22 BMI result Body Mass Index 22.1 Const: Other: Awake alert oriented x3 no acute distress Resp: Other: Clear to auscultation bilaterally no rales rhonchi or wheezes Cardio: Other: No S4; positive S1-S2; no S3 murmurs rubs or gallops GI: Other: Soft nontender nondistended quite bowel sounds Neuro: Other: Cranial nerves 2-12 grossly intact as tested. Motor is 5 of 5 all extremities. Sensation is intact. Cognition appropriate Extrem: Other: No edema bilaterally Objective Data Active Medications Acetaminophen (Acetaminophen 325 Mg Tablet) 650 mg PO Q6H PRN PRN Reason: Pain, Mild (Pain Scale 1-3) Last Admin: 07/27/23 13:25 Dose: 650 mg Documented By: EDILIA Acetaminophen (Acetaminophen Supp 650 Mg Supp.Rect) 650 mg [place] Q6H PRN PRN Reason: Pain, Mild (Pain Scale 1-3) Alprazolam (Alprazolam 0.25 Mg Tablet) 0.25 mg PO TID PRN PRN Reason: anxiety/restlessness Last Admin: 07/27/23 06:19 Dose: 0.25 mg Documented By: RAMILA Atorvastatin Calcium (Atorvastatin Calcium 40 Mg Tablet) 40 mg PO BEDTIME [facility] Last Admin: 07/26/23 20:42 Dose: 40 mg Documented By: RAMILA Calcitonin [place] (Calcitonin,[place],Synth Nasal 3.7 Ml Bottle) 1 spray NOSTRILALT DAILY [facility] Last Admin: 07/27/23 10:37 Dose: Not Given Documented By: EDILIA Non-Admin Reason: Patient Refused Calcium Carbonate (Calcium Carbonate 500 Mg Tablet) 500 mg PO BID@1200,2100 [facility] Last Admin: 07/27/23 11:18 Dose: 500 mg Documented By: OLEGARIO Diphenhydramine HCl (Diphenhydramine Hcl 25 Mg Capsule) 25 mg PO BEDTIME PRN PRN Reason: Sleep Last Admin: 07/26/23 22:29 Dose: 25 mg Documented By: RAMILA Docusate Sodium (Docusate Sodium 100 Mg Capsule) 100 mg PO BID [facility] Last Admin: 07/27/23 09:43 Dose: Not Given Documented By: EDILIA Non-Admin Reason: Duplicate Order Docusate Sodium (Docusate Sodium 100 Mg Capsule) 100 mg PO BID [facility] Last Admin: 07/27/23 08:34 Dose: 100 mg Documented By: EDILIA Piperacillin Sod/Tazobactam (Sod 4.5 gm/ Sodium Chloride) 100 mls @ 200 mls/hr IV Q6H [facility] Last Infusion: 07/27/23 09:34 Dose: Infused Documented By: EDILIA Levothyroxine Sodium (Levothyroxine Sodium 100 Mcg Tablet) 100 mcg PO DAILY@0600 [facility] Last Admin: 07/27/23 06:17 Dose: 100 mcg Documented By: RAMILA Lidocaine (Lidocaine 4 % Patch Adh..Patch) 1 patch TRANSDERMA DAILY [facility]; Protocol Last Admin: 07/27/23 08:34 Dose: 1 patch Documented By: EDILIA Melatonin (Melatonin 3 Mg Tablet) 6 mg PO BEDTIME PRN PRN Reason: Insomnia Multivitamins/Vitamin C (Multivitamin Tablet) 1 tab PO DAILY@1200 [facility] Last Admin: 07/27/23 11:18 Dose: 1 tab Documented By: OLEGARIO Omeprazole (Omeprazole 20 Mg Capsule.) 20 mg PO DAILY@0630 [facility] Last Admin: 07/27/23 06:17 Dose: 20 mg Documented By: RAMILA Ondansetron HCl (Ondansetron Hcl 4 Mg/2 Ml Vial) 4 mg IVPUSH Q8H PRN PRN Reason: Nausea and Vomiting Last Admin: 07/23/23 09:16 Dose: 4 mg Documented By: OLEGARIO Polyethylene Glycol (Polyethylene Glycol 3350 17 Gm Powd.Pack) 17 gm PO DAILY [facility] Last Admin: 07/27/23 09:42 Dose: Not Given Documented By: EDILIA Non-Admin Reason: Patient Refused Simethicone (Simethicone 80 Mg Tab.Chew) 80 mg PO QIDWMHS PRN PRN Reason: Gas Last Admin: 07/26/23 22:28 Dose: 80 mg Documented By: RAMILA Sodium Chloride (0.9 % Sodium Chloride Flush 3 Ml Syringe) 3 ml IVFLUSH QSHIFT [facility] Last Admin: 07/27/23 09:32 Dose: 3 ml Documented By: EDILIA Tramadol HCl (Tramadol Hcl 50 Mg Tablet) 50 mg PO Q6H PRN PRN Reason: Pain, Moderate(Pain Scale 4-6) Last Admin: 07/27/23 11:16 Dose: 50 mg Documented By: OLEGARIO Vitamin D (Cholecalciferol (Vitamin D3) 10 Mcg Tablet) 10 mcg PO DAILY [facility] Last Admin: 07/27/23 08:34 Dose: 10 mcg Documented By: EDILIA Labs 07/25/23 05:45 07/25/23 05:45 Assessment and Plan (1) Diverticulitis of sigmoid colon: Status: Acute Plan Pt is an 83-year-old female with a PMH significant for?colon cancer s/p right hemicolectomy, HLD, GERD, hypothyroidism, diverticulitis, and mood disorder who presents to the ED for evaluation of worsening lower back pain. Pt will be admitted to the hospital for treatment and further evaluation of diverticulitis with abscess and L1 vertebral body compression fracture secondary to fall at home. Slowly improving 1.Diverticulitis with abscess -Zosyn(7) -advance to regular diet as per surgery .... Tolerating well 2.Spinal compression fracture -IR consultation with Dr. Camargo for possible kyphoplasty -intranasal calcitonin 200 units once daily in alternating nostrils 3.GERD -continue PPI Full Code Pneumatic boots Reason for continued hospitalization: IV antibiotics. Possible surgical intervention with general surgery and IR Quality Stroke Does the patient have a stroke diagnosis?: No VTE Prior VTE?: No VTE Risk Level:: Medical - moderate - high VTE Device Contraindication: N/A - Device Ordered VTE Drug Contraindication: Treatment Not Indicated
[2023-07-27 14:57] VITALS: BP 181/78; PULSE 91; RESP 18; TEMP 37; O2SAT 97
[2023-07-27 16:57] VITALS: BP 140/60; PULSE 80
[2023-07-27] MEDS: Simethicone 80 MG TAB.CHEW PO ×2 (18:16→22:08)
[2023-07-27] MEDS: Calcitonin,Salmon,Synth Nasal 3.7 ML BOTTLE 1 SPRAY NOSTRILALT (18:38)
[2023-07-27 19:32] VITALS: BP 163/73; PULSE 78; RESP 18; TEMP 36.7; O2SAT 96
[2023-07-27] MEDS: Atorvastatin Calcium 40 MG TABLET PO (20:51)
[2023-07-27] MEDS: diphenhydrAMINE HCL 25 MG CAPSULE PO (22:07)
[2023-07-28] MEDS: Piperacillin Sodium/Tazobactam 4.5 GM in 0.9 % Sodium Chloride 100 ML IV ×4 (03:26→21:38)
[2023-07-28 03:27] VITALS: BP 140/69; PULSE 79; RESP 16; TEMP 36.1; O2SAT 95
[2023-07-28] MEDS: Levothyroxine Sodium 100 MCG TABLET PO (06:03)
[2023-07-28] MEDS: Omeprazole 20 MG CAPSULE.DR PO (06:03)
[2023-07-28] MEDS: Acetaminophen 325 MG TABLET 650 MG PO ×3 (06:04→22:27)
[2023-07-28 07:12] LABS: Hematocrit 40.4 % (37.0-47.0); Mean Corpuscular HGB Conc 32.2 g/dl (31.0-35.0); Mean Corpuscular Hemoglobin 29.9 pg (27.0-33.0); Mean Corpuscular Volume 92.9 fL (80.0-98.0); Mean Platelet Volume 10.3 fL (9.4-12.3); Platelet Count 171 X10*3/uL (160-400); Red Blood Count 4.35 X10*6/uL (4.20-5.50); Red Cell Distribution Width 13.2 % (11.0-16.0); White Blood Count 11.6 X10*3/uL (4.8-10.8)
[2023-07-28 07:32] LABS: Alanine Aminotransferase 19 U/L (0-31); Albumin Level 3.3 g/dL (3.5-5.0); Alkaline Phosphatase 78 U/L (39-117); Anion Gap 11 (12-20); Aspartate Amino Transferase 30 U/L (5-31); Bilirubin Total 0.5 mg/dL (0.0-1.0); Blood Urea Nitrogen 7 mg/dL (9-16); Carbon Dioxide 26 mmol/L (22-29); Chloride 107 mmol/L (96-108); Estimated Glomerular Filt Rate > 60; Glucose Fasting 98 mg/dL (60-99); Potassium 3.1 mmol/L (3.3-5.1); Sodium 141 mmol/L (135-145); Total Protein 6.2 g/dL (6.5-8.0)
[2023-07-28 07:37] VITALS: BP 197/88; PULSE 84; RESP 12; TEMP 36.1; O2SAT 97
[2023-07-28 07:43] LABS: Atypical Lymph Absolute Manual 0.1 x10*3/uL; Atypical Lymphs Percent Manual 1 % (0-6); Band Neutrophils Percent 3 % (3-5); Basophils Abs Manual 0.1 X10*3/uL (0.0-0.2); Basophils Percent Manual 1 % (0-2); Eosinophils Absolute Manual 0.3 X10*3/uL (0.0-0.4); Eosinophils Percent Manual 3 % (0-4); Lymphocytes Absolute Manual 2.7 X10*3/uL (1.2-4.9); Lymphocytes Percent Manual 23 % (20-40); Metamyelocytes Absolute 0.2 X10*3/uL; Metamyelocytes Percent 2 %; Monocytes Absolute Manual 0.3 X10*3/uL (0.1-1.2); Monocytes Percent Manual 3 % (2-11); Neutrophils Absolute Manual 7.8 X10*3/uL (2.0-8.3); Neutrophils Percent Manual 64 % (45-73)
[2023-07-28 07:44] LABS: Platelet Estimate NORMAL (NORMAL); Platelet Morphology Comment NORMAL; RBC Morphology NORMAL
[2023-07-28] MEDS: Lidocaine 4 % Patch ADH..PATCH 1 PATCH TRANSDERMA (08:03)
[2023-07-28] MEDS: Cholecalciferol (Vitamin D3) 10 MCG TABLET PO (08:34)
[2023-07-28] MEDS: 0.9 % Sodium Chloride Flush 3 ML SYRINGE IVFLUSH ×3 (08:34→23:37)
[2023-07-28] MEDS: Calcitonin,Salmon,Synth Nasal 3.7 ML BOTTLE 1 SPRAY NOSTRILALT (08:34)
[2023-07-28 08:41] VITALS: BP 130/70
[2023-07-28] MEDS: traMADoL HCL 50 MG TABLET PO ×2 (10:45→19:42)
[2023-07-28] MEDS: ALPRAZolam 0.25 MG TABLET PO ×3 (10:45→22:26)
[2023-07-28] MEDS: Multivitamin TABLET 1 TAB PO (12:00)
--- NOTE | 2023-07-28 14:19 | HO.PM.IMPN ---
Subjective Subjective Date of Service: 07/28/23 Interval History: Abdominal pain now more of a discomfort. Able to take small amounts p.o. Review of Systems Denies chest pain Denies shortness of breath Denies nausea vomiting diarrhea Denies fever chills Physical Exam Vital Signs: Vital Signs: Last Vital Signs Temp 97 F 07/28/23 07:37 Pulse 84 07/28/23 07:37 Resp 12 07/28/23 07:37 BP 130/70 07/28/23 08:41 Pulse Ox 97 07/28/23 07:37 O2 Del Method Room Air 07/28/23 07:37 O2 Flow Rate 2 07/23/23 02:22 BMI result Body Mass Index 22.1 Const: Other: Awake alert oriented x3 no acute distress Resp: Other: Clear to auscultation bilaterally no rales rhonchi or wheezes Cardio: Other: No S4; positive S1-S2; no S3 murmurs rubs or gallops GI: Other: Soft nontender nondistended quite bowel sounds Neuro: Other: Cranial nerves 2-12 grossly intact as tested. Motor is 5 of 5 all extremities. Sensation is intact. Cognition appropriate Extrem: Other: No edema bilaterally Objective Data Active Medications Acetaminophen (Acetaminophen 325 Mg Tablet) 650 mg PO Q6H PRN PRN Reason: Pain, Mild (Pain Scale 1-3) Last Admin: 07/28/23 06:04 Dose: 650 mg Documented By: RAMILA Acetaminophen (Acetaminophen Supp 650 Mg Supp.Rect) 650 mg [place] Q6H PRN PRN Reason: Pain, Mild (Pain Scale 1-3) Alprazolam (Alprazolam 0.25 Mg Tablet) 0.25 mg PO TID PRN PRN Reason: anxiety/restlessness Last Admin: 07/28/23 10:45 Dose: 0.25 mg Documented By: IKE Atorvastatin Calcium (Atorvastatin Calcium 40 Mg Tablet) 40 mg PO BEDTIME [facility] Last Admin: 07/27/23 20:51 Dose: 40 mg Documented By: RAMILA Calcitonin [place] (Calcitonin,[place],Synth Nasal 3.7 Ml Bottle) 1 spray NOSTRILALT DAILY [facility] Last Admin: 07/28/23 08:34 Dose: 1 spray Calcium Carbonate (Calcium Carbonate 500 Mg Tablet) 500 mg PO BID@1200,2100 [facility] Last Admin: 07/28/23 12:00 Dose: 500 mg Documented By: BREA Diphenhydramine HCl (Diphenhydramine Hcl 25 Mg Capsule) 25 mg PO BEDTIME PRN PRN Reason: Sleep Last Admin: 07/27/23 22:07 Dose: 25 mg Documented By: RAMILA Docusate Sodium (Docusate Sodium 100 Mg Capsule) 100 mg PO BID [facility] Last Admin: 07/28/23 08:03 Dose: 100 mg Documented By: EDILIA Comments: pt orgionally refused, then agreed Docusate Sodium (Docusate Sodium 100 Mg Capsule) 100 mg PO BID [facility] Last Admin: 07/28/23 08:03 Dose: Not Given Documented By: EDILIA Non-Admin Reason: pt refused Piperacillin Sod/Tazobactam (Sod 4.5 gm/ Sodium Chloride) 100 mls @ 200 mls/hr IV Q6H [facility] Last Infusion: 07/28/23 09:04 Dose: Infused Levothyroxine Sodium (Levothyroxine Sodium 100 Mcg Tablet) 100 mcg PO DAILY@0600 [facility] Last Admin: 07/28/23 06:03 Dose: 100 mcg Documented By: RAMILA Lidocaine (Lidocaine 4 % Patch Adh..Patch) 1 patch TRANSDERMA DAILY [facility]; Protocol Last Admin: 07/28/23 08:03 Dose: 1 patch Documented By: EDILIA Melatonin (Melatonin 3 Mg Tablet) 6 mg PO BEDTIME PRN PRN Reason: Insomnia Multivitamins/Vitamin C (Multivitamin Tablet) 1 tab PO DAILY@1200 [facility] Last Admin: 07/28/23 12:00 Dose: 1 tab Documented By: BREA Omeprazole (Omeprazole 20 Mg Capsule.Dr) 20 mg PO DAILY@0630 [facility] Last Admin: 07/28/23 06:03 Dose: 20 mg Documented By: RAMILA Ondansetron HCl (Ondansetron Hcl 4 Mg/2 Ml Vial) 4 mg IVPUSH Q8H PRN PRN Reason: Nausea and Vomiting Last Admin: 07/23/23 09:16 Dose: 4 mg Documented By: OLEGARIO Polyethylene Glycol (Polyethylene Glycol 3350 17 Gm Powd.Pack) 17 gm PO DAILY [facility] Last Admin: 07/28/23 08:04 Dose: Not Given Documented By: EDILIA Non-Admin Reason: pt refused Simethicone (Simethicone 80 Mg Tab.Chew) 80 mg PO QIDWMHS PRN PRN Reason: Gas Last Admin: 07/27/23 22:08 Dose: 80 mg Documented By: RAMILA Sodium Chloride (0.9 % Sodium Chloride Flush 3 Ml Syringe) 3 ml IVFLUSH QSHIFT [facility] Last Admin: 07/28/23 08:34 Dose: 3 ml Documented By: EDILIA Tramadol HCl (Tramadol Hcl 50 Mg Tablet) 50 mg PO Q6H PRN PRN Reason: Pain, Moderate(Pain Scale 4-6) Last Admin: 07/28/23 10:45 Dose: 50 mg Documented By: IKE Vitamin D (Cholecalciferol (Vitamin D3) 10 Mcg Tablet) 10 mcg PO DAILY [facility] Last Admin: 07/28/23 08:34 Dose: 10 mcg Labs 07/28/23 06:00 07/28/23 06:00 Labs: Laboratory Results - last 24 hr 07/28/23 06:00 MCV 92.9 MCH 29.9 MCHC 32.2 RDW 13.2 Plt Count 171 D MPV 10.3 Immature Gran % (Auto) Cancelled Neut % (Auto) Cancelled Lymph % (Auto) Cancelled [place] % (Auto) Cancelled Eos % (Auto) Cancelled Baso % (Auto) Cancelled Lymph # (Auto) Cancelled [place] # (Auto) Cancelled Eos # (Auto) Cancelled Baso # (Auto) Cancelled Abs Immat Gran (auto) Cancelled Absolute Neuts (auto) Cancelled Absolute Nucleated RBC 0.000 Nucleated RBC % (auto) 0.0 Neutrophils % (Manual) 64 Band Neutrophils % 3 Lymphocytes % (Manual) 23 Atypical Lymphs % (Man) 1 Monocytes % (Manual) 3 Eosinophils % (Manual) 3 Basophils % (Manual) 1 Metamyelocytes % 2 Abs Neuts (Manual) 7.8 Lymphocytes # (Manual) 2.7 Atyp Lymphs # (Manual) 0.1 Monocytes # (Manual) 0.3 Eosinophils # (Manual) 0.3 Basophils # (Manual) 0.1 Metamyelocytes # 0.2 Platelet Estimate NORMAL Plt Morphology Comment NORMAL RBC Morphology NORMAL Anion Gap 11 L Estim Creat Clear Calc 68.0 Estimated GFR > 60 Fasting Glucose 98 Calcium 9.0 D Total Bilirubin 0.5 AST 30 ALT 19 Alkaline Phosphatase 78 Total Protein 6.2 L Albumin 3.3 L Assessment and Plan (1) Diverticulitis of sigmoid colon: Status: Acute Plan Pt is an 83-year-old female with a PMH significant for?colon cancer s/p right hemicolectomy, HLD, GERD, hypothyroidism, diverticulitis, and mood disorder who presents to the ED for evaluation of worsening lower back pain. Pt will be admitted to the hospital for treatment and further evaluation of diverticulitis with abscess and L1 vertebral body compression fracture secondary to fall at home. Slowly improving 1.Diverticulitis with abscess -Zosyn(8)... Discussed with surgery in a.m. continuation of IV antibiotics -advance to regular diet as per surgery .... Tolerating well 2.Spinal compression fracture -IR consultation with Dr. Camargo for possible kyphoplasty -intranasal calcitonin 200 units once daily in alternating nostrils 3.GERD -continue PPI Full Code Pneumatic boots Reason for continued hospitalization: IV antibiotics. Possible surgical intervention with general surgery and IR Quality Stroke Does the patient have a stroke diagnosis?: No VTE Prior VTE?: No VTE Risk Level:: Medical - moderate - high VTE Device Contraindication: N/A - Device Ordered VTE Drug Contraindication: Treatment Not Indicated
[2023-07-28] MEDS: Potassium Chloride Packet 20 MEQ PACKET 40 MEQ PO (15:11)
[2023-07-28] MEDS: Simethicone 80 MG TAB.CHEW PO ×2 (15:12→21:44)
[2023-07-28 15:27] VITALS: BP 140/92; PULSE 81; RESP 18; TEMP 36.1; O2SAT 96
--- NOTE | 2023-07-28 15:47 | PM.PNGS ---
Subjective Subjective Date of Service: 07/28/23 Interval history: Patient seems to be more tender in the left lower quadrant today than yesterday. She does say that it bothers her. She was walking up and down in the halls and felt this area bothering her a little bit but her back bothers her more. Denies any fever chills did have a bowel movement Physical Exam Vital Signs: Vital Signs: Last Vital Signs Temp 96.9 F 07/28/23 15:27 Pulse 81 07/28/23 15:27 Resp 18 07/28/23 15:27 BP 140/92 H 07/28/23 15:27 Pulse Ox 96 07/28/23 15:27 O2 Del Method Room Air 07/28/23 15:27 O2 Flow Rate 2 07/23/23 02:22 BMI result Body Mass Index 22.1 Const: General: cooperative, healthy appearing, comfortable and no acute distress Resp: Effort & Inspection: normal respiratory effort Auscultation: clear to auscultation bilaterally Cardio: Rate: regular rate Rhythm: regular rhythm GI: Other: Abdomen is soft little distended active bowel sounds but she is tender in the left lower quadrant with some guarding no rebound no peritoneal signs no masses noted Objective Data Active Medications Acetaminophen (Acetaminophen 325 Mg Tablet) 650 mg PO Q6H PRN PRN Reason: Pain, Mild (Pain Scale 1-3) Last Admin: 07/28/23 06:04 Dose: 650 mg Documented By: RAMILA Acetaminophen (Acetaminophen Supp 650 Mg Supp.Rect) 650 mg [place] Q6H PRN PRN Reason: Pain, Mild (Pain Scale 1-3) Alprazolam (Alprazolam 0.25 Mg Tablet) 0.25 mg PO TID PRN PRN Reason: anxiety/restlessness Last Admin: 07/28/23 10:45 Dose: 0.25 mg Documented By: IKE Atorvastatin Calcium (Atorvastatin Calcium 40 Mg Tablet) 40 mg PO BEDTIME [facility] Last Admin: 07/27/23 20:51 Dose: 40 mg Documented By: RAMILA Calcitonin [place] (Calcitonin,[place],Synth Nasal 3.7 Ml Bottle) 1 spray NOSTRILALT DAILY [facility] Last Admin: 07/28/23 08:34 Dose: 1 spray Calcium Carbonate (Calcium Carbonate 500 Mg Tablet) 500 mg PO BID@1200,2100 [facility] Last Admin: 07/28/23 12:00 Dose: 500 mg Documented By: BREA Diphenhydramine HCl (Diphenhydramine Hcl 25 Mg Capsule) 25 mg PO BEDTIME PRN PRN Reason: Sleep Last Admin: 07/27/23 22:07 Dose: 25 mg Documented By: RAMILA Docusate Sodium (Docusate Sodium 100 Mg Capsule) 100 mg PO BID [facility] Last Admin: 07/28/23 08:03 Dose: 100 mg Documented By: EDILIA Comments: pt orgionally refused, then agreed Docusate Sodium (Docusate Sodium 100 Mg Capsule) 100 mg PO BID [facility] Last Admin: 07/28/23 08:03 Dose: Not Given Documented By: EDILIA Non-Admin Reason: pt refused Piperacillin Sod/Tazobactam (Sod 4.5 gm/ Sodium Chloride) 100 mls @ 200 mls/hr IV Q6H [facility] Last Admin: 07/28/23 15:14 Dose: 200 mls/hr Documented By: EDILIA Levothyroxine Sodium (Levothyroxine Sodium 100 Mcg Tablet) 100 mcg PO DAILY@0600 [facility] Last Admin: 07/28/23 06:03 Dose: 100 mcg Documented By: RAMILA Lidocaine (Lidocaine 4 % Patch Adh..Patch) 1 patch TRANSDERMA DAILY [facility]; Protocol Last Admin: 07/28/23 08:03 Dose: 1 patch Documented By: EDILIA Melatonin (Melatonin 3 Mg Tablet) 6 mg PO BEDTIME PRN PRN Reason: Insomnia Multivitamins/Vitamin C (Multivitamin Tablet) 1 tab PO DAILY@1200 [facility] Last Admin: 07/28/23 12:00 Dose: 1 tab Documented By: BREA Omeprazole (Omeprazole 20 Mg Capsule.) 20 mg PO DAILY@0630 [facility] Last Admin: 07/28/23 06:03 Dose: 20 mg Documented By: RAMILA Ondansetron HCl (Ondansetron Hcl 4 Mg/2 Ml Vial) 4 mg IVPUSH Q8H PRN PRN Reason: Nausea and Vomiting Last Admin: 07/23/23 09:16 Dose: 4 mg Documented By: OLEGARIO Polyethylene Glycol (Polyethylene Glycol 3350 17 Gm Powd.Pack) 17 gm PO DAILY [facility] Last Admin: 07/28/23 08:04 Dose: Not Given Documented By: EDILIA Non-Admin Reason: pt refused Simethicone (Simethicone 80 Mg Tab.Chew) 80 mg PO QIDWMHS PRN PRN Reason: Gas Last Admin: 07/28/23 15:12 Dose: 80 mg Documented By: EDILIA Sodium Chloride (0.9 % Sodium Chloride Flush 3 Ml Syringe) 3 ml IVFLUSH QSHIFT [facility] Last Admin: 07/28/23 15:17 Dose: 3 ml Documented By: EDILIA Tramadol HCl (Tramadol Hcl 50 Mg Tablet) 50 mg PO Q6H PRN PRN Reason: Pain, Moderate(Pain Scale 4-6) Last Admin: 07/28/23 10:45 Dose: 50 mg Documented By: IKE Vitamin D (Cholecalciferol (Vitamin D3) 10 Mcg Tablet) 10 mcg PO DAILY [facility] Last Admin: 07/28/23 08:34 Dose: 10 mcg Labs 07/28/23 06:00 07/28/23 06:00 Labs: Laboratory Results - last 24 hr 07/28/23 06:00 MCV 92.9 MCH 29.9 MCHC 32.2 RDW 13.2 Plt Count 171 D MPV 10.3 Immature Gran % (Auto) Cancelled Neut % (Auto) Cancelled Lymph % (Auto) Cancelled [place] % (Auto) Cancelled Eos % (Auto) Cancelled Baso % (Auto) Cancelled Lymph # (Auto) Cancelled [place] # (Auto) Cancelled Eos # (Auto) Cancelled Baso # (Auto) Cancelled Abs Immat Gran (auto) Cancelled Absolute Neuts (auto) Cancelled Absolute Nucleated RBC 0.000 Nucleated RBC % (auto) 0.0 Neutrophils % (Manual) 64 Band Neutrophils % 3 Lymphocytes % (Manual) 23 Atypical Lymphs % (Man) 1 Monocytes % (Manual) 3 Eosinophils % (Manual) 3 Basophils % (Manual) 1 Metamyelocytes % 2 Abs Neuts (Manual) 7.8 Lymphocytes # (Manual) 2.7 Atyp Lymphs # (Manual) 0.1 Monocytes # (Manual) 0.3 Eosinophils # (Manual) 0.3 Basophils # (Manual) 0.1 Metamyelocytes # 0.2 Platelet Estimate NORMAL Plt Morphology Comment NORMAL RBC Morphology NORMAL Anion Gap 11 L Estim Creat Clear Calc 68.0 Estimated GFR > 60 Fasting Glucose 98 Calcium 9.0 D Total Bilirubin 0.5 AST 30 ALT 19 Alkaline Phosphatase 78 Total Protein 6.2 L Albumin 3.3 L Procedures Date of Service Date of Service: 07/28/23 Progress Note: A&P Assessment and plan (1) Diverticulitis of sigmoid colon: Status: Acute Assessment and Plan: 83-year-old female who was admitted for fall but workup revealed sigmoid diverticulitis with intramural abscess on CT imaging. Patient was initially less symptomatic but now seems to be more tender in the left lower quadrant despite being on IV antibiotics. We will plan to check blood work tomorrow and see how her exam goes but unfortunately may need to repeat imaging if she continues to be tender and if the abscess is still present determine the next step. Overall she is quite stable hemodynamically the and tolerating p.o. diet and having bowel movements Time Spent With Patient Time: Total time managing care of this patient today ____ minutes. Quality Stroke Does the patient have a stroke diagnosis?: No VTE Prior VTE?: No VTE Risk Level:: Medical - moderate - high VTE Device Contraindication: N/A - Device Ordered VTE Drug Contraindication: Treatment Not Indicated
[2023-07-28 19:16] VITALS: BP 142/70; PULSE 83; RESP 18; TEMP 36.5; O2SAT 97
[2023-07-28] MEDS: Atorvastatin Calcium 40 MG TABLET PO (19:42)
[2023-07-28] MEDS: Docusate Sodium 100 MG CAPSULE PO ×3 (19:42→19:51)
[2023-07-28] MEDS: diphenhydrAMINE HCL 25 MG CAPSULE PO (22:26)
[2023-07-29] MEDS: Piperacillin Sodium/Tazobactam 4.5 GM in 0.9 % Sodium Chloride 100 ML IV ×4 (03:47→20:54)
[2023-07-29 03:53] VITALS: BP 162/80
[2023-07-29 04:00] VITALS: PULSE 80; RESP 18; TEMP 36.7; O2SAT 97
[2023-07-29] MEDS: Acetaminophen 325 MG TABLET 650 MG PO ×4 (04:40→22:37)
[2023-07-29] MEDS: Omeprazole 20 MG CAPSULE.DR PO (06:38)
[2023-07-29] MEDS: Levothyroxine Sodium 100 MCG TABLET PO (06:38)
[2023-07-29 07:45] VITALS: BP 140/98; PULSE 92; RESP 18; TEMP 36.6; O2SAT 96
--- NOTE | 2023-07-29 07:46 | PM.PNGS ---
Subjective Subjective Date of Service: 07/30/23 Interval history: Tolerating diet Passing flatus Has BMs Denies pain Admits to question of discomfort the abdomen Describes ?gas? in the epigastric area Physical Exam Vital Signs: Vital Signs: Last Vital Signs Temp 98.1 F 07/29/23 04:00 Pulse 80 07/29/23 04:00 Resp 18 07/29/23 04:00 BP 162/80 H 07/29/23 03:53 Pulse Ox 97 07/29/23 04:00 O2 Del Method Room Air 07/29/23 04:00 O2 Flow Rate 2 07/23/23 02:22 BMI result Body Mass Index 22.1 Const: General: comfortable and no acute distress Resp: Effort & Inspection: normal respiratory effort Cardio: Rate: regular rate GI: Palpation (GI): Soft to palpation, not firm, nontender and no guarding Objective Data Active Medications Acetaminophen (Acetaminophen 325 Mg Tablet) 650 mg PO Q6H PRN PRN Reason: Pain, Mild (Pain Scale 1-3) Last Admin: 07/29/23 04:40 Dose: 650 mg Documented By: GEORGE Acetaminophen (Acetaminophen Supp 650 Mg Supp.Rect) 650 mg [place] Q6H PRN PRN Reason: Pain, Mild (Pain Scale 1-3) Alprazolam (Alprazolam 0.25 Mg Tablet) 0.25 mg PO TID PRN PRN Reason: anxiety/restlessness Last Admin: 07/28/23 22:26 Dose: 0.25 mg Documented By: REINA Atorvastatin Calcium (Atorvastatin Calcium 40 Mg Tablet) 40 mg PO BEDTIME [facility] Last Admin: 07/28/23 19:42 Dose: 40 mg Documented By: REINA Calcitonin [place] (Calcitonin,[place],Synth Nasal 3.7 Ml Bottle) 1 spray NOSTRILALT DAILY [facility] [place] Last Admin: 07/28/23 08:34 Dose: 1 spray Calcium Carbonate (Calcium Carbonate 500 Mg Tablet) 500 mg PO BID@1200,2100 [facility] [place] Last Admin: 07/28/23 19:42 Dose: 500 mg Documented By: REINA Diphenhydramine HCl (Diphenhydramine Hcl 25 Mg Capsule) 25 mg PO BEDTIME PRN PRN Reason: Sleep Last Admin: 07/28/23 22:26 Dose: 25 mg Documented By: REINA Docusate Sodium (Docusate Sodium 100 Mg Capsule) 100 mg PO BID [facility] Last Admin: 07/28/23 19:52 Dose: Not Given Documented By: REINA Non-Admin Reason: dose already adm Piperacillin Sod/Tazobactam (Sod 4.5 gm/ Sodium Chloride) 100 mls @ 200 mls/hr IV Q6H [facility] [place] Last Infusion: 07/29/23 04:20 Dose: Infused Documented By: GEORGE Levothyroxine Sodium (Levothyroxine Sodium 100 Mcg Tablet) 100 mcg PO DAILY@0600 [facility] Last Admin: 07/29/23 06:38 Dose: 100 mcg Documented By: GEORGE Lidocaine (Lidocaine 4 % Patch Adh..Patch) 1 patch TRANSDERMA DAILY [facility]; Protocol Last Admin: 07/28/23 08:03 Dose: 1 patch Documented By: EDILIA Melatonin (Melatonin 3 Mg Tablet) 6 mg PO BEDTIME PRN PRN Reason: Insomnia Multivitamins/Vitamin C (Multivitamin Tablet) 1 tab PO DAILY@1200 [facility] Last Admin: 07/28/23 12:00 Dose: 1 tab Documented By: BREA Omeprazole (Omeprazole 20 Mg Capsule.) 20 mg PO DAILY@0630 [facility] Last Admin: 07/29/23 06:38 Dose: 20 mg Documented By: GEORGE Ondansetron HCl (Ondansetron Hcl 4 Mg/2 Ml Vial) 4 mg IVPUSH Q8H PRN PRN Reason: Nausea and Vomiting Last Admin: 07/23/23 09:16 Dose: 4 mg Documented By: OLEGARIO Polyethylene Glycol (Polyethylene Glycol 3350 17 Gm Powd.Pack) 17 gm PO DAILY [facility] [place] Last Admin: 07/28/23 08:04 Dose: Not Given Documented By: EDILIA Non-Admin Reason: pt refused Simethicone (Simethicone 80 Mg Tab.Chew) 80 mg PO QIDWMHS PRN PRN Reason: Gas Last Admin: 07/28/23 21:44 Dose: 80 mg Documented By: REINA Sodium Chloride (0.9 % Sodium Chloride Flush 3 Ml Syringe) 3 ml IVFLUSH QSHIFT [facility] Last Admin: 07/28/23 23:37 Dose: 3 ml Documented By: GEORGE Tramadol HCl (Tramadol Hcl 50 Mg Tablet) 50 mg PO Q6H PRN PRN Reason: Pain, Moderate(Pain Scale 4-6) Last Admin: 07/28/23 19:42 Dose: 50 mg Documented By: REINA Vitamin D (Cholecalciferol (Vitamin D3) 10 Mcg Tablet) 10 mcg PO DAILY [facility] Last Admin: 07/28/23 08:34 Dose: 10 mcg Labs 07/30/23 05:42 07/30/23 05:42 Procedures Date of Service Date of Service: 07/30/23 Progress Note: A&P Assessment and plan (1) Diverticulitis of sigmoid colon: Status: Acute Assessment and Plan: With likely intramural abscess described on CT Remains afebrile Denies significant pain Soft WBC within Had a long discussion with patient - it appears that she really does not have significant symptoms Tolerating diet as well Explained to her that 1 option is to proceed with sigmoid resection possible stoma especially if she becomes symptomatic Exam otherwise remains very benign We will continue to follow closely Time Spent With Patient Time: Total time managing care of this patient today ____ minutes. Quality Stroke Does the patient have a stroke diagnosis?: No VTE Prior VTE?: No VTE Risk Level:: Medical - moderate - high VTE Device Contraindication: N/A - Device Ordered VTE Drug Contraindication: Treatment Not Indicated
[2023-07-29] MEDS: traMADoL HCL 50 MG TABLET PO ×3 (08:28→20:53)
[2023-07-29] MEDS: Docusate Sodium 100 MG CAPSULE PO ×2 (08:28→20:53)
[2023-07-29] MEDS: Cholecalciferol (Vitamin D3) 10 MCG TABLET PO (08:28)
[2023-07-29] MEDS: Lidocaine 4 % Patch ADH..PATCH 1 PATCH TRANSDERMA (08:28)
[2023-07-29] MEDS: Calcitonin,Salmon,Synth Nasal 3.7 ML BOTTLE 1 SPRAY NOSTRILALT (08:30)
[2023-07-29] MEDS: Multivitamin TABLET 1 TAB PO (10:41)
[2023-07-29] MEDS: ALPRAZolam 0.25 MG TABLET PO (10:41)
--- NOTE | 2023-07-29 11:28 | MHC.CM.PN ---
EMR REVIEWED AND PER MD ROUNDS, PT HAS NOT BEEN MEDICALLY CLEARED FOR DC HOME. CM WILL CONTINUE TO FOLLOW FOR ANY CHANGES IN DC PLAN/NEEDS.
[2023-07-29] MEDS: Simethicone 80 MG TAB.CHEW PO ×3 (12:32→22:39)
[2023-07-29] MEDS: 0.9 % Sodium Chloride Flush 3 ML SYRINGE IVFLUSH ×2 (14:36→22:02)
[2023-07-29 14:51] VITALS: BP 140/98; PULSE 92; O2SAT 96
--- NOTE | 2023-07-29 15:37 | HO.PM.IMPN ---
Subjective Subjective Date of Service: 07/29/23 Interval History: Being followed for colonic wall abscess and L1 compression fracture, denies nausea vomiting, no diarrhea complaining of abdominal soreness, tolerating diet, complaining of lower back pain requiring Tylenol and tramadol, has been ambulating with steady gait. Offers no other complaints of lightheadedness, no dizziness, no fevers, no chills, no headache, no acute events overnight. Review of Systems All other system reviewed and negative Physical Exam Vital Signs: Vital Signs: Last Vital Signs Temp 97.8 F 07/29/23 07:45 Pulse 92 07/29/23 14:51 Resp 18 07/29/23 07:45 BP 140/98 H 07/29/23 14:51 Pulse Ox 96 07/29/23 14:51 O2 Del Method Room Air 07/29/23 07:45 O2 Flow Rate 2 07/23/23 02:22 BMI result Body Mass Index 22.1 Const: Other: General awake alert x3, resting comfortably in no acute distress. Anicteric sclera Neck supple ,no JVD. CVS regular rate rhythm, Respiratory lungs clear to auscultation, no respiratory distress, no wheeze, no rhonchi. Gastrointestinal abdomen soft, left lower quadrant tenderness with deep palpation, bowel sounds audible,no guarding , no rigidity. Back positive tenderness lumbar spine, no paravertebral muscle spasm Extremities no edema. Neuro non focal Skin no rash Objective Data Active Medications Acetaminophen (Acetaminophen 325 Mg Tablet) 650 mg PO Q6H PRN PRN Reason: Pain, Mild (Pain Scale 1-3) Last Admin: 07/29/23 10:41 Dose: 650 mg Documented By: ZAYNAB Acetaminophen (Acetaminophen Supp 650 Mg Supp.Rect) 650 mg [place] Q6H PRN PRN Reason: Pain, Mild (Pain Scale 1-3) Atorvastatin Calcium (Atorvastatin Calcium 40 Mg Tablet) 40 mg PO BEDTIME [facility] Last Admin: 07/28/23 19:42 Dose: 40 mg Documented By: REINA Calcitonin [place] (Calcitonin,[place],Synth Nasal 3.7 Ml Bottle) 1 spray NOSTRILALT DAILY [facility] Last Admin: 07/29/23 08:30 Dose: 1 spray Documented By: ZAYNAB Calcium Carbonate (Calcium Carbonate 500 Mg Tablet) 500 mg PO BID@1200,2100 [facility] Last Admin: 07/29/23 10:41 Dose: 500 mg Documented By: ZAYNAB Diphenhydramine HCl (Diphenhydramine Hcl 25 Mg Capsule) 25 mg PO BEDTIME PRN PRN Reason: Sleep Last Admin: 07/28/23 22:26 Dose: 25 mg Documented By: REINA Docusate Sodium (Docusate Sodium 100 Mg Capsule) 100 mg PO BID [facility] Last Admin: 07/29/23 08:28 Dose: 100 mg Documented By: ZAYNAB Piperacillin Sod/Tazobactam (Sod 4.5 gm/ Sodium Chloride) 100 mls @ 200 mls/hr IV Q6H [facility] Last Infusion: 07/29/23 15:11 Dose: Infused Documented By: ZAYNAB Levothyroxine Sodium (Levothyroxine Sodium 100 Mcg Tablet) 100 mcg PO DAILY@0600 [facility] Last Admin: 07/29/23 06:38 Dose: 100 mcg Documented By: GEORGE Lidocaine (Lidocaine 4 % Patch Adh..Patch) 1 patch TRANSDERMA DAILY [facility]; Protocol Last Admin: 07/29/23 08:28 Dose: 1 patch Documented By: ZAYNAB Melatonin (Melatonin 3 Mg Tablet) 6 mg PO BEDTIME PRN PRN Reason: Insomnia Multivitamins/Vitamin C (Multivitamin Tablet) 1 tab PO DAILY@1200 [facility] Last Admin: 07/29/23 10:41 Dose: 1 tab Documented By: ZAYNAB Omeprazole (Omeprazole 20 Mg Capsule.Dr) 20 mg PO DAILY@0630 [facility] Last Admin: 07/29/23 06:38 Dose: 20 mg Documented By: GEORGE Ondansetron HCl (Ondansetron Hcl 4 Mg/2 Ml Vial) 4 mg IVPUSH Q8H PRN PRN Reason: Nausea and Vomiting Last Admin: 07/23/23 09:16 Dose: 4 mg Documented By: OLEGARIO Polyethylene Glycol (Polyethylene Glycol 3350 17 Gm Powd.Pack) 17 gm PO DAILY [facility] Last Admin: 07/29/23 08:30 Dose: Not Given Documented By: ZAYNAB Non-Admin Reason: Patient Refused Simethicone (Simethicone 80 Mg Tab.Chew) 80 mg PO QIDWMHS PRN PRN Reason: Gas Last Admin: 07/29/23 12:32 Dose: 80 mg Documented By: ZAYNAB Sodium Chloride (0.9 % Sodium Chloride Flush 3 Ml Syringe) 3 ml IVFLUSH QSHIFT [facility] Last Admin: 07/29/23 14:36 Dose: 3 ml Documented By: ZAYNAB Tramadol HCl (Tramadol Hcl 50 Mg Tablet) 50 mg PO Q6H PRN PRN Reason: Pain, Moderate(Pain Scale 4-6) Last Admin: 07/29/23 14:33 Dose: 50 mg Documented By: ZAYNAB Vitamin D (Cholecalciferol (Vitamin D3) 10 Mcg Tablet) 10 mcg PO DAILY [facility] Last Admin: 07/29/23 08:28 Dose: 10 mcg Documented By: ZAYNAB Labs 07/28/23 06:00 07/28/23 06:00 Assessment and Plan (1) Diverticulitis of sigmoid colon: Status: Acute Plan Pt is an 83-year-old female with a PMH significant for?colon cancer s/p right hemicolectomy, HLD, GERD, hypothyroidism, diverticulitis, and mood disorder who presents to the ED for evaluation of worsening lower back pain. Pt will be admitted to the hospital for treatment and further evaluation of diverticulitis with abscess and L1 vertebral body compression fracture secondary to fall at home. Slowly improving 1. Acute Diverticulitis rectosigmoid with intramural abscess -continue IV Zosyn day 9, case discussed with Dr. Alford is recommend to continue IV antibiotics and regular diet will follow clinical course 2. Acute L1 compression fracture/mechanical fall Back pain is improving continue Ultram/Tylenol and lidocaine patch, close outpatient follow-up with PCP Continue intranasal calcitonin 200 units once daily in alternating nostrils Seen by Physical therapy they recommend home PT 3.GERD -continue PPI 4. Acute hypokalemia potassium noted to be 3.1 will replete and follow labs Full Code Pneumatic boots Reason for continued hospitalization: IV antibiotics. Possible surgical intervention with general surgery Quality Stroke Does the patient have a stroke diagnosis?: No VTE Prior VTE?: No VTE Risk Level:: Medical - moderate - high VTE Device Contraindication: N/A - Device Ordered VTE Drug Contraindication: Treatment Not Indicated
[2023-07-29 15:47] VITALS: BP 150/80; PULSE 82; RESP 18; TEMP 36.1; O2SAT 96
[2023-07-29] MEDS: Potassium Chloride ER 20 MEQ TAB.ER.PRT 40 MEQ PO (15:59)
[2023-07-29 19:18] VITALS: BP 142/82; PULSE 85; RESP 18; TEMP 36.4; O2SAT 97
[2023-07-29] MEDS: Melatonin 3 MG TABLET 6 MG PO (20:53)
[2023-07-29] MEDS: Atorvastatin Calcium 40 MG TABLET PO (20:53)
[2023-07-29] MEDS: diphenhydrAMINE HCL 25 MG CAPSULE PO (22:37)
[2023-07-30] MEDS: Piperacillin Sodium/Tazobactam 4.5 GM in 0.9 % Sodium Chloride 100 ML IV ×4 (03:13→21:38)
[2023-07-30 03:52] VITALS: BP 140/70; PULSE 78; RESP 18; TEMP 36.3; O2SAT 97
[2023-07-30] MEDS: Omeprazole 20 MG CAPSULE.DR PO (05:50)
[2023-07-30] MEDS: Levothyroxine Sodium 100 MCG TABLET PO (05:50)
[2023-07-30] MEDS: Acetaminophen 325 MG TABLET 650 MG PO ×2 (05:51→13:21)
[2023-07-30 06:00] LABS: Hematocrit 39.2 % (37.0-47.0); Hemoglobin 12.6 g/dl (12.0-16.0); Mean Corpuscular HGB Conc 32.1 g/dl (31.0-35.0); Mean Corpuscular Hemoglobin 30.4 pg (27.0-33.0); Mean Corpuscular Volume 94.5 fL (80.0-98.0); Mean Platelet Volume 9.9 fL (9.4-12.3); Platelet Count 185 X10*3/uL (160-400); Red Blood Count 4.15 X10*6/uL (4.20-5.50); Red Cell Distribution Width 13.2 % (11.0-16.0); White Blood Count 10.4 X10*3/uL (4.8-10.8)
[2023-07-30 06:15] LABS: Anion Gap 12 (12-20); Blood Urea Nitrogen 11 mg/dL (9-16); Calcium 9.2 mg/dL (8.4-10.2); Carbon Dioxide 28 mmol/L (22-29); Chloride 106 mmol/L (96-108); Creatinine Clr Calc Pharmacy 60.9; Estimated Glomerular Filt Rate > 60; Glucose Random 99 mg/dL (60-115); Potassium 4.4 mmol/L (3.3-5.1); Sodium 142 mmol/L (135-145)
--- NOTE | 2023-07-30 07:33 | P.PNGS_ITS ---
Subjective Subjective Date of Service: 08/01/23 Interval history: says she has been extremely anxious states she has not been taking her Xanax unable to sleep last night passing flatus has BMs tolerating diet mild abdl discomfort Physical Exam 2 Vital Signs: Vital Signs: Last Vital Signs Temp 97.4 F 07/30/23 03:52 Pulse 78 07/30/23 03:52 Resp 18 07/30/23 03:52 BP 140/70 H 07/30/23 03:52 Pulse Ox 97 07/30/23 03:52 O2 Del Method Room Air 07/30/23 03:52 O2 Flow Rate 2 07/23/23 02:22 BMI result Body Mass Index 22.1 Const: Other: appears anxious General: no acute distress Resp: Effort & Inspection: normal respiratory effort Cardio: Rate: regular rate GI: Palpation (GI): Soft to palpation, not firm and nontender Objective Data Active Medications Acetaminophen (Acetaminophen 325 Mg Tablet) 650 mg PO Q6H PRN PRN Reason: Pain, Mild (Pain Scale 1-3) Last Admin: 07/30/23 05:51 Dose: 650 mg Documented By: ABEL Acetaminophen (Acetaminophen Supp 650 Mg Supp.Rect) 650 mg [place] Q6H PRN PRN Reason: Pain, Mild (Pain Scale 1-3) Atorvastatin Calcium (Atorvastatin Calcium 40 Mg Tablet) 40 mg PO BEDTIME [facility] Last Admin: 07/29/23 20:53 Dose: 40 mg Documented By: ABEL Calcitonin [place] (Calcitonin,[place],Synth Nasal 3.7 Ml Bottle) 1 spray NOSTRILALT DAILY [facility] Last Admin: 07/29/23 08:30 Dose: 1 spray Documented By: ZAYNAB Calcium Carbonate (Calcium Carbonate 500 Mg Tablet) 500 mg PO BID@1200,2100 [facility] Last Admin: 07/29/23 20:53 Dose: 500 mg Documented By: ABEL Diphenhydramine HCl (Diphenhydramine Hcl 25 Mg Capsule) 25 mg PO BEDTIME PRN PRN Reason: Sleep Last Admin: 07/29/23 22:37 Dose: 25 mg Documented By: ABEL Docusate Sodium (Docusate Sodium 100 Mg Capsule) 100 mg PO BID [facility] Last Admin: 07/29/23 20:53 Dose: 100 mg Documented By: ABEL Piperacillin Sod/Tazobactam (Sod 4.5 gm/ Sodium Chloride) 100 mls @ 200 mls/hr IV Q6H [facility] Last Infusion: 07/30/23 03:44 Dose: Infused Documented By: ABEL Levothyroxine Sodium (Levothyroxine Sodium 100 Mcg Tablet) 100 mcg PO DAILY@0600 [facility] Last Admin: 07/30/23 05:50 Dose: 100 mcg Documented By: ABEL Lidocaine (Lidocaine 4 % Patch Adh..Patch) 1 patch TRANSDERMA DAILY [facility]; Protocol Last Admin: 07/29/23 08:28 Dose: 1 patch Documented By: ZAYNAB Melatonin (Melatonin 3 Mg Tablet) 6 mg PO BEDTIME PRN PRN Reason: Insomnia Last Admin: 07/29/23 20:53 Dose: 6 mg Documented By: ABEL Multivitamins/Vitamin C (Multivitamin Tablet) 1 tab PO DAILY@1200 [facility] Last Admin: 07/29/23 10:41 Dose: 1 tab Documented By: ZAYNAB Omeprazole (Omeprazole 20 Mg Capsule.Dr) 20 mg PO DAILY@0630 [facility] Last Admin: 07/30/23 05:50 Dose: 20 mg Documented By: ABEL Ondansetron HCl (Ondansetron Hcl 4 Mg/2 Ml Vial) 4 mg IVPUSH Q8H PRN PRN Reason: Nausea and Vomiting Last Admin: 07/23/23 09:16 Dose: 4 mg Documented By: OLEGARIO Polyethylene Glycol (Polyethylene Glycol 3350 17 Gm Powd.Pack) 17 gm PO DAILY [facility] Last Admin: 07/29/23 08:30 Dose: Not Given Documented By: ZAYNAB Non-Admin Reason: Patient Refused Simethicone (Simethicone 80 Mg Tab.Chew) 80 mg PO QIDWMHS PRN PRN Reason: Gas Last Admin: 07/29/23 22:39 Dose: 80 mg Documented By: ABEL Sodium Chloride (0.9 % Sodium Chloride Flush 3 Ml Syringe) 3 ml IVFLUSH QSHIFT [facility] Last Admin: 07/29/23 22:02 Dose: 3 ml Documented By: ABEL Tramadol HCl (Tramadol Hcl 50 Mg Tablet) 50 mg PO Q6H PRN PRN Reason: Pain, Moderate(Pain Scale 4-6) Last Admin: 07/29/23 20:53 Dose: 50 mg Documented By: ABEL Vitamin D (Cholecalciferol (Vitamin D3) 10 Mcg Tablet) 10 mcg PO DAILY [facility] Last Admin: 07/29/23 08:28 Dose: 10 mcg Documented By: ZAYNAB Labs 07/30/23 05:42 07/30/23 05:42 Labs: Laboratory Results - last 24 hr 07/30/23 05:42 MCV 94.5 MCH 30.4 MCHC 32.1 RDW 13.2 Plt Count 185 MPV 9.9 Absolute Nucleated RBC 0.000 Nucleated RBC % (auto) 0.0 Anion Gap 12 Estim Creat Clear Calc 60.9 Estimated GFR > 60 Random Glucose 99 Calcium 9.2 Procedures Date of Service Date of Service: 08/01/23 Progress Note: A&P Assessment and plan (1) Diverticulitis of sigmoid colon: Status: Acute Assessment and Plan: c/o anxiety abd remains soft and benign no signficant pain or tenderness tolerating diet WBC normal in view of absence of signficant signs and symptoms, no surgical intervention for now antibiotics Time Spent With Patient Time: Total time managing care of this patient today ____ minutes. Quality Stroke Does the patient have a stroke diagnosis?: No VTE Prior VTE?: No VTE Risk Level:: Medical - moderate - high VTE Device Contraindication: N/A - Device Ordered VTE Drug Contraindication: Treatment Not Indicated
[2023-07-30 07:46] VITALS: BP 148/74; PULSE 79; RESP 16; TEMP 36.6; O2SAT 97
[2023-07-30] MEDS: Docusate Sodium 100 MG CAPSULE PO ×2 (08:23→19:41)
[2023-07-30] MEDS: Lidocaine 4 % Patch ADH..PATCH 1 PATCH TRANSDERMA (08:23)
[2023-07-30] MEDS: Cholecalciferol (Vitamin D3) 10 MCG TABLET PO (08:23)
[2023-07-30] MEDS: ALPRAZolam 0.25 MG TABLET PO ×2 (08:23→22:27)
[2023-07-30] MEDS: 0.9 % Sodium Chloride Flush 3 ML SYRINGE IVFLUSH ×2 (08:25→15:19)
[2023-07-30] MEDS: Calcitonin,Salmon,Synth Nasal 3.7 ML BOTTLE 1 SPRAY NOSTRILALT (08:28)
[2023-07-30] MEDS: traMADoL HCL 50 MG TABLET PO ×2 (08:28→15:18)
[2023-07-30] MEDS: Multivitamin TABLET 1 TAB PO (11:15)
--- NOTE | 2023-07-30 12:19 | HO.PM.IMPN ---
Subjective Subjective Date of Service: 07/30/23 Interval History: Being followed for L1 compression fracture and diverticulitis with abscess Patient feeling tired/exhausted did not sleep last night complaining of back pain, tolerating diet with no nausea, no vomiting , complaining of abdominal soreness but no pain to palpation, no fevers chills, no acute issues overnight. Review of Systems All other system reviewed and negative Physical Exam Vital Signs: Vital Signs: Last Vital Signs Temp 97.8 F 07/30/23 07:46 Pulse 79 07/30/23 07:46 Resp 16 07/30/23 07:46 BP 148/74 H 07/30/23 07:46 Pulse Ox 97 07/30/23 07:46 O2 Del Method Room Air 07/30/23 07:46 O2 Flow Rate 2 07/23/23 02:22 BMI result Body Mass Index 22.1 Const: Other: General awake alert x3, resting comfortably in no acute distress. Anicteric sclera Neck supple ,no JVD. CVS regular rate rhythm, Respiratory lungs clear to auscultation, no respiratory distress, no wheeze, no rhonchi. Gastrointestinal abdomen soft, no tenderness, bowel sounds audible,no guarding , no rigidity. Back positive tenderness lumbar spine, no paravertebral muscle spasm Extremities no edema. Neuro non focal Skin no rash Objective Data Active Medications Acetaminophen (Acetaminophen 325 Mg Tablet) 650 mg PO Q6H PRN PRN Reason: Pain, Mild (Pain Scale 1-3) Last Admin: 07/30/23 05:51 Dose: 650 mg Documented By: ABEL Acetaminophen (Acetaminophen Supp 650 Mg Supp.Rect) 650 mg OR Q6H PRN PRN Reason: Pain, Mild (Pain Scale 1-3) Alprazolam (Alprazolam 0.25 Mg Tablet) 0.25 mg PO TID PRN PRN Reason: Anxiety Last Admin: 07/30/23 08:23 Dose: 0.25 mg Documented By: ZAYNAB Atorvastatin Calcium (Atorvastatin Calcium 40 Mg Tablet) 40 mg PO BEDTIME [facility] Last Admin: 07/29/23 20:53 Dose: 40 mg Documented By: ABEL Calcitonin [place] (Calcitonin,[place],Synth Nasal 3.7 Ml Bottle) 1 spray NOSTRILALT DAILY [facility] Last Admin: 07/30/23 08:28 Dose: 1 spray Documented By: ZAYNAB Calcium Carbonate (Calcium Carbonate 500 Mg Tablet) 500 mg PO BID@1200,2100 [facility] Last Admin: 07/30/23 11:15 Dose: 500 mg Documented By: ZAYNAB Diphenhydramine HCl (Diphenhydramine Hcl 25 Mg Capsule) 25 mg PO BEDTIME PRN PRN Reason: Sleep Last Admin: 07/29/23 22:37 Dose: 25 mg Documented By: ABEL Docusate Sodium (Docusate Sodium 100 Mg Capsule) 100 mg PO BID [facility] Last Admin: 07/30/23 08:23 Dose: 100 mg Documented By: ZAYNAB Piperacillin Sod/Tazobactam (Sod 4.5 gm/ Sodium Chloride) 100 mls @ 200 mls/hr IV Q6H [facility] Last Infusion: 07/30/23 09:02 Dose: Infused Documented By: ZAYNAB Levothyroxine Sodium (Levothyroxine Sodium 100 Mcg Tablet) 100 mcg PO DAILY@0600 [facility] Last Admin: 07/30/23 05:50 Dose: 100 mcg Documented By: ABEL Lidocaine (Lidocaine 4 % Patch Adh..Patch) 1 patch TRANSDERMA DAILY [facility]; Protocol Last Admin: 07/30/23 08:23 Dose: 1 patch Documented By: ZAYNAB Melatonin (Melatonin 3 Mg Tablet) 6 mg PO BEDTIME PRN PRN Reason: Insomnia Last Admin: 07/29/23 20:53 Dose: 6 mg Documented By: ABEL Multivitamins/Vitamin C (Multivitamin Tablet) 1 tab PO DAILY@1200 [facility] Last Admin: 07/30/23 11:15 Dose: 1 tab Documented By: ZAYNAB Omeprazole (Omeprazole 20 Mg Capsule.) 20 mg PO DAILY@0630 [facility] Last Admin: 07/30/23 05:50 Dose: 20 mg Documented By: ABEL Ondansetron HCl (Ondansetron Hcl 4 Mg/2 Ml Vial) 4 mg IVPUSH Q8H PRN PRN Reason: Nausea and Vomiting Last Admin: 07/23/23 09:16 Dose: 4 mg Documented By: OLEGARIO Polyethylene Glycol (Polyethylene Glycol 3350 17 Gm Powd.Pack) 17 gm PO DAILY [facility] Last Admin: 07/30/23 08:37 Dose: Not Given Documented By: ZAYNAB Non-Admin Reason: Patient Refused Simethicone (Simethicone 80 Mg Tab.Chew) 80 mg PO QIDWMHS PRN PRN Reason: Gas Last Admin: 07/29/23 22:39 Dose: 80 mg Documented By: ABEL Sodium Chloride (0.9 % Sodium Chloride Flush 3 Ml Syringe) 3 ml IVFLUSH QSHIFT [facility] Last Admin: 07/30/23 08:25 Dose: 3 ml Documented By: ZAYNAB Tramadol HCl (Tramadol Hcl 50 Mg Tablet) 50 mg PO Q6H PRN PRN Reason: Pain, Moderate(Pain Scale 4-6) Last Admin: 07/30/23 08:28 Dose: 50 mg Documented By: ZAYNAB Vitamin D (Cholecalciferol (Vitamin D3) 10 Mcg Tablet) 10 mcg PO DAILY [facility] Last Admin: 07/30/23 08:23 Dose: 10 mcg Documented By: ZAYNAB Labs 07/30/23 05:42 07/30/23 05:42 Labs: Laboratory Results - last 24 hr 07/30/23 05:42 MCV 94.5 MCH 30.4 MCHC 32.1 RDW 13.2 Plt Count 185 MPV 9.9 Absolute Nucleated RBC 0.000 Nucleated RBC % (auto) 0.0 Anion Gap 12 Estim Creat Clear Calc 60.9 Estimated GFR > 60 Random Glucose 99 Calcium 9.2 Assessment and Plan (1) Diverticulitis of sigmoid colon: Status: Acute Plan Pt is an 83-year-old female with a PMH significant for?colon cancer s/p right hemicolectomy, HLD, GERD, hypothyroidism, diverticulitis, and mood disorder who presents to the ED for evaluation of worsening lower back pain. Pt will be admitted to the hospital for treatment and further evaluation of diverticulitis with abscess and L1 vertebral body compression fracture secondary to fall at home. Slowly improving 1. Acute Diverticulitis rectosigmoid with intramural abscess - on IV Zosyn day 01/19, will transition to by mouth Augmentin upon discharge, case discussed with Dr. Alford since patient remains hemodynamically stable with no fevers, and no pain no surgical intervention planned Will discharge home on antibiotics . Patient feels tired and exhausted not ready for discharge today. 2. Acute L1 compression fracture/mechanical fall continue Ultram/Tylenol and lidocaine patch, close outpatient follow-up with PCP Continue intranasal calcitonin 200 units once daily in alternating nostrils Seen by Physical therapy they recommend home PT 3.GERD -continue PPI 4. Acute hypokalemia repleted and normalized Full Code Pneumatic boots Reason for continued hospitalization: IV antibiotics/pain control. Quality Stroke Does the patient have a stroke diagnosis?: No VTE Prior VTE?: No VTE Risk Level:: Medical - moderate - high VTE Device Contraindication: N/A - Device Ordered VTE Drug Contraindication: Treatment Not Indicated
[2023-07-30] MEDS: Simethicone 80 MG TAB.CHEW PO ×2 (13:22→19:41)
[2023-07-30 15:56] VITALS: BP 160/80; PULSE 66; RESP 18; TEMP 36.2; O2SAT 97
[2023-07-30 19:20] VITALS: BP 150/70; PULSE 90; RESP 18; TEMP 36.5; O2SAT 96
[2023-07-30] MEDS: Atorvastatin Calcium 40 MG TABLET PO (19:41)
[2023-07-30] MEDS: Melatonin 3 MG TABLET 6 MG PO (22:27)
[2023-07-30] MEDS: diphenhydrAMINE HCL 25 MG CAPSULE PO (22:28)
[2023-07-31] MEDS: Simethicone 80 MG TAB.CHEW PO ×3 (02:16→12:07)
[2023-07-31] MEDS: Piperacillin Sodium/Tazobactam 4.5 GM in 0.9 % Sodium Chloride 100 ML IV (03:06)
[2023-07-31] MEDS: Acetaminophen 325 MG TABLET 650 MG PO ×2 (03:11→12:04)
[2023-07-31 04:00] VITALS: BP 162/74; PULSE 80; RESP 18; TEMP 36.6; O2SAT 95
[2023-07-31] MEDS: Omeprazole 20 MG CAPSULE.DR PO (05:46)
[2023-07-31] MEDS: Levothyroxine Sodium 100 MCG TABLET PO (05:46)
[2023-07-31 08:00] VITALS: BP 170/80; PULSE 94; RESP 18; TEMP 36.2; O2SAT 94
[2023-07-31] MEDS: 0.9 % Sodium Chloride Flush 3 ML SYRINGE IVFLUSH (08:01)
[2023-07-31] MEDS: ALPRAZolam 0.25 MG TABLET PO (08:01)
[2023-07-31] MEDS: Docusate Sodium 100 MG CAPSULE PO (08:01)
[2023-07-31] MEDS: Cholecalciferol (Vitamin D3) 10 MCG TABLET PO (08:01)
[2023-07-31] MEDS: traMADoL HCL 50 MG TABLET PO (08:01)
[2023-07-31] MEDS: Amoxicillin/Potassium Clav 875 MG TABLET PO (08:01)
[2023-07-31] MEDS: Lidocaine 4 % Patch ADH..PATCH 1 PATCH TRANSDERMA (08:02)
[2023-07-31] MEDS: Calcitonin,Salmon,Synth Nasal 3.7 ML BOTTLE 1 SPRAY NOSTRILALT (08:02)
--- NOTE | 2023-07-31 08:46 | P.PNGS_ITS ---
Subjective Subjective Date of Service: 07/31/23 Interval history: Denies abdominal pain Has BMs Tolerating diet Has low back pain Physical Exam 2 Vital Signs: Vital Signs: Last Vital Signs Temp 97.2 F 07/31/23 08:00 Pulse 94 07/31/23 08:00 Resp 18 07/31/23 08:00 BP 170/80 H 07/31/23 08:00 Pulse Ox 94 07/31/23 08:00 O2 Del Method Room Air 07/31/23 08:00 O2 Flow Rate 2 07/23/23 02:22 BMI result Body Mass Index 22.1 Const: General: comfortable, no acute distress and alert Resp: Effort & Inspection: normal respiratory effort Cardio: Rate: regular rate GI: Palpation (GI): Soft to palpation, not firm, nontender and no guarding Objective Data Active Medications Acetaminophen (Acetaminophen 325 Mg Tablet) 650 mg PO Q6H PRN PRN Reason: Pain, Mild (Pain Scale 1-3) Last Admin: 07/31/23 03:11 Dose: 650 mg Documented By: IVETTE Acetaminophen (Acetaminophen Supp 650 Mg Supp.Rect) 650 mg ND Q6H PRN PRN Reason: Pain, Mild (Pain Scale 1-3) Alprazolam (Alprazolam 0.25 Mg Tablet) 0.25 mg PO TID PRN PRN Reason: Anxiety Last Admin: 07/31/23 08:01 Dose: 0.25 mg Documented By: JAHAIRA Amoxicillin/Clavulanate Potassium (Amoxicillin/Potassium Clav 875 Mg Tablet) 875 mg PO Q12H [facility] Last Admin: 07/31/23 08:01 Dose: 875 mg Documented By: JAHAIRA Atorvastatin Calcium (Atorvastatin Calcium 40 Mg Tablet) 40 mg PO BEDTIME [facility] Last Admin: 07/30/23 19:41 Dose: 40 mg Documented By: RONALDO Calcitonin [place] (Calcitonin,[place],Synth Nasal 3.7 Ml Bottle) 1 spray NOSTRILALT DAILY [facility] Last Admin: 07/31/23 08:02 Dose: 1 spray Documented By: JAHAIRA Calcium Carbonate (Calcium Carbonate 500 Mg Tablet) 500 mg PO BID@1200,2100 [facility] Last Admin: 07/30/23 19:39 Dose: 500 mg Documented By: RONALDO Diphenhydramine HCl (Diphenhydramine Hcl 25 Mg Capsule) 25 mg PO BEDTIME PRN PRN Reason: Sleep Last Admin: 07/30/23 22:28 Dose: 25 mg Documented By: RONALDO Docusate Sodium (Docusate Sodium 100 Mg Capsule) 100 mg PO BID [facility] Last Admin: 07/31/23 08:01 Dose: 100 mg Documented By: JAHAIRA Levothyroxine Sodium (Levothyroxine Sodium 100 Mcg Tablet) 100 mcg PO DAILY@0600 [facility] Last Admin: 07/31/23 05:46 Dose: 100 mcg Documented By: IVETTE Lidocaine (Lidocaine 4 % Patch Adh..Patch) 1 patch TRANSDERMA DAILY [facility]; Protocol Last Admin: 07/31/23 08:02 Dose: 1 patch Documented By: JAHAIRA Melatonin (Melatonin 3 Mg Tablet) 6 mg PO BEDTIME PRN PRN Reason: Insomnia Last Admin: 07/30/23 22:27 Dose: 6 mg Documented By: RONALDO Multivitamins/Vitamin C (Multivitamin Tablet) 1 tab PO DAILY@1200 [facility] Last Admin: 07/30/23 11:15 Dose: 1 tab Documented By: ZAYNAB Omeprazole (Omeprazole 20 Mg Capsule.) 20 mg PO DAILY@0630 [facility] Last Admin: 07/31/23 05:46 Dose: 20 mg Documented By: IVETTE Ondansetron HCl (Ondansetron Hcl 4 Mg/2 Ml Vial) 4 mg IVPUSH Q8H PRN PRN Reason: Nausea and Vomiting Last Admin: 07/23/23 09:16 Dose: 4 mg Documented By: OLEGARIO Polyethylene Glycol (Polyethylene Glycol 3350 17 Gm Powd.Pack) 17 gm PO DAILY [facility] Last Admin: 07/31/23 08:03 Dose: Not Given Documented By: JAHAIRA Non-Admin Reason: Physician Approved Simethicone (Simethicone 80 Mg Tab.Chew) 80 mg PO QIDWMHS PRN PRN Reason: Gas Last Admin: 07/31/23 08:01 Dose: 80 mg Documented By: JAHAIRA Sodium Chloride (0.9 % Sodium Chloride Flush 3 Ml Syringe) 3 ml IVFLUSH QSHIFT [facility] Last Admin: 07/31/23 08:01 Dose: 3 ml Documented By: JAHAIRA Tramadol HCl (Tramadol Hcl 50 Mg Tablet) 50 mg PO Q6H PRN PRN Reason: Pain, Moderate(Pain Scale 4-6) Last Admin: 07/31/23 08:01 Dose: 50 mg Documented By: JAHAIRA Vitamin D (Cholecalciferol (Vitamin D3) 10 Mcg Tablet) 10 mcg PO DAILY [facility] Last Admin: 07/31/23 08:01 Dose: 10 mcg Documented By: JAHAIRA Labs 07/30/23 05:42 07/30/23 05:42 Procedures Date of Service Date of Service: 07/31/23 Progress Note: A&P Assessment and plan (1) Diverticulitis of sigmoid colon: Status: Acute Assessment and Plan: Had incidental finding question of intramural abscess in the sigmoid Has had no symptoms No leukocytosis or fever Tolerating diet and has had no problems with GI issues No surgical intervention at this time in view of absence of any symptoms Antibiotics for now Exam has always been benign and nontender Discussed with hospitalist service Time Spent With Patient Time: Total time managing care of this patient today ____ minutes. Quality Stroke Does the patient have a stroke diagnosis?: No VTE Prior VTE?: No VTE Risk Level:: Medical - moderate - high VTE Device Contraindication: N/A - Device Ordered VTE Drug Contraindication: Treatment Not Indicated
[2023-07-31 10:39] VITALS: BP 170/80; PULSE 94; O2SAT 94
--- NOTE | 2023-07-31 10:52 | MHC.CM.PN ---
Addendum entered by Jo Boyd 07/31/23 14:23: IMM DELIVERED Original Note: DP: PT HAS BEEN MEDICALLY CLEARED FOR DC HOME WITH NEW [facility] SERVICES. [facility] NOTIFIED OF TODAY'S DC. PT HAS OWN RIDE HOME
[2023-07-31] MEDS: Multivitamin TABLET 1 TAB PO (12:05)
--- NOTE | 2023-07-31 13:09 | PM.DS ---
DS: Providers Provider Date of Service: 07/31/23 Date of admission: 07/21/23 19:01 Primary care physician: Sandip Castro MD Consults: 07/21/23 19:06 Consult to General Surgery Routine Consulting Provider: [facility] General Surgeons Reason for consultation: diverticulitis with intramural abscess 07/21/23 19:53 Consult to Physician Routine Consulting Provider: Mitesh Camargo Reason for consultation: Kyphoplasty for L1 compression fracture DS: Diagnosis Discharge Diagnosis (1) Diverticulitis of sigmoid colon: Status: Acute DS: Summary Hospital Course Hospital Course: History of present illness: Date of Service: 07/21/23 Attending physician on admission: Colin Mims Chief Complaint: Lower back pain Pt is an 83-year-old female with a PMH significant for?colon cancer s/p right hemicolectomy, HLD, GERD, hypothyroidism, diverticulitis, and mood disorder who presents to the ED for evaluation of worsening lower back pain. Patient reports on Saturday morning at 04:[address] to the bathroom, landing on her lower back. Patient denies lightheadedness or dizziness, stating that in the darkness she became disoriented when she missed took the closet door for the bathroom door. Patient denies head strike. At that time patient was able to get up and walk to the bathroom and deferred coming to the emergency room for further evaluation. Patient had some lower back discomfort, but took Tylenol for the pain. Reports was able to go up and down stairs without much difficulty. Patient also notes around that time was having abdominal discomfort that she attributed to constipation. Had no bowel movement on either Saturday or . Took Dulcolax and eventually had bowel movement late Saturday night and another on early Saturday morning. Denies diarrhea. No blood in the stool. Reports this morning had worsening lower back pain and decided to come to the ED for further evaluation. No nausea, vomiting. Denies abdominal pain, describes it more as a ?discomfort?. Denies fever, chills. No chest pain/pressure, palpitations. Denies shortness of breath. No saddle anesthesia, numbness and tingling in extremities, or loss of bowel or bladder function. Of note, patient was recently admitted on 05/26-05/29 for evaluation of rectal bleeding thought to be likely diverticular versus hemorrhoidal. In the ED pt was afebrile with elevated heart rate of 100 and hypertensive up to 185/78. Labs were significant for leukocytosis 13.8, otherwise grossly unremarkable. No significant electrolyte abnormalities. Hepatic and renal function WNL. CT?of lumbar spine found moderate to severe acute compression fracture of the superior endplate of L1 vertebral body. CT of sacrum found old healed fracture of right iliac bone extending to the right sacroiliac joint but no acute fractures seen. CT of abdomen and pelvis found acute sigmoid diverticulitis with intramural abscess measuring 2.4 x 1.8 cm, abscess not amenable to percutaneous drainage. Pt was treated with lidocaine patch, diphenhydramine, ondansetron, morphine, ceftriaxone, and metronidazole. Pt will be admitted to the hospital for treatment and further evaluation of diverticulitis with abscess and L1 vertebral body compression fracture secondary to fall at home. Hospital course: 83-year-old female with a PMH significant for?colon cancer s/p right hemicolectomy, HLD, GERD, hypothyroidism, diverticulitis, and mood disorder who presents to the ED for evaluation of worsening lower back pain. Pt will be admitted to the hospital for treatment and further evaluation of diverticulitis with abscess and L1 vertebral body compression fracture secondary to fall at home. Acute Diverticulitis of rectosigmoid with a possible 2.3 cm intramural abscess patient admitted to medical floor treated with IV Zosyn and was followed closely by General surgery Dr. Alford patient had no fevers, complain of abdominal soreness otherwise no significant pain, WBC normalized, diet was gradually advanced, patient is tolerating diet with no nausea, vomiting ,no worsening pain, since patient remained hemodynamically stable she has been cleared by surgery for discharge with total 2 weeks of antibiotics. Acute L1 compression fracture treated with Ultram/Tylenol and lidocaine patch, and evaluated by Physical therapy they recommend home therapy, patient is recommended to continue current analgesics and to have close outpatient follow-up PCP. 3.GERD -continue PPI 4. Acute hypokalemia repleted and normalized. Time Attestation Discharge Coordination Time (in mins): 36 Quality: Safe Use of Opioids Does Pt have an Active Cancer Diagnosis on the Problem List?: No Quality: Stroke Does the patient have a stroke diagnosis?: No Physical Exam Vital Signs: Vital Signs: Last Vital Signs Temp 97.2 F 07/31/23 08:00 Pulse 94 07/31/23 10:39 Resp 18 07/31/23 08:00 BP 170/80 H 07/31/23 10:39 Pulse Ox 94 07/31/23 10:39 O2 Del Method Room Air 07/31/23 08:00 O2 Flow Rate 2 07/23/23 02:22 BMI result Body Mass Index 22.1 Const: Other: General awake alert x3, resting comfortably in no acute distress. Anicteric sclera Neck supple ,no JVD. CVS regular rate rhythm, Respiratory lungs clear to auscultation, no respiratory distress, no wheeze, no rhonchi. Gastrointestinal abdomen soft, no tenderness, bowel sounds audible,no guarding , no rigidity. Back positive tenderness lumbar spine, no paravertebral muscle spasm, no swelling Extremities no edema. Neuro non focal Skin no rash Discharge Plan Discharge Anticipated Discharge Date/Time: 07/31/23 09:58 Patient Disposition: Home Health Service Discharge Diagnosis: L1 compression fracture Acute diverticulitis with abscess Referrals: Zandra HERNANDEZ [Outside] - 3-5 Days ([facility]) Sandip Castro MD [Primary Care Provider] - Discharge Medications: New amoxicillin-pot clavulanate 875-125 mg Tablet 1 tab PO Q12H Qty: 8 0RF polyethylene glycol 3350 17 gram Powder In Packet 17 g PO DAILY Qty: 100 0RF tramadol 50 mg Tablet 50 mg PO Q6H PRN (Reason: Pain, Moderate(Pain Scale 4-6)) Qty: 40 0RF lidocaine [Lidocaine Pain Relief] 4 % Adhesive Patch,Medicated 1 patch transdermal DAILY Qty: 10 0RF Protocol: Apply to: Apply to: low back Continued atorvastatin 40 mg tablet 1 tab PO BEDTIME levothyroxine 100 mcg tablet 1 tab PO DAILY@0600 alprazolam 0.25 mg tablet 1 tab PO BID PRN (Reason: Anxiety) lorazepam 0.5 mg tablet 1 tab PO BEDTIME PRN (Reason: Anxiety) omeprazole 20 mg Capsule,Delayed Release(Dr/Ec) 20 mg PO DAILY@0630 diphenhydramine-acetaminophen [Tylenol PM Extra Strength] 25-500 mg Tablet 1 tab PO BEDTIME PRN (Reason: Sleep) PreserVision AREDS-2 250-90-40-1 mg Capsule 1 tab PO BID simethicone 80 mg Tablet,Chewable 80 mg PO DAILY PRN (Reason: GAS) Centrum Silver Women 8 mg iron-400 mcg-300 mcg Tablet 1 tab PO DAILY@1200 cholecalciferol (vitamin D3) 10 mcg (400 unit) Capsule 10 mcg PO DAILY docusate sodium 100 mg Capsule 100 mg PO DAILY witch atul-glycerin (hamamel) Pads, Medicated 1 pad TOPICAL QID PRN (Reason: Hemorrhoids) calcium carbonate [Calcium 600] 600 mg calcium (1,500 mg) Tablet 600 mg PO BID@1200,2100 Probiotic 3 billion cell Capsule 3,000 mmu cells PO DAILY@1200 Rx Instructions: administer with a meal Discharge Orders: Discharge Order (Routine); Ordered 07/31/23 Ordered By: Colin Mims Diet: Advance to usual diet Activity on Discharge: As tolerated Stand Alone Forms: Patient Portal Discharge page Print Language: Yakut Activity Restrictions/Additional Instructions: Take Augmentin 1 tablet twice daily for 4 more days/avoid fried foods and high-fiber diet for next 3-4 days You should get a follow-up colonoscopy 6 weeks after resolution diverticulitis. Tylenol/Ultram as well as lidocaine patch as needed for pain control of your back. Care Plan Goals: Return to emergency room with worsening symptoms. Health Concerns: Hypothyroidism Hyperlipidemia Plan of Treatment: Follow-up with primary care physician call for appointment Assessment: As above Patient Instructions: Diverticulitis (GEN), Diverticulitis Diet (GEN)
--- NOTE | 2023-08-01 11:27 | W.MHC.F2F ---
Service Date Service Date: 08/01/23 Encounter Date of encounter: 07/31/23 Reasons for Services Signs and symptoms assessed: Pain with ambulation with L1 compression fractures Reason for physical therapy: home safety and mobility Homebound: Leaving the home is medically contraindicated at this time without the asist of a device and/or another person due th the listed conditions above and below. Reason homebound: pain with ambulation and weakness related to hospital stay Certification: Based on the above findings, I certify that this patient is confined to the home and needs intermittent penitentiary care, physical therapy and/or speech therapy, or continues to need occupational therapy. The patient is under my care, and I have initiated the establishment of the plan of care. The patient will be followed by a physician who will periodically review the plan of care. Time Spent With Patient Time: Total time managing care of this patient today ____ minutes.
== END 2023-07-31 14:55 | disposition home health service (06) | DRG 392 ==
LOC: HO.ED 19:16 → HO.EDOVER 19:52 → HO.S3 07-22 07:22
PROVIDERS: Hospitalist; Radiology Vascular & Interventional Radiology; Student in an Organized Health Care Education/Training Program; Admitting Provider Student in an Organized Health Care Education/Training Program; Emergency Provider Emergency Medicine; PCP Internal Medicine; Visit Provider Hospitalist
DX: K57.20 Diverticulitis of large intestine with perforation and abscess without bleeding (principal); S32.018A Other fracture of first lumbar vertebra, initial encounter for closed fracture; E78.5 Hyperlipidemia, unspecified; E87.6 Hypokalemia; K21.9 Gastro-esophageal reflux disease without esophagitis; W19.XXXA Unspecified fall, initial encounter; E89.0 Postprocedural hypothyroidism; Z85.038 Personal history of other malignant neoplasm of large intestine; Z87.891 Personal history of nicotine dependence; Z79.890 Hormone replacement therapy; Z79.899 Other long term (current) drug therapy
CPT/HCPCS: 36415; 72132; 72192; 74177; 80048; 80053; 85007; 85025; 85027; 85610; 97116; 97162; 99285; J0696; J1836; J2270; J2405; J2543; J2765; J7120; Q9967

== ENCOUNTER → 2023-07-21 19:01 | Outpatient (BNV) | payer MEDICARE, SELFPAY | PROVIDERS: Admitting Provider Student in an Organized Health Care Education/Training Program; Emergency Provider Emergency Medicine; PCP Internal Medicine; Visit Provider Student in an Organized Health Care Education/Training Program | DX: K57.32 Diverticulitis of large intestine without perforation or abscess without bleeding (principal) | CPT/HCPCS: 99223; 99232; 99239; G0180 ==

== ENCOUNTER → 2023-07-21 19:01 | Outpatient (BNV) | payer MEDICARE, SELFPAY | PROVIDERS: Admitting Provider Student in an Organized Health Care Education/Training Program; Emergency Provider Emergency Medicine; PCP Internal Medicine; Visit Provider Surgery | DX: K57.32 Diverticulitis of large intestine without perforation or abscess without bleeding (principal) | CPT/HCPCS: 99223; 99232; 99499 ==

== ENCOUNTER 2023-08-13 09:40 | Emergency (ER) | payer MEDICARE, SELFPAY ==
--- NOTE | ~2023-08-13 | CT_ITS ---
EXAMINATION: CT ABDOMEN AND PELVIS WITHOUT CONTRAST CLINICAL INFORMATION: History of diverticular abscess. COMPARISON: Multiple prior studies. Most recent CT scan abdomen pelvis July 25, 2023. MRI abdomen June 04, 2016. TECHNIQUE: Multidetector volumetric imaging was performed from the superior aspect of the liver through the pubic symphysis. Sagittal and coronal reformatted images were obtained on the technologist's workstation. This CT examination was performed using dose optimization techniques as appropriate, variously including the following: *Automated exposure control *Adjustment of mA and/or kV according to patient size (this includes techniques or standardized protocols for targeted exams where dose is matched to indication/reason for exam; i.e. extremities or head) *Use of iterative reconstruction technique DLP: 365 mGy-cm FINDINGS: LUNG BASES: The visualized lung bases are unremarkable. LIVER, GALLBLADDER, AND BILIARY TREE: Multiple stable hypodense cysts in the liver. Some of these do demonstrate calcifications in the wall. No suspicious or new liver lesions. No intrahepatic bile duct dilatation. The gallbladder is unremarkable with no evidence of radiopaque gallstones, gallbladder wall thickening, or obvious pericholecystic inflammatory changes. PANCREAS: Pancreas is atrophic. There is chronic dilatation of pancreatic duct measuring 6 mm unchanged prior study. No inflammation or mass. SPLEEN: Unremarkable. ADRENAL GLANDS: Unremarkable. KIDNEYS AND URETERS: The kidneys are normal in size, shape, and attenuation. No hydronephrosis, hydroureter, or calculi seen. No perinephric stranding. Stable hyperdense cyst at the mid lower pole of left kidney measuring 2.5 cm. There is adjacent hyperdense cortical cyst measuring 1 cm that is stable. No follow-up imaging is recommended for simple renal cyst. BLADDER: Unremarkable. GASTROINTESTINAL TRACT: Severe diverticulosis of the sigmoid colon bowel wall thickening similar in severity to CAT scan the July 25, 2023. The previously noted 2.3 cm collection in the area of the sigmoid colon is a large diverticulum. This contains debris and air and oral contrast. There is no evidence of an abscess. No significant edema in the pericolonic fat to suggest acute inflammation/diverticulitis. There is no bowel obstruction. There is a moderate volume of stool in the colon. Status post partial right hemicolectomy. Ileocolic anastomosis at the hepatic flexure. The small bowel loops are unremarkable. The stomach is normal. There is no hiatal hernia. ABDOMINAL WALL: No significant hernia is appreciated. LYMPH NODES: Normal. VASCULAR: Vascular wall calcifications of aorta and iliac arteries. There is no aneurysm. PELVIC VISCERA: Uterus is absent. OSSEOUS STRUCTURES: Old healed fracture of the right symphysis pubis superior pubic ramus. Stable old compression fracture of L1 vertebrae. Multilevel degenerative spondylosis spine. CT/CT abdomen pelvis wo IV con IMPRESSION: 1. Severe diverticulosis of the sigmoid colon with bowel wall thickening similar to prior CAT scan July 25, 2023. No surrounding pericolonic edema to suggest acute inflammation. The previously noted 2.3 cm collection on CAT scan July 24, 2022 is a large diverticulum. 2. Status post partial right hemicolectomy. 3. Stable hepatic cysts. 4. Stable hyperdense cyst left kidney. No follow-up imaging recommended. 5. Status post hysterectomy. Fleischner guidelines were followed.
[2023-08-13 09:49] VITALS: BP 146/80; BP 173/84; PULSE 95; PULSE 96; RESP 18; TEMP 36.6; O2SAT 95; O2SAT 97; BMI 23.7
[2023-08-13 10:25] LABS: MANUAL DIFF FLAG NO
[2023-08-13 10:32] LABS: Appearance Urine Clear; Color Urine Yellow; Glucose Urine UA Negative (Negative); Leukocyte Esterase Urine Trace (Negative); Nitrite Urine Negative (Negative); UMIC TRIGGER UACC YES; Urine Blood Negative (Negative); Urine Ketones 15 mg/dL (Negative); Urine Protein Negative (Neg-Trace)
[2023-08-13 10:34] LABS: Bacteria Urine None Seen (None Seen); Hyaline Casts Urine 0-2 /LPF (0-2); RBC Urine 0-2 /HPF (0-2); WBC Urine 0-5 /HPF (0-5)
--- NOTE | 2023-08-13 10:34 | PC.NURSE ---
patient ambulated with steady gait and walker to the bathroom, urine sample collected and sent
[2023-08-13 10:40] LABS: Alanine Aminotransferase 12 U/L (0-31); Albumin Level 4.1 g/dL (3.5-5.0); Alkaline Phosphatase 88 U/L (39-117); Anion Gap 17 (12-20); Aspartate Amino Transferase 24 U/L (5-31); Bilirubin Total 0.7 mg/dL (0.0-1.0); Blood Urea Nitrogen 10 mg/dL (9-16); Calcium 9.9 mg/dL (8.4-10.2); Carbon Dioxide 26 mmol/L (22-29); Chloride 103 mmol/L (96-108); Creatinine Clr Calc Pharmacy 47.9; Estimated Glomerular Filt Rate > 60; Glucose Random 114 mg/dL (60-115); Potassium 3.6 mmol/L (3.3-5.1); Sodium 142 mmol/L (135-145); Total Protein 7.5 g/dL (6.5-8.0)
[2023-08-13 10:43] LABS: Basophils Percent Auto 0.2 % (0-2); Eosinophils Absolute Auto 0.2 X10*3/uL (0.0-0.4); Eosinophils Percent Auto 1.8 % (0-4); Hematocrit 44.9 % (37.0-47.0); Hemoglobin 14.6 g/dl (12.0-16.0); Imm Gran Abs Auto 0.13 X10*3/uL (0.00-0.03); Imm Gran Pct Auto 1.1 % (0.0-0.4); Lymphocytes Absolute Auto 1.9 X10*3/uL (1.2-4.9); Mean Corpuscular HGB Conc 32.5 g/dl (31.0-35.0); Mean Corpuscular Hemoglobin 30.8 pg (27.0-33.0); Mean Corpuscular Volume 94.7 fL (80.0-98.0); Mean Platelet Volume 10.7 fL (9.4-12.3); Monocytes Absolute Auto 0.8 X10*3/uL (0.1-1.2); Monocytes Percent Auto 6.8 % (2-11); Neutrophils Absolute Auto 8.3 x10*3/uL (2.0-8.3); Neutrophils Percent Auto 73.1 % (45-73); Red Blood Count 4.74 X10*6/uL (4.20-5.50); Red Cell Distribution Width 14.2 % (11.0-16.0); White Blood Count 11.3 X10*3/uL (4.8-10.8)
[2023-08-13 10:57] LABS: Platelet Count 97 X10*3/uL (160-400)
[2023-08-13 12:04] VITALS: BP 164/73; PULSE 107; RESP 18; TEMP 36.7; O2SAT 95
--- NOTE | 2023-08-13 12:11 | PC.NURSE ---
patient ambulated with steady gait tot he abthroom, with walker.
--- NOTE | 2023-08-13 13:17 | ED.ABDPAIN ---
HPI - Abdominal Pain General Chief Complaint: Abdominal Pain Stated Complaint: NIGHT SWEATS Time Seen by Provider: 08/13/23 13:06 Source: patient Mode of arrival: ambulatory Limitations: no limitations History of Present Illness HPI narrative: 83-year-old female came in for evaluation of generalized weakness, patient had recent admission for incidental diverticular abscess patient require course of 14 days of antibiotic received IV Zosyn while hospitalization, and was discharged home on Augmentin, patient has been having generalized weakness since then with intermittent intra-abdominal pressure, patient also is complaining of passing flatus rectally and orally that disturb her night sleep patient thinks that is the reason of feeling tired during the day. no CP, no SOB. Patient overall not feeling well is supposed to follow-up with Dr. Alford tomorrow but patient do not think she will make it to the appointment because generalized weakness patient called the ambulance for further evaluation. Patient has been eating and drinking less than her normal but no nausea or vomiting. Related Data Home Medications ?Medication ?Instructions ?Recorded ?Confirmed alprazolam 0.25 mg tablet 1 tab PO BID PRN Anxiety 09/08/20 07/22/23 atorvastatin 40 mg tablet 1 tab PO BEDTIME 09/08/20 07/22/23 diphenhydramine 25 1 tab PO BEDTIME PRN Sleep 09/08/20 07/22/23 mg-acetaminophen 500 mg tablet (Tylenol PM Extra Strength) levothyroxine 100 mcg tablet 1 tab PO DAILY@0600 09/08/20 07/22/23 lorazepam 0.5 mg tablet 1 tab PO BEDTIME PRN Anxiety 09/08/20 07/22/23 omeprazole 20 mg capsule,delayed 20 mg PO DAILY@0630 09/08/20 07/22/23 release simethicone 80 mg chewable tablet 80 mg PO DAILY PRN GAS 09/08/20 07/22/23 vit C 250 mg-vit E 90 mg-zinc 40 1 tab PO BID 09/08/20 07/22/23 mg-copper 1 od-xovglo-rqaflc capsule (PreserVision AREDS-2) cholecalciferol (vitamin D3) 10 10 mcg PO DAILY 11/11/21 07/22/23 mcg (400 unit) capsule docusate sodium 100 mg capsule 100 mg PO DAILY 11/11/21 07/22/23 uhmhoydj-lalo-lmjj 8 mg-folic 400 1 tab PO DAILY@1200 11/11/21 07/22/23 mcg-K 50 mcg-lutein 300 mcg tablet (Centrum Silver Women) calcium carbonate (Calcium 600) 600 mg PO BID@1200,2100 07/22/23 07/22/23 lactobacillus combination no.4 3 3,000 mmu cells PO DAILY@1200 07/22/23 07/22/23 billion cell capsule (Probiotic) witch atul-glycerin (hamamel) 1 pad topical QID PRN Hemorrhoids 07/22/23 07/22/23 topical pads Previous Rx's ?Medication ?Instructions ?Recorded amoxicillin 875 mg-potassium 1 tab PO Q12H #8 tabs 07/31/23 clavulanate 125 mg tablet lidocaine 4 % topical patch 1 patch transdermal DAILY #10 ea 07/31/23 (Lidocaine Pain Relief) polyethylene glycol 3350 17 gram 17 g PO DAILY #100 ea 07/31/23 oral powder packet tramadol 50 mg tablet 50 mg PO Q6H PRN Pain, 07/31/23 Moderate(Pain Scale 4-6) #40 tabs Allergies Allergy/AdvReac Type Severity Reaction Status Date / Time adhesive tape [ADHESIVE TAPE] Allergy Intermediate ITCH, Rash Verified 08/13/23 09:54 cefazolin [From KEFZOL] Allergy Intermediate RASH Verified 08/13/23 09:54 clindamycin [From CLEOCIN] Allergy Intermediate RASH Verified 08/13/23 09:54 gentamicin [From GARAMYCIN] Allergy Intermediate RASH Verified 08/13/23 09:54 atropine Allergy Unknown localized Verified 08/13/23 09:54 eye rxn cephalexin Allergy Unknown Rash Verified 08/13/23 09:54 tizanidine AdvReac Nausea Verified 08/13/23 09:54 tramadol AdvReac Nausea Verified 08/13/23 09:54 Doxycycline Monohydrate Allergy Intermediate Rash Uncoded 08/13/23 09:54 Review of Systems Review of Systems All other systems are reviewed and are negative Constitutional: Reports as per HPI and Reports no additional constitutional complaints Eyes: Reports as per HPI and Reports no additional eye complaints Reports system reviewed and no additional complaints, except as documented Cardiovascular: Reports as per HPI and Reports no additional cardiovascular complaints Respiratory: Reports as per HPI and Reports no additional respiratory complaints Gastrointestinal: Reports as per HPI and Reports no additional gastrointestinal complaints Genitourinary: Reports no additional female genitourinary complaints Musculoskeletal: Reports no additional musculoskeletal complaints Skin/Breast: Reports system reviewed and no additional complaints, except as docu Psychiatric: Reports no additional psychiatric complaints Endocrine: Reports no additional endocrine complaints Hematologic/Lymphatic: Reports no additional hematologic/lymphatic complaints Allergic/Immunologic: Reports no additional allergic/immunologic complaints Reports system reviewed and no additional complaints, except as documented and Reports Abnormal speech present [facility] Past Medical History Medical History Arthritis History of right bundle branch block (RBBB) Anxiety PONV (postoperative nausea and vomiting) GERD (gastroesophageal reflux disease) History of colon cancer Hypothyroidism Barretts esophagus Hyperlipidemia Surgical History History of foot surgery History of cataract extraction with lens replacement Hx of esophagogastroduodenoscopy History of total right knee replacement (TKR) History of breast biopsy History of hysterectomy History of thyroidectomy Hx of colonoscopy History of partial colectomy Social History Social History Household Members: Spouse Housing: House Are you a primary geriatric personal care aide to a significant other at home: No Do you presently have visiting nurse or other home services: No Alcohol intake: current Alcohol intake frequency: a few times a month Comment: pt refusing alarms, steady gait encouraged to call for help Patient Tobacco Use Status: Former Tobacco user Quit Date: 1966 Tobacco use type: Cigarette Use of substances other than those prescribed or required for medical reasons: No Advance Directives: Yes Advance Directives Information Provided: Yes Advance Directives on File: No Advance Directives Date on File: 07/22/23 Do you have a plan to hurt others: No Plan service: No Physical Exam ED Vital Signs: Vital Signs - 24 hr 08/13/23 09:49 08/13/23 12:04 08/13/23 14:25 Temperature 97.8 F 98.0 F 99.0 F Pulse Rate 96 107 H 104 H Respiratory Rate 18 18 18 Blood Pressure 173/84 H 164/73 H 153/85 H Pulse Oximetry 95 95 96 Oxygen Delivery Method Room Air Room Air Room Air 08/13/23 18:37 08/13/23 20:21 Temperature 100.0 F 98.1 F Pulse Rate 103 H 100 Respiratory Rate 20 17 Blood Pressure 162/75 H 161/71 H Pulse Oximetry 95 97 Oxygen Delivery Method Room Air Room Air BMI result Body Mass Index 23.7 Vital signs have been reviewed and appear to be correct. Blood pressure elevated. Heart rate normal. Respiratory rate normal. Temperature normal. Oxygen saturation normal. Appearance: Alert. Oriented X3. No acute distress. Head: Normal external exam. Normocephalic. Atraumatic. No Ledezma signs noted. No raccoon eyes noted Eyes: PERRLA. EOMI. Conjunctiva and sclera normal. Eyelids normal. ENT: TM's Normal. Pharynx normal. Uvula midline. Moist mucous membranes. No trismus noted. No drooling noted. No muffled voice noted. Neck: Normal inspection. Neck supple. FROM. No adenopathy. Thyroid Normal. No meningeal signs. No neck mass noted. CVS: Normal heart rate and rhythm. Heart sound normal. No murmurs noted. Pulses normal throughout. Respiratory: No respiratory distress. Painless inspiration. Breath sounds normal. No wheezes/rales/rhonchi noted. Chest nontender. No accessory muscle usage noted or decreased air movement noted. Abdomen: Soft and nontender. Bowel sounds normal in all 4 quadrants. No distention noted. No organomegaly noted. No visible injury noted. Back: No CVA tenderness. Full range of motion noted. Skin: Skin warm and dry. Normal skin color. Normal skin turgor. No rashes/lesions/lacerations noted. Extremities: No lower extremity edema. Extremities exhibit normal range of motion. Extremities nontender. Neuro: Oriented X 3. Cranial nerve exam: II-XII are grossly intact No motor deficit. No sensory deficit. Reflexes normal. Course Reevaluation(s) Reevaluation #1: patient still feeling generalized weakness, patient is ambulating in the emergency department going to the bathroom with bowel movement, able to tolerate p.o. intake, CT of the abdomen and pelvis with IV/ p.o. contrast showing no intra-abdominal abscess, diffuse diverticulosis without diverticulitis or other intra-abdominal pathology. Labs are unremarkable no sign of dehydration. Time: 18:36 Reevaluation #2: patient has no chest pain, no shortness of breath, received 1 L fluid patient still feel generalized weakness improvement of heart rate to 100BPM, patient was offered to go to rehab since there is no medical diagnosis to justify the admission patient declined going to rehab because she has a previous unfortunate experience with rehab however patient will be receiving home physical therapy and VNA. Time: 20:13 Medical Decision Making Differential Diagnosis Differential Diagnoses: The differential diagnosis associated with the presentation includes ( Intra-abdominal abscess, acute diverticulitis, perforated viscus, pancreatitis, acute cholecystitis, dehydration, electrolyte derangement, severe anemia.) Admission/Observation Consideration of admission/observation: Escalation of care including admission/observation considered Lab Data MDM Lab Attestation statement: I reviewed the patient's lab results. 08/13/23 10:16 08/13/23 10:16 Labs: Lab Results 08/13/23 Range/Units 10:16 WBC 11.3 H (4.8-10.8) X10*3/uL RBC 4.74 (4.20-5.50) X10*6/uL Hgb 14.6 (12.0-16.0) g/dl Hct 44.9 (37.0-47.0) % MCV 94.7 (80.0-98.0) fL MCH 30.8 (27.0-33.0) pg MCHC 32.5 (31.0-35.0) g/dl RDW 14.2 (11.0-16.0) % Plt Count 97 L D (160-400) X10*3/uL MPV 10.7 (9.4-12.3) fL Immature Gran % (Auto) 1.1 H (0.0-0.4) % Neut % (Auto) 73.1 H (45-73) % Lymph % (Auto) 17.0 L (20-40) % Noble % (Auto) 6.8 (2-11) % Eos % (Auto) 1.8 (0-4) % Baso % (Auto) 0.2 (0-2) % Lymph # (Auto) 1.9 (1.2-4.9) X10*3/uL Noble # (Auto) 0.8 (0.1-1.2) X10*3/uL Eos # (Auto) 0.2 (0.0-0.4) X10*3/uL Baso # (Auto) 0.0 (0.0-0.2) X10*3/uL Abs Immat Gran (auto) 0.13 H (0.00-0.03) X10*3/uL Absolute Neuts (auto) 8.3 (2.0-8.3) x10*3/uL Absolute Nucleated RBC 0.000 (0.0-0.012) X10*3/uL Nucleated RBC % (auto) 0.0 (0.0-0.2) /100WBC Sodium 142 (135-145) mmol/L Potassium 3.6 (3.3-5.1) mmol/L Chloride 103 (96-108) mmol/L Carbon Dioxide 26 (22-29) mmol/L Anion Gap 17 (12-20) BUN 10 (9-16) mg/dL Creatinine 0.74 (0.5-1.4) mg/dL Estim Creat Clear Calc 47.9 Estimated GFR > 60 Random Glucose 114 (60-115) mg/dL Calcium 9.9 D (8.4-10.2) mg/dL Total Bilirubin 0.7 (0.0-1.0) mg/dL AST 24 (5-31) U/L ALT 12 (0-31) U/L Alkaline Phosphatase 88 (39-117) U/L Total Protein 7.5 (6.5-8.0) g/dL Albumin 4.1 (3.5-5.0) g/dL Urine Color Yellow Urine Appearance Clear Urine pH 7.0 (5.0-9.0) Ur Specific [place] 1.010 (1.005-1.025) Urine Protein Negative (Neg-Trace) mg/dL Urine Glucose (UA) Negative (Negative) mg/dL Urine Ketones 15 (Negative) mg/dL Urine Blood Negative (Negative) Urine Nitrite Negative (Negative) Ur Leukocyte Esterase Trace H (Negative) Urine RBC 0-2 (0-2) /HPF Urine WBC 0-5 (0-5) /HPF Ur Squamous Epith Cells 3-5 (0-2) /HPF Urine Bacteria None Seen (None Seen) Hyaline Casts 0-2 (0-2) /LPF Independent Interpretation I performed an independent interpretation of an: CT Scan ( Abdomen pelvis:1. Severe diverticulosis of the sigmoid colon with bowel wall thickening similar to prior CAT scan July 25, 2023. No surrounding pericolonic edema to suggest acute inflammation. The previously noted 2.3 cm collection on CAT scan July 24, 2022 is a large diverticulum. 2. Status p) Radiology Impression Discussion of test interpretation with radiology: I have reviewed the radiologist's reading. Chronic Conditions Patient?s care impacted by: Other ( Diverticulosis) Medications Administered Discontinued Medications Generic Name Dose Route Start Last Admin Trade Name Freq PRN Reason Stop Dose Admin Diatrizoate Meglum/Diatrizoate Sod 30 ml 08/13/23 15:35 08/13/23 15:35 Diatrizoate Meglumine, Sodium 30 Ml Solution PO 08/13/23 15:36 30 ml ONCE ONE Administration Sodium Chloride 1,000 mls @ 999 mls/hr 08/13/23 18:37 08/13/23 18:57 Ns IV 08/13/23 19:37 999 mls/hr .Q1H1M ONE Administration Discharge Plan Discharge Clinical Impression: Abdominal pain Patient Disposition: Home, Self-Care Instructions: Diverticulosis (ED), Diverticulitis Diet (ED) Prescriptions: No Action atorvastatin 40 mg tablet 1 tab PO BEDTIME levothyroxine 100 mcg tablet 1 tab PO DAILY@0600 alprazolam 0.25 mg tablet 1 tab PO BID PRN (Reason: Anxiety) lorazepam 0.5 mg tablet 1 tab PO BEDTIME PRN (Reason: Anxiety) omeprazole 20 mg Capsule,Delayed Release(Dr/Ec) 20 mg PO DAILY@0630 diphenhydramine-acetaminophen [Tylenol PM Extra Strength] 25-500 mg Tablet 1 tab PO BEDTIME PRN (Reason: Sleep) PreserVision AREDS-2 250-90-40-1 mg Capsule 1 tab PO BID simethicone 80 mg Tablet,Chewable 80 mg PO DAILY PRN (Reason: GAS) Centrum Silver Women 8 mg iron-400 mcg-300 mcg Tablet 1 tab PO DAILY@1200 cholecalciferol (vitamin D3) 10 mcg (400 unit) Capsule 10 mcg PO DAILY docusate sodium 100 mg Capsule 100 mg PO DAILY witch atul-glycerin (hamamel) Pads, Medicated 1 pad TOPICAL QID PRN (Reason: Hemorrhoids) calcium carbonate [Calcium 600] 600 mg calcium (1,500 mg) Tablet 600 mg PO BID@1200,2100 Probiotic 3 billion cell Capsule 3,000 mmu cells PO DAILY@1200 Rx Instructions: administer with a meal amoxicillin-pot clavulanate 875-125 mg Tablet 1 tab PO Q12H Qty: 8 0RF polyethylene glycol 3350 17 gram Powder In Packet 17 g PO DAILY Qty: 100 0RF tramadol 50 mg Tablet 50 mg PO Q6H PRN (Reason: Pain, Moderate(Pain Scale 4-6)) Qty: 40 0RF lidocaine [Lidocaine Pain Relief] 4 % Adhesive Patch,Medicated 1 patch transdermal DAILY Qty: 10 0RF Protocol: Apply to: Apply to: low back Referrals: Sandip Castro MD [Primary Care Provider] - Sandip Alford MD [Physician] - Grayson Keene MD [Physician] - Print Language: Panamanian
[2023-08-13 14:25] VITALS: BP 153/85; PULSE 104; RESP 18; TEMP 37.2; O2SAT 96
[2023-08-13] MEDS: Diatrizoate Meglumine, Sodium 30 ML SOLUTION PO (15:35)
[2023-08-13 18:37] VITALS: BP 162/75; PULSE 103; RESP 20; TEMP 37.8; O2SAT 95
[2023-08-13] MEDS: 0.9 % Sodium Chloride 1,000 ML 999 ML IV (18:57)
[2023-08-13 20:21] VITALS: BP 161/71; PULSE 100; RESP 17; TEMP 36.7; O2SAT 97
[2023-08-13 20:39] VITALS: BP 161/71; PULSE 100; RESP 17; TEMP 36.7; O2SAT 97
== END 2023-08-13 20:40 | disposition home or self-care (01) ==
PROVIDERS: Emergency Provider Emergency Medicine; PCP Internal Medicine
DX: R10.9 Unspecified abdominal pain (principal)
CPT/HCPCS: 36415; 74176; 80053; 81001; 85025; 99284; 99285

== ENCOUNTER 2023-08-29 15:18 | Outpatient (AMB) | payer MEDICARE, SELFPAY ==
--- NOTE | 2023-08-29 15:22 | MHC.OFFVIS ---
Intake Visit Reasons: diverticulitis of sigmoid colon Intake Note: This patient presents for an assessment for diverticulitis of sigmoid colon. Pt c/o; reports will like to clarify which foods she can eat and if there is any diet she should be following. Air Twister Winder Required: No Accompanied by: Self / Same As Patient Allergies adhesive tape [ADHESIVE TAPE] Allergy (Intermediate, Verified 08/29/23 15:23) ITCH, Rash cefazolin [From KEFZOL] Allergy (Intermediate, Verified 08/29/23 15:23) RASH clindamycin [From CLEOCIN] Allergy (Intermediate, Verified 08/29/23 15:23) RASH gentamicin [From GARAMYCIN] Allergy (Intermediate, Verified 08/29/23 15:23) RASH atropine Allergy (Unknown, Verified 08/29/23 15:23) localized eye rxn cephalexin Allergy (Unknown, Verified 08/29/23 15:23) Rash tizanidine Adverse Reaction (Verified 08/29/23 15:23) Nausea tramadol Adverse Reaction (Verified 08/29/23 15:23) Nausea Doxycycline Monohydrate Allergy (Intermediate, Uncoded 08/29/23 15:23) Rash Medication List - Last Reconciled 08/29/23 by Sandip Alford MD alprazolam 1 tab PO BID PRN amoxicillin-pot clavulanate 875-125 mg 1 tab PO Q12H atorvastatin 1 tab PO BEDTIME calcium carbonate (Calcium 600) 600 mg PO BID@1200,2100 cholecalciferol (vitamin D3) 10 mcg PO DAILY diphenhydramine-acetaminophen 25-500 mg (Tylenol PM Extra Strength) 1 tab PO BEDTIME PRN docusate sodium 100 mg PO DAILY lactobacillus combination no.4 (Probiotic) 3,000 mmu cells PO DAILY@1200 levothyroxine 1 tab PO DAILY@0600 lidocaine 4% (Lidocaine Pain Relief) 1 patch See Protocol transdermal DAILY lorazepam 1 tab PO BEDTIME PRN qjqbsmmn-mxo-xrzi-FA-vit K-lut 8 mg iron-400 mcg-50 mcg (Centrum Silver Women) 1 tab PO DAILY@1200 omeprazole 20 mg PO DAILY@0630 polyethylene glycol 3350 17 grams PO DAILY simethicone 80 mg PO DAILY PRN tramadol 50 mg PO Q6H PRN vit C,H-Ox-bjmyr-lutein-zeaxan 250-90-40-1 mg (PreserVision AREDS-2) 1 tab PO BID witch atul-glycerin (hamamel) 1 pad topical QID PRN HPI HPI diverticulitis of sigmoid colon: Details: 83-year-old female here for follow-up for diverticulitis. She was admitted to the hospital for acute diverticulitis last July 21 to July 30. At that time, her CT scan showed a question of an intramural abscess. Follow-up CT scan showed persistence of this cavity but clinically, she was much improved and did not have any pain, fever or leukocytosis so she was discharged with the plan on repeating her CT scan A CT scan was repeated last 08/13/2023 and this showed resolution of inflammatory changes. Furthermore, the ?abscess? that was seen was actually a large diverticulum. She continues to do well and denies significant complaints. She has good oral intake and has good bowel movements. [facility] Medical History Arthritis History of right bundle branch block (RBBB) Anxiety PONV (postoperative nausea and vomiting) GERD (gastroesophageal reflux disease) History of colon cancer Hypothyroidism Barretts esophagus Hyperlipidemia Surgical History History of foot surgery History of cataract extraction with lens replacement Hx of esophagogastroduodenoscopy History of total right knee replacement (TKR) History of breast biopsy History of hysterectomy History of thyroidectomy Hx of colonoscopy History of partial colectomy Social History Household Members: Spouse Housing: House Are you a primary farm or ranch animal caretaker to a significant other at home: No Do you presently have visiting nurse or other home services: No Alcohol intake: current Alcohol intake frequency: a few times a month Comment: pt refusing alarms, steady gait encouraged to call for help Patient Tobacco Use Status: Former Tobacco user Quit Date: 1966 Tobacco use type: Cigarette Advance Directives Date on File: 07/22/23 service: No Review of Systems Const Denies chills and Denies fever(s) Card Denies chest pain, Denies dyspnea and Denies dyspnea on exertion Resp Denies cough, Denies dyspnea and Denies dyspnea on exertion GI Denies hematochezia and Denies change in bowel habits Denies hematuria Musc Reports abnormal gait, Reports back pain, Reports arthralgias and Reports limited range of motion Neuro Reports abnormal gait, Denies focal weakness and Denies convulsions Psych Denies depression and Denies mood swings Physical Exam Const Other: Using a walker, looks well General: comfortable and no acute distress Orientation/consciousness: patient oriented x3 Neck Neck: Yes no lymphadenopathy Resp Auscultation: clear to auscultation bilaterally Cardio Rhythm: regular rhythm GI Palpation (GI): Soft to palpation, nontender and no guarding Neuro General: patient oriented x3 Assessment & Plan Assessment & Plan (1) Diverticulitis of sigmoid colon: Code(s): K57.32 - Diverticulitis of large intestine without perforation or abscess without bleeding Category: Medical Plan: She is asymptomatic and Ifollow-up CT scan done in the ER last August 12 shows resolution of inflammatory changes. Furthermore, the intramural abscess cavity was actually a large diverticulum. She actually seems to be doing very well. Her main complaint is that she has gas on the upper abdomen when she is asleep that wakes her up at night along with some reflux symptoms. I instructed her to sleep in a reclining position for now until she sees Dr. Keene who has seen her before. I told her to try to increase her Prilosec to b.i.d. for now. She can follow up with me on a p.r.n. basis. Coding Level of Care Code Est Pt Level 3 (45109) Diagnoses Diverticulitis of sigmoid colon K57.32
== END 2023-08-29 15:50 | disposition home or self-care (01) ==
PROVIDERS: PCP Internal Medicine; Visit Provider Surgery
DX: K57.32 Diverticulitis of large intestine without perforation or abscess without bleeding (principal)
CPT/HCPCS: 99213

== ENCOUNTER → 2023-08-29 15:18 | Outpatient (BNVA) | payer MEDICARE, SELFPAY | PROVIDERS: PCP Internal Medicine; Visit Provider Surgery | DX: K57.32 Diverticulitis of large intestine without perforation or abscess without bleeding (principal) | CPT/HCPCS: 99212 ==

== ENCOUNTER 2024-03-10 09:50 | Outpatient (REF) | payer MEDICARE, SELFPAY ==
[2024-03-10 10:53] LABS: Hematocrit 44.4 % (37.0-47.0); Hemoglobin 13.9 g/dl (12.0-16.0); Mean Corpuscular HGB Conc 31.3 g/dl (31.0-35.0); Mean Corpuscular Hemoglobin 29.7 pg (27.0-33.0); Mean Corpuscular Volume 94.9 fL (80.0-98.0); Mean Platelet Volume 10.9 fL (9.4-12.3); Red Blood Count 4.68 X10*6/uL (4.20-5.50); Red Cell Distribution Width 13.6 % (11.0-16.0); White Blood Count 15.2 X10*3/uL (4.8-10.8)
[2024-03-10 10:57] LABS: Platelet Count 91 X10*3/uL (160-400)
[2024-03-10 11:38] LABS: Alanine Aminotransferase 8 U/L (0-31); Alkaline Phosphatase 58 U/L (39-117); Anion Gap 13 (12-20); Aspartate Amino Transferase 32 U/L (5-31); Bilirubin Total 0.6 mg/dL (0.0-1.0); Blood Urea Nitrogen 17 mg/dL (9-16); Calcium 9.8 mg/dL (8.4-10.2); Carbon Dioxide 30 mmol/L (22-29); Chloride 101 mmol/L (96-108); Cholesterol 132 mg/dL (<200); Estimated Glomerular Filt Rate > 60; Glucose Fasting 118 mg/dL (60-99); HDL Cholesterol 50 mg/dL (>40); LDL Cholesterol Calculated 63 mg/dL (<100); Sodium 140 mmol/L (135-145); Total Protein 7.1 g/dL (6.5-8.0); Triglycerides 99 mg/dL (<150)
[2024-03-10 11:50] LABS: Atypical Lymph Absolute Manual 0.3 x10*3/uL; Atypical Lymphs Percent Manual 2 % (0-6); Band Neutrophils Percent 2 % (3-5); Basophils Abs Manual 0.2 X10*3/uL (0.0-0.2); Basophils Percent Manual 1 % (0-2); Lymphocytes Absolute Manual 2.7 X10*3/uL (1.2-4.9); Lymphocytes Percent Manual 18 % (20-40); Monocytes Absolute Manual 0.9 X10*3/uL (0.1-1.2); Monocytes Percent Manual 6 % (2-11); Neutrophils Absolute Manual 11.1 X10*3/uL (2.0-8.3); Neutrophils Percent Manual 71 % (45-73)
[2024-03-10 11:53] LABS: Large Platelet PRESENT; Platelet Estimate DECREASED (NORMAL); Platelet Morphology Comment NOTED; RBC Morphology NORMAL
[2024-03-10 12:00] LABS: Free T4 (Free Thyroxine) 1.23 ng/dL (0.71-1.85); Thyroid Stimulating Hormone 4.42 uIU/mL (0.32-4.0); Vitamin D 25-OH Total 54.1 ng/mL (>30)
== END 2024-03-10 09:51 | disposition home or self-care (01) ==
LOC: HO.LAB 09:50
PROVIDERS: PCP Internal Medicine; Visit Provider Internal Medicine
DX: E78.00 Pure hypercholesterolemia, unspecified (principal); E03.9 Hypothyroidism, unspecified; K21.9 Gastro-esophageal reflux disease without esophagitis; M85.80 Other specified disorders of bone density and structure, unspecified site
CPT/HCPCS: 36415; 80053; 80061; 82306; 84439; 84443; 85007; 85027

== ENCOUNTER 2024-04-09 12:29 | Outpatient (REF) | payer MEDICARE, SELFPAY ==
--- NOTE | ~2024-04-09 | XR_ITS ---
EXAMINATION: XR LUMBOSACRAL SPINE CLINICAL INFORMATION: LOW BACK PAIN COMPARISON: CT lumbar spine 07/21/2023 TECHNIQUE: Three views of the lumbosacral spine. FINDINGS: There is vertebral planta L1 vertebra with progression of previously known fracture from CT exam 07/21/2023. Rest of the vertebral heights and alignment is normal. There is loss of L2-3 disc height with ventral spondylosis. There is a disc heights are normal. The SI joints are symmetrical. The facet joints are normal. The paravertebral soft tissues are normal. XR/XR lumbar spine 2-3V IMPRESSION: Vertebra planta L1 vertebra. There is progression of previously noted L1 compression fracture from CT lumbar spine exam 07/21/2023. There are no new fractures seen. Mild degenerative disc changes with ventral spondylosis L2-3 disc level. It is unchanged to previous CT exam. Electronically signed by: Mitesh Camargo MD 04/09/2024 01:03 PM [facility]
--- OUTSIDE RECORDS SUMMARY | 2024-04-09 13:31 | XMS_ITS | Patient Health Record ---
Author Organization Grayson Paredes III, MD Address [address] [facility] [place] [address] Care Team Providers Care Underwriting Service Representative Name Role Phone Sandip Castro MD Primary Care Provider Grayson Martin Unavailable [phone] Allergies Allergen (clinical drug ingredient) Drug/Non Drug Allergy documented on EMR Reaction Allergy Type Onset Date Status doxycycline Doxycycline Unknown Drug Allergy Act kellen clindamycin Cleocin Unknown Drug Allergy Activ e cephalexin Cephalexin Unknown Drug Allergy Activ e cefazolin Cefazolin Sodium-Dextrose Unknown Drug Allergy Active atropine Atropine Sulfate Unknown Drug Allergy Active Surgical tape (uncoded) Unknown Allergy Active Reason For Referral No Information Medications Medication SIG (Take, Route, Frequency, Duration) Notes [...] 1 tablet Orally e a day Active Social History Tobacco Use: Social History Observation Description Date Details (start date - stop date) Former Smoker NA - NA Tobacco Use/Smoking Question Answer Notes Patient is [...] Never (0 point) Points 1 Interpretation Negative Problems Problem Type SNOMED Code ICD Code Onset Dates Problem Status W/U Status Risk Notes Problem 0112572 Former smoker (Z87.891) Active confirmed She is highly motivated not to smoke. She has a plan to prevent relapse in times of stress or illness. Problem 417108152 Overweight (BMI 25.0-29.9) (E66.3) Active confirmed Her weight is 1 50 on her scale at home today. This gives a body mass index 25.7. I recommended stabilizing her weight at this level in pursuing good nutrition. Problem 59107655 Hypothyroidism (E03.9) Active confirmed She was advised to continue her thyroid medication. She appeared euthyroid today. Problem 508814004 GERD (gastroesophagea l reflux disease) (K21.9) Active confirmed Her reflexe s well controlled with setm-eei-iyxbijo medications. Problem 60796929 Hypokalemia (E87.6) Active confirmed Problem 202450358 Dyslipidemia (E78.5) Active confirmed Her fasting lip id profile shows good control of her lipids and no change in her regimen was made today. Problem 00712136 Internal hemorrhoids (K64.8) Active confirmed Problem 21986982 Constipation (K59.00) Active confirmed This is an intermittent problem, not present today, which is well controlled with qrov-kaf-zsuhadi medications. No hematochezia has been noted. Problem 306758921 Adenocarcinoma of colon (C18.9) Active confirmed There is no sign of recurrent disease or new primary. Surveillance will continue. She will proceed to see the vacuum metalizer operator to discuss colonoscopy. Problem 15683553 Ischemic colitis (K55.9) Active confirmed She presented initially with pancolitis and diarrhea. This has resolved. She has had no hematochezia or protracted diarrhea or watery stool. No change in her regimen was necessary today. 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 confirmed Vital Signs Heart Rate 81 /min 04/29/2023 Temperature 97.5 degrees Fahrenheit 04/29/2023 Blood pressure diastolic 76 mm Hg 04/29/2023 Height 64 in 04/29/2023 Blood pressure systolic 140 mm Hg 04/29/2023 Weight 145 lbs 04/29/2023 BMI 24.89 kg/m2 04/29/2023 Encounters Encounter Location Date Provider Diagnosis Grayson Paredes III, MD [address] [place] [address] [place] [address] 04/29/2023 Grayson Paredes Adenocarcinoma of co bella C18.9 ; Former smoker Z87.891 ; Constipation K59.00 ; Hypothyroidism E03.9 and Dyslipidemia E78.5 Assessments Encounter Date Diagnosis (ICD Code) Assessment Notes Treatment Notes Treatment Clinical Notes 04/29/2023 Former smoker (ICD-10 - Z87.891) She is highly motivated not to smoke. She has a plan to prevent relapse in times of stress or illness. 04/29/2023 Adenocarcinoma of colon (ICD-10 - C18.9) There is no sign of recurrent disease or new primary. Surveillance will continue. She will proceed to see the vacuum metalizer operator to discuss colonoscopy. 04/29/2023 Constipation (ICD-10 - K59.00) This is an intermittent problem, not present today, which is well controlled with hbhw-lfk-ydxbiyn medications. No hematochezia has been noted. 04/29/2023 Hypothyroidism (ICD-10 - E03.9) She was advised to continue her thyroid medication. She appeared euthyroid today. 04/29/2023 Dyslipidemia (ICD-10 - E78.5) Her fasting lipid profile shows good control of her lipids and no change in her regimen was made today. Plan Of Treatment Pending Test Test Name Order Date PROFILE, RANDOM (COMPREHENSIVE METABOLIC ) 03/17/2018 PROFILE, RANDOM (COMPREHENSIVE METABOLIC ) 01/21/2019 PROFILE, RANDOM (COMPREHENSIVE METABOLIC ) 05/01/2017 PROFILE, RANDOM (COMPREHENSIVE METABOLIC ) 11/11/2017 PROFILE, RANDOM (COMPREHENSIVE METABOLIC ) 07/22/2018 PROFILE, RANDOM (COMPREHENSIVE METABOLIC ) 07/22/2019 PROFILE, RANDOM (COMPREHENSIVE METABOLIC ) 07/30/2017 CEA 07/22/2018 CEA 07/22/2019 CEA 07/30/2017 CEA 03/17/2018 CEA 01/21/2019 CEA 05/01/2017 CEA 11/11/2017 CBC w DIFF 07/22/2018 CBC w DIFF 07/22/2019 CBC w DIFF 07/30/2017 CBC w DIFF 03/17/2018 CBC w DIFF 01/21/2019 CBC w DIFF 05/01/2017 CBC w DIFF 11/11/2017 SED RATE (ESR) 11/11/2017 MAMMOGRAM DIGITAL BILATERAL SCREEN 01/24 Next Appt Details Provider Name:Grayson Paredes, 04/29/2024 02:15:00 PM, [address] [place] [address] , [address], [place], [address], Insurance Providers Payer Name Payer Address Payer Phone Subscriber Number Group Number Insured Name Patient Relationship to Insured Coverage Start Date Coverage End Date MEDICARE NGS [address] [place] [address] [id number] [facility] Radha gonzales Self - patient is the insured [facility] [address] [place], [place] [phone] [id number] [facility] Radha gonzales Self - patient is the insured Medical (General) History Medical History History ICD Code Ischemic colitis K55.9 Hypothyroidism E03.9 Dyslipidemia E78.5 GERD (gastroesophageal reflux disease) K 21.9 Internal hemorrhoids K64.8 adenocarcinoma of the hepatic flexure of the colon, Dr. Keene, Dr. Alford colonic polyps, tubular adenoma osteoarthritis right bundle branch block every 201 7 Surgical History Surgery Date(Month/Year) Knee replacement 2016 Colonoscopy showed a tubular adenoma in the transverse colon 2011 basal cell carcinoma on back excised [address] Chwe 2018
--- OUTSIDE RECORDS SUMMARY | 2024-04-09 13:31 | XMS_ITS ---
Author Organization [facility] Address [address] [place] [address] Care Team Providers Care Grade Recorder Name Role Phone Sandip Castro MD Primary Care Provider Grayson Canas Unavailable [phone] REASON FOR VISIT LOOKING FOR SOON APPT Encounters Encounter Location Date Provider Diagnosis [facility] [address] [place] [address] 08/29/2023 Grayson Keene PLAN OF TREATMENT No Information
--- OUTSIDE RECORDS SUMMARY | 2024-04-09 13:31 | XMS_ITS ---
Author Organization Grayson Paredes III, MD Address [address] [facility] [place] [address] Care Team Providers Care Sonoscope Operator Name Role Phone Sandip Castro MD Primary Care Provider Grayson Martin Unavailable [phone] Allergies Allergen (clinical drug ingredient) Drug/Non Drug Allergy documented on EMR Reaction Allergy Type Onset Date Status doxycycline Doxycycline Unknown Drug Allergy Act kellen clindamycin Cleocin Unknown Drug Allergy Activ e cephalexin Cephalexin Unknown Drug Allergy Activ e cefazolin Cefazolin Sodium-Dextrose Unknown Drug Allergy Active atropine Atropine Sulfate Unknown Drug Allergy Active Surgical tape (uncoded) Unknown Allergy Active REASON FOR VISIT Colon cancer, Overweight, Hypothyroidism Medications Medication SIG (Take, Route, Frequency, Duration) Notes Start Date End Date Status Vitamin B Complex - as directed Orally Active Vitamin D3 25 MCG (1000 UT) 1 tablet Ora lly Once a day Active Gas Relief 80 MG 1 tablet after meals and at bedtime as needed Orally Four times a day Active Omeprazole Magnesium 20 MG 1 tablet 30 m inutes before morning meal Orally Once a day Active Probiotic - as directed Orally Active Tylenol 325 MG 2 tablets as needed Orally every 6 hrs Active Levothyroxine Sodium 100 MCG 1 tablet on an empty stomach in the morning Orally Saturday and Saturday Active Centrum Silver Ultra Womens - Orally Active LORazepam 0.5 MG (Schedule IV Drug) T JOSÉ ANTONIO 1 TABLET AT BEDTIME NEEDED Oral Active ALPRAZolam 0.25 MG 1 tablet Orally Twic e a day Active Atorvastatin Calcium 40 MG 1 tablet Oral ly Once a day Active Social History Tobacco Use: Social History Observation Description Date Details (start date - stop date) Former Smoker NA - NA Tobacco Use/Smoking Question Answer Notes Patient is a former smoker How long has it been since you last smoked? > 10 years Additional Findings: Tobacco Non-User Ex-cigaret te smoker Vital Signs Temperature 97.5 degrees Fahrenheit 04/29/19 24 Blood pressure systolic 140 mm Hg 04/29/19 24 Blood pressure diastolic 76 mm Hg 024 Heart Rate 81 /min 04/29/2023 Height 64 in 04/29/2023 Weight 145 lbs 04/29/2023 BMI 24.89 kg/m2 04/29/2023 Encounters Encounter Location Date Provider Diagnosis Grayson Paredes III, MD [address] [place] [address] [address] [place], [place] [address] 04/29/2023 Grayson Paredes Adenocarcinoma of co bella C18.9 ; Former smoker Z87.891 ; Constipation K59.00 ; Hypothyroidism E03.9 and Dyslipidemia E78.5 Assessments Encounter Date Diagnosis (ICD Code) Assessment Notes Treatment Notes Treatment Clinical Notes 04/29/2023 Adenocarcinoma of colon (ICD-10 - C18.9) There is no sign of recurrent disease or new primary. Surveillance will continue. She will proceed to see the university president to discuss colonoscopy. 04/29/2023 Former smoker (ICD-10 - Z87.891) She is highly motivated not to smoke. She has a plan to prevent relapse in times of stress or illness. 04/29/2023 Constipation (ICD-10 - K59.00) This is an intermittent problem, not present today, which is well controlled with xusz-hkh-phltsks medications. No hematochezia has been noted. 04/29/2023 Hypothyroidism (ICD-10 - E03.9) She was advised to continue her thyroid medication. She appeared euthyroid today. 04/29/2023 Dyslipidemia (ICD-10 - E78.5) Her fasting lipid profile shows good control of her lipids and no change in her regimen was made today. Plan Of Treatment Medication Medication Name Sig Start Date Stop Date Notes Vitamin B Complex - as directed Orally Vitamin D3 25 MCG (1000 UT) 1 tablet Orally Once a day Gas Relief 80 MG 1 tablet after meals and at bedtime as needed Orally Four times a day Omeprazole Magnesium 20 MG 1 tablet 30 m inutes before morning meal Orally Once a day Probiotic - as directed Orally Tylenol 325 MG 2 tablets as needed Orally every 6 hrs Levothyroxine Sodium 100 MCG 1 tablet on an empty stomach in the morning Orally Saturday and Saturday [facility] Ultra Womens - Orally LORazepam 0.5 MG (Schedule IV Drug) T JOSÉ ANTONIO 1 TABLET AT BEDTIME NEEDED Oral ALPRAZolam 0.25 MG 1 tablet Orally Twice a day Atorvastatin Calcium 40 MG 1 tablet Orally Once a day Next Appt Details Follow Up: 1 Year, Reason: O V Provider Name:Grayson Marshallrne, 04/29/2024 02:15:00 PM, [address] [place] [address] [address] [place], [place], [address], Progress Notes * Radha CARRDOB: (83 yo F)Acc No.[id number]:04/29/2023 Progress Notes Patient:?Radha Carr Provider:?Grayson Paredes MD :1940???Age:83 Y???Sex:Female D ate:04/29/2023 Address:[address] [place] [address] [place], [id number] Pcp:Sandip Castro MD Subjective: * Chief Complaints: * ???Colon cancerOverweightHyp othyroidism * HPI: ???COVID-19 Screening:?Questions?Have you experienced fever, chills, cough, sore throat, shortness of breath, difficulty breathing, muscle aches, loss of taste or smell??No ?Have you been exposed to the virus within the last 10 days??No ?Have you travelled internationally in the last 10 days??No ?Have you been exposed to COVID-19 in the past??Yes ? She has a history of resected colon cancer that has been durable remission. She is up-to-date with colonoscopies. She has had no abdominal pain, hematochezia or weight loss. She is trying to lose weight. She is no longer smoking. She is occasionally constipated. She has some esophageal reflux which is controlled with medications. She is compliant with all of her medication. * ROS:?General/Constitutional:?pain?only normal aches and pains.?Chills?denies.?Fatigue?admits.?Fever?denies.?ENT:?Decreased hearing?mild.?Respiratory:?Cough?denies.?Cardiovascular:?Chest pain with exertion?denies.?Dyspnea on exertion?denies.?Shortness of breath?denies.?Gastrointestinal:?Constipation?occasional.?Decreased appetite?denies.?Diarrhea?denies.?Heartburn?occasional.?Nausea?denies.?Rectal bleeding?denies.?Vomiting?denies.?Hematology:?bruising?denies.?petechiae?denies.?Swollen glands?none have been noted.?Genitourinary:?Frequent urination?denies.?Musculoskeletal:?Muscle aches?denies.?Painful joints?denies.?Sciatica?denies.?Weakness?denies.?Skin:?Itching?denies.?Rash?denies.?Skin lesion(s)?denies.?Neurologic:?Difficulty speaking?denies.?Dizziness?denies.?Headache?denies.?Low back pain?denies.?Psychiatric:?Depressed mood?denies.? * Medical History:? * Surgical History:?Knee repla cement 2016Colonoscopy showed a tubular adenoma in the transverse colon 2012basal cell carcinoma on back excised 2017right cataract surgery Dr. Chew 2018 * Hospitalization/Major Diagno stic Procedure:?No Hospitalization History. * Family History:?Father: dece ased 71 yrs, from a stroke.?Mother: 80 yrs, diagnosed with DM, CVD.?1 brother(s) . 1 daughter(s) - healthy. .? Her brother of a stroke. A niece, Rusty, had breast cancer at the age of 45. There is no family history of ovarian cancer pancreatic cancer colon cancer. A cousin had a brain tumor. She is not aware of any family history of mental illness or substance use disorder or addiction. She is not aware of any family history of mental illness or substance use disorder. * Social History:?Tobacco Use:?Tobacco Use/Smoking?Patient is a?former smoker ?How long has it been since you last smoked??> 10 years ?Additional Findings: Tobacco Non-User?Ex-cigarette smoker ???She was born in [place]. He has been to Jose for 50 years. They have a daughter Brittny. 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 She has had no toxic exposures. * Medications:?TakingVitamin B Complex - Capsule as directed Orally Gas Relief 80 MG Tablet Chewable 1 tablet after meals and at bedtime as needed Orally Four times a dayVitamin D3 25 MCG (1000 UT) Tablet 1 tablet Orally Once a dayProbiotic - Tablet Delayed Release as directed Orally Omeprazole Magnesium 20 MG Tablet Delayed Release 1 tablet 30 minutes before morning meal Orally Once a dayAtorvastatin Calcium 40 MG Tablet 1 tablet Orally Once a dayLevothyroxine Sodium 100 MCG Tablet 1 tablet on an empty stomach in the morning Orally Saturday and SaturdayCentrum Silver Ultra Womens - Tablet Orally ALPRAZolam 0.25 MG Tablet 1 tablet Orally Twice a dayLORazepam 0.5 MG Tablet (Schedule IV Drug) TAKE 1 TABLET AT BEDTIME NEEDED Oral Tylenol 325 MG Tablet 2 tablets as needed Orally every 6 hrsMedication List reviewed and reconciled with the patientTaking Vitamin B Complex - Capsule as directed Orally Taking Gas Relief 80 MG Tablet Chewable 1 tablet after meals and at bedtime as needed Orally Four times a dayTaking Vitamin D3 25 MCG (1000 UT) Tablet 1 tablet Orally Once a dayTaking Probiotic - Tablet Delayed Release as directed Orally Taking Omeprazole Magnesium 20 MG Tablet Delayed Release 1 tablet 30 minutes before morning meal Orally Once a dayTaking Atorvastatin Calcium 40 MG Tablet 1 tablet Orally Once a dayTaking Levothyroxine Sodium 100 MCG Tablet 1 tablet on an empty stomach in the morning Orally Saturday and SaturdayTaking Centrum Silver Ultra Womens - Tablet Orally Taking ALPRAZolam 0.25 MG Tablet 1 tablet Orally Twice a dayTaking LORazepam 0.5 MG Tablet (Schedule IV Drug) TAKE 1 TABLET AT BEDTIME NEEDED Oral Taking Tylenol 325 MG Tablet 2 tablets as needed Orally every 6 hrsMedication List reviewed and reconciled with the patient * Allergies:?CleocinDoxycyclin eAtropine SulfateCephalexinSurgical tapeCefazolin Sodium-Dextroseno[Allergies Verified] Objective: * Vitals:?Ht: 64, Wt:145, BMI: 24.89, BP:140/76, HR:81, Temp:97.5. * Examination: ???General Examination: ?GENERAL APPEARANCE:?pleasant, well nourished, well developed, in no acute distress, calm and relaxed ?elderly woman.?HEAD:?atraumatic, normocephalic.?EYES:?eomi, perrla, anicteric, conjugate.?EARS:?normalWith mild hearing loss.?NOSE:?septum intact.?ORAL CAVITY:?normal, unremarkable.?NECK/THYROID:?no jugular venous distention, no carotid bruit, thyroid normal.?LYMPH NODES:?no enlarged lymph nodes,spleen normal.?SKIN:?no suspicious lesions, anicteric.?HEART:?no clicks, gallops, murmurs, or rubs, regular rhythm, S1, S2 normal, no s3, or vascular bruits.?LUNGS:?clear to auscultation .?BREASTS:??no masses palpable bilaterally.?ABDOMEN:?bowel sounds normal, no ascites, no organomegaly, no mass, Old surgical incision well-healed.?RECTAL EXAM:?not examined.?MUSCULOSKELETAL:?extremities unremarkable, no clubbing, cyanosis or edema.?PERIPHERAL PULSES:?normal.?NEUROLOGIC:?alert and oriented, cranial nerves 2-12 grossly intact, deep tendon reflexes 2+ symmetrical, motor strength normal upper and lower extremities, sensory exam intact.?PSYCH:?alert, oriented.? Assessment: * Assessment: 1.?Adenocarcinoma of colon - C18.9 (Primary), There is no sign of recurrent disease or new primary. Surveillance will continue. She will proceed to see the university president to discuss colonoscopy.?2.?Former smoker - Z87.891, She is highly motivated not to smoke. She has a plan to prevent relapse in times of stress or illness.?3.?Constipation - K59.00, This is an intermittent problem, not present today, which is well controlled with wuhj-nwf-cbgfesp medications. No hematochezia has been noted.?4.?Hypothyroidism - E03.9, She was advised to continue her thyroid medication. She appeared euthyroid today.?5.?Dyslipidemia - E78.5, Her fasting lipid profile shows good control of her lipids and no change in her regimen was made today.? Plan: * Treatment: * Procedure Codes:? * Preventive Medicine:? ??Counseling:?Smoking/Tobacco Use?Patient counseled on the dangers of tobacco use and urged to quit.?04/29/2023 * Follow Up:?1 Year (Reason: O V) * Images: * Sign off status: Completed true * Provider:?Grayson Paredes MD Date:?04/09 Generated for Gerardo castellano/Marlo/eTransmitting on:?04/09/2024 01:30 PM EST History and Physical Notes * HPI (History of Present Illness) Category Sub-Category Detail Notes COVID-19 Screening Questions Have you had any new onset fever, chills, cough, congestion, sore throat, shortness of breath, muscle aches?: No Have you been exposed to the virus withi n the last 10 days?: No Have you travelled internationally in th e last 10 days?: No Have you been exposed to COVID-19 in the past?: Yes Examination Category Sub-Category Detail Notes General Examination GENERAL APPEARANCE: pleasant , well nourished, well developed, in no acute distress, calm and relaxed elderly woman HEAD: atraumatic, normocep halic EYES: eomi, perrla, anicte danial, conjugate EARS: normalWith mild hear ing loss NOSE: septum intact NECK/THYROID: no jugular venous di stention, no carotid bruit, thyroid normal HEART: no clicks, gallops, murmurs, or rubs, regular rhythm, S1, S2 normal, no s3, or vascular bruits LUNGS: clear to auscultatio n ABDOMEN: bowel sounds normal, no ascites, no organomegaly, no mass, Old surgical incision well-healed NEUROLOGIC: alert and oriented, cranial nerves 2-12 grossly intact, deep tendon reflexes 2+ symmetrical, motor strength normal upper and lower extremities, sensory exam intact SKIN: no suspicious lesion s, anicteric PERIPHERAL PULSES: normal BREASTS: no masses palpable b ilaterally MUSCULOSKELETAL: extremities unremark able, no clubbing, cyanosis or edema LYMPH NODES: no enlarged lymph no paige,spleen normal RECTAL EXAM: not examined PSYCH: alert, oriented ORAL CAVITY: normal, unremarkable
--- OUTSIDE RECORDS SUMMARY | 2024-04-09 13:31 | XMS_ITS ---
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) Encounters Encounter Location Date Provider Diagnosis [facility] [place] [facility] [address] [place] [id number] 11/28/2022 Grayson Keene Colon cancer scree phil Z12.11 ; Colon polyp K63.5 ; History of colon cancer Z85.038 ; Diverticulosis of colon K57.30 ; Internal hemorrhoids K64.8 and Hx of Billroth II operation Z98.0 ASSESSMENTS Encounter Date Diagnosis Assessment Notes Treatment Notes Treatment Clinical Notes 11/28/2022 Colon cancer screening (ICD-10 - Z12.11) 11/28/2022 Colon polyp (ICD-10 - K63.5) 11/28/2022 History of colon cancer (ICD-10 - Z85.038) 11/28/2022 Diverticulosis of colon (ICD-10 - K57.30) 11/28/2022 Internal hemorrhoids (ICD-10 - K64.8) 11/28/2022 Hx of Billroth II operation (ICD-10 - Z98.0) PLAN OF TREATMENT No Information
--- OUTSIDE RECORDS SUMMARY | 2024-04-09 13:32 | XMS_ITS | Patient Health Record ---
Author Organization [facility] Address [address] [place] [address] Care Team Providers Care Ice Guard Tester Name Role Phone Sandip Castro MD Primary Care Provider Grayson Canas Unavailable [phone] ALLERGIES Allergen (clinical drug ingredient) Drug/Non Drug Allergy documented on EMR Reaction Allergy Type Onset Date Status simvastatin Zocor Unknown Drug Allergy Activ e Keflex Unknown Drug Allergy Active clindamycin Cleocin Unknown Drug Allergy Activ e cephalexin Cephalexin Unknown Drug Allergy Activ e atropine Atropine Sulfate Unknown Drug Allergy Active doxycycline Doxycycline Unknown Drug Allergy Act kellen Adhesive Tape Unknown Drug Allergy Act kellen Garamycin Unknown Drug Allergy Active REASON FOR REFERRAL No Information [...] Left lower quadrant pain (R10.32) Active confirmed 047623997 Problem Encounter for screening for malignant neoplasm of colon (Z12.11) Active confirmed 317928278 Problem History of adenomatous polyp of colon (Z86.010) Active confirmed 579721280 Problem Gastroesophageal reflux disease without esophagitis (K21.9) Active confirmed 682392114 Problem Preprocedural examination (Z01.818) Active confirmed 741965696092643 Problem History of colon cancer (Z85.038) Active confirmed 774573638 Problem Personal history of colon cancer (Z85.038) Active confirmed 599479968 Problem Diverticulosis of sigmoid colon (K57.30) Active confirmed Diverticulosis of sigmoid colon (172297350) Problem Abdominal gas pain (R14.1) Active confirmed 25746073 Problem Diverticulosis of colon (K57.30) Active confirmed Diverticulosi s of colon (889404588) Problem 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 (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) Problem 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 History of gastrointestinal tract bypass (807240983) Encounters Encounter Location Date Provider Diagnosis [facility] [address] [facility] [address] [place] [address] 08/29/2023 Grayson Keene PLAN OF TREATMENT Future Test Test Name Order Date COLONOSCOPY 12/07/2011 COLONOSCOPY 06/27/2017 COLONOSCOPY 03/19/2018 COLONOSCOPY 08/10/2020 COLONOSCOPY 09/12/2022 Insurance Providers Payer Name Payer Address Payer Phone Subscriber Number Group Number Insured Name Patient Relationship to Insured Coverage Start Date Coverage End Date MEDICARE OF [place] [address] [place] [id number] [phone] [id number] CARMELLA IHLARIO Davis Self - patient is the insured MEDEX ATTN CLAIMS [address] [place] [address] [phone] [id number] [facility] HILARIO Davis Self - patient is the insured MEDICAL (GENERAL) HISTORY Medical History History ICD Code Hyperlipidemia Brito's esophagus/GERD--la st EGD was in 2006--no Brito's mucosa--upper endoscopies in 1999 and 2001 revealed a small area of Brito's esophagus, but followup endoscopies in 2004 and 2006 were negative for any Brito's mucosa Hx of colon polyps with tubu lar adenomas in 2001 and 2006--colonoscopy in 2011 revealed only a hyperplastic polyp and significant sigmoid diverticulosis Hypothyroidism Denies [place],DM,CVA,Lung disease,renal dise ase Colon cancer 06/3016--- adeno [...]
== END 2024-04-09 12:30 | disposition home or self-care (01) ==
LOC: HO.XRAY 12:29
PROVIDERS: PCP Internal Medicine; Visit Provider Internal Medicine
DX: M54.50 Low back pain, unspecified (principal)
CPT/HCPCS: 72100

== ENCOUNTER → 2024-04-09 12:37 | Outpatient (BNV) | payer MEDICARE, SELFPAY | PROVIDERS: PCP Internal Medicine; Visit Provider Radiology Diagnostic Radiology | DX: M54.50 Low back pain, unspecified (principal) | CPT/HCPCS: 72100 ==

== ENCOUNTER 2024-04-15 11:46 | Outpatient (REF) | payer MEDICARE, SELFPAY ==
--- NOTE | ~2024-04-15 | MM_ITS ---
EXAMINATION: MM SCREENING DIGITAL BREAST TOMOSYNTHESIS, BILATERAL CLINICAL INFORMATION: Screening. Asymptomatic. COMPARISON: Mammography: Comparison is made with available priors TECHNIQUE: Digital breast mammography with tomosynthesis is performed in both the craniocaudal and mediolateral oblique views along with computer-aided detection (CAD). FINDINGS: There are scattered areas of fibroglandular density (ACR BI-RADS breast composition Category b). There are no significant masses, abnormal calcifications, or other abnormalities. MM/MM tomosynthesis screening BI IMPRESSION: No mammographic evidence of malignancy. ASSESSMENT: BI-RADS BI-RADS 1 - Negative RECOMMENDATION: Routine annual mammography screening. 1 year F/U This examination should not preclude the clinical evaluation of a suspicious palpable abnormality. This patient's information was entered into a reminder system with a target due date for their next mammogram. Electronically signed by: Lizbeth Lee DO 04/21/2024 05:53 PM [facility]
--- OUTSIDE RECORDS SUMMARY | 2024-04-15 11:57 | XMS_ITS | Patient Health Record ---
Author Organization [facility] Address [address] [place] [address] Care Team Providers Care Yarding Engineer Name Role Phone Sandip Castro MD Primary Care Provider Grayson Canas Unavailable [phone] ALLERGIES Allergen (clinical drug ingredient) Drug/Non Drug [...] Left lower quadrant pain (R10.32) Active confirmed 199231054 Problem Encounter for screening for malignant neoplasm of colon (Z12.11) Active confirmed 601583587 Problem History of adenomatous polyp of colon (Z86.010) Active confirmed 923830507 Problem Gastroesophageal reflux disease without esophagitis (K21.9) Active confirmed 790216686 Problem Preprocedural examination (Z01.818) Active confirmed 832221555726352 Problem History of colon cancer (Z85.038) Active confirmed 647339837 Problem Personal history of colon cancer (Z85.038) Active confirmed 807484410 Problem Diverticulosis of sigmoid colon (K57.30) Active confirmed Diverticulosis of sigmoid colon (819325976) Problem Abdominal gas pain (R14.1) Active confirmed 06423556 Problem Diverticulosis of colon (K57.30) Active confirmed Diverticulosi s of colon (242157712) Problem 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 (278217504) Problem 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 History of gastrointestinal tract bypass (548972836) Encounters Encounter Location Date Provider Diagnosis [facility] [address] [facility] [address] [place] [address] 08/29/2023 Grayson Keene PLAN OF TREATMENT Future Test Test Name Order Date COLONOSCOPY 12/07/2011 COLONOSCOPY 06/27/2017 COLONOSCOPY 03/19/2018 COLONOSCOPY 08/10/2020 COLONOSCOPY 09/12/2022 Insurance Providers Payer Name Payer Address Payer Phone Subscriber Number Group Number Insured Name Patient Relationship to Insured Coverage Start Date Coverage End Date MEDICARE OF [place] [address] [place] [id number] [phone] [id number] CARMELLA HILARIO Davis Self - patient is the insured MEDEX ATTN CLAIMS [address] [place] [address] [id number] [facility] HILARIO Davis Self - patient is the [...] polyp and significant sigmoid diverticulosis Hypothyroidism Denies [place],DM,CVA,Lung disease,renal dise ase Colon cancer 06/3016--- adeno [...]
--- OUTSIDE RECORDS SUMMARY | 2024-04-15 11:57 | XMS_ITS ---
Author Organization [facility] Address [address] [place] [address] Care Team Providers Care Freight Router Name Role Phone Sandip Castro MD Primary Care Provider Essie Keene Grayson Unavailable [phone] REASON FOR VISIT hx colon ca,hx polyps,screening PROBLEMS Problem Type ICD Code Onset Dates Problem Status W/U Status Risk SNOMED Code Notes Problem Diverticulosis of colon (K57.30) Active confirmed Diverticulosi s of colon (600432690) Problem 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 History of gastrointestinal tract bypass (461850450) Encounters Encounter Location Date Provider Diagnosis [facility] [address] [place], [place] [id number] 11/28/2022 Grayson Keene Colon cancer scree phil [...]
--- OUTSIDE RECORDS SUMMARY | 2024-04-15 11:57 | XMS_ITS | Patient Health Record ---
Author Organization Grayson Paredes III, MD Address [address] [facility] [address] Care Team Providers Care Contact And Service Clerks Supervisor Name Role Phone Sandip Castro MD Primary Care Provider Grayson Martin Unavailable [phone] Allergies Allergen (clinical drug ingredient) Drug/Non Drug [...] Problem Status W/U Status Risk Notes Problem 9464501 Former smoker (Z87.891) Active confirmed She is highly motivated not to smoke. She has a plan to prevent relapse in times of stress or illness. Problem 887207053 Overweight (BMI 25.0-29.9) (E66.3) Active confirmed Her weight is 1 50 on her scale at home today. This gives a body mass index 25.7. I recommended stabilizing her weight at this level in pursuing good nutrition. Problem 93206741 Hypothyroidism (E03.9) Active confirmed She was advised to continue her thyroid medication. She appeared euthyroid today. Problem 647840299 GERD (gastroesophagea l reflux disease) (K21.9) Active confirmed Her reflexe s well controlled with vgbw-yfq-bbevzfs medications. Problem 86673118 Hypokalemia (E87.6) Active confirmed Problem 399595472 Dyslipidemia (E78.5) Active confirmed Her fasting lip id profile shows good control of her lipids and no change in her regimen was made today. Problem 67358611 Internal hemorrhoids (K64.8) Active confirmed Problem 61847813 Constipation (K59.00) Active confirmed This is an intermittent problem, not present today, which is well controlled with ozey-mif-apmjgsl medications. No hematochezia has been noted. Problem 158731705 Adenocarcinoma of colon (C18.9) Active confirmed There is no sign of recurrent disease or new primary. Surveillance will continue. She will proceed to see the professional fee coder to discuss colonoscopy. Problem 19477510 Ischemic colitis (K55.9) Active confirmed She presented initially with pancolitis and diarrhea. This has resolved. She has had no hematochezia or protracted diarrhea or watery stool. No change in her regimen was necessary today. 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 She will proceed to see the professional fee coder to discuss colonoscopy. 04/29/2023 Constipation (ICD-10 - K59.00) This is an intermittent problem, not present today, which is well controlled with huqp-qlf-xtxerav medications. No hematochezia has been noted. 04/29/2023 [...] Details Provider Name:Grayson Paredes, 04/29/2024 02:15:00 PM, [address] [place] [address] , [address], [place], [address], Insurance Providers Payer Name Payer Address Payer Phone Subscriber Number Group Number Insured Name Patient Relationship to Insured Coverage Start Date Coverage End Date MEDICARE [place] [address] [place] [address] [id number] [facility] Radha gonzales Self - patient is the insured [facility] [address] [place], [place] [id number] [phone] [id number] [facility] Radha gonzales Self - patient is the [...]
--- OUTSIDE RECORDS SUMMARY | 2024-04-15 11:57 | XMS_ITS ---
Author Organization Grayson Paredes III, MD Address [address] [facility] [place] [address] Care Team Providers Care Head Up Operator Helper Name Role Phone Sandip Castro MD Primary Care Provider Grayson Martin Unavailable [phone] Allergies Allergen (clinical drug ingredient) Drug/Non Drug [...] Date Provider Diagnosis Grayson Paredes III, MD [address] [place] [address] [address] [place], [place] [address] 04/29/2023 Grayson Paredes Adenocarcinoma of co bella C18.9 ; Former smoker Z87.891 ; Constipation K59.00 ; Hypothyroidism E03.9 and Dyslipidemia E78.5 Assessments Encounter Date Diagnosis (ICD Code) Assessment Notes Treatment Notes Treatment Clinical Notes 04/29/2023 Adenocarcinoma of colon (ICD-10 - C18.9) There is no sign of recurrent disease or new primary. Surveillance will continue. She will proceed to see the staffing recruiter to discuss colonoscopy. 04/29/2023 Former smoker (ICD-10 - Z87.891) She is highly motivated not to smoke. She has a plan to prevent relapse in times of stress or illness. 04/29/2023 Constipation (ICD-10 - K59.00) This is an intermittent problem, not present today, which is well controlled with wlur-zkj-oymvmnm medications. No hematochezia has been noted. 04/29/2023 [...] in the morning Orally Saturday and Saturday [facility] Ultra Womens - Orally LORazepam 0.5 MG (Schedule IV Drug) T JOSÉ ANTONIO 1 TABLET AT BEDTIME NEEDED Oral ALPRAZolam 0.25 MG 1 tablet Orally Twice a day Atorvastatin Calcium 40 MG 1 tablet Orally Once a day Next Appt Details Follow Up: 1 Year, Reason: O V Provider Name:Grayson Marshallrne, 04/29/2024 02:15:00 PM, [address] [place] [address] [address] [place]ARIF Thi, [place], [address], Progress Notes * Radha CARRDOB: (83 yo F)Acc No.[id number]:04/29/2023 Progress Notes Patient:?Radha Carr Provider:?Grayson Paredes MD :[id number]???Age:83 Y???Sex:Female D ate:04/29/2023 Address:[address] [place] [address] [place], [id number] Pcp:Sandip Castro MD Subjective: * Chief Complaints: [...] Tobacco Non-User?Ex-cigarette smoker ???She was born in [place]. He has been to [place] for 50 years. They have a daughter Brittny. 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 She has had [...] continue. She will proceed to see the staffing recruiter to discuss colonoscopy.?2.?Former smoker - Z87.891, She is highly motivated not to smoke. She has a plan to prevent relapse in times of stress or illness.?3.?Constipation - K59.00, This is an intermittent problem, not present today, which is well controlled with dopl-knc-jqnxvdz medications. No hematochezia has been noted.?4.?Hypothyroidism - [...] Paredes MD Date:?04/09 Generated for Gerardo castellano/Marlo/eTransmitting on:?04/15/2024 11:56 AM EST History and Physical Notes * HPI [...]
--- OUTSIDE RECORDS SUMMARY | 2024-04-15 11:57 | XMS_ITS ---
Author Organization [facility] Address [address] [place] [address] Care Team Providers Care Linoleum Mechanic Name Role Phone Sandip Castro MD Primary Care Provider Grayson Canas Unavailable [phone] REASON FOR VISIT LOOKING FOR SOON APPT Encounters Encounter Location Date Provider Diagnosis [facility] [address] [place] [address] 08/29/2023 Grayson Keene PLAN OF TREATMENT No Information
== END 2024-04-15 11:47 | disposition home or self-care (01) ==
LOC: HO.MAMMO 11:46
PROVIDERS: PCP Internal Medicine; Visit Provider Internal Medicine
DX: Z12.31 Encounter for screening mammogram for malignant neoplasm of breast (principal)
CPT/HCPCS: 77063; 77067

== ENCOUNTER → 2024-04-15 12:00 | Outpatient (BNV) | payer MEDICARE, SELFPAY | PROVIDERS: PCP Internal Medicine; Visit Provider Internal Medicine | DX: Z12.31 Encounter for screening mammogram for malignant neoplasm of breast (principal) | CPT/HCPCS: 77063; 77067 ==

== ENCOUNTER 2024-06-12 13:59 | Outpatient (RCR) | payer MEDICARE, SELFPAY ==
--- NOTE | 2024-05-15 15:06 | MHC.PT.EP ---
[facility] [place] Office [place] Office [place] Office [address] Stefany Cerrato [address] [phone] F: [phone] F: [phone] F: [phone] F: [phone] Physical Therapy Plan of Care Date of Evaluation: 05/15/24 Date of Surgery: Diagnosis: LBP Assessment: 69 YO FEMALE REF TO PT FOR LBP-> H/O FALL W L1 VERTEBRA PLANTA IN JULY 2023- SHE HAS HAD ONGOING SORENESS IN HER LB, SHE RESIDES W HER IN A 2 LEVEL HOME, SHE DOES NOT USE ANY ASST DEVICES. THE Pt HAS DECR POSTURE, (+) TISSUE TENSION IN THORACOLUMB REGION, LIMITED TRUNK AROM, LUMBOPELVIC/ PROX LES STRENGTH DEFICITS, AND FLUCTUATING PAIN IN HER BACK. FUNCTIONALLY, SHE HAS DECR LYN TO PROLONGED POSITIONING/ ACTIVITY- MORE CHALLENGING ADLs. SHE DENIES RADIC SXS. THE Pt WOULD BENEFIT FROM A TRIAL OF PT TO ADDRESS THE ABOVE, DEV A HEP, IMPROVE POSTURAL AWARENESS/ BODY MECH. Frequency and Duration: The patient will be seen 2 x WK x 4 WKS Short Term Goals: DECR LBP IMPROVE POSTURAL AWARENESS/ POSITIONING TO REDUCE STRESS ON LB INITIATE HEP Code Machine Operator Goals: IND HEP AND SELF SX MGMT TECHN INCREASE ADL LYN-> IMPROVED LEFI SCORE (22/80 AT EVAL) Pt DEMON WFL SQUAT, 3:3 ADLs W EFFICIENT MECHANICS Treatment Plan: Modalities to reduce pain, spasms and effusion. Manual therapy to restore motion and function. Therapeutic exercise to improve strength and flexibility. Neuromuscular re-education for posture and balance. Therapeutic activities to return to functional activities of daily living. Electronically signed by: ROWENA JULIAN,PT Please sign and return to therapist. Thank you for your referral.
--- NOTE | 2024-07-17 11:43 | MHC.PT.DC ---
[facility] [place] [facility] [place] [facility] [place] Office [address] [phone] F: [phone] F: [phone] F: [phone] F: [phone] Physical Therapy Discharge Report Diagnosis: LBP Date of Surgery: Date of Evaluation: 05/15/24 Date of Discharge: 07/17/24 Treatments to Date: 8 Cancellations to Date: 1 No Shows to Date: 1 Discharge Status: Recommend MD Follow-up Discharge Summary: HILARIO HAS BEEN PERFORMING VARIOUS EXER TO ADDRESS POSTURE AND CORE ENGAGEMENT WHILE REDUCING POSTURAL STRESS TO HER THORACOLUMBAR SPINE- SHE HAS SHOWN IMPROVEMENTS IN FUNCTIONAL MOBILITY AND SHE CAN ASSUME A MORE NEUTRAL POSTURE - SHE VOICES CONCERNS RE FURTHER MANAGEMENT OF HER RESIDUAL PAIN , WHICH CAN BE SEVERE AT TIMES. PT WILL BE DISCHARGED AND THE Pt CAN CONT W HER HEP TJ'D WHILE SHE AWAITS A PAIN MGMT CONSULT. Electronically signed by: ROWENA JULIAN,PT Please sign and return to therapist. Thank you for your referral.
== END 2024-07-17 11:43 | disposition home or self-care (01) ==
LOC: HO.PT 13:59
PROVIDERS: PCP Internal Medicine; Visit Provider Internal Medicine
DX: M54.50 Low back pain, unspecified (principal)
CPT/HCPCS: 97110; 97162

== ENCOUNTER 2024-07-06 13:52 | Outpatient (AMB) | payer MEDICARE, SELFPAY ==
--- NOTE | 2024-07-06 13:54 | MHC.OFFVIS ---
Vital Signs 07/06/24 14:02 Height 5 ft 4 in Weight 133 lb BMI 22.8 BP 138/67 Blood Pressure Location Rt brachial Position Sitting Pulse 97 Pulse Source Pulse Oximeter Pulse Oximetry (%) 98 Oxygen Delivery Method Room Air Intake Visit Reasons: Low back pain Intake Note: Pain today 06/15 Cullet Crusher Required: No Accompanied by: Self / Same As Patient Allergies adhesive tape [ADHESIVE TAPE] Allergy (Intermediate, Verified 08/29/23 15:23) ITCH, Rash cefazolin [From KEFZOL] Allergy (Intermediate, Verified 08/29/23 15:23) RASH clindamycin [From CLEOCIN] Allergy (Intermediate, Verified 08/29/23 15:23) RASH gentamicin [From GARAMYCIN] Allergy (Intermediate, Verified 08/29/23 15:23) RASH atropine Allergy (Unknown, Verified 08/29/23 15:23) localized eye rxn cephalexin Allergy (Unknown, Verified 08/29/23 15:23) Rash tizanidine Adverse Reaction (Verified 08/29/23 15:23) Nausea tramadol Adverse Reaction (Verified 08/29/23 15:23) Nausea Doxycycline Monohydrate Allergy (Intermediate, Uncoded 08/29/23 15:23) Rash Medication List - Last Reconciled 07/06/24 by MADELYN Beauchamp alprazolam 1 tab PO BID PRN atorvastatin 1 tab PO BEDTIME calcium carbonate (Calcium 600) 600 mg PO BID@1200,2100 cholecalciferol (vitamin D3) 10 mcg PO DAILY diphenhydramine-acetaminophen 25-500 mg (Tylenol PM Extra Strength) 1 tab PO BEDTIME PRN lactobacillus combination no.4 (Probiotic) 3,000 mmu cells PO DAILY@1200 levothyroxine 1 tab PO DAILY@0600 lorazepam 1 tab PO BEDTIME PRN mwupansx-khp-mzbm-FA-vit K-lut 8 mg iron-400 mcg-50 mcg (Centrum Silver Women) 1 tab PO DAILY@1200 omeprazole 20 mg PO DAILY@0630 HPI HPI Low back pain: Details: The patient is a pleasant 84-year-old female presenting with chronic back pain with history of stable L1 compression fracture and right symphysis pubis superior pubic ramus, sustained from a fall last July. This fracture has resulted in ongoing pain predominantly across her waistline and lower back, aggravated by prolonged standing and specific movements. The patient's pain is compounded by degenerative disc disease with severe arthritis identified in a recent back X-ray and correlates with today's exam. Additionally, severe osteoporosis limits treatment options. Historical interventions have included ibuprofen and recent physical therapy at [facility] with limited success. Past attempts with lidocaine patches were unsuccessful due to an allergic reaction. The patient also has a prior history of neck discomfort , managed conservatively in the 1970s. - Onset: Began after a fall resulting in an L1 compression fracture in July of the previous year. - Quality: Persistent discomfort primarily in the lower back. - Primary Location: Across the waistline and lower lumbar spine, radiating from right to left side. - Radiation: Radiates across lower back from the right to the left side, occasionally spreading upwards to mid back. Denies radiating leg pain. - Aggravating Factors: Bending, prolonged standing, and specific actions such as cooking and showering. - Alleviating Factors: Limited relief from ibuprofen use; attempted lidocaine exacerbated symptoms due to an allergic reaction. - Impact: Pain interferes with standing activities, such as preparing meals and showering. - Affect: Pain impacts daily activities but specific impacts on mood or psychological wellbeing were not detailed. - Analgesia: Current use of ibuprofen with some benefit; attempted lidocaine patches resulted in an allergic reaction. No specific goal pain levels were discussed. - Adverse Effects: Allergic reaction to lidocaine adhesive and dietary supplements noted. - Activities of Daily Living: Pain affects ability to stand for prolonged periods impacting daily activities like meal preparation. - Aberrant Drug-Related Behaviors: No aberrant behaviors reported or discussed. Oswestry Low Back Pain Disability Score=27 [facility] Medical History Lumbar degenerative disc disease Chronic low back pain Osteoporosis Compression fracture of L1 vertebra Arthritis History of right bundle branch block (RBBB) Anxiety PONV (postoperative nausea and vomiting) GERD (gastroesophageal reflux disease) History of colon cancer Hypothyroidism Barretts esophagus Hyperlipidemia Surgical History History of foot surgery History of cataract extraction with lens replacement Hx of esophagogastroduodenoscopy History of total right knee replacement (TKR) History of breast biopsy History of hysterectomy History of thyroidectomy Hx of colonoscopy History of partial colectomy Social History Household Members: Spouse Housing: House Are you a primary care asst to a significant other at home: No Do you presently have visiting nurse or other home services: No Alcohol intake: current Alcohol intake frequency: a few times a month Comment: pt refusing alarms, steady gait encouraged to call for help Patient Tobacco Use Status: Former Tobacco user Tobacco use type: Cigarette Advance Directives Date on File: 07/22/23 service: No Review of Systems Const Details: - Musculoskeletal: Reports chronic back pain, absence of buttocks or leg pain, no numbness or tingling in legs. - Psychiatric: Reports anxiety; uses lorazepam and alprazolam as needed. - Constitutional: Denies recent falls. - Sleep: Reports waking to urinate during the night. All systems reviewed & are unremarkable except as noted in HPI and below Physical Exam General: Appears afebrile. Alert and oriented. Mood and affect appropriate. Follows and participates in conversation appropriately. Respiratory effort is unlabored. No cough. Able to transition from sit to stand unassisted. Ambulates with bilaterally normal heel strike and toe off. General: Yes no CVA tenderness Back/Spine/Pelvis Other: Limited lumbar ROM due to pain. Slow, mildly antalgic gait. TTP over paraspinals from L3-S1. No midline tenderness in the thoracic or lumbar spine. Repetitive lumbar extension and axial rotation reproduces moderate pain, lumbar flexion is limited but intact and reproduces pulling sensations in mid back but not significant pain. Positive facet loading bilaterally. Strength 4/5 bilateral flexion bilaterally. Diminished DTR. FOUZIA test reproduces lateral hip but not lower back pain. +Mild TTP in projection of SIJ areas. Chronic lower back pain without signs of radiculopathy or myelopathy on exam today. Back: no CVA tenderness Cervical Spine: cervical ROM normal, cervical muscular tenderness, No Cervical spine scars present and No Cervical spine tenderness Thoracic/Lumbar Spine: thoracic and lumbar spine normal to inspection, No Thoracic/lumbar spine scar(s), Lasegue's sign negative, pain with thoraco-lumbar ROM, paraspinal muscle tenderness, thoraco-lumbar ROM limited, No thoracic spinal tenderness and lumbar spinal tenderness (L3-S1) Pelvis: no buttock tenderness Sacroiliac joints: bilaterally tender to palpation (mild) Extrem General: Yes capillary refill normal, Yes no clubbing, cyanosis or edema and Yes no calf tenderness Results Reviewed Results Reviewed: XR LUMBOSACRAL SPINE 04/09/24 CLINICAL INFORMATION: LOW BACK PAIN COMPARISON: CT lumbar spine 07/21/2023 TECHNIQUE: Three views of the lumbosacral spine. FINDINGS: There is vertebral planta L1 vertebra with progression of previously known fracture from CT exam 07/21/2023. Rest of the vertebral heights and alignment is normal. There is loss of L2-3 disc height with ventral spondylosis. There is a disc heights are normal. The SI joints are symmetrical. The facet joints are normal. The paravertebral soft tissues are normal. IMPRESSION: Vertebra planta L1 vertebra. There is progression of previously noted L1 compression fracture from CT lumbar spine exam 07/21/2023. There are no new fractures seen. Mild degenerative disc changes with ventral spondylosis L2-3 disc level. It is unchanged to previous CT exam. CT abdomen pelvis wo IV con 08/13/23 OSSEOUS STRUCTURES: Old healed fracture of the right symphysis pubis superior pubic ramus. Stable old compression fracture of L1 vertebrae. Multilevel degenerative spondylosis spine. DEXA axial skeleton 04/10/23 IMPRESSION: 1. DIAGNOSIS: Severe osteoporosis based on the lowest T-score value of -2.7 in the spine and history of fracture of pelvis and wrist applying World Health Organization criteria. Assessment & Plan Assessment & Plan (1) Osteoporosis: Code(s): M81.0 - Age-related osteoporosis without current pathological fracture Category: Medical (2) Chronic low back pain: Code(s): M54.50 - Low back pain, unspecified; G89.29 - Other chronic pain Category: Medical (3) Lumbar degenerative disc disease: Code(s): M51.369 - Other intervertebral disc degeneration, lumbar region without mention of lumbar back pain or lower extremity pain Category: Medical (4) Lumbosacral spondylosis: Code(s): M47.817 - Spondylosis without myelopathy or radiculopathy, lumbosacral region Category: Medical Plan We will ensure the patient manages her chronic back pain without steroid injections due to her significant osteoporosis in the lumbar spine. Diagnostic Bilateral L3-L4 DR L5 MBB with local and fluoroscopy will be pursued to confirm pain sources, with potential progression to radiofrequency ablation if effective. We'll explore peripheral nerve stimulation if hypoallergenic tape proves tolerable or necessary. Expectations, risks and benefits were reviewed. Patient is aware she will be contacted to schedule this procedure. Concurrently, she should continue physical therapy as tolerated and conservative management with Tylenol/occasionally NSAIDs, considering her limitations due to osteoporosis and spinal degeneration. All questions and concerns have been answered and patient agreed with the plan. Follow up after injections and sooner as needed. Patient was informed and verbally consented to the use of an ambient scribe for clinic note documentation during this visit. Patient Instructions: During the visit, I extensively discussed the pain management strategies with the patient, focusing on radiofrequency ablation and peripheral nerve stimulation as potential treatment options. I highlighted the importance of insurance approval for radiofrequency ablation, emphasizing its potential to provide up to 10-12 months of relief. Additionally, we deliberated on the strategies to confirm the pain source using lumbar medial branch blocks. Potential side effects, including the impact of adhesive allergies and the lack of steroid use, were thoroughly reviewed. I informed the patient that insurance approval is imminent for the diagnostic blocks, which will assist in refining her treatment path. The patient was instructed on monitoring for adverse reactions and given guidance to maximize treatment success, including using hypoallergenic adhesives if necessary. - Continue using Tylenol for pain relief, as tolerated. Patient occasionally takes Ibuprofen. - Avoid activities that exacerbate back pain, such as prolonged standing. - Monitor any reactions to hypoallergenic tape before peripheral nerve stimulation. - Continue physical therapy exercises as tolerable. - Await contact for insurance approval regarding diagnostic lumbar medial branch blocks. - Consider lifestyle adjustments to minimize strenuous activities that may impact back pain. - Call the office to confirm appointment and procedural schedules after insurance verification and if worsening or new symptoms. Coding Level of Care Code New Pt Level 4 (87408) Diagnoses Osteoporosis M81.0 Chronic low back pain M54.50; G89.29 Lumbar degenerative disc disease M51.369 Lumbosacral spondylosis M47.817
[2024-07-06 14:02] VITALS: BP 138/67; PULSE 97; O2SAT 98; BMI 22.8
--- OUTSIDE RECORDS SUMMARY | 2024-07-06 15:39 | XMS_ITS | Patient Health Record ---
Author Organization Grayson Paredes III, MD Address [address] [place] [address] Care Team Providers Care Charge Weigher Name Role Phone Sandip Castro MD Primary Care Provider Grayson Martin Unavailable [phone] Allergies Allergen (clinical drug ingredient) Drug/Non Drug Allergy documented on EMR Reaction Allergy Type Onset Date Status clindamycin Cleocin Unknown Drug Allergy Activ e [...] doxycycline Doxycycline Unknown Drug Allergy Act kellen Keflex Unknown Drug Allergy Active Reason For Referral No Information Medications Medication SIG (Take, Route, Frequency, Duration) Notes Start Date End Date Status Levothyroxine Sodium 100 MCG 1 tablet on [...] as needed Orally Once a day Active Tylenol 325 MG 2 tablets as needed Orally every 6 hrs Active LORazepam 0.5 MG (Schedule IV Drug) T JOSÉ ANTONIO 1 TABLET AT BEDTIME NEEDED Oral Active ALPRAZolam 0.25 MG 1 tablet Orally Twic e a day Active Centrum Silver Ultra Womens - Orally Active Social History Tobacco Use: Social History [...] Problem Status W/U Status Risk Notes Problem 7567451 Former smoker (Z87.891) Active confirmed She is highly motivated not to smoke. She has a plan to prevent relapse in times of stress or illness. Problem 854459466 Overweight (BMI 25.0-29.9) (E66.3) Active confirmed Her weight is 1 50 on her scale at home today. This gives a body mass index 25.7. I recommended stabilizing her weight at this level in pursuing good nutrition. Problem 10654470 Hypothyroidism (E03.9) Active confirmed She was advised to continue her thyroid medication. She appeared euthyroid today. Problem 055346689 GERD (gastroesophagea l reflux disease) (K21.9) Active confirmed Her reflexe s well controlled with yjzv-wzn-nozqqfc medications. Problem 20699334 Hypokalemia (E87.6) Active confirmed Problem 947701394 Dyslipidemia (E78.5) Active confirmed Her fasting lip id profile shows good control of her lipids and no change in her regimen was made today. Problem 33342951 Internal hemorrhoids (K64.8) Active confirmed Problem 76383025 Constipation (K59.00) Active confirmed This is an intermittent problem, not present today, which is well controlled with amvy-qlq-qwpdcav medications. No hematochezia has been noted. Problem 633808049 Adenocarcinoma of colon (C18.9) Active confirmed There is no sign of recurrent disease or new primary. Surveillance will continue. She will proceed to see the psychiatric therapist to discuss colonoscopy. She is up-to-date with that procedure Problem 63323881 Ischemic colitis (K55.9) Active confirmed She presented initially with pancolitis and diarrhea. This has resolved. She has had no hematochezia or protracted diarrhea or watery stool. No change in her regimen was necessary today. 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 confirmed Vital Signs Heart Rate 86 /min 04/29/2024 Temperature 97.4 degrees Fahrenheit 04/29/2024 Blood pressure diastolic 68 mm Hg 04/29/2024 Height 64 in 04/29/2024 Blood pressure systolic 126 mm Hg 04/29/2024 Weight 131 lbs 04/29/2024 BMI 22.48 kg/m2 04/29/2024 Encounters Encounter Location Date Provider Diagnosis Grayson Paredes III, MD [address] [place] [address] [place] [address] 04/29/2024 Grayson Paredes Adenocarcinoma of co bella C18.9 ; Former smoker Z87.891 ; GERD (gastroesophageal reflux disease) K21.9 ; Hypothyroidism E03.9 and Dyslipidemia E78.5 Assessments Encounter Date Diagnosis (ICD Code) Assessment Notes Treatment Notes Treatment Clinical Notes 04/29/2024 Former smoker (ICD-10 - Z87.891) She is highly motivated not to smoke. She has a plan to prevent relapse in times of stress or illness. 04/29/2024 Adenocarcinoma of colon (ICD-10 - C18.9) There is no sign of recurrent disease or new primary. Surveillance will continue. She will proceed to see the psychiatric therapist to discuss colonoscopy. She is up-to-date with that procedure 04/29/2024 GERD (gastroesophageal reflux disease) (ICD-10 - K21.9) Her reflexes well controlled with jjwy-mcn-laqkajv medications. 04/29/2024 Hypothyroidism (ICD-10 - E03.9) She [...] CEA 07/30/2017 CEA 07/22/2019 CBC w DIFF 07/22/2018 CBC w DIFF 07/30/2017 CBC w DIFF 07/22/2019 CBC w DIFF 03/17/2018 CBC w DIFF 05/01/2017 CBC w DIFF 01/21/2019 CBC w DIFF 11/11/2017 SED RATE (ESR) 11/11/2017 MAMMOGRAM DIGITAL BILATERAL SCREEN 01/24 Next Appt Details Provider Name:Grayson Paredes, 04/30/2025 02:30:00 PM, [address] [place] [address] [address], [place], [address], Insurance Providers Payer Name Payer Address Payer Phone Subscriber Number Group Number Insured Name Patient Relationship to Insured Coverage Start Date Coverage End Date MEDICARE NGS [address] [place] [address] [id number] [facility] Radha gonzales Self - patient is the insured [facility] [address] [place], [place] [id number] [phone] [id number] [employer] Radha gonzales Self - patient is the insured Medical (General) History Medical History History ICD Code Ischemic colitis K55.9 Hypothyroidism E03.9 Dyslipidemia E78.5 GERD (gastroesophageal reflux disease) K 21.9 Internal hemorrhoids K64.8 adenocarcinoma of the hepatic flexure of the colon, Dr. Keene, Dr. Alford colonic polyps, tubular adenoma osteoarthritis right bundle branch block every 25/10/201 7 Surgical History Surgery Date(Month/Year) Partial colectomy for adenocarcinoma of the hepatic flexure [address] Chew 2018 basal cell carcinoma on back excised 201 7 Colonoscopy showed a tubular adenoma in the transverse colon 2011 Knee replacement 2016 Hospitalization History Reason Date(Month/Year) Hospitalized for 10 days in july due to broken l1 vertebra and diverticulitis.
--- OUTSIDE RECORDS SUMMARY | 2024-07-06 15:40 | XMS_ITS ---
Author Organization [facility] Address [address] [place] [address] Care Team Providers Care Broke Beater Machine Operator Name Role Phone Sandip Castro MD Primary Care Provider Grayson Canas [phone] REASON FOR VISIT LOOKING FOR SOON APPT Encounters Encounter Location Date Provider Diagnosis [facility] [address] [place] [address] 08/29/2023 Grayson Keene Plan Of Treatment No Information Progress Notes * HILARIO FORD ADOB: [birth year] (83 yo F)Acc No.[id number]:08/29/2023 Patient:?HILARIO FORD :1940???Age:83 Y???Sex:Female Address:[address] [place] [address] * true * Date:? Generated for Dayamii nona/Marlo/eTransmitting on:?07/06/2024 03:40 PM EDT
--- OUTSIDE RECORDS SUMMARY | 2024-07-06 15:40 | XMS_ITS ---
Author Organization Grayson Paredes III, MD Address [address] [facility] [place] [address] Care Team Providers Care Hairspring I Inspector Name Role Phone Sandip Castro MD Primary Care Provider Grayson Martin Unavailable [phone] Allergies Allergen (clinical drug ingredient) Drug/Non Drug Allergy documented on EMR Reaction Allergy Type Onset Date Status clindamycin Cleocin Unknown Drug Allergy Activ e cephalexin Cephalexin Unknown Drug Allergy Activ e cefazolin Cefazolin Sodium-Dextrose Unknown Drug Allergy Active atropine Atropine Sulfate Unknown Drug Allergy Active Surgical tape (uncoded) Unknown Allergy Active doxycycline Doxycycline Unknown Drug Allergy Act kellen REASON FOR VISIT Colon cancer, Overweight, Hypothyroidism [...] Date Provider Diagnosis Grayson Paredes III, MD [address] [place] [address] [address] [place], [place] [id number] 04/29/2023 Grayson Paredes Adenocarcinoma of co bella C18.9 ; Former smoker Z87.891 ; Constipation K59.00 ; Hypothyroidism E03.9 and Dyslipidemia E78.5 Assessments Encounter Date Diagnosis (ICD Code) Assessment Notes Treatment Notes Treatment Clinical Notes 04/29/2023 Adenocarcinoma of colon (ICD-10 - C18.9) There is no sign of recurrent disease or new primary. Surveillance will continue. She will proceed to see the mixing tank operator to discuss colonoscopy. 04/29/2023 Former smoker (ICD-10 - Z87.891) She is highly motivated not to smoke. She has a plan to prevent relapse in times of stress or illness. 04/29/2023 Constipation (ICD-10 - K59.00) This is an intermittent problem, not present today, which is well controlled with ewzq-irn-nvvmomv medications. No hematochezia has been noted. 04/29/2023 [...] in the morning Orally Saturday and Saturday [facility] Ultra Womens - Orally LORazepam 0.5 MG (Schedule IV Drug) T JOSÉ ANTONIO 1 TABLET AT BEDTIME NEEDED Oral ALPRAZolam 0.25 MG 1 tablet Orally Twice a day Atorvastatin Calcium 40 MG 1 tablet Orally Once a day Next Appt Details Follow Up: 1 Year, Reason: O V Provider Name:Grayson Marshallrne, 04/30/2025 02:30:00 PM, [address] [place] [address] [address] [place], [place], [address], Progress Notes * Radha CARRDOB: [birth year] (83 yo F)Acc No.[id number]:04/29/2023 Progress Notes Patient:?Radha Carr Provider:?Grayson Paredes MD :1940???Age:83 Y???Sex:Female D ate:04/29/2023 Address:[address] [place] [address] [place], [id number] Pcp:Sandip Castro MD Subjective: * Chief Complaints: [...] Tobacco Non-User?Ex-cigarette smoker ???She was born in [place]. He has been to Jose for 50 years. They have a daughter Brittny. 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 She has had [...] continue. She will proceed to see the mixing tank operator to discuss colonoscopy.?2.?Former smoker - Z87.891, She is highly motivated not to smoke. She has a plan to prevent relapse in times of stress or illness.?3.?Constipation - K59.00, This is an intermittent problem, not present today, which is well controlled with osww-sot-vcbrwuy medications. No hematochezia has been noted.?4.?Hypothyroidism - [...] * Provider:?Grayson Paredes MD Date:?04/09 Generated for Dayamii nona/Marlo/eTransmitting on:?07/06/2024 03:39 PM EDT History and Physical Notes * HPI (History of Present Illness) Category Sub-Category Detail Notes COVID-19 Screening Questions Have you had any new onset fever, chills, cough, congestion, sore throat, shortness of breath, muscle aches?: No Have you been exposed to the virus withi n the last 10 days?: No Have you travelled internationally in last 10 days?: No Have you been [...]
--- OUTSIDE RECORDS SUMMARY | 2024-07-06 15:41 | XMS_ITS ---
Author Organization Grayson Paredes III, MD Address [address] [place] [address] Care Team Providers Care Guardian Family Member Name Role Phone Sandip Castro MD Primary Care Provider Grayson Martin Unavailable [phone] Allergies Allergen (clinical drug ingredient) Drug/Non Drug [...] Act kellen Keflex Unknown Drug Allergy Active REASON FOR VISIT Colitis May 2023, Recent [...] Provider Diagnosis Grayson Paredes III, MD [address] [place] [address] [place] [address] 04/29/2024 Grayson Paredes Adenocarcinoma of co bella C18.9 ; Former smoker Z87.891 ; GERD (gastroesophageal reflux disease) K21.9 ; Hypothyroidism E03.9 and Dyslipidemia E78.5 Assessments Encounter Date Diagnosis (ICD Code) Assessment Notes Treatment Notes Treatment Clinical Notes 04/29/2024 Adenocarcinoma of colon (ICD-10 - C18.9) There is no sign of recurrent disease or new primary. Surveillance will continue. She will proceed to see the train planner to discuss colonoscopy. She is up-to-date with that procedure 04/29/2024 Former smoker (ICD-10 - Z87.891) She is highly motivated not to smoke. She has a plan to prevent relapse in times of stress or illness. 04/29/2024 GERD (gastroesophageal reflux disease) (ICD-10 - K21.9) Her reflexes well controlled with jdps-oeo-hgekgxc medications. 04/29/2024 Hypothyroidism (ICD-10 - E03.9) She [...] checkup Provider Name:Grayson Paredes, 04/30/2025 02:30:00 PM, [address] [place] [address] DR [facility] Thi, [place], [address], Progress Notes * Radha CARRDOB: (84 yo F)Acc No.[id number]:04/29/2024 Progress Notes Patient:?Radha CARR Provider:?Grayson Paredes MD :1940???Age:84 Y???Sex:Female D ate:04/29/2024 Address:[address] [place] [address] [id number] Pcp:Sandip Castro MD Subjective: * Chief Complaints: * ???Colitis May4Rece nt diverticulitisHistory of colon cancerImpression fracture L1 * HPI: ???COVID-19 Screening:?Questions?Have you had any new onset fever, chills, cough, congestion, sore throat, shortness of breath, muscle aches??No ???:? The patient, an 84-year-old female, reported a [...] require a pacemaker in the future. * ROS:?General/Constitutional:?pain?only normal aches and pains.?Chills?denies.?Fatigue?admits.?Fever?denies.?ENT:?Decreased hearing?in both ears.?Respiratory:?Cough?denies.?Cardiovascular:?Chest pain with exertion?denies.?Dyspnea on exertion?denies.?Shortness of breath?denies.?Gastrointestinal:?Constipation?alternating with diarrhea.?Decreased appetite?denies.?Diarrhea?denies.?Heartburn?occasional.?Nausea?denies.?Rectal bleeding?denies.?Vomiting?denies.?Hematology:?bruising?denies.?petechiae?denies.?Swollen glands?none have been noted.?Genitourinary:?Frequent urination?a small amount.?Musculoskeletal:?Muscle aches?denies.?Painful joints?denies.?Sciatica?denies.?Weakness?denies.?Skin:?Itching?denies.?Rash?denies.?Skin lesion(s)?denies.?Neurologic:?Difficulty speaking?denies.?Dizziness?denies.?Headache?denies.?Low back pain?denies.?Psychiatric:?Depressed mood?denies.?Cancer Self-Management:?Admits?Colonoscopy.? * Medical History:? * Surgical History:?Knee repla cement 2016Colonoscopy showed a tubular adenoma in the transverse colon 2012basal cell carcinoma on back excised 2017right cataract surgery Dr. Chew 2018Partial colectomy for adenocarcinoma of the hepatic flexure 2017 * Hospitalization/Major Diagno stic Procedure:?Hospitalized for 10 days in july due to broken l1 vertebra and diverticulitis. * Family History:?Father: dece ased 71 yrs, from a stroke.?Mother: 80 yrs, diagnosed with CVD, DM.?1 brother(s) . 1 daughter(s) - healthy. .? [...] had vertigo and prostate cancer. * Social History:?Tobacco Use:?Tobacco Use/Smoking?Patient is a?former smoker ?How long has it been since you last smoked??> 10 years ?Additional Findings: Tobacco Non-User?Ex-cigarette smoker ???She was born in [place]. He has been to [place] for 50 years. They have a daughter Brittny. 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 She has had no toxic exposures. * Medications:?TakingTylenol P M Extra Strength 500-25 MG Tablet 1 tablet [...] the patient * Allergies:?CleocinDoxycyclin eAtropine SulfateCephalexinSurgical tapeCefazolin Sodium-DextroseClindamycinGentamicintraMADoltiZANidineKeflexno[Allergies Verified] Objective: * Vitals:?Ht: 64, Wt:131, BMI: 22.48, BP:126/68, HR:86, Temp:97.4, Wt-k.42. * Examination: ???General Examination: ?GENERAL APPEARANCE:?pleasant, well nourished, well developed, in no acute distress, calm and relaxed, elderly woman.?HEAD:?atraumatic, normocephalic.?EYES:?eomi, perrla, anicteric, conjugate.?EARS:?normal.?NOSE:?septum intact.?ORAL CAVITY:?normal, unremarkable.?NECK/THYROID:?no jugular venous distention, no carotid bruit, thyroid normal.?LYMPH NODES:?no enlarged lymph nodes,spleen normal.?SKIN:?no suspicious lesions, anicteric.?HEART:?no clicks, gallops, murmurs, or rubs, regular rhythm, S1, S2 normal, no s3, or vascular bruits.?LUNGS:?clear to auscultation .?BREASTS:?Not examined.?ABDOMEN:?bowel sounds normal, no ascites, no organomegaly, no mass.?RECTAL EXAM:?not examined.?MUSCULOSKELETAL:?extremities unremarkable, no clubbing, cyanosis or edema.?PERIPHERAL PULSES:?normal.?NEUROLOGIC:?alert and oriented, cranial nerves 2-12 grossly intact, deep tendon reflexes 2+ symmetrical, motor strength normal upper and lower extremities, sensory exam intact.?PSYCH:?alert, oriented, cognitive function intact, cooperative with exam, speech clear, thought process logical, goal directed.? Assessment: * Assessment: 1.?Adenocarcinoma of colon - C18.9 (Primary)???Notes :There is no sign of recurrent disease or new primary. Surveillance will continue. She will proceed to see the train planner to discuss colonoscopy. She is up-to-date with that procedure???2.?Former smoker - Z87.891???Notes :She is highly motivated not to smoke. She has a plan to prevent relapse in times of stress or illness.???3.?GERD (gastroesophageal reflux disease) - K21.9???Notes :Her reflexes well controlled with lbvu-uog-gmsdcxi medications.???4.?Hypothyroidism - E03.9???Notes :She was advised to continue her thyroid medication. She appeared euthyroid today.???5.?Dyslipidemia - E78.5???Notes :Her fasting lipid profile shows good control of her lipids and no change in her regimen was made today.??? Plan: * Treatment: * Procedure Codes:? * Preventive Medicine:? ??Counseling:?Smoking/Tobacco Use?Patient counseled on the dangers of tobacco use and urged to quit.?04/29/2024 * Follow Up:?1 Year, Once a ye ar (Reason: OV, Regular checkup) * Images: * Sign off status: Completed true * Provider:?Grayson Paredes MD Date:?04/09 Generated for Dayamii nona/Marlo/eTransmitting on:?07/06/2024 03:40 PM EDT History and Physical Notes * [...]
== END 2024-07-06 14:31 | disposition home or self-care (01) ==
LOC: HO.PMC 13:53
PROVIDERS: PCP Internal Medicine; Referring Provider Internal Medicine; Visit Provider Nurse Practitioner Family
DX: M81.0 Age-related osteoporosis without current pathological fracture (principal); M54.50 Low back pain, unspecified; G89.29 Other chronic pain; M51.369 Other intervertebral disc degeneration, lumbar region without mention of lumbar back pain or lower extremity pain; M47.817 Spondylosis without myelopathy or radiculopathy, lumbosacral region
CPT/HCPCS: 99204

== ENCOUNTER → 2024-07-06 13:52 | Outpatient (BNVA) | payer MEDICARE, SELFPAY | PROVIDERS: PCP Internal Medicine; Referring Provider Internal Medicine; Visit Provider Nurse Practitioner Family | DX: M81.0 Age-related osteoporosis without current pathological fracture (principal); M54.50 Low back pain, unspecified; M51.369 Other intervertebral disc degeneration, lumbar region without mention of lumbar back pain or lower extremity pain; M47.817 Spondylosis without myelopathy or radiculopathy, lumbosacral region; G89.29 Other chronic pain | CPT/HCPCS: 99202 ==

== ENCOUNTER 2024-07-30 06:31 | Outpatient (REF) | payer MEDICARE, SELFPAY ==
--- NOTE | ~2024-07-30 | FL_ITS ---
EXAMINATION: FL GUIDANCE ONLY HISTORY: M47.817 - Spondylosis without myelopathy or radiculopathy, lumbosacral... COMPARISON: None available. TECHNIQUE: Fluoroscopy time: 0.1 minutes. Cumulative Dose: 1.44 mGy. DAP: 0.0156 mGym2 Images: 2. FINDINGS: Images demonstrate needles and contrast material in the regions of the bilateral L3-4, L4-5, and L5-S1 facet joints. FL/FL guidance in treatment room IMPRESSION: Fluoroscopy during procedure. Please see procedure report for additional information. Electronically signed by: Grayson Huffman MD 07/31/2024 03:32 PM EDT
--- OUTSIDE RECORDS SUMMARY | 2024-07-30 06:34 | XMS_ITS | Patient Health Record ---
Author Organization [facility] Address [address] [place] [address] Care Team Providers Care Paint Roller Covermaker Name Role Phone Sandip Castro MD Primary Care Provider Grayson Canas Unavailable [phone] Allergies Allergen (clinical drug ingredient) Drug/Non Drug [...] Act kellen Garamycin Unknown Drug Allergy Active Reason For Referral [...] as needed Orally prn insomnia prn Active Immunizations Vaccine Route Administration Date Status Comme nts Influenza Unknown 12/07/2016 Administered Influenza Unknown 12/10/2017 Administered Influenza Unknown 01/20/2020 Administered Influenza Unknown 01/23/2022 Administered Problems Problem Type SNOMED Code ICD Code Onset Dates Problem Status W/U Status Risk Notes Problem 773203423 Left lower quadrant pain (R10.32) Active confirmed Problem 830595017 Encounter for screening for malignant neoplasm of colon (Z12.11) Active confirmed Problem 991575361 History of adenomatous polyp of colon (Z86.010) Active confirmed Problem 178523492 Gastroesophageal reflux disease without esophagitis (K21.9) Active confirmed Problem 262496157624546 Preprocedural examination (Z01.818) Active confirmed Problem 756542834 History of colon cancer (Z85.038) Active confirmed Problem 698374760 Personal history of colon cancer (Z85.038) Active confirmed Problem Diverticulosis of sigmoid colon (172665188) Diverticulosis of sigmoid colon (K57.30) Active confirmed Problem 71707225 Abdominal gas pa in (R14.1) Active confirmed Problem Diverticulosis of colon (466044838) Diverticulosis of colon (K57.30) Active confirmed Problem History of gastrointestinal tract bypass (486278631) 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 Problem History of gastrointestinal tract bypass (887252078) 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 Encounters Encounter Location Date Provider Diagnosis [facility] [address] [facility] [address] [place] [address] 08/29/2023 Grayson Keene Plan Of Treatment Future Test Test Name Order Date COLONOSCOPY 12/07/2011 COLONOSCOPY 06/27/2017 COLONOSCOPY 03/19/2018 COLONOSCOPY 08/10/2020 COLONOSCOPY 09/12/2022 Insurance Providers Payer Name Payer Address Payer Phone Subscriber Number Group Number Insured Name Patient Relationship to Insured Coverage Start Date Coverage End Date MEDICARE OF [place] [address] [place] [id number] CARMELLA DavisHILARIO Self - patient is the insured MED[employer] ATTN CLAIMS [address] [place] [address] [phone] [id number] CARMELLA DavisHILARIO Self - patient is the insured Medical (General) History Medical History History ICD Code Hyperlipidemia Brito's [...] polyp and significant sigmoid diverticulosis Hypothyroidism Denies [place],DM,CVA,Lung disease,renal dise ase Colon cancer 06/3016--- adeno [...]
--- OUTSIDE RECORDS SUMMARY | 2024-07-30 06:34 | XMS_ITS | Patient Health Record ---
Author Organization Grayson Paredes III, MD Address [address] [place] [address] Care Team Providers Care Designer Writer Name Role Phone Sandip Castro MD Primary Care Provider Grayson Martin Unavailable [phone] Allergies Allergen (clinical drug ingredient) Drug/Non Drug [...] doxycycline Doxycycline Unknown Drug Allergy Act kellen Reason For Referral No Information Medications Medication [...] Active ALPRAZolam 0.25 MG 1 tablet Orally Tw e a day Active Centrum Silver Ultra [...] Problem Status W/U Status Risk Notes Problem 0463543 Former smoker (Z87.891) Active confirmed She is highly motivated not to smoke. She has a plan to prevent relapse in times of stress or illness. Problem 593978875 Overweight (BMI 25.0-29.9) (E66.3) Active confirmed Her weight is 1 50 on her scale at home today. This gives a body mass index 25.7. I recommended stabilizing her weight at this level in pursuing good nutrition. Problem 41115377 Hypothyroidism (E03.9) Active confirmed She was advised to continue her thyroid medication. She appeared euthyroid today. Problem 124330573 GERD (gastroesophagea l reflux disease) (K21.9) Active confirmed Her reflexe s well controlled with zcex-awo-ooypmrt medications. Problem 85019935 Hypokalemia (E87.6) Active confirmed Problem 264139083 Dyslipidemia (E78.5) Active confirmed Her fasting lip id profile shows good control of her lipids and no change in her regimen was made today. Problem 39265907 Internal hemorrhoids (K64.8) Active confirmed Problem 41937739 Constipation (K59.00) Active confirmed This is an intermittent problem, not present today, which is well controlled with rvbc-dsh-hipjeic medications. No hematochezia has been noted. Problem 089162715 Adenocarcinoma of colon (C18.9) Active confirmed There is no sign of recurrent disease or new primary. Surveillance will continue. She will proceed to see the gas shovel operator to discuss colonoscopy. She is up-to-date with that procedure Problem 62627653 Ischemic colitis (K55.9) Active confirmed She presented initially with pancolitis and diarrhea. This has resolved. She has had no hematochezia or protracted diarrhea or watery stool. No change in her regimen was necessary today. 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 She will proceed to see the gas shovel operator to discuss colonoscopy. She is up-to-date with that procedure 04/29/2024 GERD (gastroesophageal reflux disease) (ICD-10 - K21.9) Her reflexes well controlled with sbxw-bam-vdzgerq medications. 04/29/2024 Hypothyroidism (ICD-10 - E03.9) She [...] Details Provider Name:Grayson Paredes, 04/30/2025 02:30:00 PM, [address] [place] [address] DR SHARIF Thi, [place], [address], Insurance Providers Payer Name Payer Address Payer Phone Subscriber Number Group Number Insured Name Patient Relationship to Insured Coverage Start Date Coverage End Date MEDICARE NGS [address] [place] [address] [id number] [facility] Radha gonzales Self - patient is the insured [facility] [address] [place], [place] [id number] [phone] [id number] [facility] Radha gonzales Self - patient is [...]
--- OUTSIDE RECORDS SUMMARY | 2024-07-30 06:34 | XMS_ITS ---
Author Organization Grayson Paredes III, MD Address [address] [facility] [place] [address] Care Team Providers Care Tonnage Compilation Clerk Name Role Phone Sandip Castro MD Primary Care Provider Grayson Martin Unavailable [phone] Allergies Allergen (clinical drug ingredient) Drug/Non Drug [...] Date Provider Diagnosis Grayson Paredes III, MD [address] [place] [address] DR [place], [place] [address] 04/29/2023 Grayson Paredes Adenocarcinoma of co bella C18.9 ; Former smoker Z87.891 ; Constipation K59.00 ; Hypothyroidism E03.9 and Dyslipidemia E78.5 Assessments Encounter Date Diagnosis (ICD Code) Assessment Notes Treatment Notes Treatment Clinical Notes 04/29/2023 Adenocarcinoma of colon (ICD-10 - C18.9) There is no sign of recurrent disease or new primary. Surveillance will continue. She will proceed to see the maori liaison adviser to discuss colonoscopy. 04/29/2023 Former smoker (ICD-10 - Z87.891) She is highly motivated not to smoke. She has a plan to prevent relapse in times of stress or illness. 04/29/2023 Constipation (ICD-10 - K59.00) This is an intermittent problem, not present today, which is well controlled with mzii-hvv-ttzeycy medications. No hematochezia has been noted. 04/29/2023 [...] in the morning Orally Saturday and Saturday [facility] Ultra Womens - Orally LORazepam 0.5 MG (Schedule IV Drug) T JOSÉ ANTONIO 1 TABLET AT BEDTIME NEEDED Oral ALPRAZolam 0.25 MG 1 tablet Orally Twice a day Atorvastatin Calcium 40 MG 1 tablet Orally Once a day Next Appt Details Follow Up: 1 Year, Reason: O V Provider Name:Grayson Marshallrne, 04/30/2025 02:30:00 PM, [address] [place] [address] [place], [place], [address], Progress Notes * Radha CARRDOB: [birth year] (83 yo F)Acc No.[id number]:04/29/2023 Progress Notes Patient:?Radha Carr Provider:?Grayson Paredes MD :1940???Age:83 Y???Sex:Female D ate:04/29/2023 Address:[address] [place] [address] [place], [id number] Pcp:Sandip Castro MD Subjective: * Chief Complaints: [...] Tobacco Non-User?Ex-cigarette smoker ???She was born in [place]. He has been to [place] for 50 years. They have a daughter Brittny. 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 She has had [...] continue. She will proceed to see the maori liaison adviser to discuss colonoscopy.?2.?Former smoker - Z87.891, She is highly motivated not to smoke. She has a plan to prevent relapse in times of stress or illness.?3.?Constipation - K59.00, This is an intermittent problem, not present today, which is well controlled with iivt-hfx-yhbbczy medications. No hematochezia has been noted.?4.?Hypothyroidism - [...] Provider:?Grayson Paredes MD Date:?04/09 Generated for Dayamii onna/Marlo/eTransmitting on:?07/30/2024 06:34 AM EDT History and Physical Notes * HPI [...]
--- OUTSIDE RECORDS SUMMARY | 2024-07-30 06:35 | XMS_ITS ---
Author Organization [facility] Address [address] [place] [address] Care Team Providers Care Gas Operations Superintendent Name Role Phone Sandip Castro MD Primary Care Provider Grayson Canas [phone] REASON FOR VISIT LOOKING FOR SOON APPT Encounters Encounter Location Date Provider Diagnosis [facility] [address] [place] [address] 08/29/2023 Grayson Keene Plan Of Treatment No Information Progress Notes * HILARIO FORD ADOB: [birth year] (83 yo F)Acc No.[id number]:08/29/2023 Patient:?HILARIO FORD :1940???Age:83 Y???Sex:Female Address:[address] [place] [address] * true * Date:? Generated for Dayamii nona/Marlo/eTransmitting on:?07/30/2024 06:34 AM EDT
--- OUTSIDE RECORDS SUMMARY | 2024-07-30 06:35 | XMS_ITS ---
Author Organization Grayson Paredes III, MD Address [address] [place] [address] Care Team Providers Care Experimental Preflight Mechanic Name Role Phone Sandip Castro MD Primary Care Provider Grayson Martin Unavailable [phone] Allergies Allergen (clinical drug ingredient) Drug/Non Drug [...] Date Provider Diagnosis Grayson Paredes III, MD [address] [place] [address] [place] [address] 04/29/2024 Grayson Paredes Adenocarcinoma of co bella C18.9 ; Former smoker Z87.891 ; GERD (gastroesophageal reflux disease) K21.9 ; Hypothyroidism E03.9 and Dyslipidemia E78.5 Assessments Encounter Date Diagnosis (ICD Code) Assessment Notes Treatment Notes Treatment Clinical Notes 04/29/2024 Adenocarcinoma of colon (ICD-10 - C18.9) There is no sign of recurrent disease or new primary. Surveillance will continue. She will proceed to see the rehabilitation manager to discuss colonoscopy. She is up-to-date with that procedure 04/29/2024 Former smoker (ICD-10 - Z87.891) She is highly motivated not to smoke. She has a plan to prevent relapse in times of stress or illness. 04/29/2024 GERD (gastroesophageal reflux disease) (ICD-10 - K21.9) Her reflexes well controlled with tkxi-cph-pkrdtcp medications. 04/29/2024 Hypothyroidism (ICD-10 - E03.9) She [...] checkup Provider Name:Grayson Paredes, 04/30/2025 02:30:00 PM, [address] [place] [address] [address] [facility] Thi, [place], [address], Progress Notes * Radha CARRDOB: (84 yo F)Acc No.[id number]:04/29/2024 Progress Notes Patient:?Radha CARR Provider:?Grayson Paredes MD :1940???Age:84 Y???Sex:Female D ate:04/29/2024 Address:[address] [place] [address] [place] [id number] Pcp:Sandip Castro MD Subjective: * Chief Complaints: [...] Tobacco Non-User?Ex-cigarette smoker ???She was born in [place]. He has been to [place] for 50 years. They have a daughter Brittny. 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 She has had [...] continue. She will proceed to see the rehabilitation manager to discuss colonoscopy. She is up-to-date with that procedure???2.?Former smoker - Z87.891???Notes :She is highly motivated not to smoke. She has a plan to prevent relapse in times of stress or illness.???3.?GERD (gastroesophageal reflux disease) - K21.9???Notes :Her reflexes well controlled with rkax-xzs-ikhpdug medications.???4.?Hypothyroidism - E03.9???Notes :She was advised to [...] Paredes MD Date:?04/09 Generated for Dayamii nona/Marlo/eTransmitting on:?07/30/2024 06:34 AM EDT History and Physical [...] edema LYMPH NODES: no enlarged lymph no piage,spleen normal RECTAL EXAM: not examined PSYCH: alert, oriented, cog nitive function intact, cooperative with exam, speech clear, thought process logical, goal directed ORAL CAVITY: normal, unremarkable
== END 2024-07-30 06:32 | disposition home or self-care (01) ==
LOC: CF 06:31
PROVIDERS: Visit Provider Internal Medicine
DX: M47.817 Spondylosis without myelopathy or radiculopathy, lumbosacral region (principal)
CPT/HCPCS: 64493; 64494; J2003; J2795; Q9967

== ENCOUNTER 2024-07-30 12:43 | Outpatient (AMB) | payer MEDICARE, SELFPAY ==
[2024-07-30 12:47] VITALS: BP 142/78; PULSE 60; RESP 16; O2SAT 90
--- NOTE | 2024-07-30 12:47 | A.OFFVIS_ITS ---
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 Allergies adhesive tape [ADHESIVE TAPE] Allergy (Intermediate, Verified 08/17/24 13:38) ITCH, Rash cefazolin [From KEFZOL] Allergy (Intermediate, Verified 08/17/24 13:38) RASH clindamycin [From CLEOCIN] Allergy (Intermediate, Verified 08/17/24 13:38) RASH gentamicin [From GARAMYCIN] Allergy (Intermediate, Verified 08/17/24 13:38) RASH atropine Allergy (Unknown, Verified 08/17/24 13:38) localized eye rxn cephalexin Allergy (Unknown, Verified 08/17/24 13:38) Rash tizanidine Adverse Reaction (Verified 08/17/24 13:38) Nausea tramadol Adverse Reaction (Verified 08/17/24 13:38) Nausea Doxycycline Monohydrate Allergy (Intermediate, Uncoded 08/17/24 13:38) Rash Medication List - Last Reconciled 07/30/24 by Lolita Vasquez LPN alprazolam 1 tab PO BID PRN atorvastatin 1 tab PO BEDTIME calcium carbonate (Calcium 600) 600 mg PO BID@1200,2100 cholecalciferol (vitamin D3) 10 mcg PO DAILY diphenhydramine-acetaminophen 25-500 mg (Tylenol PM Extra Strength) 1 tab PO BEDTIME PRN lactobacillus combination no.4 (Probiotic) 3,000 mmu cells PO DAILY@1200 levothyroxine 1 tab PO DAILY@0600 lorazepam 1 tab PO BEDTIME PRN ozefeaqj-icx-qenj-FA-vit K-lut 8 mg iron-400 mcg-50 mcg (Centrum Silver Women) 1 tab PO DAILY@1200 omeprazole 20 mg PO DAILY@0630 HPI HPI Nando Dx L3-L4-DR-L5 MBB: Details: Patient presents for scheduled procedure. Denies any recent cough, cold, infection, fever or other significant changes in medical history since last office visit. FORMERLY [facility] Medical History Lumbar degenerative disc disease Chronic low back pain Osteoporosis Compression fracture of L1 vertebra Arthritis History of right bundle branch block (RBBB) Anxiety PONV (postoperative nausea and vomiting) GERD (gastroesophageal reflux disease) History of colon cancer Hypothyroidism Barretts esophagus Hyperlipidemia Surgical History History of foot surgery History of cataract extraction with lens replacement Hx of esophagogastroduodenoscopy History of total right knee replacement (TKR) History of breast biopsy History of hysterectomy History of thyroidectomy Hx of colonoscopy (~11/28/22) History of partial colectomy Family History (Updated 08/17/24 @ 11:42 by Hailey Coleman MA) Mother No problems noted. Father No problems noted. Social History Household Members: Spouse Housing: House Are you a primary inpatient care manager rn to a significant other at home: No Do you presently have visiting nurse or other home services: No Alcohol intake: current Alcohol intake frequency: a few times a month Comment: pt refusing alarms, steady gait encouraged to call for help Patient Tobacco Use Status: Former Tobacco user Tobacco use type: Cigarette Advance Directives Date on File: 07/22/23 service: No Current occupational status: retired Cognitive needs: No Hearing needs: No Vision needs: Yes (rx glasses) Physical Exam Vital Signs: Last Vital Signs Pulse 86 07/30/24 13:04 Resp 16 07/30/24 13:04 BP 154/76 H 07/30/24 13:04 Pulse Ox 93 07/30/24 13:04 Oxygen Delivery Method Room Air 07/30/24 13:04 Office Procedures Details: Lumbar Medial Branch Block, Bilateral L3, L4 medial branches and L5 Dorsal Ramus (2 levels, 3 nerves) After obtaining written consent, pre-procedure blood pressure and pulse were recorded and are in the nursing record for review. The patient was placed in a prone position. The respective lumbosacral area was prepped with chloraprep and draped in sterile fashion. The skin over the target medial branch nerves was anesthetized with 0.5% lidocaine. A 22 gauge 3.5 inch needle was inserted into the target medial branch nerve under fluoroscopic guidance. No paresthesias were elicited with needle placement and aspiration was negative for blood and CSF. Next, 0.2cc of omnipaque 180 was injected to verify positioning. Next 0.5 ml 0.5% ropivicaine was injected (0.5cc total per level). The identical procedure was performed at the remaining levels. The skin was cleansed and a sterile bandage was applied. Following the procedure the patient's vital signs were stable. The patient tolerated the procedure well and no complications were encountered. Following the procedure the patient's vital signs were stable. The patient was discharged home in good condition with post-procedural instructions. Time Out: Immediately prior to the procedure, the following was verbally confirmed that there is a signed consent form and that the correct patient, planned procedure, site and side are consistent with documentation and that necessary equipment and/or blood products are available prior to the start of the case. Complications: none EBL: <5 cc 37046 - with Fluoroscopy (L3-L4) 71501 - second level with Fluoroscopy (L3-L4-L5) (bilateral) Procedure code (CPT) selection complete Assessment & Plan Assessment & Plan (1) Lumbosacral spondylosis: Code(s): M47.817 - Spondylosis without myelopathy or radiculopathy, lumbosacral region Category: Medical Plan Patient is status post diagnostic lumbar MBBs. Patient tolerated procedure well and was discharged home in stable condition with discharge instructions. All questions were answered. We will follow-up via telephone or in clinic to assess response to therapy. A follow-up appointment was made during today's visit. Orders: Orders FL guidance in treatment room 07/30/24 M47.817 - Spondylosis without myelopathy or radiculopathy, lumbosacral region Coding Level of Care Code Procedure Only Diagnoses Lumbosacral spondylosis M47.817 CPT Codes Medial Branch Block Lumbar/Sacral1 - Branch Block Lumb/Sac 1: 22688 - with Fluoroscopy (L3-L4) ([id number]) Medial Branch Block Lumbar/Sacral1 - Branch Block Lumb/Sac 2: 22779 - second le marguerite with Fluoroscopy (L3-L4-L5) ([id number])
[2024-07-30 13:04] VITALS: BP 154/76; PULSE 86; RESP 16; O2SAT 93
== END 2024-07-30 13:06 | disposition home or self-care (01) ==
LOC: HO.PMCPRC 12:43
PROVIDERS: PCP Internal Medicine; Visit Provider Internal Medicine
DX: M47.817 Spondylosis without myelopathy or radiculopathy, lumbosacral region (principal)
CPT/HCPCS: 64493; 64494

== ENCOUNTER 2024-08-06 13:23 | Outpatient (AMB) | payer MEDICARE, SELFPAY ==
--- NOTE | 2024-08-06 13:29 | MHC.OFFVIS ---
Vital Signs 08/06/24 13:31 Height 5 ft 4 in Weight 132 lb BMI 22.7 BP 130/94 H Blood Pressure Location Rt brachial Position Sitting Pulse 87 Pulse Source Pulse Oximeter Pulse Oximetry (%) 98 Oxygen Delivery Method Room Air Intake Visit Reasons: s/p Nando Dx L3-L4-DR-L5 MBB Intake Note: Pain today 11/15 School Manager Required: No Accompanied by: Self / Same As Patient Allergies adhesive tape [ADHESIVE TAPE] Allergy (Intermediate, Verified 08/06/24 13:32) ITCH, Rash cefazolin [From KEFZOL] Allergy (Intermediate, Verified 08/06/24 13:32) RASH clindamycin [From CLEOCIN] Allergy (Intermediate, Verified 08/06/24 13:32) RASH gentamicin [From GARAMYCIN] Allergy (Intermediate, Verified 08/06/24 13:32) RASH atropine Allergy (Unknown, Verified 08/06/24 13:32) localized eye rxn cephalexin Allergy (Unknown, Verified 08/06/24 13:32) Rash tizanidine Adverse Reaction (Verified 08/06/24 13:32) Nausea tramadol Adverse Reaction (Verified 08/06/24 13:32) Nausea Doxycycline Monohydrate Allergy (Intermediate, Uncoded 07/30/24 12:47) Rash HPI Comments Details: The patient is an 84-year-old female presenting with chronic lower back pain, primarily caused by multilevel facet arthritis and predominately axial in nature. The condition has been worsened by physical activities like sitting, standing, and bending. On July 30, she underwent diagnostic medial branch blocks at the L3-L4-L5 vertebral levels, achieving significant pain relief that lasted for one week. Prior to treatment, her pain was a severe 7-8/10 but reduced to 1-2/10 following the injection. During that time, she was able to participate in activities such as shopping with very little discomfort. Her severe osteoporosis necessitates avoiding steroidal injections, and relief is sought through alternative treatments like radiofrequency ablation. Symptoms have reverted to baseline recently, with reported pain severity once again at 7-8/10. - Onset and Timing: Chronic pain with significant relief for one week post-injection on 07/30/24 - Quality and Character: Fluctuates in severity, with baseline severe pain and periods of relief. - Primary Location: Lower back. - Areas of Radiation: None explicitly mentioned. - Exacerbating and Relieving Factors: Exacerbated by standing, sitting, and using abdominal muscles; relieved notably by diagnostic injections. - Interferes with: Low level of function during severe pain episodes; improved functioning and mobility during pain relief period. - Affect: Pain impacts daily activities, including standing and sitting, and occasionally affects mood. - Analgesia: Diagnostic medial branch blocks provided significant relief, reducing pain levels from eight to one out of ten for a week. - Adverse Effects: None reported for pain medications. - Activities of Daily Living: Pain relief post-injection allowed engaging in shopping and attending jainism with ease. - Aberrant Drug Related Behaviors: None observed or reported. Past Procedures: 07/30/24: Bilateral Diagnostic L3-L4 DR L5 MBB-80-90% pain relief for 1 week PRIOR: The patient is a pleasant 84-year-old female presenting with chronic back pain with history of stable L1 compression fracture and right symphysis pubis superior pubic ramus, sustained from a fall last July. This fracture has resulted in ongoing pain predominantly across her waistline and lower back, aggravated by prolonged standing and specific movements. The patient's pain is compounded by degenerative disc disease with severe arthritis identified in a recent back X-ray and correlates with today's exam. Additionally, severe osteoporosis limits treatment options. Historical interventions have included ibuprofen and recent physical therapy at [facility] with limited success. Past attempts with lidocaine patches were unsuccessful due to an allergic reaction. The patient also has a prior history of neck discomfort , managed conservatively in the 1970s. - Onset: Began after a fall resulting in an L1 compression fracture in July of the previous year. - Quality: Persistent discomfort primarily in the lower back. - Primary Location: Across the waistline and lower lumbar spine, radiating from right to left side. - Radiation: Radiates across lower back from the right to the left side, occasionally spreading upwards to mid back. Denies radiating leg pain. - Aggravating Factors: Bending, prolonged standing, and specific actions such as cooking and showering. - Alleviating Factors: Limited relief from ibuprofen use; attempted lidocaine exacerbated symptoms due to an allergic reaction. - Impact: Pain interferes with standing activities, such as preparing meals and showering. - Affect: Pain impacts daily activities but specific impacts on mood or psychological wellbeing were not detailed. - Analgesia: Current use of ibuprofen with some benefit; attempted lidocaine patches resulted in an allergic reaction. No specific goal pain levels were discussed. - Adverse Effects: Allergic reaction to lidocaine adhesive and dietary supplements noted. - Activities of Daily Living: Pain affects ability to stand for prolonged periods impacting daily activities like meal preparation. - Aberrant Drug-Related Behaviors: No aberrant behaviors reported or discussed. Oswestry Low Back Pain Disability Score=27 FORMERLY [facility] Medical History Lumbar degenerative disc disease Chronic low back pain Osteoporosis Compression fracture of L1 vertebra Arthritis History of right bundle branch block (RBBB) Anxiety PONV (postoperative nausea and vomiting) GERD (gastroesophageal reflux disease) History of colon cancer Hypothyroidism Barretts esophagus Hyperlipidemia Surgical History History of foot surgery History of cataract extraction with lens replacement Hx of esophagogastroduodenoscopy History of total right knee replacement (TKR) History of breast biopsy History of hysterectomy History of thyroidectomy Hx of colonoscopy History of partial colectomy Social History Household Members: Spouse Housing: House Are you a primary care support representative to a significant other at home: No Do you presently have visiting nurse or other home services: No Alcohol intake: current Alcohol intake frequency: a few times a month Comment: pt refusing alarms, steady gait encouraged to call for help Patient Tobacco Use Status: Former Tobacco user Tobacco use type: Cigarette Advance Directives Date on File: 07/22/23 service: No Review of Systems Const All systems reviewed & are unremarkable except as noted in HPI and below Physical Exam Vital Signs: Last Vital Signs Pulse 87 08/06/24 13:31 BP 130/94 H 08/06/24 13:31 Pulse Ox 98 08/06/24 13:31 Oxygen Delivery Method Room Air 08/06/24 13:31 BMI result Body Mass Index 22.7 General: Appears afebrile. Alert and oriented. Mood and affect appropriate. Follows and participates in conversation appropriately. Respiratory effort is unlabored. No cough. Able to transition from sit to stand unassisted. Ambulates with bilaterally normal heel strike and toe off. Back/Spine/Pelvis Cervical Spine: cervical ROM normal and No Cervical spine tenderness Thoracic/Lumbar Spine: thoracic and lumbar spine normal to inspection, No Thoracic/lumbar spine scar(s), Lasegue's sign negative, straight leg raise negative bilaterally, pain with thoraco-lumbar ROM (Positive facet loading bilaterally), thoraco-lumbar ROM limited, No thoracic spinal tenderness and lumbar spinal tenderness (L3-S1) Pelvis: no buttock tenderness Sacroiliac joints: bilaterally nontender Results Reviewed Results Reviewed: XR LUMBOSACRAL SPINE 04/09/24 CLINICAL INFORMATION: LOW BACK PAIN COMPARISON: CT lumbar spine 07/21/2023 TECHNIQUE: Three views of the lumbosacral spine. FINDINGS: There is vertebral planta L1 vertebra with progression of previously known fracture from CT exam 07/21/2023. Rest of the vertebral heights and alignment is normal. There is loss of L2-3 disc height with ventral spondylosis. There is a disc heights are normal. The SI joints are symmetrical. The facet joints are normal. The paravertebral soft tissues are normal. IMPRESSION: Vertebra planta L1 vertebra. There is progression of previously noted L1 compression fracture from CT lumbar spine exam 07/21/2023. There are no new fractures seen. Mild degenerative disc changes with ventral spondylosis L2-3 disc level. It is unchanged to previous CT exam. CT abdomen pelvis wo IV con 08/13/23 OSSEOUS STRUCTURES: Old healed fracture of the right symphysis pubis superior pubic ramus. Stable old compression fracture of L1 vertebrae. Multilevel degenerative spondylosis spine. DEXA axial skeleton 04/10/23 IMPRESSION: 1. DIAGNOSIS: Severe osteoporosis based on the lowest T-score value of -2.7 in the spine and history of fracture of pelvis and wrist applying World Health Organization criteria. Assessment & Plan Assessment & Plan (1) Osteoporosis: Code(s): M81.0 - Age-related osteoporosis without current pathological fracture Category: Medical (2) Chronic low back pain: Code(s): M54.50 - Low back pain, unspecified; G89.29 - Other chronic pain Category: Medical (3) Lumbar degenerative disc disease: Code(s): M51.369 - Other intervertebral disc degeneration, lumbar region without mention of lumbar back pain or lower extremity pain Category: Medical (4) Lumbosacral spondylosis: Code(s): M47.817 - Spondylosis without myelopathy or radiculopathy, lumbosacral region Category: Medical Plan The management plan includes seeking approval for radiofrequency ablation due to its potential for longer-term pain relief without the complications associated with steroids, given her severe osteoporosis. The effectiveness of diagnostic medial branch blocks warrants proceeding with ablative techniques. Patient is aware her insurance conditions may necessitate a repeated trial of nerve blocks. Schedule Bilateral L3-L4-L5 Medial Branch RFA with local, oral sedation and fluoroscopy. We also reviewed peripheral nerve stimulation which patient prefers to avoid any temporary or permanent implants at this time. Expectations, risks and benefits were reviewed. Patient is aware she will be contacted to schedule this procedure. Continue conservative management with Tylenol, heat therapy, and activity modifications. All questions and concerns have been answered and patient agreed with the plan. Follow up after lumbar RFA and sooner as needed. Patient was informed and verbally consented to the use of an ambient scribe for clinic note documentation during this visit. Patient Instructions: - Await contact regarding radiofrequency ablation insurance approval. - Maintain activities within tolerance levels to avoid exacerbating pain. - Report any significant changes in pain intensity or new symptoms immediately. - Return for follow-up if pain persists or worsens significantly before the planned procedure. Coding Level of Care Code Est Pt Level 4 (08454) Complex EM visit Add On G2211 Diagnoses Osteoporosis M81.0 Chronic low back pain M54.50; G89.29 Lumbar degenerative disc disease M51.369 Lumbosacral spondylosis M47.817
[2024-08-06 13:31] VITALS: BP 130/94; PULSE 87; O2SAT 98; BMI 22.7
== END 2024-08-06 13:38 | disposition home or self-care (01) ==
LOC: HO.PMC 13:24
PROVIDERS: PCP Internal Medicine; Visit Provider Nurse Practitioner Family
DX: M81.0 Age-related osteoporosis without current pathological fracture (principal); M54.50 Low back pain, unspecified; G89.29 Other chronic pain; M51.369 Other intervertebral disc degeneration, lumbar region without mention of lumbar back pain or lower extremity pain; M47.817 Spondylosis without myelopathy or radiculopathy, lumbosacral region
CPT/HCPCS: 99214; G2211

== ENCOUNTER → 2024-08-06 13:23 | Outpatient (BNVA) | payer MEDICARE, SELFPAY | PROVIDERS: PCP Internal Medicine; Visit Provider Nurse Practitioner Family | DX: M81.0 Age-related osteoporosis without current pathological fracture (principal); M51.360 Other intervertebral disc degeneration, lumbar region with discogenic back pain only; M47.817 Spondylosis without myelopathy or radiculopathy, lumbosacral region; G89.29 Other chronic pain | CPT/HCPCS: 99212 ==

== ENCOUNTER 2024-08-17 11:28 | Outpatient (AMB) | payer MEDICARE, SELFPAY ==
[2024-08-17 10:27] VITALS: BP 120/80; PULSE 86; TEMP 36.4; O2SAT 98; BMI 22.1
--- NOTE | 2024-08-17 10:27 | MHC.PC.OV ---
Vital Signs 08/17/24 10:27 Height 5 ft 4 in Weight 129 lb BMI 22.1 BP 120/80 Blood Pressure Location Lt brachial Position Sitting Pulse 86 Pulse Source Pulse Oximeter Temp 97.6 F Temp Source Axillary Pulse Oximetry (%) 98 Oxygen Delivery Method Room Air Intake Visit Reasons: Routine Assistant Vice President Required: No Accompanied by: Spouse Allergies adhesive tape [ADHESIVE TAPE] Allergy (Intermediate, Verified 08/17/24 13:38) ITCH, Rash cefazolin [From KEFZOL] Allergy (Intermediate, Verified 08/17/24 13:38) RASH clindamycin [From CLEOCIN] Allergy (Intermediate, Verified 08/17/24 13:38) RASH gentamicin [From GARAMYCIN] Allergy (Intermediate, Verified 08/17/24 13:38) RASH atropine Allergy (Unknown, Verified 08/17/24 13:38) localized eye rxn cephalexin Allergy (Unknown, Verified 08/17/24 13:38) Rash tizanidine Adverse Reaction (Verified 08/17/24 13:38) Nausea tramadol Adverse Reaction (Verified 08/17/24 13:38) Nausea Doxycycline Monohydrate Allergy (Intermediate, Uncoded 08/17/24 13:38) Rash Medication List - Last Reconciled 08/17/24 by Dillon Rolle MD alprazolam 1 tab PO BID PRN atorvastatin 1 tab PO BEDTIME calcium carbonate (Calcium 600) 600 mg PO BID@1200,2100 cholecalciferol (vitamin D3) 10 mcg PO DAILY diphenhydramine-acetaminophen 25-500 mg (Tylenol PM Extra Strength) 1 tab PO BEDTIME PRN lactobacillus combination no.4 (Probiotic) 3,000 mmu cells PO DAILY@1200 levothyroxine 1 tab PO DAILY@0600 xwbzgskv-wyj-syar-FA-vit K-lut 8 mg iron-400 mcg-50 mcg (Centrum Silver Women) 1 tab PO DAILY@1200 omeprazole 20 mg PO DAILY@0630 Tobacco use date assessed: 08/17/24 Fall risk assessment: 2 + Falls in past year Last assessed Fall Risk: 08/17/24 Dental Screening Dental Screen Date: 08/17/24 Did you have a dental visit in the last 12 months?: Yes Did you have a dental problem in the last 6 months where you did not have access to dental care?: No PFSH Medical History Lumbar degenerative disc disease Chronic low back pain Osteoporosis Compression fracture of L1 vertebra Arthritis History of right bundle branch block (RBBB) Anxiety PONV (postoperative nausea and vomiting) GERD (gastroesophageal reflux disease) History of colon cancer Hypothyroidism Barretts esophagus Hyperlipidemia Surgical History History of foot surgery History of cataract extraction with lens replacement Hx of esophagogastroduodenoscopy History of total right knee replacement (TKR) History of breast biopsy History of hysterectomy History of thyroidectomy Hx of colonoscopy (~11/28/22) History of partial colectomy Family History (Updated 08/17/24 @ 11:42 by Hailey Coleman MA) Mother No problems noted. Father No problems noted. Social History Household Members: Spouse Housing: House Are you a primary acute care physical therapist to a significant other at home: No Do you presently have visiting nurse or other home services: No Alcohol intake: current Alcohol intake frequency: a few times a month Comment: pt refusing alarms, steady gait encouraged to call for help Patient Tobacco Use Status: Former Tobacco user Tobacco use type: Cigarette Advance Directives Date on File: 07/22/23 service: No Current occupational status: retired Cognitive needs: No Hearing needs: No Vision needs: Yes (rx glasses) Questionnaire PHQ-9 Over the last 2 weeks, how often have you been bothered by any of the following problems? 1. Little interest or pleasure in doing things: not at all 2. Feeling down, depressed, or hopeless: not at all 3. Trouble falling or staying asleep, or sleeping too much: not at all 4. Feeling tired or having little energy: not at all 5. Poor appetite or overeating: not at all 6. Feeling bad about yourself - or that you are a failure or have let yourself or your family down: not at all 7. Trouble concentrating on things, such as reading the newspaper or watching television: not at all 8. Moving or speaking so slowly that other people could have noticed. Or the opposite - being so fidgety or restless that you have been moving around a lot more than usual: not at all 9. Thoughts that you would be better off or of hurting yourself in some way: not at all Total score: 0 Depression Screening Interpretation: Negative Depression Screening Done: Yes Source: Developed by Drs. Grayson Phillips, Mishel Garcia, Michael Fink and colleagues, with an educational mamta from [employer]. Thrive Questionnaire Date Thrive assessed: 08/17/24 I am a: Patient Within the past 12 months, did the food you bought not last and you didn't have the money to get more?: Never true Within the past 12 months, did you worry whether your food would run out before you got money to buy more?: Never true Do you have trouble paying for medicines?: No Do you have trouble getting transportation to medical appointments?: No Do you have trouble paying your heating and electricity bill?: No Do you have trouble taking care of your child, family member or friend?: No Do you have trouble with day-to-day activities such as bathing, preparing meals, shopping, managing finances, etc.?: No Are you currently unemployed and looking for a job?: No Are you interested in more education?: No THRIVE Score: 0 AUDIT C Alcohol Use Questionnaire (AUDIT-C) 1. How often do you have a drink containing alcohol?: Monthly or less 2. How many drinks containing alcohol do you have on a typical day when you are drinking?: 1 or 2 3. How often do you have six or more drinks on one occasion?: Less than monthly Total Score: 2 MAYELIN-7 AMB Questionnaire MAYELIN-7 Date MAYELIN - 7 assessed: 08/17/24 Feeling nervous, anxious, or on edge: 0 = Not at all Not being able to stop or control worryin = Not at all Worrying too much about different things: 0 = Not at all Trouble relaxin = Not at all Being so restless that it is hard to sit still: 0 = Not at all Becoming easily annoyed or irritable: 0 = Not at all Feeling afraid as if something awful might happen: 0 = Not at all Total MAYELIN-7 score (0-4 normal; 5-9 mild; 10-14 moderate; 15-21 severe): 0 Source: Developed by Mishel Liang Kurt Kroenke and colleagues, with an educational mamta from [employer]. Physical exam (Primary Care) Vital Signs: Last Vital Signs Temp 97.6 F 08/17/24 10:27 Pulse 86 08/17/24 10:27 BP 120/80 08/17/24 10:27 Pulse Ox 98 08/17/24 10:27 Oxygen Delivery Method Room Air 08/17/24 10:27 BMI result Body Mass Index 22.1 Tobacco/Smoking Status: Tobacco use Status Tobacco use date assessed 08/17/24 08/17/24 10:30 Patient Tobacco Use Status Former Tobacco user 08/17/24 10:30 Tobacco use type Cigarette 08/17/24 10:30 PHQ-9: PHQ-9 Score PHQ-9: Total score 0 08/17/24 11:37 Depression Screening Interpretation: Negative Thrive Assessment: Date of Thrive Assessment Date Thrive assessed 08/17/24 08/17/24 10:30 Advance Care Planning discussion: Exists, not on file Date of discussion: 08/17/24 Who was present: Patient, Forms completed: Health Care Proxy Actual minutes spent: 5 Coding Level of Care Code New Pt Level 4 (73879) Complex EM visit Add On G2211 Diagnoses Diverticulitis of sigmoid colon K57.32 Chronic low back pain M54.50; G89.29 Additional Codes Vital Signs *Quality* - Advance Care Planning discussion: Exists, not on file ([id number]) Assessment & Plan Assessment & Plan (1) Diverticulitis of sigmoid colon: Code(s): K57.32 - Diverticulitis of large intestine without perforation or abscess without bleeding Category: Medical Plan: History of Present Illness The patient is an 84-year-old female presenting with management concerns for diverticulitis and seeking clarification on her medications. After being hospitalized the previous year, she was diagnosed with diverticulitis following an incidental finding related to a suspected vertebral fracture. Initial treatment involved antibiotics for what was considered an infection; this was later confirmed to be diverticulitis. She reports no recent flare-ups and seeks dietary guidance to prevent recurrence. Concerns were explicitly raised regarding fruit skins, seeds, and nuts. She is under pain management for a vertebral fracture, utilizing back injections with variable pain relief. A medication review was sought to address confusion between her use of Lorazepam and Alprazolam, primarily for sleep assistance due to pain, resulting in the decision to eliminate Lorazepam and solely use Alprazolam at night. 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 - No information on family status or substance use. Review of Systems - Gastrointestinal: Reports having diverticulitis; confusion over dietary restrictions. - Musculoskeletal: Reports vertebral fracture (L1) with variable pain levels. - Cardiovascular: Reports a heart murmur. - Neurologic: Denies other neurologic symptoms apart from use of Alprazolam for sleep. Physical Exam General: Cooperative and healthy appearing Nutritional Appearance: Well nourished Orientation/consciousness: Patient oriented x3 Limitations: No limitations Head: Normal to inspection General: Appearance normal, both eyes and all related structures Neck: Normal visual inspection Chest: Normal palpation of entire chest wall Respiratory: N ormal respiratory effort Neurology: Patient oriented x3, reports occasional pain management for L1 vertebrae fracture. Results - Tests: Previous ultrasounds of the heart. Plan 1. Diverticulitis - Educate on appropriate food intake, focusing on chewing, avoiding large bites, and being cautious with nuts and seeds. 2. Vertebral Fracture L1 - Proceed with back injections as approved; assess pain management efficacy. 3. Lorazepam And Alprazolam Use - Transition away from Lorazepam, maintaining nightly Alprazolam use for sleep. 4. Heart Murmur - Regular examinations to observe heart murmur progression. Discussion Notes During this visit, I discussed dietary management for diverticulitis, advising the patient to ensure adequate chewing to prevent food particles from exacerbating her condition. We focused on eliminating Lorazepam from her regimen due to drowsiness concerns and potential for dependence, maintaining Alprazolam as her primary medication for nocturnal use to aid sleep. I addressed the significance of her vertebral fracture pain management plan, including ongoing back injections. The patient was educated on the risks associated with combining these medications and potential addiction. Her heart murmur will continue to be monitored through regular visits. Patient Instructions - Chew food thoroughly, avoid large bites, and swallow food slowly to manage diverticulitis. - Avoid consuming whole nuts and seeds unless properly chewed. - Take Alprazolam at bedtime as prescribed; avoid operating vehicles or machinery after taking it. - Attend scheduled medical appointments for back pain treatments and heart murmur follow-ups. - Monitor pain levels and report any significant changes. - Contact the clinic with any concerns or if conditions worsen. (2) Chronic low back pain: Code(s): M54.50 - Low back pain, unspecified; G89.29 - Other chronic pain Category: Medical Plan: As above. Orders: Orders Lipid Panel Today G89.29 - Other chronic pain, K57.32 - Diverticulitis of large intestine without perforation or abscess without bleeding, M54.50 - Low back pain, unspecified UA and rflx microscopic Today G89.29 - Other chronic pain, K57.32 - Diverticulitis of large intestine without perforation or abscess without bleeding, M54.50 - Low back pain, unspecified Basic Metabolic Panel Today G89.29 - Other chronic pain, K57.32 - Diverticulitis of large intestine without perforation or abscess without bleeding, M54.50 - Low back pain, unspecified Complete Blood Count no Diff Today G89.29 - Other chronic pain, K57.32 - Diverticulitis of large intestine without perforation or abscess without bleeding, M54.50 - Low back pain, unspecified Liver Panel Today G89.29 - Other chronic pain, K57.32 - Diverticulitis of large intestine without perforation or abscess without bleeding, M54.50 - Low back pain, unspecified Thyroid Stimulating Hormone Today G89.29 - Other chronic pain, K57.32 - Diverticulitis of large intestine without perforation or abscess without bleeding, M54.50 - Low back pain, unspecified Medications: Discontinued lorazepam Take one tab 30 min prior to procedure on 08/20/24. Do not drive or operate machinery for 24 hours after taking this medication. 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
--- OUTSIDE RECORDS SUMMARY | 2024-08-17 12:17 | XMS_ITS ---
Author Organization Grayson Paredes III, MD Address [address] [facility] [place] [address] Care Team Providers Care Enamel Pulverizer Name Role Phone Sandip Castro MD Primary Care Provider Grayson aMrtin Unavailable [phone] Allergies Allergen (clinical drug ingredient) Drug/Non Drug Allergy documented on EMR Reaction Allergy Type Onset Date Status cephalexin Cephalexin Unknown Drug Allergy Activ e cefazolin Cefazolin Sodium-Dextrose Unknown Drug Allergy Active atropine Atropine Sulfate Unknown Drug Allergy Active Surgical tape (uncoded) Unknown Allergy Active doxycycline Doxycycline Unknown Drug Allergy Act kellen clindamycin Cleocin Unknown Drug Allergy Activ e REASON FOR VISIT Colon cancer, Overweight, Hypothyroidism [...] Date Provider Diagnosis Grayson Paredes III, MD [address] [place] [address] DR [place], [place] [address] 04/29/2023 Grayson Paredes Adenocarcinoma of co bella C18.9 ; Former smoker Z87.891 ; Constipation K59.00 ; Hypothyroidism E03.9 and Dyslipidemia E78.5 Assessments Encounter Date Diagnosis (ICD Code) Assessment Notes Treatment Notes Treatment Clinical Notes 04/29/2023 Adenocarcinoma of colon (ICD-10 - C18.9) There is no sign of recurrent disease or new primary. Surveillance will continue. She will proceed to see the community development planner to discuss colonoscopy. 04/29/2023 Former smoker (ICD-10 - Z87.891) She is highly motivated not to smoke. She has a plan to prevent relapse in times of stress or illness. 04/29/2023 Constipation (ICD-10 - K59.00) This is an intermittent problem, not present today, which is well controlled with gnmv-uhz-inhgjrn medications. No hematochezia has been noted. 04/29/2023 [...] in the morning Orally Saturday and Saturday [facility] Ultra Womens - Orally LORazepam 0.5 MG (Schedule IV Drug) T JOSÉ ANTONIO 1 TABLET AT BEDTIME NEEDED Oral ALPRAZolam 0.25 MG 1 tablet Orally Twice a day Atorvastatin Calcium 40 MG 1 tablet Orally Once a day Next Appt Details Follow Up: 1 Year, Reason: O V Provider Name:Grayson Marshallrne, 04/30/2025 02:30:00 PM, [address] [place] [address] [place], [place], [address], Progress Notes * Radha CARRDOB: [birth year] (83 yo F)Acc No.[id number]:04/29/2023 Progress Notes Patient:?Radha Carr Provider:?Grayson Paredes MD :1940???Age:83 Y???Sex:Female D ate:04/29/2023 Address:[address] [place] [address] [place], [id number] Pcp:Sandip Castro MD Subjective: * Chief Complaints: [...] Tobacco Non-User?Ex-cigarette smoker ???She was born in [place]. He has been to [place] for 50 years. They have a daughter Brittny. 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 She has had [...] continue. She will proceed to see the community development planner to discuss colonoscopy.?2.?Former smoker - Z87.891, She is highly motivated not to smoke. She has a plan to prevent relapse in times of stress or illness.?3.?Constipation - K59.00, This is an intermittent problem, not present today, which is well controlled with pvek-fsl-goqkyeu medications. No hematochezia has been noted.?4.?Hypothyroidism - [...] Paredes MD Date:?04/09 Generated for Dayamii nona/Marlo/eTransmitting on:?08/17/2024 12:17 PM EDT History and Physical Notes * [...]
--- OUTSIDE RECORDS SUMMARY | 2024-08-17 12:17 | XMS_ITS | Patient Health Record ---
Author Organization [facility] Address [address] [place] [address] Care Team Providers Care Poster Name Role Phone Sandip Castro MD Primary Care Provider Grayson Canas Unavailable [phone] Allergies Allergen (clinical drug ingredient) Drug/Non Drug [...] Problem Status W/U Status Risk Notes Problem 852322815 Left lower quadrant pain (R10.32) Active confirmed Problem 333817009 Encounter for screening for malignant neoplasm of colon (Z12.11) Active confirmed Problem 526079887 History of adenomatous polyp of colon (Z86.010) Active confirmed Problem 447315029 Gastroesophageal reflux disease without esophagitis (K21.9) Active confirmed Problem 712274955463255 Preprocedural examination (Z01.818) Active confirmed Problem 049542161 History of colon cancer (Z85.038) Active confirmed Problem 644809196 Personal history of colon cancer (Z85.038) Active confirmed Problem Diverticulosis of sigmoid colon (868477401) Diverticulosis of sigmoid colon (K57.30) Active confirmed Problem 76030372 Abdominal gas pa in (R14.1) Active confirmed Problem Diverticulosis of colon (763708698) Diverticulosis of colon (K57.30) Active confirmed Problem History of gastrointestinal tract bypass (648781772) 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 Problem History of gastrointestinal tract bypass (474571680) 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 Encounters Encounter Location Date Provider Diagnosis [facility] [address] [facility] [address] [place] [address] 08/29/2023 Grayson Keene Plan Of Treatment Future Test Test Name Order Date COLONOSCOPY 12/07/2011 COLONOSCOPY 06/27/2017 COLONOSCOPY 03/19/2018 COLONOSCOPY 08/10/2020 COLONOSCOPY 09/12/2022 Insurance Providers Payer Name Payer Address Payer Phone Subscriber Number Group Number Insured Name Patient Relationship to Insured Coverage Start Date Coverage End Date MEDICARE OF [place] [address] [place] [id number] CARMELLA DavisHILARIO Self - patient is the insured MEDEX ATTN CLAIMS [address] [place] [address] [id number] CARMELLA DavisHILARIO Self - patient is the [...] polyp and significant sigmoid diverticulosis Hypothyroidism Denies CT,DM,CVA,Lung disease,renal dise ase Colon cancer 06/3016--- adeno [...]
--- OUTSIDE RECORDS SUMMARY | 2024-08-17 12:17 | XMS_ITS ---
Author Organization [facility] Address [address] [place] [address] Care Team Providers Care Cannon Fire Direction Specialist Name Role Phone Sandip Castro MD Primary Care Provider Grayson Canas [phone] REASON FOR VISIT LOOKING FOR SOON APPT Encounters Encounter Location Date Provider Diagnosis [facility] [address] [place] [address] 08/29/2023 Grayson Keene Plan Of Treatment No Information Progress Notes * HILARIO FORD ADOB: [birth year] (83 yo F)Acc No.[id number]:08/29/2023 Patient:?HILARIO FORD :1940???Age:83 Y???Sex:Female Address:[address] [place] [address] * true * Date:? Generated for Dayamii nona/Marlo/eTransmitting on:?08/17/2024 12:17 PM EDT
--- OUTSIDE RECORDS SUMMARY | 2024-08-17 12:17 | XMS_ITS ---
Author Organization Grayson Paredes III, MD Address [address] [place] [address] Care Team Providers Care Security Attendant Name Role Phone Sandip Castro MD Primary Care Provider Grayson Martin Unavailable [phone] Allergies Allergen (clinical drug ingredient) Drug/Non Drug [...] Act kellen Keflex Unknown Drug Allergy Active clindamycin Cleocin Unknown Drug Allergy Activ e REASON FOR VISIT Colitis May 2023, Recent [...] Date Provider Diagnosis Grayson Paredes III, MD [address] [place] [address] [place] [address] 04/29/2024 Grayson Paredes Adenocarcinoma of co bella C18.9 ; Former smoker Z87.891 ; GERD (gastroesophageal reflux disease) K21.9 ; Hypothyroidism E03.9 and Dyslipidemia E78.5 Assessments Encounter Date Diagnosis (ICD Code) Assessment Notes Treatment Notes Treatment Clinical Notes 04/29/2024 Adenocarcinoma of colon (ICD-10 - C18.9) There is no sign of recurrent disease or new primary. Surveillance will continue. She will proceed to see the senior software manager to discuss colonoscopy. She is up-to-date with that procedure 04/29/2024 Former smoker (ICD-10 - Z87.891) She is highly motivated not to smoke. She has a plan to prevent relapse in times of stress or illness. 04/29/2024 GERD (gastroesophageal reflux disease) (ICD-10 - K21.9) Her reflexes well controlled with wbmy-wso-yhjbkzl medications. 04/29/2024 Hypothyroidism (ICD-10 - E03.9) She [...] checkup Provider Name:Grayson Paredes, 04/30/2025 02:30:00 PM, [address] [place] [address] DR [facility] Thi, [place], [address], Progress Notes * Radha CARRDOB: (84 yo F)Acc No.[id number]:04/29/2024 Progress Notes Patient:?Radha CARR Provider:?Grayson Paredes MD :1940???Age:84 Y???Sex:Female D ate:04/29/2024 Address:[address] [place] [address] [id number] Pcp:Sandip Castro MD Subjective: * Chief Complaints: [...] Tobacco Non-User?Ex-cigarette smoker ???She was born in [place]. He has been to [place] for 50 years. They have a daughter Brittny. 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 She has had [...] continue. She will proceed to see the senior software manager to discuss colonoscopy. She is up-to-date with that procedure???2.?Former smoker - Z87.891???Notes :She is highly motivated not to smoke. She has a plan to prevent relapse in times of stress or illness.???3.?GERD (gastroesophageal reflux disease) - K21.9???Notes :Her reflexes well controlled with kffa-cbs-abymywf medications.???4.?Hypothyroidism - E03.9???Notes :She was advised to [...]
--- OUTSIDE RECORDS SUMMARY | 2024-08-17 12:17 | XMS_ITS | Patient Health Record ---
Author Organization Grayson Paredes III, MD Address [address] [place] [address] Care Team Providers Care Asset Accountant Name Role Phone Sandip Castro MD Primary Care Provider Grayson Martin Unavailable [phone] Allergies Allergen (clinical drug ingredient) Drug/Non Drug [...] clindamycin Cleocin Unknown Drug Allergy Activ e Reason For Referral No Information Medications Medication [...] Problem Status W/U Status Risk Notes Problem 1272018 Former smoker (Z87.891) Active confirmed She is highly motivated not to smoke. She has a plan to prevent relapse in times of stress or illness. Problem 082436405 Overweight (BMI 25.0-29.9) (E66.3) Active confirmed Her weight is 1 50 on her scale at home today. This gives a body mass index 25.7. I recommended stabilizing her weight at this level in pursuing good nutrition. Problem 36374692 Hypothyroidism (E03.9) Active confirmed She was advised to continue her thyroid medication. She appeared euthyroid today. Problem 711230084 GERD (gastroesophagea l reflux disease) (K21.9) Active confirmed Her reflexe s well controlled with mtqy-bdx-dizjrmt medications. Problem 81598017 Hypokalemia (E87.6) Active confirmed Problem 814065352 Dyslipidemia (E78.5) Active confirmed Her fasting lip id profile shows good control of her lipids and no change in her regimen was made today. Problem 59461452 Internal hemorrhoids (K64.8) Active confirmed Problem 08543820 Constipation (K59.00) Active confirmed This is an intermittent problem, not present today, which is well controlled with agia-bhd-pzdzagc medications. No hematochezia has been noted. Problem 272159356 Adenocarcinoma of colon (C18.9) Active confirmed There is no sign of recurrent disease or new primary. Surveillance will continue. She will proceed to see the journeyman mechanic to discuss colonoscopy. She is up-to-date with that procedure Problem 18627083 Ischemic colitis (K55.9) Active confirmed She presented initially with pancolitis and diarrhea. This has resolved. She has had no hematochezia or protracted diarrhea or watery stool. No change in her regimen was necessary today. 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 She will proceed to see the journeyman mechanic to discuss colonoscopy. She is up-to-date with that procedure 04/29/2024 GERD (gastroesophageal reflux disease) (ICD-10 - K21.9) Her reflexes well controlled with sglv-uhj-zxxityu medications. 04/29/2024 Hypothyroidism (ICD-10 - E03.9) She [...] PROFILE, RANDOM (COMPREHENSIVE METABOLIC ) 07/22/2019 CEA 07/22/2018 CEA 07/30/2017 CEA 07/22/2019 CEA 03/17/2018 CEA 05/01/2017 CEA 01/21/2019 CEA 11/11/2017 CBC w DIFF 07/22/2018 CBC w DIFF 07/30/2017 CBC w DIFF 07/22/2019 CBC w DIFF 03/17/2018 CBC w DIFF 05/01/2017 CBC w DIFF 01/21/2019 CBC w DIFF 11/11/2017 SED RATE (ESR) 11/11/2017 MAMMOGRAM DIGITAL BILATERAL SCREEN 01/24 Next Appt Details Provider Name:Grayson Paredes, 04/30/2025 02:30:00 PM, [address] [place] [address] [address] SHARIF Thi, [place], [address], Insurance Providers Payer Name Payer Address Payer Phone Subscriber Number Group Number Insured Name Patient Relationship to Insured Coverage Start Date Coverage End Date MEDICARE NGS [address] [place] [address] [id number] [facility] Radha gonzales Self - patient is the insured [facility] [address] [place], [place] [id number] [phone] [id number] [facility] Radha gonzales Self - patient [...] 2018 basal cell carcinoma on back excised 7 Colonoscopy showed a tubular adenoma in the transverse colon 2011 Knee replacement 2016 Hospitalization History Reason Date(Month/Year) Hospitalized for 10 days in july due to broken l1 vertebra and diverticulitis.
== END 2024-08-17 12:01 | disposition home or self-care (01) ==
LOC: HO.HMCHD 11:29
PROVIDERS: PCP Internal Medicine; Visit Provider Internal Medicine
DX: K57.32 Diverticulitis of large intestine without perforation or abscess without bleeding (principal); M54.50 Low back pain, unspecified; G89.29 Other chronic pain; Z00.00 Encounter for general adult medical examination without abnormal findings

== ENCOUNTER → 2024-08-17 11:28 | Outpatient (BNVA) | payer MEDICARE, SELFPAY | PROVIDERS: PCP Internal Medicine; Visit Provider Internal Medicine | DX: K57.32 Diverticulitis of large intestine without perforation or abscess without bleeding (principal); M54.50 Low back pain, unspecified; G89.29 Other chronic pain | CPT/HCPCS: 99202 ==

== ENCOUNTER 2024-08-20 06:22 | Outpatient (REF) | payer MEDICARE, SELFPAY ==
--- NOTE | ~2024-08-20 | FL_ITS ---
EXAMINATION: FL GUIDANCE ONLY HISTORY: M47.817 - Spondylosis without myelopathy or radiculopathy, lumbosacral r... COMPARISON: None available. TECHNIQUE: Fluoroscopy time: 0.2 minutes. Cumulative Dose: 1.74 mGy. DAP: 0.0250 mGym2 Images: 3. FINDINGS: Multiple fluoroscopic spot films of the lumbar spine in the AP projection demonstrate needles and contrast material in the regions of the bilateral L3-4, L4-5, and L5-S1 facet joints. FL/FL guidance in treatment room IMPRESSION: Fluoroscopy during procedure. Please see procedure report for additional information. Electronically signed by: Grayson Huffman MD 08/20/2024 01:21 PM EDT
== END 2024-08-20 06:23 | disposition home or self-care (01) ==
LOC: CF 06:22
PROVIDERS: Visit Provider Internal Medicine
DX: M47.817 Spondylosis without myelopathy or radiculopathy, lumbosacral region (principal)
CPT/HCPCS: 64493; 64494; J2003; J2795; Q9967

== ENCOUNTER 2024-08-20 11:44 | Outpatient (AMB) | payer MEDICARE, SELFPAY ==
[2024-08-20 11:50] VITALS: BP 130/68; PULSE 93; RESP 16; O2SAT 96
--- NOTE | 2024-08-20 11:50 | A.OFFVIS_ITS ---
Vital Signs 08/20/24 11:50 08/20/24 12:16 BP 130/68 130/68 Blood Pressure Location Lt brachial Lt brachial Position Sitting Sitting Respiration 16 16 Pulse 93 93 Pulse Source Pulse Oximeter Pulse Oximeter Pulse Oximetry (%) 96 96 Oxygen Delivery Method Room Air Room Air Intake Visit Reasons: Repeat Nando Dx L3-L4-DR-L5 MBB/ ativan Bond Writer Required: No Allergies adhesive tape [ADHESIVE TAPE] Allergy (Intermediate, Verified 08/20/24 11:50) ITCH, Rash cefazolin [From KEFZOL] Allergy (Intermediate, Verified 08/20/24 11:50) RASH clindamycin [From CLEOCIN] Allergy (Intermediate, Verified 08/20/24 11:50) RASH gentamicin [From GARAMYCIN] Allergy (Intermediate, Verified 08/20/24 11:50) RASH atropine Allergy (Unknown, Verified 08/20/24 11:50) localized eye rxn cephalexin Allergy (Unknown, Verified 08/20/24 11:50) Rash tizanidine Adverse Reaction (Verified 08/20/24 11:50) Nausea tramadol Adverse Reaction (Verified 08/20/24 11:50) Nausea Doxycycline Monohydrate Allergy (Intermediate, Uncoded 08/20/24 11:50) Rash Medication List - Last Reconciled 08/20/24 by Lolita Vasquez LPN alprazolam 1 tab PO BID PRN atorvastatin 1 tab PO BEDTIME calcium carbonate (Calcium 600) 600 mg PO BID@1200,2100 cholecalciferol (vitamin D3) 10 mcg PO DAILY diphenhydramine-acetaminophen 25-500 mg (Tylenol PM Extra Strength) 1 tab PO BEDTIME PRN lactobacillus combination no.4 (Probiotic) 3,000 mmu cells PO DAILY@1200 levothyroxine 1 tab PO DAILY@0600 nuxfxgix-djv-hudf-FA-vit K-lut 8 mg iron-400 mcg-50 mcg (Centrum Silver Women) 1 tab PO DAILY@1200 omeprazole 20 mg PO DAILY@0630 PFSH Medical History Lumbar degenerative disc disease Chronic low back pain Osteoporosis Compression fracture of L1 vertebra Arthritis History of right bundle branch block (RBBB) Anxiety PONV (postoperative nausea and vomiting) GERD (gastroesophageal reflux disease) History of colon cancer Hypothyroidism Barretts esophagus Hyperlipidemia Surgical History History of foot surgery History of cataract extraction with lens replacement Hx of esophagogastroduodenoscopy History of total right knee replacement (TKR) History of breast biopsy History of hysterectomy History of thyroidectomy Hx of colonoscopy (~11/28/22) History of partial colectomy Family History (Updated 08/17/24 @ 11:42 by Hailey Coleman MA) Mother No problems noted. Father No problems noted. Social History Household Members: Spouse Housing: House Are you a primary resident care provider to a significant other at home: No Do you presently have visiting nurse or other home services: No Alcohol intake: current Alcohol intake frequency: a few times a month Comment: pt refusing alarms, steady gait encouraged to call for help Patient Tobacco Use Status: Former Tobacco user Tobacco use type: Cigarette Advance Directives Date on File: 07/22/23 service: No Current occupational status: retired Cognitive needs: No Hearing needs: No Vision needs: Yes (rx glasses) Physical Exam Vital Signs: Last Vital Signs Pulse 93 08/20/24 12:16 Resp 16 08/20/24 12:16 BP 130/68 08/20/24 12:16 Pulse Ox 96 08/20/24 12:16 Oxygen Delivery Method Room Air 08/20/24 12:16 Office Procedures Details: Lumbar Medial Branch Block, bilateral L3, L4 medial branches and L5 Dorsal Ramus (2 levels, 3 nerves) After obtaining written consent, pre-procedure blood pressure and pulse were recorded and are in the nursing record for review. The patient was placed in a prone position. The respective lumbosacral area was prepped with chloraprep and draped in sterile fashion. The skin over the target medial branch nerves was anesthetized with 0.5% lidocaine. A 22 gauge 3.5 inch needle was inserted into the target medial branch nerve under fluoroscopic guidance. No paresthesias were elicited with needle placement and aspiration was negative for blood and CSF. Next, 0.2cc of omnipaque 180 was injected to verify positioning. Next 0.5 ml 0.5% ropivicaine was injected (0.5cc total per level). The identical procedure was performed at the remaining levels. The skin was cleansed and a sterile bandage was applied. Following the procedure the patient's vital signs were stable. The patient tolerated the procedure well and no complications were encountered. Following the procedure the patient's vital signs were stable. The patient was discharged home in good condition with post-procedural instructions. Time Out: Immediately prior to the procedure, the following was verbally confirmed that there is a signed consent form and that the correct patient, planned procedure, site and side are consistent with documentation and that necessary equipment and/or blood products are available prior to the start of the case. Complications: none EBL: <5 cc 24481 - with Fluoroscopy (L3-L4) 37015 - second level with Fluoroscopy (L3-L4-L5) (Bilateral) Procedure code (CPT) selection complete Assessment & Plan Assessment & Plan (1) Lumbosacral spondylosis: Code(s): M47.817 - Spondylosis without myelopathy or radiculopathy, lumbosacral region Category: Medical Plan Patient is status post diagnostic lumbar medial branch block. Patient tolerated procedure well and was discharged home in stable condition with discharge instructions. All questions were answered. We will follow-up via telephone or in clinic to assess response to therapy. A follow-up appointment was made during today's visit. Orders: Orders FL guidance in treatment room Today Sandra Salguero APRN, ELEMENTARY READING TUTOR M47.817 - Spondylosis without myelopathy or radiculopathy, lumbosacral region AMB Medial Branch Block - Lumbar/Sacral Today Mac Abraham MD M47.816 - Spondylosis without myelopathy or radiculopathy, lumbar region Medications: New lorazepam (Ativan) Take 30 minutes prior to arrival to procedure 1 mg PO ONCE 1 tab 0RF anxiety Sandra Salguero APRN, ELEMENTARY READING TUTOR Coding Level of Care Code Procedure Only Diagnoses Lumbosacral spondylosis M47.817 CPT Codes Medial Branch Block Lumbar/Sacral1 - Branch Block Lumb/Sac 1: 06939 - with Fluoroscopy (L3-L4) ([id number]) Medial Branch Block Lumbar/Sacral1 - Branch Block Lumb/Sac 2: 65311 - second level with Fluoroscopy (L3-L4-L5) ([id number])
[2024-08-20 12:16] VITALS: BP 130/68; PULSE 93; RESP 16; O2SAT 96
--- OUTSIDE RECORDS SUMMARY | 2024-08-20 12:48 | XMS_ITS | Patient Health Record ---
Author Organization Grayson Paredes III, MD Address [address] [place] [address] Care Team Providers Care Equipment Engineer Name Role Phone Sandip Castro MD Primary Care Provider Grayson Martin Unavailable [phone] Allergies Allergen (clinical drug ingredient) Drug/Non Drug [...] Problem Status W/U Status Risk Notes Problem 3068136 Former smoker (Z87.891) Active confirmed She is highly motivated not to smoke. She has a plan to prevent relapse in times of stress or illness. Problem 219501530 Overweight (BMI 25.0-29.9) (E66.3) Active confirmed Her weight is 1 50 on her scale at home today. This gives a body mass index 25.7. I recommended stabilizing her weight at this level in pursuing good nutrition. Problem 37921799 Hypothyroidism (E03.9) Active confirmed She was advised to continue her thyroid medication. She appeared euthyroid today. Problem 139701189 GERD (gastroesophagea l reflux disease) (K21.9) Active confirmed Her reflexe s well controlled with gaip-gfw-jxldqlx medications. Problem 62261062 Hypokalemia (E87.6) Active confirmed Problem 142636515 Dyslipidemia (E78.5) Active confirmed Her fasting lip id profile shows good control of her lipids and no change in her regimen was made today. Problem 88740400 Internal hemorrhoids (K64.8) Active confirmed Problem 70079759 Constipation (K59.00) Active confirmed This is an intermittent problem, not present today, which is well controlled with jmmf-gwd-lbjwdzo medications. No hematochezia has been noted. Problem 295722163 Adenocarcinoma of colon (C18.9) Active confirmed There is no sign of recurrent disease or new primary. Surveillance will continue. She will proceed to see the yard specialist to discuss colonoscopy. She is up-to-date with that procedure Problem 08257424 Ischemic colitis (K55.9) Active confirmed She presented initially with pancolitis and diarrhea. This has resolved. She has had no hematochezia or protracted diarrhea or watery stool. No change in her regimen was necessary today. 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 She will proceed to see the yard specialist to discuss colonoscopy. She is up-to-date with that procedure 04/29/2024 GERD (gastroesophageal reflux disease) (ICD-10 - K21.9) Her reflexes well controlled with klkg-yed-eemaxpm medications. 04/29/2024 Hypothyroidism (ICD-10 - E03.9) She [...] PROFILE, RANDOM (COMPREHENSIVE METABOLIC ) 07/30/2017 CEA 07/22/2019 CEA 07/30/2017 CEA 03/17/2018 CEA 01/21/2019 CEA 05/01/2017 CEA 11/11/2017 CEA 07/22/2018 CBC w DIFF 07/22/2018 CBC w DIFF 07/22/2019 CBC w DIFF 07/30/2017 CBC w DIFF 03/17/2018 CBC w DIFF 01/21/2019 CBC w DIFF 05/01/2017 CBC w DIFF 11/11/2017 SED RATE (ESR) 11/11/2017 MAMMOGRAM DIGITAL BILATERAL SCREEN 01/24 Next Appt Details Provider Name:Grayson Paredes, 04/30/2025 02:30:00 PM, [address] [place] [address] DR SHARIF Thi, [place], [address], Insurance Providers Payer Name Payer Address Payer Phone Subscriber Number Group Number Insured Name Patient Relationship to Insured Coverage Start Date Coverage End Date MEDICARE NGS [address] [place] [address] [id number] [facility] Radha gonzales Self - patient is the insured [facility] [address] [place], [place] [id number] [phone] [id number] [facility] Radha gonzales Self - patient is the [...]
--- OUTSIDE RECORDS SUMMARY | 2024-08-20 12:49 | XMS_ITS ---
Author Organization Grayson Paredes III, MD Address [address] [facility] [place] [address] Care Team Providers Care Surgical Garment Inspector Name Role Phone Sandip Castro MD Primary Care Provider Grayson Martin Unavailable [phone] Allergies Allergen (clinical drug ingredient) Drug/Non Drug [...] Date Provider Diagnosis Grayson Paredes III, MD [address] [place] [address] [address] [place], [place] [address] 04/29/2023 Grayson Paredes Adenocarcinoma of co bella C18.9 ; Former smoker Z87.891 ; Constipation K59.00 ; Hypothyroidism E03.9 and Dyslipidemia E78.5 Assessments Encounter Date Diagnosis (ICD Code) Assessment Notes Treatment Notes Treatment Clinical Notes 04/29/2023 Adenocarcinoma of colon (ICD-10 - C18.9) There is no sign of recurrent disease or new primary. Surveillance will continue. She will proceed to see the process improvement engineer to discuss colonoscopy. 04/29/2023 Former smoker (ICD-10 - Z87.891) She is highly motivated not to smoke. She has a plan to prevent relapse in times of stress or illness. 04/29/2023 Constipation (ICD-10 - K59.00) This is an intermittent problem, not present today, which is well controlled with dhau-uao-nwfnhhe medications. No hematochezia has been noted. 04/29/2023 [...] in the morning Orally Saturday and Saturday [facility] Ultra Womens - Orally LORazepam 0.5 MG (Schedule IV Drug) T JOSÉ ANTONIO 1 TABLET AT BEDTIME NEEDED Oral ALPRAZolam 0.25 MG 1 tablet Orally Twice a day Atorvastatin Calcium 40 MG 1 tablet Orally Once a day Next Appt Details Follow Up: 1 Year, Reason: O V Provider Name:Grayson Marshallrne, 04/30/2025 02:30:00 PM, [address] [place] [address] [address] [place], [place], [address], Progress Notes * Radha CARRDOB: 8 (83 yo F)Acc No.[id number]:04/29/2023 Progress Notes Patient:?Radha Carr Provider:?Grayson Paredes MD :1940???Age:83 Y???Sex:Female D ate:04/29/2023 Address:[address] [place] [address] [id number] Pcp:Sandip Castro MD Subjective: * Chief Complaints: [...] Tobacco Non-User?Ex-cigarette smoker ???She was born in [place]. He has been to [place] for 50 years. They have a daughter Brittny. 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 She has had [...] continue. She will proceed to see the process improvement engineer to discuss colonoscopy.?2.?Former smoker - Z87.891, She is highly motivated not to smoke. She has a plan to prevent relapse in times of stress or illness.?3.?Constipation - K59.00, This is an intermittent problem, not present today, which is well controlled with xsuz-gdl-thbrinw medications. No hematochezia has been noted.?4.?Hypothyroidism - [...] Paredes MD Date:?04/09 Generated for Dayamii nona/Marlo/eTransmitting on:?08/20/2024 12:48 PM EDT History and Physical Notes * [...]
--- OUTSIDE RECORDS SUMMARY | 2024-08-20 12:49 | XMS_ITS ---
Author Organization [facility] Address [address] [place] [address] Care Team Providers Care Coffee Roaster Helper Name Role Phone Sandip Castro MD Primary Care Provider Grayson Canas [phone] REASON FOR VISIT LOOKING FOR SOON APPT Encounters Encounter Location Date Provider Diagnosis [facility] [address] [place] [address] 08/29/2023 Grayson Keene Plan Of Treatment No Information Progress Notes * HILARIO FORD ADOB: [birth year] (83 yo F)Acc No.[id number]:08/29/2023 Patient:?HILARIO FORD :1940???Age:83 Y???Sex:Female Address:[address] [place] [address] * true * Date:? Generated for Dayamii nona/Marlo/eTransmitting on:?08/20/2024 12:49 PM EDT
--- OUTSIDE RECORDS SUMMARY | 2024-08-20 12:49 | XMS_ITS ---
Author Organization Grayson Paredes III, MD Address [address] [place] [address] Care Team Providers Care Dental Assistant Teacher Name Role Phone Sandip Castro MD Primary Care Provider Grayson Martin Unavailable [phone] Allergies Allergen (clinical drug ingredient) Drug/Non Drug [...] Provider Diagnosis Grayson Paredes III, MD [address] [place] [address] [place] [address] 04/29/2024 Grayson Paredes Adenocarcinoma of co bella C18.9 ; Former smoker Z87.891 ; GERD (gastroesophageal reflux disease) K21.9 ; Hypothyroidism E03.9 and Dyslipidemia E78.5 Assessments Encounter Date Diagnosis (ICD Code) Assessment Notes Treatment Notes Treatment Clinical Notes 04/29/2024 Adenocarcinoma of colon (ICD-10 - C18.9) There is no sign of recurrent disease or new primary. Surveillance will continue. She will proceed to see the parachute crown sewer to discuss colonoscopy. She is up-to-date with that procedure 04/29/2024 Former smoker (ICD-10 - Z87.891) She is highly motivated not to smoke. She has a plan to prevent relapse in times of stress or illness. 04/29/2024 GERD (gastroesophageal reflux disease) (ICD-10 - K21.9) Her reflexes well controlled with kdeb-siy-dqyxcps medications. 04/29/2024 Hypothyroidism (ICD-10 - E03.9) She [...] checkup Provider Name:Grayson Paredes, 04/30/2025 02:30:00 PM, [address] [place] [address] DR [facility] Thi, [place], [address], Progress Notes * Radha CARRDOB: (84 yo F)Acc No.[id number]:04/29/2024 Progress Notes Patient:?Radha CARR Provider:?Grayson Paredes MD :1940???Age:84 Y???Sex:Female D ate:04/29/2024 Address:[address] [place] [address] [id number] Pcp:Sandip Castro MD Subjective: * Chief Complaints: [...] Tobacco Non-User?Ex-cigarette smoker ???She was born in [place]. He has been to [place] for 50 years. They have a daughter Brittny. 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 She has had [...] continue. She will proceed to see the parachute crown sewer to discuss colonoscopy. She is up-to-date with that procedure???2.?Former smoker - Z87.891???Notes :She is highly motivated not to smoke. She has a plan to prevent relapse in times of stress or illness.???3.?GERD (gastroesophageal reflux disease) - K21.9???Notes :Her reflexes well controlled with pqxb-vnv-vteprhw medications.???4.?Hypothyroidism - E03.9???Notes :She was advised to [...] MD Date:?04/09 Generated for Dayamii nona/Marlo/eTransmitting on:?08/20/2024 12:49 PM EDT History and Physical Notes * [...]
--- OUTSIDE RECORDS SUMMARY | 2024-08-20 12:49 | XMS_ITS | Patient Health Record ---
Author Organization [facility] Address [address] [place] [address] Care Team Providers Care Hematology Supervisor Name Role Phone Sandip Castro MD Primary Care Provider Grayson Canas Unavailable [phone] Allergies Allergen (clinical drug ingredient) Drug/Non Drug [...] Problem Status W/U Status Risk Notes Problem 578995421 Left lower quadrant pain (R10.32) Active confirmed Problem 556484904 Encounter for screening for malignant neoplasm of colon (Z12.11) Active confirmed Problem 655623907 History of adenomatous polyp of colon (Z86.010) Active confirmed Problem 120519213 Gastroesophageal reflux disease without esophagitis (K21.9) Active confirmed Problem 665820216666875 Preprocedural examination (Z01.818) Active confirmed Problem 824881733 History of colon cancer (Z85.038) Active confirmed Problem 129250915 Personal history of colon cancer (Z85.038) Active confirmed Problem Diverticulosis of sigmoid colon (997148755) Diverticulosis of sigmoid colon (K57.30) Active confirmed Problem 96399414 Abdominal gas pa in (R14.1) Active confirmed Problem Diverticulosis of colon (877390553) Diverticulosis of colon (K57.30) Active confirmed Problem History of gastrointestinal tract bypass (697165586) 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 Problem History of gastrointestinal tract bypass (350022526) 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 Encounters Encounter Location Date Provider Diagnosis [facility] [address] [facility] [address] [place] [address] 08/29/2023 Grayson Keene Plan Of Treatment Future Test Test Name Order Date COLONOSCOPY 12/07/2011 COLONOSCOPY 06/27/2017 COLONOSCOPY 03/19/2018 COLONOSCOPY 08/10/2020 COLONOSCOPY 09/12/2022 Insurance Providers Payer Name Payer Address Payer Phone Subscriber Number Group Number Insured Name Patient Relationship to Insured Coverage Start Date Coverage End Date MEDICARE OF [place] [address] [place] [id number] CARMELLA DavisHILARIO Self - patient is the insured [employer] [address] [place] [address] [id number] CARMELLA DavisHILARIO Self - patient is the [...] polyp and significant sigmoid diverticulosis Hypothyroidism Denies NV,DM,CVA,Lung disease,renal dise ase Colon cancer 06/3016--- adeno [...]
== END 2024-08-20 12:53 | disposition home or self-care (01) ==
LOC: HO.PMCPRC 11:44
PROVIDERS: PCP Internal Medicine; Visit Provider Internal Medicine
DX: M47.817 Spondylosis without myelopathy or radiculopathy, lumbosacral region (principal)
CPT/HCPCS: 64493; 64494

== ENCOUNTER 2024-08-27 14:07 | Outpatient (AMB) | payer MEDICARE, SELFPAY ==
--- NOTE | 2024-08-27 14:11 | MHC.OFFVIS ---
Vital Signs 08/27/24 14:17 Height 5 ft 4 in Weight 128 lb BMI 22.0 BP 143/65 H Blood Pressure Location Rt brachial Position Sitting Pulse 88 Pulse Source Pulse Oximeter Pulse Oximetry (%) 97 Oxygen Delivery Method Room Air Intake Visit Reasons: s/p repeat Nando Dx L3-L4-DR-L5 MBB Intake Note: Pain today 08/15 Security Systems Specialist Required: No Accompanied by: Self / Same As Patient Allergies adhesive tape [ADHESIVE TAPE] Allergy (Intermediate, Verified 08/27/24 14:17) ITCH, Rash cefazolin [From KEFZOL] Allergy (Intermediate, Verified 08/27/24 14:17) RASH clindamycin [From CLEOCIN] Allergy (Intermediate, Verified 08/27/24 14:17) RASH gentamicin [From GARAMYCIN] Allergy (Intermediate, Verified 08/27/24 14:17) RASH atropine Allergy (Unknown, Verified 08/27/24 14:17) localized eye rxn cephalexin Allergy (Unknown, Verified 08/27/24 14:17) Rash tizanidine Adverse Reaction (Verified 08/27/24 14:17) Nausea tramadol Adverse Reaction (Verified 08/27/24 14:17) Nausea Doxycycline Monohydrate Allergy (Intermediate, Uncoded 08/20/24 11:50) Rash HPI Comments Details: The patient is an 84-year-old female presenting today to assess response to repeated diagnostic lumbar medial branch block injections that have offered her significant but transient relief. She has noted exacerbation of her discomfort with cold, rainy weather and prolonged sitting and return of pain to baseline after 24 hours after procedure with 90% pain relief after injections. During her latest treatment, she was given 1 mg of lorazepam to aid rest post-procedure, leading to a nap following treatment but has noticed significant improvement in her functioning, keeping her back upright better and decreased pain with certain movements. A peripheral nerve stimulator patch was previously considered; however, use of the patch was precluded due to an allergic reaction. The patient has expressed the intention to pursue radiofrequency ablation in lieu of nerve stimulation, guided by prior experience and the potential for more sustained relief. Past Procedures: 08/20/24: Bilateral Diagnostic L3-L4 DR L5 MBB -90% pain relief for 24 hours 07/30/24: Bilateral Diagnostic L3-L4 DR L5 MBB-80-90% pain relief for 1 week PRIOR: The patient is a pleasant 84-year-old female presenting with chronic back pain with history of stable L1 compression fracture and right symphysis pubis superior pubic ramus, sustained from a fall last July. This fracture has resulted in ongoing pain predominantly across her waistline and lower back, aggravated by prolonged standing and specific movements. The patient's pain is compounded by degenerative disc disease with severe arthritis identified in a recent back X-ray and correlates with today's exam. Additionally, severe osteoporosis limits treatment options. Historical interventions have included ibuprofen and recent physical therapy at [facility] with limited success. Past attempts with lidocaine patches were unsuccessful due to an allergic reaction. The patient also has a prior history of neck discomfort , managed conservatively in the 1970s. - Onset: Began after a fall resulting in an L1 compression fracture in July of the previous year. - Quality: Persistent discomfort primarily in the lower back. - Primary Location: Across the waistline and lower lumbar spine, radiating from right to left side. - Radiation: Radiates across lower back from the right to the left side, occasionally spreading upwards to mid back. Denies radiating leg pain. - Aggravating Factors: Bending, prolonged standing, and specific actions such as cooking and showering. - Alleviating Factors: Limited relief from ibuprofen use; attempted lidocaine exacerbated symptoms due to an allergic reaction. - Impact: Pain interferes with standing activities, such as preparing meals and showering. - Affect: Pain impacts daily activities but specific impacts on mood or psychological wellbeing were not detailed. - Analgesia: Current use of ibuprofen with some benefit; attempted lidocaine patches resulted in an allergic reaction. No specific goal pain levels were discussed. - Adverse Effects: Allergic reaction to lidocaine adhesive and dietary supplements noted. - Activities of Daily Living: Pain affects ability to stand for prolonged periods impacting daily activities like meal preparation. - Aberrant Drug-Related Behaviors: No aberrant behaviors reported or discussed. Oswestry Low Back Pain Disability Score=27 [facility] Medical History Lumbar degenerative disc disease Chronic low back pain Osteoporosis Compression fracture of L1 vertebra Arthritis History of right bundle branch block (RBBB) Anxiety PONV (postoperative nausea and vomiting) GERD (gastroesophageal reflux disease) History of colon cancer Hypothyroidism Barretts esophagus Hyperlipidemia Surgical History History of foot surgery History of cataract extraction with lens replacement Hx of esophagogastroduodenoscopy History of total right knee replacement (TKR) History of breast biopsy History of hysterectomy History of thyroidectomy Hx of colonoscopy (~11/28/22) History of partial colectomy Family History Mother No problems noted. Father No problems noted. Social History Household Members: Spouse Housing: House Are you a primary transitional care nurse to a significant other at home: No Do you presently have visiting nurse or other home services: No Alcohol intake: current Alcohol intake frequency: a few times a month Comment: pt refusing alarms, steady gait encouraged to call for help Patient Tobacco Use Status: Former Tobacco user Tobacco use type: Cigarette Advance Directives Date on File: 07/22/23 service: No Current occupational status: retired Cognitive needs: No Hearing needs: No Vision needs: Yes (rx glasses) Review of Systems Const All systems reviewed & are unremarkable except as noted in HPI and below Physical Exam Vital Signs: Last Vital Signs Pulse 88 08/27/24 14:17 BP 143/65 H 08/27/24 14:17 Pulse Ox 97 08/27/24 14:17 Oxygen Delivery Method Room Air 08/27/24 14:17 BMI result Body Mass Index 22.0 General: Appears afebrile. Alert and oriented. Mood and affect appropriate. Follows and participates in conversation appropriately. Respiratory effort is unlabored. No cough. Able to transition from sit to stand unassisted. Ambulates with bilaterally normal heel strike and toe off. General: Yes no CVA tenderness Back/Spine/Pelvis Back: no CVA tenderness Cervical Spine: cervical ROM normal and No Cervical spine tenderness Thoracic/Lumbar Spine: thoracic and lumbar spine normal to inspection, No Thoracic/lumbar spine scar(s), Lasegue's sign negative, straight leg raise negative bilaterally, pain with thoraco-lumbar ROM (Positive facet loading bilaterally), thoraco-lumbar ROM limited, No thoracic spinal tenderness and No lumbar spinal tenderness Pelvis: no buttock tenderness Sacroiliac joints: bilaterally nontender Psych Appearance: grossly normal and well kempt Mental Status: mental status grossly normal Speech and movement: Normal speech and movement present and Clear speech present Affect: normal affect Attitude: cooperative Thought process: Normal thought process present Thought content: Normal thought content present and No Depressive thoughts present Insight: Good insight present (Psych) Judgement: Good judgement present (Psych) Results Reviewed Results Reviewed: XR LUMBOSACRAL SPINE 04/09/24 CLINICAL INFORMATION: LOW BACK PAIN COMPARISON: CT lumbar spine 07/21/2023 TECHNIQUE: Three views of the lumbosacral spine. FINDINGS: There is vertebral planta L1 vertebra with progression of previously known fracture from CT exam 07/21/2023. Rest of the vertebral heights and alignment is normal. There is loss of L2-3 disc height with ventral spondylosis. There is a disc heights are normal. The SI joints are symmetrical. The facet joints are normal. The paravertebral soft tissues are normal. IMPRESSION: Vertebra planta L1 vertebra. There is progression of previously noted L1 compression fracture from CT lumbar spine exam 07/21/2023. There are no new fractures seen. Mild degenerative disc changes with ventral spondylosis L2-3 disc level. It is unchanged to previous CT exam. CT abdomen pelvis wo IV con 08/13/23 OSSEOUS STRUCTURES: Old healed fracture of the right symphysis pubis superior pubic ramus. Stable old compression fracture of L1 vertebrae. Multilevel degenerative spondylosis spine. DEXA axial skeleton 04/10/23 IMPRESSION: 1. DIAGNOSIS: Severe osteoporosis based on the lowest T-score value of -2.7 in the spine and history of fracture of pelvis and wrist applying World Health Organization criteria. Assessment & Plan Assessment & Plan (1) Osteoporosis: Code(s): M81.0 - Age-related osteoporosis without current pathological fracture Category: Medical (2) Chronic low back pain: Code(s): M54.50 - Low back pain, unspecified; G89.29 - Other chronic pain Category: Medical (3) Lumbar degenerative disc disease: Code(s): M51.369 - Other intervertebral disc degeneration, lumbar region without mention of lumbar back pain or lower extremity pain Category: Medical (4) Lumbosacral spondylosis: Code(s): M47.817 - Spondylosis without myelopathy or radiculopathy, lumbosacral region Category: Medical Plan The plan includes moving forward with radiofrequency ablation in the lumbar region to address axial, low back, faced mediated. This approach is grounded on historical relief patterns from previous interventions and the patient's allergic response to peripheral nerve stimulator patches. Schedule Bilateral L3-L4-L5 Medial Branch RFA with local, oral sedation and fluoroscopy. We also reviewed peripheral nerve stimulation which patient prefers to avoid any temporary or permanent implants at this time. Expectations, risks and benefits were reviewed. Patient is aware she will be contacted to schedule this procedure. Continue conservative management with Tylenol, heat therapy, and activity modifications. All questions and concerns have been answered and patient agreed with the plan. Follow up after lumbar RFA and sooner as needed. Patient was informed and verbally consented to the use of an ambient scribe for clinic note documentation during this visit. Coding Level of Care Code Est Pt Level 3 (59453) Complex EM visit Add On G2211 Diagnoses Osteoporosis M81.0 Chronic low back pain M54.50; G89.29 Lumbar degenerative disc disease M51.369 Lumbosacral spondylosis M47.817
--- OUTSIDE RECORDS SUMMARY | 2024-08-27 14:15 | XMS_ITS | Patient Health Record ---
Author Organization Grayson Paredes III, MD Address [address] [place] [address] Care Team Providers Care Client Insights Consultant Name Role Phone Sandip Castro MD Primary Care Provider Grayson Martin Unavailable [phone] Allergies Allergen (clinical drug ingredient) Drug/Non Drug Allergy documented on EMR Reaction Allergy Type Onset Date Status clindamycin Clindamycin Unknown Drug Allergy Act kellen [...] Problem Status W/U Status Risk Notes Problem 8262481 Former smoker (Z87.891) Active confirmed She is highly motivated not to smoke. She has a plan to prevent relapse in times of stress or illness. Problem 568879135 Overweight (BMI 25.0-29.9) (E66.3) Active confirmed Her weight is 1 50 on her scale at home today. This gives a body mass index 25.7. I recommended stabilizing her weight at this level in pursuing good nutrition. Problem 79416358 Hypothyroidism (E03.9) Active confirmed She was advised to continue her thyroid medication. She appeared euthyroid today. Problem 734500920 GERD (gastroesophagea l reflux disease) (K21.9) Active confirmed Her reflexe s well controlled with hikh-imd-dcjxvbv medications. Problem 60731929 Hypokalemia (E87.6) Active confirmed Problem 761058254 Dyslipidemia (E78.5) Active confirmed Her fasting lip id profile shows good control of her lipids and no change in her regimen was made today. Problem 88724780 Internal hemorrhoids (K64.8) Active confirmed Problem 62893746 Constipation (K59.00) Active confirmed This is an intermittent problem, not present today, which is well controlled with xytu-avk-kxtzfec medications. No hematochezia has been noted. Problem 231438040 Adenocarcinoma of colon (C18.9) Active confirmed There is no sign of recurrent disease or new primary. Surveillance will continue. She will proceed to see the personal clothing laundry aide to discuss colonoscopy. She is up-to-date with that procedure Problem 44053899 Ischemic colitis (K55.9) Active confirmed She presented initially with pancolitis and diarrhea. This has resolved. She has had no hematochezia or protracted diarrhea or watery stool. No change in her regimen was necessary today. 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 She will proceed to see the personal clothing laundry aide to discuss colonoscopy. She is up-to-date with that procedure 04/29/2024 GERD (gastroesophageal reflux disease) (ICD-10 - K21.9) Her reflexes well controlled with qhea-srf-csdctpc medications. 04/29/2024 Hypothyroidism (ICD-10 - E03.9) She was advised to continue her thyroid medication. She appeared euthyroid today. 04/29/2024 Dyslipidemia (ICD-10 - E78.5) Her fasting lipid profile shows good control of her lipids and no change in her regimen was made today. Plan Of Treatment Pending Test Test Name Order Date PROFILE, RANDOM (COMPREHENSIVE METABOLIC ) 07/22/2018 PROFILE, RANDOM (COMPREHENSIVE METABOLIC ) 07/30/2017 PROFILE, RANDOM (COMPREHENSIVE METABOLIC ) 07/22/2019 PROFILE, RANDOM (COMPREHENSIVE METABOLIC ) 03/17/2018 PROFILE, RANDOM (COMPREHENSIVE METABOLIC ) 05/01/2017 PROFILE, RANDOM (COMPREHENSIVE METABOLIC ) 01/21/2019 PROFILE, RANDOM (COMPREHENSIVE METABOLIC ) 11/11/2017 CEA 07/22/2018 CEA 07/30/2017 CEA 07/22/2019 CEA 03/17/2018 CEA 05/01/2017 CEA 01/21/2019 CEA 11/11/2017 CBC w DIFF 05/01/2017 CBC w DIFF 01/21/2019 CBC w DIFF 11/11/2017 CBC w DIFF 07/22/2018 CBC w DIFF 07/30/2017 CBC w DIFF 07/22/2019 CBC w DIFF 03/17/2018 SED RATE (ESR) 11/11/2017 MAMMOGRAM DIGITAL BILATERAL SCREEN 01/24 Next Appt Details Provider Name:Grayson Paredes, 04/30/2025 02:30:00 PM, [address] [place] [address] [address], [place], [address], Insurance Providers Payer Name Payer Address Payer Phone Subscriber Number Group Number Insured Name Patient Relationship to Insured Coverage Start Date Coverage End Date MEDICARE NGS [address] [place] [address] [id number] [facility] Radha gonzales Self - patient is the insured [facility] [address] [place], [place] [id number] [facility] Radha gonzales Self - patient is the insured Medical (General) History Medical History History ICD Code Ischemic colitis K55.9 Hypothyroidism E03.9 Dyslipidemia E78.5 GERD (gastroesophageal reflux disease) K 21.9 Internal hemorrhoids K64.8 adenocarcinoma of the hepatic flexure of the colon, Dr. Keene, Dr. Alford colonic polyps, tubular adenoma osteoarthritis right bundle branch block every 201 7 Surgical History Surgery Date(Month/Year) Partial colectomy [...]
[2024-08-27 14:17] VITALS: BP 143/65; PULSE 88; O2SAT 97; BMI 22.0
== END 2024-08-27 14:51 | disposition home or self-care (01) ==
LOC: HO.PMC 14:07
PROVIDERS: PCP Internal Medicine; Visit Provider Nurse Practitioner Family
DX: M81.0 Age-related osteoporosis without current pathological fracture (principal); M54.50 Low back pain, unspecified; G89.29 Other chronic pain; M51.369 Other intervertebral disc degeneration, lumbar region without mention of lumbar back pain or lower extremity pain; M47.817 Spondylosis without myelopathy or radiculopathy, lumbosacral region
CPT/HCPCS: 99213; G2211

== ENCOUNTER → 2024-08-27 14:07 | Outpatient (BNVA) | payer MEDICARE, SELFPAY | PROVIDERS: PCP Internal Medicine; Visit Provider Nurse Practitioner Family | DX: M81.0 Age-related osteoporosis without current pathological fracture (principal); G89.29 Other chronic pain; M51.360 Other intervertebral disc degeneration, lumbar region with discogenic back pain only; M47.817 Spondylosis without myelopathy or radiculopathy, lumbosacral region | CPT/HCPCS: 99212 ==

== ENCOUNTER 2024-10-08 06:24 | Outpatient (REF) | payer MEDICARE, SELFPAY ==
--- NOTE | ~2024-10-08 | FL_ITS ---
EXAMINATION: FL GUIDANCE ONLY HISTORY: M47.817 - Spondylosis without myelopathy or radiculopathy, lumbosacral r... COMPARISON: None available. TECHNIQUE: Fluoroscopy time: 0.4 minutes. Cumulative Dose: 7.10 mGy. DAP: 0.0544 mGym2 Images: 1. FINDINGS: A single fluoroscopic spot film of the lumbar spine in the lateral projection demonstrates [address] FL/FL guidance in treatment room IMPRESSION: Fluoroscopy during procedure. Please see procedure report for additional information. Electronically signed by: Grayson Huffman MD 10/08/2024 03:29 PM EDT
--- OUTSIDE RECORDS SUMMARY | 2024-10-08 06:28 | XMS_ITS | Patient Health Record ---
Author Organization Grayson Paredes III, MD Address [address] [place] [address] Care Team Providers Care Manager Data Center Name Role Phone Sandip Castro MD Primary Care Provider Grayson Martin Unavailable [phone] Allergies Allergen (clinical drug ingredient) Drug/Non Drug [...] Problem Status W/U Status Risk Notes Problem 5066960 Former smoker (Z87.891) Active confirmed She is highly motivated not to smoke. She has a plan to prevent relapse in times of stress or illness. Problem 357224315 Overweight (BMI 25.0-29.9) (E66.3) Active confirmed Her weight is 1 50 on her scale at home today. This gives a body mass index 25.7. I recommended stabilizing her weight at this level in pursuing good nutrition. Problem 65881942 Hypothyroidism (E03.9) Active confirmed She was advised to continue her thyroid medication. She appeared euthyroid today. Problem 626317489 GERD (gastroesophagea l reflux disease) (K21.9) Active confirmed Her reflexe s well controlled with gzul-vvh-sptmqaq medications. Problem 02927805 Hypokalemia (E87.6) Active confirmed Problem 515045313 Dyslipidemia (E78.5) Active confirmed Her fasting lip id profile shows good control of her lipids and no change in her regimen was made today. Problem 49085162 Internal hemorrhoids (K64.8) Active confirmed Problem 53093219 Constipation (K59.00) Active confirmed This is an intermittent problem, not present today, which is well controlled with zfzt-njv-tnqjcly medications. No hematochezia has been noted. Problem 752378737 Adenocarcinoma of colon (C18.9) Active confirmed There is no sign of recurrent disease or new primary. Surveillance will continue. She will proceed to see the communications controller to discuss colonoscopy. She is up-to-date with that procedure Problem 42641174 Ischemic colitis (K55.9) Active confirmed She presented initially with pancolitis and diarrhea. This has resolved. She has had no hematochezia or protracted diarrhea or watery stool. No change in her regimen was necessary today. 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 She will proceed to see the communications controller to discuss colonoscopy. She is up-to-date with that procedure 04/29/2024 GERD (gastroesophageal reflux disease) (ICD-10 - K21.9) Her reflexes well controlled with enva-lvi-uygznly medications. 04/29/2024 Hypothyroidism (ICD-10 - E03.9) She [...] PROFILE, RANDOM (COMPREHENSIVE METABOLIC ) 07/22/2019 CEA 07/30/2017 CEA 07/22/2019 CEA 03/17/2018 CEA 05/01/2017 CEA 01/21/2019 CEA 11/11/2017 CEA 07/22/2018 CBC w DIFF 07/22/2018 CBC w DIFF 07/30/2017 CBC w DIFF 07/22/2019 CBC w DIFF 03/17/2018 CBC w DIFF 05/01/2017 CBC w DIFF 01/21/2019 CBC w DIFF 11/11/2017 SED RATE (ESR) 11/11/2017 MAMMOGRAM DIGITAL BILATERAL SCREEN 01/24 Next Appt Details Provider Name:Grayson Paredes, 04/30/2025 02:30:00 PM, [address] [place] [address] [address] Thi, [place], [address], Insurance Providers Payer Name Payer Address Payer Phone Subscriber Number Group Number Insured Name Patient Relationship to Insured Coverage Start Date Coverage End Date MEDICARE NGS [address] [place] [address] [id number] [facility] Radha gonzales Self - patient is the insured [facility] [email or web address] [address] [place], [place] [phone] [id number] [facility] Radha gonzales Self - patient is the [...]
--- OUTSIDE RECORDS SUMMARY | 2024-10-08 06:28 | XMS_ITS | Patient Health Record ---
Author Organization [facility] Address [address] [place] [address] Care Team Providers Care Hot Cell Technician Name Role Phone Sandip Castro MD Primary Care Provider Grayson Canas Unavailable [phone] Allergies Allergen (clinical drug ingredient) Drug/Non Drug [...] atropine Atropine Sulfate Unknown Drug Allergy Active Reason For Referral [...] Problem Status W/U Status Risk Notes Problem 498607330 Left lower quadrant pain (R10.32) Active confirmed Problem 657400257 Encounter for screening for malignant neoplasm of colon (Z12.11) Active confirmed Problem 167887337 History of adenomatous polyp of colon (Z86.010) Active confirmed Problem 610251430 Gastroesophageal reflux disease without esophagitis (K21.9) Active confirmed Problem 503844151778373 Preprocedural examination (Z01.818) Active confirmed Problem 729595283 History of colon cancer (Z85.038) Active confirmed Problem 860326557 Personal history of colon cancer (Z85.038) Active confirmed Problem Diverticulosis of sigmoid colon (953095996) Diverticulosis of sigmoid colon (K57.30) Active confirmed Problem 40247040 Abdominal gas pa in (R14.1) Active confirmed Problem Diverticulosis of colon (326440631) Diverticulosis of colon (K57.30) Active confirmed Problem History of gastrointestinal tract bypass (208421694) 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 Problem History of gastrointestinal tract bypass (524763496) 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 Plan Of Treatment Future Test Test Name Order Date COLONOSCOPY 12/07/2011 COLONOSCOPY 06/27/2017 COLONOSCOPY 03/19/2018 COLONOSCOPY 08/10/2020 COLONOSCOPY 09/12/2022 Insurance Providers Payer Name Payer Address Payer Phone Subscriber Number Group Number Insured Name Patient Relationship to Insured Coverage Start Date Coverage End Date MEDICARE OF [place] [address] [place] [address] [phone] [id number] CARMELLA HILARIO Davis Self - patient is the insured [employer] [address] [place] [address] [id number] CARMELLA DavisHILARIO Self - patient is the [...] polyp and significant sigmoid diverticulosis Hypothyroidism Denies [place],DM,CVA,Lung disease,renal dise ase Colon cancer 06/3016--- adeno [...]
== END 2024-10-08 06:25 | disposition home or self-care (01) ==
LOC: CF 06:24
PROVIDERS: Visit Provider Internal Medicine
DX: M47.817 Spondylosis without myelopathy or radiculopathy, lumbosacral region (principal)
CPT/HCPCS: 64635; 64636; J2003

== ENCOUNTER 2024-10-08 12:09 | Outpatient (AMB) | payer MEDICARE, SELFPAY ==
[2024-10-08 12:34] VITALS: BP 119/52; PULSE 90; O2SAT 94; BMI 22.0
--- NOTE | 2024-10-08 12:34 | A.OFFVIS_ITS ---
Vital Signs 10/08/24 12:34 10/08/24 13:30 Height 5 ft 4 in 5 ft 4 in Weight 128 lb 128 lb BMI 22.0 22.0 BP 119/52 L 135/66 Blood Pressure Location Rt brachial Lt brachial Position Sitting Sitting Respiration 16 Pulse 90 93 Pulse Source Pulse Oximeter Pulse Oximeter Pulse Oximetry (%) 94 97 Oxygen Delivery Method Room Air Room Air Intake Visit Reasons: Left L3-L4-L5 RFA/ valium & oxy/zofran Allergies adhesive tape (ADHESIVE TAPE) Allergy (Intermediate, Verified 08/27/24 14:17) ITCH, Rash cefazolin (From KEFZOL) Allergy (Intermediate, Verified 08/27/24 14:17) RASH clindamycin (From CLEOCIN) Allergy (Intermediate, Verified 08/27/24 14:17) RASH gentamicin (From GARAMYCIN) Allergy (Intermediate, Verified 08/27/24 14:17) RASH atropine Allergy (Unknown, Verified 08/27/24 14:17) localized eye rxn cephalexin Allergy (Unknown, Verified 08/27/24 14:17) Rash tizanidine Adverse Reaction (Verified 08/27/24 14:17) Nausea tramadol Adverse Reaction (Verified 08/27/24 14:17) Nausea Doxycycline Monohydrate Allergy (Intermediate, Uncoded 08/20/24 11:50) Rash HPI HPI Left L3-L4-L5 RFA/ valium & oxy/zofran: Details: Patient presents for scheduled procedure. Denies any recent cough, cold, infection, fever or other significant changes in medical history since last office visit. [facility] Medical History Lumbar degenerative disc disease Chronic low back pain Osteoporosis Compression fracture of L1 vertebra Arthritis History of right bundle branch block (RBBB) Anxiety PONV (postoperative nausea and vomiting) GERD (gastroesophageal reflux disease) History of colon cancer Hypothyroidism Barretts esophagus Hyperlipidemia Surgical History History of foot surgery History of cataract extraction with lens replacement Hx of esophagogastroduodenoscopy History of total right knee replacement (TKR) History of breast biopsy History of hysterectomy History of thyroidectomy Hx of colonoscopy (~11/28/22) History of partial colectomy Family History Mother No problems noted. Father No problems noted. Social History Household Members: Spouse Housing: House Are you a primary student career development specialist to a significant other at home: No Do you presently have visiting nurse or other home services: No Alcohol intake: current Alcohol intake frequency: a few times a month Comment: pt refusing alarms, steady gait encouraged to call for help Patient Tobacco Use Status: Former Tobacco user Tobacco use type: Cigarette Advance Directives Date on File: 07/22/23 service: No Current occupational status: retired Cognitive needs: No Hearing needs: No Vision needs: Yes (rx glasses) Physical Exam Vital Signs: Last Vital Signs Pulse 93 10/08/24 13:30 Resp 16 10/08/24 13:30 BP 135/66 10/08/24 13:30 Pulse Ox 97 10/08/24 13:30 Oxygen Delivery Method Room Air 10/08/24 13:30 BMI result Body Mass Index 22.0 Office Procedures Details: Radiofrequency lesioning medial branch nerves, Left L3, L4 medial branches and L5 dorsal ramus (L4/5 and L5/S1) (2 levels, 3 nerves) After obtaining written consent, pre-procedure blood pressure and heart rate were stable and recorded in the nursing record. Standard monitors were applied. The patient was placed in the prone position. The lumbar area was prepped with chloraprep and draped in sterile fashion. The skin over the target for each medial branch nerve was anesthetized with 0.5% lidocaine. An 18 gauge radiofrequency cannula was advanced to each target site under fluoroscopic guidance. No paresthesias were elicited with needle placement and aspiration was negative for heme and CSF. Impedences were verified under 600 ohms. Motor testing (2 Hz) confirmed needle placement at each site within the appropriate voltage thresholds. Each site was injected with 0.5 ml 2% preservative-free lidocaine. Radiofrequency lesioning was performed for 90 seconds at 80 deg Celcius. The needles were removed, skin cleansed and a sterile bandage was applied. The patient tolerated the procedure well and no complications were encountered. Following the procedure the patient's vital signs were stable. The patient was discharged home in good condition with post-procedural instructions. Time Out: Immediately prior to the procedure, the following was verbally confirmed that there is a signed consent form and that the correct patient, planned procedure, site and side are consistent with documentation and that necessary equipment and/or blood products are available prior to the start of the case. Complications: none EBL: <5 cc 44944 - RFA Lumbar Medial Branches 57670 - Lumbar Medial Branches ADDNL Procedure code (CPT) selection complete Office Meds lidocaine (PF) 10 mg/mL (1 %) injection solution Performing Provider: Sandra Salguero APRN, CNP Performing Location: [facility] Administered by: Mac Abraham MD on 10/09/24 17:59 Dose Route Admin Location Dispensed Lot Number Expiration Date NDC New Car Salesperson 5 mL subcut 5 mL Total Dispensed Waste 5 mL 0 % ropivacaine (PF) 5 mg/mL (0.5 %) injection solution Performing Provider: Sandra Salguero APRN, CNP Performing Location: [facility] Documented (not given) by: Mac Abraham MD on 10/09/24 17:59 Reason Not Given: No Longer Necessary triamcinolone acetonide 40 mg/mL suspension for injection Performing Provider: Sandra Salguero APRN, CNP Performing Location: [facility] Documented (not given) by: Mac Abraham MD on 10/09/24 17:59 Reason Not Given: Not Medically Necessary Assessment & Plan Assessment & Plan (1) Lumbosacral spondylosis: Code(s): M47.817 - Spondylosis without myelopathy or radiculopathy, lumbosacral region Category: Medical Plan Patient is status post left lower lumbar medial branch RFA. Patient tolerated procedure well and was discharged home in stable condition with discharge instructions. All questions were answered. We will follow-up via telephone or in clinic to assess response to therapy. A follow-up appointment was made during today's visit. Orders: Orders AMB RFA Radiofrequency Ablation Pain Management 10/08/24 M47.817 - Spondylosis without myelopathy or radiculopathy, lumbosacral region FL guidance in treatment room 10/08/24 M47.817 - Spondylosis without myelopathy or radiculopathy, lumbosacral region Medications: New diazepam (Valium) take 30 minutes prior to arrival for procedure 2 mg PO BEDTIME PRN 1 tab 0RF sleep ondansetron 4 mg PO Q8H PRN 2 tabs 0RF nausea and vomiting oxycodone take 30 minutes prior to arrival for procedure 5 mg PO BID PRN 1 tab 0RF pain Coding Level of Care Code Procedure Only Diagnoses Lumbosacral spondylosis M47.817 CPT Codes Radiofrequency Ablation - Rad-Ablation 3: 54473 - RFA Lumbar Medial Branches ([id number]) Radiofrequency Ablation - Rad-Ablation 4: 76711 - Lumbar Medial Branches ADDNL ([id number])
[2024-10-08 13:30] VITALS: BP 135/66; PULSE 93; RESP 16; O2SAT 97; BMI 22.0
== END 2024-10-08 13:32 | disposition home or self-care (01) ==
LOC: HO.PMCPRC 12:09
PROVIDERS: PCP Internal Medicine; Visit Provider Internal Medicine
DX: M47.817 Spondylosis without myelopathy or radiculopathy, lumbosacral region (principal)
CPT/HCPCS: 64635; 64636

== ENCOUNTER 2024-11-26 06:11 | Outpatient (REF) | payer MEDICARE, SELFPAY ==
--- NOTE | ~2024-11-26 | FL_ITS ---
EXAMINATION: XR FLUOROSCOPY WITH IMAGES CLINICAL INFORMATION: Lumbar pain management procedure. COMPARISON: None available. TECHNIQUE: Fluoroscopy provided to: Dr. Abraham Fluoroscopy time: 24 seconds DAP: 0.6334 mGycm2 Images: 2 FINDINGS: 2 spot images of the lumbar spine obtained during pain management procedure. Please refer to the full operative report for details. FL/FL guidance in treatment room IMPRESSION: Fluoroscopic guidance. Electronically signed by: Kurt Vu MD 11/27/2024 11:44 AM EDT
--- OUTSIDE RECORDS SUMMARY | 2024-11-26 06:14 | XMS_ITS | Patient Health Record ---
Author Organization [facility] Address [address] [place] [address] Care Team Providers Care Paper Tester Name Role Phone Matthew (RETIRED) Sandip JAQUEZ Primary Care Provide r Grayson Fuller Unavailable [phone] Allergies Allergen (clinical drug ingredient) Drug/Non Drug [...] Problem Status W/U Status Risk Notes Problem 704774984 Left lower quadrant pain (R10.32) Active confirmed Problem 731593393 Encounter for screening for malignant neoplasm of colon (Z12.11) Active confirmed Problem 530435607 History of adenomatous polyp of colon (Z86.010) Active confirmed Problem 308820520 Gastroesophageal reflux disease without esophagitis (K21.9) Active confirmed Problem 873468201627119 Preprocedural examination (Z01.818) Active confirmed Problem 187385374 History of colon cancer (Z85.038) Active confirmed Problem 943636968 Personal history of colon cancer (Z85.038) Active confirmed Problem Diverticulosis of sigmoid colon (859347943) Diverticulosis of sigmoid colon (K57.30) Active confirmed Problem 03026650 Abdominal gas pa in (R14.1) Active confirmed Problem Diverticulosis of colon (156375423) Diverticulosis of colon (K57.30) Active confirmed Problem History of gastrointestinal tract bypass (220760911) 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 Problem History of gastrointestinal tract bypass (474036280) 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 Plan Of Treatment Future Test Test Name Order Date COLONOSCOPY 12/07/2011 COLONOSCOPY 06/27/2017 COLONOSCOPY 03/19/2018 COLONOSCOPY 08/10/2020 COLONOSCOPY 09/12/2022 Insurance Providers Payer Name Payer Address Payer Phone Subscriber Number Group Number Insured Name Patient Relationship to Insured Coverage Start Date Coverage End Date MEDICARE OF [place] [address] [place] [address] [phone] [id number] CARMELLA DavisHILARIO Self - patient is the insured [employer] CLAIMS [address] [place] [phone] [id number] CARMELLA DavisHILARIO Self - patient is the [...] polyp and significant sigmoid diverticulosis Hypothyroidism Denies DE,DM,CVA,Lung disease,renal dise ase Colon cancer 06/3016--- adeno [...]
--- OUTSIDE RECORDS SUMMARY | 2024-11-26 06:14 | XMS_ITS | Patient Health Record ---
Author Organization Grayson Paredes III, MD Address [address] [place] [address] Care Team Providers Care Military Professional Name Role Phone Sandip Castro MD Primary Care Provider Grayson Martin Unavailable [phone] Allergies Allergen (clinical drug ingredient) Drug/Non Drug [...] Problem Status W/U Status Risk Notes Problem 5221612 Former smoker (Z87.891) Active confirmed She is highly motivated not to smoke. She has a plan to prevent relapse in times of stress or illness. Problem 690527814 Overweight (BMI 25.0-29.9) (E66.3) Active confirmed Her weight is 1 50 on her scale at home today. This gives a body mass index 25.7. I recommended stabilizing her weight at this level in pursuing good nutrition. Problem 64721269 Hypothyroidism (E03.9) Active confirmed She was advised to continue her thyroid medication. She appeared euthyroid today. Problem 349594937 GERD (gastroesophagea l reflux disease) (K21.9) Active confirmed Her reflexe s well controlled with yvuv-shj-qxtfjvr medications. Problem 16619053 Hypokalemia (E87.6) Active confirmed Problem 856345158 Dyslipidemia (E78.5) Active confirmed Her fasting lip id profile shows good control of her lipids and no change in her regimen was made today. Problem 77715900 Internal hemorrhoids (K64.8) Active confirmed Problem 69643525 Constipation (K59.00) Active confirmed This is an intermittent problem, not present today, which is well controlled with sqcu-dei-euedcqr medications. No hematochezia has been noted. Problem 879238971 Adenocarcinoma of colon (C18.9) Active confirmed There is no sign of recurrent disease or new primary. Surveillance will continue. She will proceed to see the channel cementer insole machine to discuss colonoscopy. She is up-to-date with that procedure Problem 95194897 Ischemic colitis (K55.9) Active confirmed She presented initially with pancolitis and diarrhea. This has resolved. She has had no hematochezia or protracted diarrhea or watery stool. No change in her regimen was necessary today. 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 She will proceed to see the channel cementer insole machine to discuss colonoscopy. She is up-to-date with that procedure 04/29/2024 GERD (gastroesophageal reflux disease) (ICD-10 - K21.9) Her reflexes well controlled with dmdc-rjw-moditis medications. 04/29/2024 Hypothyroidism (ICD-10 - E03.9) She [...] Details Provider Name:Grayson Paredes, 04/30/2025 02:30:00 PM, [address] [place] [address] [address] Thi, [place], [address], Insurance Providers Payer Name Payer Address Payer Phone Subscriber Number Group Number Insured Name Patient Relationship to Insured Coverage Start Date Coverage End Date MEDICARE NGS [address] [place] [address] [id number] [facility] Radha gonzales Self - patient is the insured [facility] [address] [place], [place] [id number] [phone] [id number] [facility] Radha gonzales Self - patient is the [...]
== END 2024-11-26 06:12 | disposition home or self-care (01) ==
LOC: CF 06:11
PROVIDERS: Visit Provider Internal Medicine
DX: M47.817 Spondylosis without myelopathy or radiculopathy, lumbosacral region (principal)
CPT/HCPCS: 64635; 64636; J2003; J2795

== ENCOUNTER 2024-11-26 11:39 | Outpatient (AMB) | payer MEDICARE, SELFPAY ==
[2024-11-26 11:45] VITALS: BP 140/56; PULSE 97; RESP 16; O2SAT 97; BMI 22.0
--- NOTE | 2024-11-26 11:45 | MHC.OFFVIS ---
Vital Signs 11/26/24 11:45 11/26/24 13:07 Height 5 ft 4 in Weight 128 lb BMI 22.0 BP 140/56 H 136/68 Blood Pressure Location Lt brachial Lt brachial Position Sitting Sitting Respiration 16 16 Pulse 97 91 Pulse Source Pulse Oximeter Pulse Oximeter Pulse Oximetry (%) 97 95 Oxygen Delivery Method Room Air Room Air Intake Visit Reasons: Right L3-L4-L5 RFA/ valium, oxy & zofran Allergies adhesive tape (ADHESIVE TAPE) Allergy (Intermediate, Verified 08/27/24 14:17) ITCH, Rash cefazolin (From KEFZOL) Allergy (Intermediate, Verified 08/27/24 14:17) RASH clindamycin (From CLEOCIN) Allergy (Intermediate, Verified 08/27/24 14:17) RASH gentamicin (From GARAMYCIN) Allergy (Intermediate, Verified 08/27/24 14:17) RASH atropine Allergy (Unknown, Verified 08/27/24 14:17) localized eye rxn cephalexin Allergy (Unknown, Verified 08/27/24 14:17) Rash tizanidine Adverse Reaction (Verified 08/27/24 14:17) Nausea tramadol Adverse Reaction (Verified 08/27/24 14:17) Nausea Doxycycline Monohydrate Allergy (Intermediate, Uncoded 08/20/24 11:50) Rash HPI HPI Right L3-L4-L5 RFA/ valium, oxy & zofran: Details: Patient presents for scheduled procedure. Denies any recent cough, cold, infection, fever or other significant changes in medical history since last office visit. [facility] Medical History Lumbar degenerative disc disease Chronic low back pain Osteoporosis Compression fracture of L1 vertebra Arthritis History of right bundle branch block (RBBB) Anxiety PONV (postoperative nausea and vomiting) GERD (gastroesophageal reflux disease) History of colon cancer Hypothyroidism Barretts esophagus Hyperlipidemia Surgical History History of foot surgery History of cataract extraction with lens replacement Hx of esophagogastroduodenoscopy History of total right knee replacement (TKR) History of breast biopsy History of hysterectomy History of thyroidectomy Hx of colonoscopy (~11/28/22) History of partial colectomy Family History Mother No problems noted. Father No problems noted. Social History Household Members: Spouse Housing: House Are you a primary direct care specialist to a significant other at home: No Do you presently have visiting nurse or other home services: No Alcohol intake: current Alcohol intake frequency: a few times a month Comment: pt refusing alarms, steady gait encouraged to call for help Patient Tobacco Use Status: Former Tobacco user Tobacco use type: Cigarette Advance Directives Date on File: 07/22/23 service: No Current occupational status: retired Cognitive needs: No Hearing needs: No Vision needs: Yes (rx glasses) Physical Exam Vital Signs: Last Vital Signs Pulse 97 11/26/24 11:45 Resp 16 11/26/24 11:45 BP 140/56 H 11/26/24 11:45 Pulse Ox 97 11/26/24 11:45 Oxygen Delivery Method Room Air 11/26/24 11:45 BMI result Body Mass Index 22.0 Office Procedures Details: Radiofrequency lesioning medial branch nerves, Right L3, L4 medial branches and L5 dorsal ramus (L4/5 and L5/S1) (2 levels, 3 nerves) After obtaining written consent, pre-procedure blood pressure and heart rate were stable and recorded in the nursing record. Standard monitors were applied. The patient was placed in the prone position. The lumbar area was prepped with chloraprep and draped in sterile fashion. The skin over the target for each medial branch nerve was anesthetized with 0.5% lidocaine. An 18 gauge radiofrequency cannula was advanced to each target site under fluoroscopic guidance. No paresthesias were elicited with needle placement and aspiration was negative for heme and CSF. Impedences were verified under 600 ohms. Motor testing (2 Hz) confirmed needle placement at each site within the appropriate voltage thresholds. Each site was injected with 0.5 ml 2% preservative-free lidocaine. Radiofrequency lesioning was performed for 90 seconds at 80 deg Celcius. Each site was then injected with 0.5ml 2% lidocaine. The needle was removed, skin cleansed and a sterile bandage was applied. The patient tolerated the procedure well and no complications were encountered. Following the procedure the patient's vital signs were stable. The patient was discharged home in good condition with post-procedural instructions. Time Out: Immediately prior to the procedure, the following was verbally confirmed that there is a signed consent form and that the correct patient, planned procedure, site and side are consistent with documentation and that necessary equipment and/or blood products are available prior to the start of the case. Complications: none EBL: <5 cc 86441 - RFA Lumbar Medial Branches 88235 - Lumbar Medial Branches ADDNL Procedure code (CPT) selection complete Office Meds lidocaine (PF) 10 mg/mL (1 %) injection solution Performing Provider: Mac Abraham MD Per[place] [facility] [place] [facility] Documented (not given) by: Mac Abraham MD on 11/26/24 13:07 Dose Route Admin Location Dispensed Lot Number Expiration Date NDC Can Top Setter 5 mL subcut mL Total Dispensed Waste n/a n/a Assessment & Plan Assessment & Plan (1) Lumbosacral spondylosis: Code(s): M47.817 - Spondylosis without myelopathy or radiculopathy, lumbosacral region Category: Medical Plan Patient is status post right L3, L4 medial branches and L5 dorsal ramus radiofrequency ablation. Patient tolerated procedure well and was discharged home in stable condition with discharge instructions. All questions were answered. We will follow-up via telephone or in clinic to assess response to therapy. A follow-up appointment was made during today's visit. Orders: Orders FL guidance in treatment room Today Sandra Salguero APRN, SANDRO M47.817 - Spondylosis without myelopathy or radiculopathy, lumbosacral region AMB RFA Radiofrequency Ablation Pain Management Today Mac Abraham MD M47.817 - Spondylosis without myelopathy or radiculopathy, lumbosacral region Medications: New lidocaine (PF) 5 mL subcut ONCE 5 mL 0RF Mac Abraham MD M47.817 - Spondylosis without myelopathy or radiculopathy, lumbosacral region Refilled oxycodone take 30 minutes prior to arrival for procedure 5 mg PO BID PRN 1 tab 0RF pain Sandra Salguero APRN, PC SUPPORT SPECIALIST diazepam (Valium) take 30 minutes prior to arrival for procedure 2 mg PO BEDTIME PRN 1 tab 0RF sleep Sandra Salguero APRN, PC SUPPORT SPECIALIST ondansetron 4 mg PO Q8H PRN 2 tabs 0RF nausea and vomiting Sandra Salguero APRN, PC SUPPORT SPECIALIST Coding Level of Care Code Procedure Only Diagnoses Lumbosacral spondylosis M47.817 CPT Codes Radiofrequency Ablation - Rad-Ablation 3: 62858 - RFA Lumbar Medial Branches ([id number]) Radiofrequency Ablation - Rad-Ablation 4: 29131 - Lumbar Medial Branches ADDNL ([id number])
[2024-11-26 13:07] VITALS: BP 136/68; PULSE 91; RESP 16; O2SAT 95
== END 2024-11-26 13:17 | disposition home or self-care (01) ==
LOC: HO.PMCPRC 11:39
PROVIDERS: PCP Internal Medicine; Visit Provider Internal Medicine
DX: M47.817 Spondylosis without myelopathy or radiculopathy, lumbosacral region (principal)
CPT/HCPCS: 64635; 64636

== ENCOUNTER 2024-12-03 11:23 | Outpatient (AMB) | payer MEDICARE, SELFPAY ==
--- OUTSIDE RECORDS SUMMARY | 2024-04-29 10:15 | XMS_ITS ---
Author Organization Grayson Paredes III, MD Address [address] [place] [address] Care Team Providers Care Staffing Director Name Role Phone Sandip Castro MD Primary Care Provider Grayson Martin Unavailable [phone] Allergies Allergen (clinical drug ingredient) Drug/Non Drug [...] Date Provider Diagnosis Grayson Paredes III, MD [address] [place] [address] [place] [address] 04/29/2024 Grayson Paredes Adenocarcinoma of co bella C18.9 ; Former smoker Z87.891 ; GERD (gastroesophageal reflux disease) K21.9 ; Hypothyroidism E03.9 and Dyslipidemia E78.5 Assessments Encounter Date Diagnosis (ICD Code) Assessment Notes Treatment Notes Treatment Clinical Notes 04/29/2024 Adenocarcinoma of colon (ICD-10 - C18.9) There is no sign of recurrent disease or new primary. Surveillance will continue. She will proceed to see the knit goods washer to discuss colonoscopy. She is up-to-date with that procedure 04/29/2024 Former smoker (ICD-10 - Z87.891) She is highly motivated not to smoke. She has a plan to prevent relapse in times of stress or illness. 04/29/2024 GERD (gastroesophageal reflux disease) (ICD-10 - K21.9) Her reflexes well controlled with scwb-inv-cquxgvl medications. 04/29/2024 Hypothyroidism (ICD-10 - E03.9) She [...] Oral ALPRAZolam 0.25 MG 1 tablet Orally e a day Centrum Silver Ultra Womens [...] ar, Reason: OV, Regular checkup Provider Name:Grayson Paredes, 04/30/2025 02:30:00 PM, [address] [place] [address], [place] [address], [place], [address], Progress Notes * Radha CARRDOB: 8 (84 yo F)Acc No.[id number]:04/29/2024 Progress Notes Patient: Radha GREY Provider: Ciara Paredes MD :1940 A ge:84 Y S ex:Female Date:04/29/2024 Address:[address] [place] [address] [id number] Pcp:Sandip Castro MD Subjective: * Chief Complaints: [...] back excised 2017right cataract surgery Dr. Chew 2018Partial colectomy for [...] T obacco Use: T obacco Use/Smoking P atmyke is a f ormer smoker H ow long has it been since you last smoked??> 10 years A dditional Findings: Tobacco Non-User E x-cigarette smoker S he was born in [place]. He has been to [place] for 50 years. They have a daughter Brittny. 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 She has had [...] continue. She will proceed to see the knit goods washer to discuss colonoscopy. She is up-to-date with that procedure 2 . F ormer smoker - Z87.891 N otes :She is highly motivated not to smoke. She has a plan to prevent relapse in times of stress or illness. 3 . G ERD (gastroesophageal reflux disease) - K21.9 N otes :Her reflexes well controlled with xkic-llh-lhojjoe medications. 4 . H ypothyroidism - E03.9 [...] 0 04/29/2024 Generated for Gerardo castellano/Marlo/Elvaitting on: 0 12/03/2024 12:42 PM EDT History and Physical Notes * HPI (History [...]
--- NOTE | 2024-12-03 11:25 | MHC.OFFVIS ---
Vital Signs 12/03/24 11:28 Height 5 ft 4 in Weight 125 lb BMI 21.5 BP 182/69 H Blood Pressure Location Rt brachial Position Sitting Pulse 93 Pulse Source Pulse Oximeter Pulse Oximetry (%) 100 Oxygen Delivery Method Room Air Intake Visit Reasons: s/p Nando L3-L4-L5 RFA Intake Note: Pain today 04/17 Skid Machine Operator Required: No Accompanied by: Self / Same As Patient Allergies adhesive tape (ADHESIVE TAPE) Allergy (Intermediate, Verified 12/03/24 11:29) ITCH, Rash cefazolin (From KEFZOL) Allergy (Intermediate, Verified 12/03/24 11:29) RASH clindamycin (From CLEOCIN) Allergy (Intermediate, Verified 12/03/24 11:29) RASH gentamicin (From GARAMYCIN) Allergy (Intermediate, Verified 12/03/24 11:29) RASH atropine Allergy (Unknown, Verified 12/03/24 11:29) localized eye rxn cephalexin Allergy (Unknown, Verified 12/03/24 11:29) Rash tizanidine Adverse Reaction (Verified 12/03/24 11:29) Nausea tramadol Adverse Reaction (Verified 12/03/24 11:29) Nausea Doxycycline Monohydrate Allergy (Intermediate, Uncoded 08/20/24 11:50) Rash HPI Comments Details: The patient is an 84-year-old female presenting with chronic pain management status post radiofrequency ablation (RFA) for osteoarthritis-related back pain, with the left side treated in October and the right side treated recently. The patient reports significant improvement in pain, with current pain levels at 1 out of 10, reports a 90% reduction in pain. The patient has a history of lumbar vertebral compression fracture at L1, which was stable. She experiences intermittent right sacroiliac joint pain, which is exacerbated by prolonged sitting, especially on hard surfaces and relieved by changing positions. She reports occasional right buttock pain, which is currently mild and does not significantly interfere with daily activities. Denies any recent cough, cold, infection, fever or any significant changes in medical history since last office visit. - Onset and Timing: Chronic pain with significant improvement post-RFA, current pain level at 1 out of 10 - Quality and Character: Pain is tolerable, with occasional discomfort in the right buttock - Primary Location: Lower back and right sacroiliac joint - Exacerbating Factors: Prolonged sitting, sitting on hard surfaces - Relieving Factors: Changing positions, standing, and leaning backwards - Affect: Pain is well-managed, with significant improvement in mood and daily functioning - Analgesia: Current pain level is 1 out of 10, with a goal of maintaining low pain levels - Adverse Effects: No significant adverse effects reported from current pain management - Activities of Daily Living: Pain does not significantly interfere with daily activities, occasional discomfort noted - Aberrant Drug Related Behaviors: No signs of medication misuse or abuse reported Past Procedures: 11/26/24: Left L3-L4 DR L5 MBB-90% ongoing pain re 10/08/24: Left L3-L4 DR L5 MBB-90% ongoing pain relief 08/20/24: Bilateral Diagnostic L3-L4 DR L5 MBB -90% pain relief for 24 hours 07/30/24: Bilateral Diagnostic L3-L4 DR L5 MBB-80-90% pain relief for 1 week PRIOR: The patient is a pleasant 84-year-old female presenting with chronic back pain with history of stable L1 compression fracture and right symphysis pubis superior pubic ramus, sustained from a fall last July. This fracture has resulted in ongoing pain predominantly across her waistline and lower back, aggravated by prolonged standing and specific movements. The patient's pain is compounded by degenerative disc disease with severe arthritis identified in a recent back X-ray and correlates with today's exam. Additionally, severe osteoporosis limits treatment options. Historical interventions have included ibuprofen and recent physical therapy at [facility] with limited success. Past attempts with lidocaine patches were unsuccessful due to an allergic reaction. The patient also has a prior history of neck discomfort , managed conservatively in the 1970s. - Onset: Began after a fall resulting in an L1 compression fracture in July of the previous year. - Quality: Persistent discomfort primarily in the lower back. - Primary Location: Across the waistline and lower lumbar spine, radiating from right to left side. - Radiation: Radiates across lower back from the right to the left side, occasionally spreading upwards to mid back. Denies radiating leg pain. - Aggravating Factors: Bending, prolonged standing, and specific actions such as cooking and showering. - Alleviating Factors: Limited relief from ibuprofen use; attempted lidocaine exacerbated symptoms due to an allergic reaction. - Impact: Pain interferes with standing activities, such as preparing meals and showering. - Affect: Pain impacts daily activities but specific impacts on mood or psychological wellbeing were not detailed. - Analgesia: Current use of ibuprofen with some benefit; attempted lidocaine patches resulted in an allergic reaction. No specific goal pain levels were discussed. - Adverse Effects: Allergic reaction to lidocaine adhesive and dietary supplements noted. - Activities of Daily Living: Pain affects ability to stand for prolonged periods impacting daily activities like meal preparation. - Aberrant Drug-Related Behaviors: No aberrant behaviors reported or discussed. Oswestry Low Back Pain Disability Score=27 [facility] Medical History Lumbar degenerative disc disease Chronic low back pain Osteoporosis Compression fracture of L1 vertebra Arthritis History of right bundle branch block (RBBB) Anxiety PONV (postoperative nausea and vomiting) GERD (gastroesophageal reflux disease) History of colon cancer Hypothyroidism Barretts esophagus Hyperlipidemia Surgical History History of foot surgery History of cataract extraction with lens replacement Hx of esophagogastroduodenoscopy History of total right knee replacement (TKR) History of breast biopsy History of hysterectomy History of thyroidectomy Hx of colonoscopy (~11/28/22) History of partial colectomy Family History Mother No problems noted. Father No problems noted. Social History Household Members: Spouse Housing: House Are you a primary healthcare advisory services manager to a significant other at home: No Do you presently have visiting nurse or other home services: No Alcohol intake: current Alcohol intake frequency: a few times a month Comment: pt refusing alarms, steady gait encouraged to call for help Patient Tobacco Use Status: Former Tobacco user Tobacco use type: Cigarette Advance Directives Date on File: 07/22/23 service: No Current occupational status: retired Cognitive needs: No Hearing needs: No Vision needs: Yes (rx glasses) Review of Systems Const Details: - Musculoskeletal: Reports right sacroiliac joint pain, denies significant lower back pain - Neurological: Denies persistent weakness or numbness in lower extremities, bladder or bowel dysfunction or saddle anesthesia All systems reviewed & are unremarkable except as noted in HPI and below Physical Exam Vital Signs: Last Vital Signs Pulse 93 12/03/24 11:28 BP 182/69 H 12/03/24 11:28 Pulse Ox 100 12/03/24 11:28 Oxygen Delivery Method Room Air 12/03/24 11:28 BMI result Body Mass Index 21.5 General: Appears afebrile. Alert and oriented. Mood and affect appropriate. Follows and participates in conversation appropriately. Respiratory effort is unlabored. No cough. Able to transition from sit to stand unassisted. Ambulates with bilaterally normal heel strike and toe off. Back/Spine/Pelvis Cervical Spine: cervical ROM normal and No Cervical spine tenderness Thoracic/Lumbar Spine: thoracic and lumbar spine normal to inspection, No Thoracic/lumbar spine scar(s), Lasegue's sign negative, straight leg raise negative bilaterally, No pain with thoraco-lumbar ROM, thoraco-lumbar ROM limited, No thoracic spinal tenderness and No lumbar spinal tenderness Pelvis: buttock tenderness on the right Sacroiliac joints: on the right (mild TTP) tender to palpation and on the left nontender Extrem General: Yes capillary refill normal, Yes no clubbing, cyanosis or edema and Yes no calf tenderness Psych Appearance: grossly normal and well kempt Mental Status: mental status grossly normal Speech and movement: Normal speech and movement present and Clear speech present Affect: normal affect Attitude: cooperative Thought process: Normal thought process present Thought content: Normal thought content present and No Depressive thoughts present Insight: Good insight present (Psych) Judgement: Good judgement present (Psych) Results Reviewed Results Reviewed: XR LUMBOSACRAL SPINE 04/09/24 CLINICAL INFORMATION: LOW BACK PAIN COMPARISON: CT lumbar spine 07/21/2023 TECHNIQUE: Three views of the lumbosacral spine. FINDINGS: There is vertebral planta L1 vertebra with progression of previously known fracture from CT exam 07/21/2023. Rest of the vertebral heights and alignment is normal. There is loss of L2-3 disc height with ventral spondylosis. There is a disc heights are normal. The SI joints are symmetrical. The facet joints are normal. The paravertebral soft tissues are normal. IMPRESSION: Vertebra planta L1 vertebra. There is progression of previously noted L1 compression fracture from CT lumbar spine exam 07/21/2023. There are no new fractures seen. Mild degenerative disc changes with ventral spondylosis L2-3 disc level. It is unchanged to previous CT exam. CT abdomen pelvis wo IV con 08/13/23 OSSEOUS STRUCTURES: Old healed fracture of the right symphysis pubis superior pubic ramus. Stable old compression fracture of L1 vertebrae. Multilevel degenerative spondylosis spine. DEXA axial skeleton 04/10/23 IMPRESSION: 1. DIAGNOSIS: Severe osteoporosis based on the lowest T-score value of -2.7 in the spine and history of fracture of pelvis and wrist applying World Health Organization criteria. Assessment & Plan Assessment & Plan (1) Chronic low back pain: Code(s): M54.50 - Low back pain, unspecified; G89.29 - Other chronic pain Category: Medical (2) Lumbar degenerative disc disease: Code(s): M51.369 - Other intervertebral disc degeneration, lumbar region without mention of lumbar back pain or lower extremity pain Category: Medical (3) Lumbosacral spondylosis: Code(s): M47.817 - Spondylosis without myelopathy or radiculopathy, lumbosacral region Category: Medical (4) Chronic right sacroiliac joint pain: Code(s): M53.3 - Sacrococcygeal disorders, not elsewhere classified; G89.29 - Other chronic pain Category: Medical Plan The patient underwent radiofrequency ablation (RFA) for osteoarthritis-related back pain, with significant improvement noted post-procedure. The plan is to monitor the patient's pain levels and consider further interventions if pain recurs, potentially repeating lumbar RFA in a year when pain returns. The patient reports intermittent right sacroiliac joint pain, which is currently mild. The plan includes monitoring the pain and considering medication if it becomes severe or persistent. All questions and concerns have been answered and patient agreed with the treatment plan. Follow up as needed. Patient was informed and verbally consented to the use of an ambient scribe for clinic note documentation during this visit. Patient Instructions: I discussed with the patient the expected duration of pain relief from the radiofrequency ablation, which could last more than 12 months, and advised her to contact us if pain returns before the expected time frame. We also reviewed the possibility of repeating RFA in future treatments if necessary. The patient was informed about the potential causes of back pain and the importance of monitoring symptoms, especially in the sacroiliac joint area. - Monitor pain levels and report any significant increase or changes. - Contact the clinic if pain returns before the expected relief period. - Avoid prolonged sitting or hard surfaces to minimize sacroiliac joint discomfort. - Follow up with the clinic for any new or worsening symptoms. Coding Level of Care Code Est Pt Level 3 (06143) Complex EM visit Add On G2211 Diagnoses Chronic low back pain M54.50; G89.29 Lumbar degenerative disc disease M51.369 Lumbosacral spondylosis M47.817 Chronic right sacroiliac joint pain M53.3; G89.29
[2024-12-03 11:28] VITALS: BP 182/69; PULSE 93; O2SAT 100; BMI 21.5
--- OUTSIDE RECORDS SUMMARY | 2024-12-03 12:42 | XMS_ITS | Patient Health Record ---
Author Organization [facility] Address [address] [place] [address] Care Team Providers Care Parakeet Raiser Name Role Phone Matthew (RETIRED) Sandip JAQUEZ Primary Care Provide r Grayson Fuller Unavailable [phone] Allergies Allergen (clinical drug ingredient) Drug/Non Drug [...] Problem Status W/U Status Risk Notes Problem 471957090 Left lower quadrant pain (R10.32) Active confirmed Problem 088731532 Encounter for screening for malignant neoplasm of colon (Z12.11) Active confirmed Problem 615944261 History of adenomatous polyp of colon (Z86.010) Active confirmed Problem 552624055 Gastroesophageal reflux disease without esophagitis (K21.9) Active confirmed Problem 565767098515239 Preprocedural examination (Z01.818) Active confirmed Problem 664978798 History of colon cancer (Z85.038) Active confirmed Problem 941287389 Personal history of colon cancer (Z85.038) Active confirmed Problem Diverticulosis of sigmoid colon (320313820) Diverticulosis of sigmoid colon (K57.30) Active confirmed Problem 51059217 Abdominal gas pa in (R14.1) Active confirmed Problem Diverticulosis of colon (527792809) Diverticulosis of colon (K57.30) Active confirmed Problem History of gastrointestinal tract bypass (549295041) 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 Problem History of gastrointestinal tract bypass (538930033) 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 Plan Of Treatment Future Test Test Name Order Date COLONOSCOPY 12/07/2011 COLONOSCOPY 06/27/2017 COLONOSCOPY 03/19/2018 COLONOSCOPY 08/10/2020 COLONOSCOPY 09/12/2022 Insurance Providers Payer Name Payer Address Payer Phone Subscriber Number Group Number Insured Name Patient Relationship to Insured Coverage Start Date Coverage End Date MEDICARE OF [place] [address] [place] [address] [id number] CARMELLA DavisHILARIO Self - patient is the insured [employer] CLAIM[employer] [address] [place] [address] [id number] CARMELLA DavisHILARIO Self - patient is the [...] polyp and significant sigmoid diverticulosis Hypothyroidism Denies ME,DM,CVA,Lung disease,renal dise ase Colon cancer 06/3016--- adeno [...]
--- OUTSIDE RECORDS SUMMARY | 2024-12-03 12:42 | XMS_ITS | Patient Health Record ---
Author Organization Grayson Paredes III, MD Address [address] [place] [address] Care Team Providers Care Pairer Inspector Name Role Phone Sandip Csatro MD Primary Care Provider Grayson Martin Unavailable [phone] Allergies Allergen (clinical drug ingredient) Drug/Non Drug [...] Problem Status W/U Status Risk Notes Problem 6441705 Former smoker (Z87.891) Active confirmed She is highly motivated not to smoke. She has a plan to prevent relapse in times of stress or illness. Problem 692753346 Overweight (BMI 25.0-29.9) (E66.3) Active confirmed Her weight is 1 50 on her scale at home today. This gives a body mass index 25.7. I recommended stabilizing her weight at this level in pursuing good nutrition. Problem 73921036 Hypothyroidism (E03.9) Active confirmed She was advised to continue her thyroid medication. She appeared euthyroid today. Problem 848513362 GERD (gastroesophagea l reflux disease) (K21.9) Active confirmed Her reflexe s well controlled with lzzb-mme-lkhjehv medications. Problem 40162331 Hypokalemia (E87.6) Active confirmed Problem 078128774 Dyslipidemia (E78.5) Active confirmed Her fasting lip id profile shows good control of her lipids and no change in her regimen was made today. Problem 93632747 Internal hemorrhoids (K64.8) Active confirmed Problem 20135896 Constipation (K59.00) Active confirmed This is an intermittent problem, not present today, which is well controlled with xbbz-pms-jccbqrt medications. No hematochezia has been noted. Problem 815428597 Adenocarcinoma of colon (C18.9) Active confirmed There is no sign of recurrent disease or new primary. Surveillance will continue. She will proceed to see the staff weapons officer to discuss colonoscopy. She is up-to-date with that procedure Problem 77118944 Ischemic colitis (K55.9) Active confirmed She presented initially with pancolitis and diarrhea. This has resolved. She has had no hematochezia or protracted diarrhea or watery stool. No change in her regimen was necessary today. 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 She will proceed to see the staff weapons officer to discuss colonoscopy. She is up-to-date with that procedure 04/29/2024 GERD (gastroesophageal reflux disease) (ICD-10 - K21.9) Her reflexes well controlled with uvlj-vrb-hhcechv medications. 04/29/2024 Hypothyroidism (ICD-10 - E03.9) She [...] Details Provider Name:Grayson Paredes, 04/30/2025 02:30:00 PM, [address] [place] [address] [address] Thi, [place], [address], Insurance Providers Payer Name Payer Address Payer Phone Subscriber Number Group Number Insured Name Patient Relationship to Insured Coverage Start Date Coverage End Date MEDICARE NGS [address] [place] [address] [id number] [facility] Radha gonzales Self - patient is the insured [facility] [address] [place], [place] [phone] [id number] [facility] Radha gonzales Self - patient [...]
== END 2024-12-03 11:40 | disposition home or self-care (01) ==
LOC: HO.PMC 11:23
PROVIDERS: PCP Internal Medicine; Visit Provider Nurse Practitioner Family
DX: M54.50 Low back pain, unspecified (principal); G89.29 Other chronic pain; M51.369 Other intervertebral disc degeneration, lumbar region without mention of lumbar back pain or lower extremity pain; M47.817 Spondylosis without myelopathy or radiculopathy, lumbosacral region; M53.3 Sacrococcygeal disorders, not elsewhere classified
CPT/HCPCS: 99024

== ENCOUNTER → 2024-12-03 11:23 | Outpatient (BNVA) | payer MEDICARE, SELFPAY | PROVIDERS: PCP Internal Medicine; Visit Provider Nurse Practitioner Family | DX: M51.369 Other intervertebral disc degeneration, lumbar region without mention of lumbar back pain or lower extremity pain (principal); M54.50 Low back pain, unspecified; M47.817 Spondylosis without myelopathy or radiculopathy, lumbosacral region; M53.3 Sacrococcygeal disorders, not elsewhere classified; G89.29 Other chronic pain | CPT/HCPCS: 99212 ==

== ENCOUNTER 2024-12-08 13:55 | Outpatient (AMB) | payer MEDICARE, SELFPAY ==
--- NOTE | 2024-12-08 14:02 | MHC.PC.OV ---
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 Accompanied by: Spouse Allergies adhesive tape (ADHESIVE TAPE) Allergy (Intermediate, Verified 12/08/24 14:02) ITCH, Rash cefazolin (From KEFZOL) Allergy (Intermediate, Verified 12/08/24 14:02) RASH clindamycin (From CLEOCIN) Allergy (Intermediate, Verified 12/08/24 14:02) RASH gentamicin (From GARAMYCIN) Allergy (Intermediate, Verified 12/08/24 14:02) RASH atropine Allergy (Unknown, Verified 12/08/24 14:02) localized eye rxn cephalexin Allergy (Unknown, Verified 12/08/24 14:02) Rash tizanidine Adverse Reaction (Verified 12/08/24 14:02) Nausea tramadol Adverse Reaction (Verified 12/08/24 14:02) Nausea Doxycycline Monohydrate Allergy (Intermediate, Uncoded 08/20/24 11:50) Rash Tobacco use date assessed: 08/17/24 Fall risk assessment: No Falls in past year Last assessed Fall Risk: 12/08/24 Dental Screening Dental Screen Date: 08/17/24 HPI HPI Comments History of Present Illness Details The patient is an 84-year-old female presenting with concerns about night sweats and recent weight loss. The patient reports that she has been experiencing night sweats, requiring her to change clothes once or even twice a night. She has a history of being cold and using extra blankets at night, but currently finds herself getting too warm and throwing off the blanket, despite the use of air conditioning. These symptoms began a few years back but have become more frequent recently. Additionally, the patient has noted a weight loss of approximately 10 pounds over an unspecified recent period. She also mentions a prior significant weight loss after knee surgery, indicating that weight fluctuations might be a recurring concern. The night sweats and weight loss could be associated with hypothyroidism or may relate to her past cancer history. Concerning her musculoskeletal issues, she had pain management interventions including pain ablation, effectively reducing her osteoarthritic pain from 10 to 1, and underwent procedures for both sides of her hips two weeks prior to this visit. A history of shingles was also mentioned, having occurred on her arm, with subsequent vaccination received. Her chronic back pain, attributed to osteoarthritis, is well managed, and she expresses satisfaction with the results of past interventions. She also notes recent experiences of skin sensitivity, particularly describing a stinging and burning sensation similar to an exposed wound, which has developed on the right side. Medical History: - Osteoarthritis of the lumbar spine - Chronic pain - Hypothyroidism post-partial thyroidectomy - Hyperlipidemia - History of shingles - History of colon cancer, May (year unspecified) Surgical History: - Pain ablation (bilateral hips) - Partial thyroidectomy (1971) - Hysterectomy - Knee replacement - Removal of calcified growth from left heel - Ankle surgery Medications: - Omeprazole for acid reflux - Atorvastatin for cholesterol management - Multivitamin - Acetaminophen PM (Tylenol PM) for nighttime use - Alprazolam 0.25mg for nighttime use occasionally - Reports using air conditioning due to night sweats - Past history of fluctuating weight associated with medical events (e.g., post knee surgery) COUNTS INCLUDE 234 BEDS AT THE [facility] Medical History (Updated 12/08/24 @ 14:58 by Brian Jason MD) Night sweat Lumbar degenerative disc disease Chronic low back pain Osteoporosis Compression fracture of L1 vertebra Arthritis History of right bundle branch block (RBBB) Anxiety PONV (postoperative nausea and vomiting) GERD (gastroesophageal reflux disease) History of colon cancer Hypothyroidism Barretts esophagus Hyperlipidemia Surgical History History of foot surgery History of cataract extraction with lens replacement Hx of esophagogastroduodenoscopy History of total right knee replacement (TKR) History of breast biopsy History of hysterectomy History of thyroidectomy Hx of colonoscopy (~11/28/22) History of partial colectomy Family History Mother No problems noted. Father No problems noted. Social History Household Members: Spouse Housing: House Are you a primary acute care physician to a significant other at home: No Do you presently have visiting nurse or other home services: No Alcohol intake: current Alcohol intake frequency: a few times a month Comment: pt refusing alarms, steady gait encouraged to call for help Patient Tobacco Use Status: Former Tobacco user Tobacco use type: Cigarette e-Cigarette/Vaping Use: Never Used Advance Directives Date on File: 07/22/23 service: No Current occupational status: retired Cognitive needs: No Hearing needs: No Vision needs: Yes (rx glasses) Questionnaire Thrive Questionnaire Date Thrive assessed: 08/17/24 AUDIT C Alcohol Use Questionnaire (AUDIT-C) 1. How often do you have a drink containing alcohol?: Never 3. How often do you have six or more drinks on one occasion?: Never Total Score: 0 MAYELIN-7 AMB Questionnaire MAYELIN-7 Date MAYELIN - 7 assessed: 08/17/24 Source: Developed by Drs. Grayson Phillips, Mishel Garcia, Michael Fink and colleagues, with an educational mamta from [email or web address]. Review of Systems Const Details: - Skin: Reports skin sensitivity on the right side with tingling and burning sensation; denies lesions - Musculoskeletal: Reports chronic back pain; musculoskeletal interventions have previously been effective - Endocrine: Reports night sweats, unexplained weight loss of 10 pounds, which could be linked to thyroid function - Neurological/Psychiatric: Denies feeling lightheaded or having confusion - Respiratory/Cardiac: Denies chest pain or shortness of breath All systems reviewed & are unremarkable except as noted in HPI and below Physical exam (Primary Care) Vital Signs: Last Vital Signs Temp 98.4 F 12/08/24 14:13 Pulse 96 12/08/24 14:13 Resp 16 12/08/24 14:13 BP 128/62 12/08/24 14:13 Pulse Ox 97 12/08/24 14:13 Oxygen Delivery Method Room Air 12/08/24 14:13 BMI result Body Mass Index 21.8 Tobacco/Smoking Status: Tobacco use Status Tobacco use date assessed 08/17/24 12/08/24 14:03 Patient Tobacco Use Status Former Tobacco user 12/08/24 14:03 Tobacco use type Cigarette 12/08/24 14:03 e-Cigarette/Vaping Use Never Used 12/08/24 14:03 Thrive Assessment: Date of Thrive Assessment Date Thrive assessed 08/17/24 12/08/24 14:03 Const Other: General: +Alert and oriented, Well nourished, No acute distress. Eye: Pupils are equal, round and reactive to light, Intact accommodation, Extraocular movements are intact, Normal conjunctiva, Vision unchanged. HENT: Normocephalic, Atraumatic, Tympanic membranes are clear, Normal hearing, Oral mucosa is moist, No pharyngeal erythema, Ear canals patent. Respiratory: Lungs CTA bilaterally, No wheeze, Respirations are non-labored. Cardiovascular: Regular rate, Regular rhythm, S1 auscultated, S2 auscultated, No murmur, Good pulses equal in all extremities, Normal peripheral perfusion, No edema. Gastrointestinal: Soft, Non-tender, Non-distended, Normal bowel sounds, No organomegaly. Musculoskeletal: Normal range of motion, Normal strength, No tenderness, No swelling, No deformity, Normal gait. Integumentary: Warm, Dry, [place], Intact, Skin is extremely sensitive with tingling and burning sensation, Bruises easily, Dry skin noted on legs. Neurologic: Alert, Oriented, Normal sensory, Normal motor function, No focal defects, Cranial Nerves II-XII are grossly intact, Normal deep tendon reflexes. Psychiatric: Cooperative, Appropriate mood & affect, Normal judgment. Coding Level of Care Code Est Pt Level 4 (18849) Complex EM visit Add On G2211 Diagnoses Night sweat R61 Hypothyroidism E03.9 Hyperlipidemia E78.5 Assessment & Plan Assessment & Plan (1) Night sweat: Comment: - Ordered comprehensive blood work to evaluate thyroid function and rule out systemic illness. (Malignancy/Lymphoma given history of Cancer with chemotherapy vs overtreatment of hypertension - Monitor symptoms and patient weight closely over the coming weeks. Code(s): R61 - Generalized hyperhidrosis Category: Medical Plan: - Orderbaseline labs (2) Hypothyroidism: Comment: - Check thyroid levels due to concern about potential overtreatment. - Adjust medications if needed based on lab results and symptom resolution. Code(s): E03.9 - Hypothyroidism, unspecified Category: Medical Plan: - Order TSH (3) Hyperlipidemia: Comment: - Continue atorvastatin as patient demonstrates active lifestyle benefiting from preventative care. Code(s): E78.5 - Hyperlipidemia, unspecified Category: Medical Plan: - Order Lipid Panel - Continue statin Plan Chronic Pain: I discussed with the patient the possibility that her symptoms of night sweats and weight loss might be related either to thyroid medication levels or other systemic issues such as cancer recurrence. The importance of obtaining blood work to rule out these possibilities was emphasized. I explained the need for follow-up to adjust the management and medications accordingly. I also highlighted the benefits of continuing atorvastatin given her active lifestyle and overall health appearance, versus discontinuing due to age. We talked about the risks of Alprazolam use at her age, including falls and confusion, and agreed on a tapering schedule to gradually discontinue it safely. The patient's agreement to avoid adhesive products due to past allergic reactions was discussed. I advised monitoring for reoccurrence of shingles symptoms and follow-up in a week for further assessment of her condition. - Continue current pain management as efficacious, reassess pain levels in follow-up visits. Orders: Orders Complete Blood Count Auto Diff Today R61 - Generalized hyperhidrosis Comprehensive Met. Panel Today R61 - Generalized hyperhidrosis Lipid Panel Today R61 - Generalized hyperhidrosis Syphilis Screen Today R61 - Generalized hyperhidrosis TSH reflex Free T4 Today R61 - Generalized hyperhidrosis Hemoglobin A1c Today R61 - Generalized hyperhidrosis Vitamin D 25-OH Total Today R61 - Generalized hyperhidrosis Patient Instructions: - Complete blood work as soon as possible to check thyroid levels and other health markers. - Monitor and report any changes in night sweats or weight over the next weeks. - Avoid band-aids or similar adhesive products due to known allergies. - Do not stop Alprazolam suddenly; continue current dose, and we will discuss tapering at follow-up. - Maintain active lifestyle and diet as previously doing. - Return for follow-up in one week to discuss test results and medication adjustments.
[2024-12-08 14:13] VITALS: BP 128/62; PULSE 96; RESP 16; TEMP 36.9; O2SAT 97; BMI 21.8
== END 2024-12-08 16:18 | disposition home or self-care (01) ==
LOC: HO.HMCHD 13:56
PROVIDERS: PCP Student in an Organized Health Care Education/Training Program; Visit Provider Student in an Organized Health Care Education/Training Program
DX: R61 Generalized hyperhidrosis (principal); E03.9 Hypothyroidism, unspecified; E78.5 Hyperlipidemia, unspecified

== ENCOUNTER 2024-12-08 13:55 | Outpatient (REF) | payer MEDICARE, SELFPAY ==
[2024-12-08 16:33] LABS: Hematocrit 36.3 % (37.0-47.0); Hemoglobin 11.7 g/dl (12.0-16.0); Mean Corpuscular HGB Conc 32.2 g/dl (31.0-35.0); Mean Corpuscular Hemoglobin 30.2 pg (27.0-33.0); Mean Corpuscular Volume 93.8 fL (80.0-98.0); NRBC Abs Auto 0.000 X10*3/uL (0.0-0.012); NRBC Pct Auto 0.0 /100WBC (0.0-0.2); Red Blood Count 3.87 X10*6/uL (4.20-5.50); White Blood Count 26.5 X10*3/uL (4.8-10.8)
[2024-12-08 16:34] LABS: Platelet Count 82 X10*3/uL (160-400)
[2024-12-08 16:56] LABS: Band Neutrophils Percent 5 % (3-5); Basophils Abs Manual 0.3 X10*3/uL (0.0-0.2); Basophils Percent Manual 1 % (0-2); Eosinophils Absolute Manual 0.3 X10*3/uL (0.0-0.4); Eosinophils Percent Manual 1 % (0-4); Lymphocytes Absolute Manual 2.7 X10*3/uL (1.2-4.9); Lymphocytes Percent Manual 10 % (20-40); Metamyelocytes Absolute 1.3 X10*3/uL; Metamyelocytes Percent 5 %; Monocytes Absolute Manual 1.6 X10*3/uL (0.1-1.2); Monocytes Percent Manual 6 % (2-11); Neutrophils Absolute Manual 20.4 X10*3/uL (2.0-8.3); Neutrophils Percent Manual 72 % (45-73)
[2024-12-08 16:57] LABS: RBC Morphology NOTED
[2024-12-08 16:58] LABS: Basophilic Stippling 1+ (0-2) /OIF; Polychromasia 1+ (0-2) /OIF; Stomatocytes 1+ (5-14) /OIF
[2024-12-08 16:59] LABS: Macrocytosis 1+ (5-14) /OIF
[2024-12-08 17:26] LABS: Appearance Urine Cloudy; Glucose Urine UA Negative (Negative); PH 5.0 (5.0-9.0); Specific Gravity - Urine 1.025 (1.005-1.025); UMIC TRIGGER UA YES
[2024-12-08 18:05] LABS: Alanine Aminotransferase 13 U/L (0-31); Albumin Level 4.1 g/dL (3.5-5.0); Alkaline Phosphatase 66 U/L (39-117); Anion Gap 14 (12-20); Aspartate Amino Transferase 32 U/L (5-31); Blood Urea Nitrogen 26 mg/dL (9-16); Calcium 9.2 mg/dL (8.4-10.2); Carbon Dioxide 30 mmol/L (22-29); Chloride 101 mmol/L (96-108); Cholesterol 114 mg/dL (<200); Estimated Glomerular Filt Rate 50; HDL Cholesterol 45 mg/dL (>40); Potassium 3.8 mmol/L (3.3-5.1); Sodium 141 mmol/L (135-145); Total Protein 7.7 g/dL (6.5-8.0); Triglycerides 66 mg/dL (<150)
[2024-12-08 18:11] LABS: Thyroid Stimulating Hormone 5.28 uIU/mL (0.32-4.0)
[2024-12-08 19:07] LABS: Free T4 (Free Thyroxine) 1.37 ng/dL (0.71-1.85)
[2024-12-09 08:03] LABS: Syphilis Screen Nonreactive (Nonreactive)
== END 2024-12-08 13:56 | disposition home or self-care (01) ==
LOC: HO.LAB 13:55
PROVIDERS: PCP Internal Medicine; Visit Provider Student in an Organized Health Care Education/Training Program
DX: R61 Generalized hyperhidrosis (principal); K57.32 Diverticulitis of large intestine without perforation or abscess without bleeding; M54.50 Low back pain, unspecified; G89.29 Other chronic pain; E03.9 Hypothyroidism, unspecified; E78.5 Hyperlipidemia, unspecified
CPT/HCPCS: 36415; 80053; 80061; 81001; 81003; 82248; 82306; 83036; 84439; 84443; 85007; 85027; 86780; 99212

== ENCOUNTER 2024-12-15 13:25 | Outpatient (AMB) | payer MEDICARE, SELFPAY ==
--- OUTSIDE RECORDS SUMMARY | 2024-04-29 10:15 | XMS_ITS ---
Author Organization Grayson Paredes III, MD Address [address] [place] [address] Care Team Providers Care Length Control Tester Name Role Phone Sandip Castro MD Primary Care Provider Grayson Martin Unavailable [phone] Allergies Allergen (clinical drug ingredient) Drug/Non Drug [...] Date Provider Diagnosis Grayson Paredes III, MD [address] [place] [address] [place] [address] 04/29/2024 Grayson Paredes Adenocarcinoma of co bella C18.9 ; Former smoker Z87.891 ; GERD (gastroesophageal reflux disease) K21.9 ; Hypothyroidism E03.9 and Dyslipidemia E78.5 Assessments Encounter Date Diagnosis (ICD Code) Assessment Notes Treatment Notes Treatment Clinical Notes 04/29/2024 Adenocarcinoma of colon (ICD-10 - C18.9) There is no sign of recurrent disease or new primary. Surveillance will continue. She will proceed to see the sheet metal worker to discuss colonoscopy. She is up-to-date with that procedure 04/29/2024 Former smoker (ICD-10 - Z87.891) She is highly motivated not to smoke. She has a plan to prevent relapse in times of stress or illness. 04/29/2024 GERD (gastroesophageal reflux disease) (ICD-10 - K21.9) Her reflexes well controlled with kaqc-jgx-epmhbck medications. 04/29/2024 Hypothyroidism (ICD-10 - E03.9) She [...] checkup Provider Name:Grayson Paredes, 04/30/2025 02:30:00 PM, [address] [place] [address], [place] [address], [place], [address], Progress Notes * Radha CARRDOB: [birth year] (84 yo F)Acc No.[id number]:04/29/2024 Progress Notes Patient: Radha GREY Provider: Ciara Paredes MD :1940 A ge:84 Y S ex:Female Date:04/29/2024 Address:[address] [place] [address] [id number] Pcp:Sandip Castro MD Subjective: * Chief Complaints: [...] x-cigarette smoker S he was born in [place]. He has been to [place] for 50 years. They have a daughter Brittny. 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 She has had [...] continue. She will proceed to see the sheet metal worker to discuss colonoscopy. She is up-to-date with that procedure 2 . F ormer smoker - Z87.891 N otes :She is highly motivated not to smoke. She has a plan to prevent relapse in times of stress or illness. 3 . G ERD (gastroesophageal reflux disease) - K21.9 N otes :Her reflexes well controlled with fren-uui-tlygwnu medications. 4 . H ypothyroidism - E03.9 [...] 04/29/2024 Generated for Gerardo castellano/Marlo/Elvaitting on: 0 12/15/2024 03:52 PM EDT History and Physical Notes * [...]
--- NOTE | 2024-12-15 13:27 | A.OFFPC_ITS ---
Vital Signs 12/15/24 13:31 Height 5 ft 4 in Weight 127 lb BMI 21.8 BP 142/62 H Blood Pressure Location Rt brachial Position Sitting Respiration 17 Pulse 88 Pulse Source Pulse Oximeter Temp 97.7 F Temp Source Temporal Artery Scan Pulse Oximetry (%) 98 Oxygen Delivery Method Room Air Intake Visit Reasons: 1 week f/u with labs prior Electronics Lead Required: No Accompanied by: Self / Same As Patient Allergies adhesive tape (ADHESIVE TAPE) Allergy (Intermediate, Verified 12/15/24 13:27) ITCH, Rash cefazolin (From KEFZOL) Allergy (Intermediate, Verified 12/15/24 13:27) RASH clindamycin (From CLEOCIN) Allergy (Intermediate, Verified 12/15/24 13:27) RASH gentamicin (From GARAMYCIN) Allergy (Intermediate, Verified 12/15/24 13:27) RASH atropine Allergy (Unknown, Verified 12/15/24 13:27) localized eye rxn cephalexin Allergy (Unknown, Verified 12/15/24 13:27) Rash tizanidine Adverse Reaction (Verified 12/15/24 13:27) Nausea tramadol Adverse Reaction (Verified 12/15/24 13:27) Nausea Doxycycline Monohydrate Allergy (Intermediate, Uncoded 08/20/24 11:50) Rash Medication List - Last Reconciled 12/15/24 by Brian Jason MD alprazolam 0.25 mg PO .qhs PRN atorvastatin 40 mg PO DAILY calcium carbonate (Calcium 600) 600 mg PO BID@1200,2100 cholecalciferol (vitamin D3) 10 mcg PO DAILY diphenhydramine-acetaminophen 25-500 mg (Tylenol PM Extra Strength) 1 tab PO BEDTIME PRN lactobacillus combination no.4 (Probiotic) 3,000 mmu cells PO DAILY@1200 levothyroxine 1 tab PO DAILY@0600 epdndhnx-oiu-daxl-FA-vit K-lut 8 mg iron-400 mcg-50 mcg (Centrum Silver Women) 1 tab PO DAILY@1200 omeprazole 20 mg PO DAILY@0630 Tobacco use date assessed: 08/17/24 Fall risk assessment: No Falls in past year Last assessed Fall Risk: 12/15/24 Dental Screening Dental Screen Date: 08/17/24 HPI HPI Comments History of Present Illness Details The patient is an 84-year-old female presenting with frequent urination and potential infection. The patient reports urinating quite often, particularly more at night than during the day. She denies any burning sensation while urinating. A recent blood test indicated a high white blood cell count, sugges ting a potential infection. The patient was informed about a possible urinary tract infection based on urinary analysis, although she does not report painful urination typically associated with such infections. Additionally, the patient describes feeling sinus congestion for the past month or two, without productive coughing. The symptom appears as small, mushy masses felt coming from her sinus, which at times seem to get stuck. Past medical history includes notable incidents from last year in July 2023 when she fell, crushed a vertebra, and subsequently was hospitalized for ten days due to findings in the colon initially suspected as an infection but later identified as diverticulosis. She has not recently experienced abdominal pain. The patient has hypothyroidism, for which she is taking levothyroxine. Medical History: - Hypothyroidism - Diverticulosis - History of crushed vertebra with previ ous hospital admission Medications: - Levothyroxine 100 mcg daily for hypoth yroidism - Alprazolam 0.25 mg, instructed to redu ce further [facility] Medical History (Updated 12/15/24 @ 13:53 by Brian Jason MD) Benzodiazepine dependence Urinary tract infection Night sweat Lumbar degenerative disc disease Chronic low back pain Osteoporosis Compression fracture of L1 vertebra Arthritis History of right bundle branch block (RBBB) Anxiety PONV (postoperative nausea and vomiting) GERD (gastroesophageal reflux disease) History of colon cancer Hypothyroidism Barretts esophagus Hyperlipidemia Surgical History History of foot surgery History of cataract extraction with lens replacement Hx of esophagogastroduodenoscopy History of total right knee replacement (TKR) History of breast biopsy History of hysterectomy History of thyroidectomy Hx of colonoscopy (~11/28/22) History of partial colectomy Family History Mother No problems noted. Father No problems noted. Social History Household Members: Spouse Housing: House Are you a primary life care planner to a significant other at home: No Do you presently have visiting nurse or other home services: No Alcohol intake: current Alcohol intake frequency: a few times a month Comment: pt refusing alarms, steady gait encouraged to call for help Patient Tobacco Use Status: Former Tobacco user Tobacco use type: Cigarette e-Cigarette/Vaping Use: Never Used Advance Directives Date on File: 07/22/23 service: No Current occupational status: retired Cognitive needs: No Hearing needs: No Vision needs: Yes (rx glasses) Questionnaire Thrive Questionnaire Date Thrive assessed: 08/17/24 MAYELIN-7 AMB Questionnaire MAYELIN-7 Date MAYELIN - 7 assessed: 08/17/24 Source: Developed by Drs. Grayson Phillips, Mishel Garcia, Michael Fink and colleagues, with an educational mamta from [email or web address]. Review of Systems Const Details: - Constitutional: Reports feeling good. - Respiratory: Denies cough. - Genitourinary: Reports frequent urination without burning, especially at night. - Endocrine: Reports use of levothyroxine. - Neurological: Reports a past fall; no current neurological issues mentioned. All systems reviewed & are unremarkable except as noted in HPI and below Physical exam (Primary Care) Vital Signs: Last Vital Signs Temp 97.7 F 12/15/24 13:31 Pulse 88 12/15/24 13:31 Resp 17 12/15/24 13:31 BP 142/62 H 12/15/24 13:31 Pulse Ox 98 12/15/24 13:31 Oxygen Delivery Method Room Air 12/15/24 13:31 BMI result Body Mass Index 21.8 Tobacco/Smoking Status: Tobacco use Status Tobacco use date assessed 08/17/24 12/15/24 13:29 Patient Tobacco Use Status Former Tobacco user 12/15/24 13:29 Tobacco use type Cigarette 12/15/24 13:29 e-Cigarette/Vaping Use Never Used 12/15/24 13:29 Thrive Assessment: Date of Thrive Assessment Date Thrive assessed 08/17/24 12/15/24 13:29 Const Other: General: Alert and oriented, Well nourished, No acute distress. Eye: Pupils are equal, round and reactive to light, Intact accommodation, Extraocular movements are intact, Normal conjunctiva, Vision unchanged. HENT: Normocephalic, Atraumatic, Tympanic membranes are clear, Normal hearing, Oral mucosa is moist, No pharyngeal erythema, Ear canals patent. Respiratory: Lungs CTA bilaterally, No wheeze, Respirations are non-labored. Cardiovascular: Regular rate, Regular rhythm, S1 auscultated, S2 auscultated, No murmur, Good pulses equal in all extremities, Normal peripheral perfusion, No edema. Gastrointestinal: Soft, Non-tender, Non-distended, Normal bowel sounds, No organomegaly. Musculoskeletal: Normal range of motion, Normal strength, No tenderness, No swelling, No deformity, Normal gait. Integumentary: Warm, Dry, [place], Intact. Neurologic: Alert, Oriented, Normal sensory, Normal motor function, No focal defects, Cranial Nerves II-XII are grossly intact, Normal deep tendon reflexes. Psychiatric: Cooperative, Appropriate mood & affect, Normal judgment. Coding Level of Care Code Est Pt Level 4 (08149) Complex EM visit Add On G2211 Diagnoses Night sweat R61 Hypothyroidism, unspecified type E03.9 Hypothyroidism type: unspecified Acute cystitis without hematuria N30.00 Urinary tract infection type: acute cystitis Hematuria presence: without hematuria Benzodiazepine dependence F13.20 Assessment & Plan Assessment & Plan (1) Night sweat: Comment: - Blood work obtain a last clinic visit demonstrated elevated TSH with an elevated white count over 25 with neutrophilic predominance. Less likelihood of malignancy in more likelihood of possible underlying infection. In the absence of steroid use and mildly positive UTI and is possible that patient has an underlying infection (also endorsing and dysuria), therefore we will obtain CBC to monitor white count and blood cultures to rule out any infections. We will also treat empirically for UTI with levofloxacin and below Code(s): R61 - Generalized hyperhidrosis Category: Medical (2) Hypothyroidism: Comment: - Increase levothyroxine to 112 mcg once daily based on TSH level. - Continue current dosage until new prescription arrives. - Recheck thyroid function tests in three months before next visit Code(s): E03.9 - Hypothyroidism, unspecified Category: Medical Qualifiers: Hypothyroidism type: unspecified Qualified Code(s): E03.9 - Hypothyroidism, unspecified (3) Urinary tract infection: Comment: - Treat empirically with levofloxacin due to patient's reported allergies and drug intolerance (allergic to penicillins & low Creatinine therefore wont use Bactrim) - Discuss risks such as diarrhea and C. difficile infection. - Discuss procedure to stop medication and visit the emergency room if experiencing severe diarrhea. Code(s): N39.0 - Urinary tract infection, site not specified Category: Medical Qualifiers: Urinary tract infection type: acute cystitis Hematuria presence: without hematuria Qualified Code(s): N30.00 - Acute cystitis without hematuria (4) Benzodiazepine dependence: Comment: Currently on 0.25 mg daily of lorazepam and advised patient to cut dose down in half for the next 2 weeks and discontinue after that Code(s): F13.20 - Sedative, hypnotic or anxiolytic dependence, uncomplicated Category: Medical Plan The patient discussed her urinary symptoms, and based on preliminary analysis, we decided to treat her urinalysis finding of potential infection empirically with levofloxacin. She was made aware of potential side effects, including diarrhea and possibly C. difficile infection. She was advised to stop the medication and go to the emergency room if experiencing excessive diarrhea. The patient?s levothyroxine dose is being increased due to high TSH levels, reflecting undertreated hypothyroidism. I advised her to continue the current dose until the new prescription arrives and follow up in three months for thyroid levels. We discussed monitoring her sinus congestion symptoms and no new symptoms related to her previous diverticulosis findings. Orders: Orders Complete Blood Count Man Dif Today R61 - Generalized hyperhidrosis TSH reflex Free T4 3 Months E03.9 - Hypothyroidism, unspecified Medications: New levofloxacin 250 mg PO DAILY 3 tabs 0RF N39.0 - Urinary tract infection, site not specified levothyroxine (Synthroid) 112 mcg PO DAILY 90 tabs 0RF E03.9 - Hypothyroidism, unspecified Patient Instructions: - Start taking levofloxacin for three days. - Stop levofloxacin and visit emergency room if experiencing severe diarrhea. - Get blood work done for infection. - Continue current dose of levothyroxine until new one arrives, then increase to 112 mcg daily. - Get follow-up blood tests for thyroid in three months before the next appointment. - Monitor for any new or worsening symptoms. - Reduce alprazolam to 0.125 mg for two weeks, then stop. -
[2024-12-15 13:31] VITALS: BP 142/62; PULSE 88; RESP 17; TEMP 36.5; O2SAT 98; BMI 21.8
--- OUTSIDE RECORDS SUMMARY | 2024-12-15 15:52 | XMS_ITS | Patient Health Record ---
Author Organization Grayson Pareeds III, MD Address [address] [place] [address] Care Team Providers Care Real Estate Investment Analyst Name Role Phone Sandip Castro MD Primary Care Provider Grayson Martin Unavailable [phone] Allergies Allergen (clinical drug ingredient) Drug/Non Drug [...] Problem Status W/U Status Risk Notes Problem 8207554 Former smoker (Z87.891) Active confirmed She is highly motivated not to smoke. She has a plan to prevent relapse in times of stress or illness. Problem 741860841 Overweight (BMI 25.0-29.9) (E66.3) Active confirmed Her weight is 1 50 on her scale at home today. This gives a body mass index 25.7. I recommended stabilizing her weight at this level in pursuing good nutrition. Problem 44868011 Hypothyroidism (E03.9) Active confirmed She was advised to continue her thyroid medication. She appeared euthyroid today. Problem 835377562 GERD (gastroesophagea l reflux disease) (K21.9) Active confirmed Her reflexe s well controlled with qqaj-thc-tmutbwq medications. Problem 02263377 Hypokalemia (E87.6) Active confirmed Problem 827167684 Dyslipidemia (E78.5) Active confirmed Her fasting lip id profile shows good control of her lipids and no change in her regimen was made today. Problem 25340448 Internal hemorrhoids (K64.8) Active confirmed Problem 19665017 Constipation (K59.00) Active confirmed This is an intermittent problem, not present today, which is well controlled with obey-oqx-tdnaxlf medications. No hematochezia has been noted. Problem 263155831 Adenocarcinoma of colon (C18.9) Active confirmed There is no sign of recurrent disease or new primary. Surveillance will continue. She will proceed to see the proposal engineer to discuss colonoscopy. She is up-to-date with that procedure Problem 88443600 Ischemic colitis (K55.9) Active confirmed She presented initially with pancolitis and diarrhea. This has resolved. She has had no hematochezia or protracted diarrhea or watery stool. No change in her regimen was necessary today. 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 She will proceed to see the proposal engineer to discuss colonoscopy. She is up-to-date with that procedure 04/29/2024 GERD (gastroesophageal reflux disease) (ICD-10 - K21.9) Her reflexes well controlled with jvag-mqg-wehagoe medications. 04/29/2024 Hypothyroidism (ICD-10 - E03.9) She [...] Details Provider Name:Grayson Paredes, 04/30/2025 02:30:00 PM, [address] [place] [address] [address] SHARIF Thi, [place], [address], Insurance Providers Payer Name Payer Address Payer Phone Subscriber Number Group Number Insured Name Patient Relationship to Insured Coverage Start Date Coverage End Date MEDICARE NGS [address] [place] [address] [id number] [facility] Radha gonzales Self - patient is the insured [facility] [address] [place], [place] [id number] [phone] [id number] [facility] Radha gonzales Self - patient is [...]
--- OUTSIDE RECORDS SUMMARY | 2024-12-15 15:53 | XMS_ITS | Patient Health Record ---
Author Organization [facility] Address [address] [place] [address] Care Team Providers Care Quality Control Scientist Name Role Phone Matthew (RETIRED) Sandip JAQUEZ Primary Care Provide r Grayson Fuller Unavailable [phone] Allergies Allergen (clinical drug ingredient) Drug/Non Drug [...] Problem Status W/U Status Risk Notes Problem 713917981 Left lower quadrant pain (R10.32) Active confirmed Problem 165581767 Encounter for screening for malignant neoplasm of colon (Z12.11) Active confirmed Problem 925993039 History of adenomatous polyp of colon (Z86.010) Active confirmed Problem 408027114 Gastroesophageal reflux disease without esophagitis (K21.9) Active confirmed Problem 226327523616955 Preprocedural examination (Z01.818) Active confirmed Problem 645686791 History of colon cancer (Z85.038) Active confirmed Problem 780496499 Personal history of colon cancer (Z85.038) Active confirmed Problem Diverticulosis of sigmoid colon (078711461) Diverticulosis of sigmoid colon (K57.30) Active confirmed Problem 31333944 Abdominal gas pa in (R14.1) Active confirmed Problem Diverticulosis of colon (474235363) Diverticulosis of colon (K57.30) Active confirmed Problem History of gastrointestinal tract bypass (810886167) 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 Problem History of gastrointestinal tract bypass (778730113) 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 Plan Of Treatment Future Test Test Name Order Date COLONOSCOPY 12/07/2011 COLONOSCOPY 06/27/2017 COLONOSCOPY 03/19/2018 COLONOSCOPY 08/10/2020 COLONOSCOPY 09/12/2022 Insurance Providers Payer Name Payer Address Payer Phone Subscriber Number Group Number Insured Name Patient Relationship to Insured Coverage Start Date Coverage End Date MEDICARE OF [place] [address] [place] [address] [id number] CARMELLA DavisHILARIO Self - patient is the insured [employer] [address] [place] [phone] [id number] CARMELLA DavisHILARIO Self - patient is the [...] polyp and significant sigmoid diverticulosis Hypothyroidism Denies [place],DM,CVA,Lung disease,renal dise ase Colon cancer 06/3016--- adeno [...]
== END 2024-12-15 13:54 | disposition home or self-care (01) ==
LOC: HO.HMCHD 13:25
PROVIDERS: PCP Student in an Organized Health Care Education/Training Program; Visit Provider Student in an Organized Health Care Education/Training Program
DX: R61 Generalized hyperhidrosis (principal); E03.9 Hypothyroidism, unspecified; N30.00 Acute cystitis without hematuria; F13.20 Sedative, hypnotic or anxiolytic dependence, uncomplicated

== ENCOUNTER 2024-12-15 13:25 | Outpatient (REF) | payer MEDICARE, SELFPAY ==
[2024-12-15 14:44] LABS: Baso%MD 0.3 %; Eos%MD 0.5 %; Hematocrit 37.6 % (37.0-47.0); Hemoglobin 11.9 g/dl (12.0-16.0); IG%MD 9.4 %; Lymph%MD 11.8 %; Mean Corpuscular HGB Conc 31.6 g/dl (31.0-35.0); Mean Corpuscular Hemoglobin 29.9 pg (27.0-33.0); Mean Corpuscular Volume 94.5 fL (80.0-98.0); Mono%MD 14.5 %; NRBC Abs Auto 0.000 X10*3/uL (0.0-0.012); NRBC Pct Auto 0.0 /100WBC (0.0-0.2); Neut%MD 63.5 %; Red Blood Count 3.98 X10*6/uL (4.20-5.50); White Blood Count 25.8 X10*3/uL (4.8-10.8)
[2024-12-15 14:45] LABS: Platelet Count 67 X10*3/uL (160-400)
[2024-12-15 15:35] LABS: Band Neutrophils Percent 4 % (3-5); Neutrophils Percent Manual 67 % (45-73)
[2024-12-15 15:36] LABS: Atypical Lymph Absolute Manual 0.3 x10*3/uL; Atypical Lymphs Percent Manual 1 % (0-6); Basophils Abs Manual 0.3 X10*3/uL (0.0-0.2); Basophils Percent Manual 1 % (0-2); Eosinophils Absolute Manual 0.5 X10*3/uL (0.0-0.4); Eosinophils Percent Manual 2 % (0-4); Lymphocytes Absolute Manual 2.6 X10*3/uL (1.2-4.9); Lymphocytes Percent Manual 10 % (20-40); Metamyelocytes Absolute 0.8 X10*3/uL; Metamyelocytes Percent 3 %; Monocytes Absolute Manual 2.1 X10*3/uL (0.1-1.2); Monocytes Percent Manual 8 % (2-11); Myelocytes Absolute 1.0 X10*/uL; Myelocytes Percent 4 %; Neutrophils Absolute Manual 18.3 X10*3/uL (2.0-8.3)
[2024-12-15 15:37] LABS: Basophilic Stippling 1+ (0-2) /OIF; Polychromasia 1+ (0-2) /OIF; RBC Morphology NOTED
== END 2024-12-15 13:26 | disposition home or self-care (01) ==
LOC: HO.LAB 13:25
PROVIDERS: PCP Student in an Organized Health Care Education/Training Program; Visit Provider Student in an Organized Health Care Education/Training Program
DX: R61 Generalized hyperhidrosis (principal); E03.9 Hypothyroidism, unspecified; N30.00 Acute cystitis without hematuria; F13.20 Sedative, hypnotic or anxiolytic dependence, uncomplicated; Z79.890 Hormone replacement therapy; Z79.899 Other long term (current) drug therapy
CPT/HCPCS: 36415; 85007; 85027; 99212

== ENCOUNTER 2025-03-01 09:44 | Outpatient (REF) | payer MEDICARE, SELFPAY ==
--- OUTSIDE RECORDS SUMMARY | 2024-04-29 09:15 | XMS_ITS ---
Author Organization Grayson Paredes III, MD Address [address] [facility] [place] [address] Care Team Providers Care Tube Filler Name Role Phone Sandip Castro MD Primary Care Provider Essie Paredes III, Dr. Galicia Unavailable Allergies Allergen (clinical drug ingredient) Drug/Non Drug Allergy documented on EMR Reaction Allergy Type Onset Date Status Keflex Unknown Drug Allergy Active clindamycin Cleocin Unknown Drug Allergy Activ e cephalexin Cephalexin Unknown Drug Allergy Activ e cefazolin Cefazolin Sodium-Dextrose Unknown Drug Allergy Active atropine Atropine Sulfate Unknown Drug Allergy Active Surgical tape (uncoded) Unknown Allergy Active clindamycin Clindamycin Unknown Drug Allergy Act kellen tramadol traMADol Unknown Drug Allergy Active tizanidine tiZANidine Unknown Drug Allergy Activ e gentamicin Gentamicin Unknown Drug Allergy Activ e doxycycline Doxycycline Unknown Drug Allergy Act kellen REASON FOR VISIT Colitis May 2023, Recent diverticulitis, History of colon cancer, Impression fracture L1 Medications Medication SIG (Take, Route, Frequency, Duration) Notes Start Date End Date Status Tylenol 325 MG 2 tablets as needed Orally every 6 hrs Active LORazepam 0.5 MG (Schedule IV Drug) T JOSÉ ANTONIO 1 TABLET AT BEDTIME NEEDED Oral Active ALPRAZolam 0.25 MG 1 tablet Orally Twic e a day Active Centrum Silver Ultra Womens - Orally Active Levothyroxine Sodium 100 MCG 1 tablet on an empty stomach in the morning Orally Saturday and Saturday Active Atorvastatin Calcium 40 MG 1 tablet Oral ly Once a day Active Omeprazole Magnesium 20 MG 1 tablet 30 m inutes before morning meal Orally Once a day Active Probiotic - as directed Orally Active Vitamin D3 25 MCG (1000 UT) 1 tablet Ora lly Once a day Active Calcium 1200+D3 Acti ve Tylenol PM Extra Strength 500-25 MG 1 tablet at bedtime as needed Orally Once a day Active Social History Tobacco Use: Social History Observation Description Date Details (start date - stop date) Former Smoker NA - NA Tobacco Use/Smoking Question Answer Notes Patient is a former smoker How long has it been since you last smoked? > 10 years Additional Findings: Tobacco Non-User Ex-cigaret te smoker Vital Signs Temperature 97.4 degrees Fahrenheit 04/29/19 25 Blood pressure systolic 126 mm Hg 04/29/19 25 Blood pressure diastolic 68 mm Hg 025 Heart Rate 86 /min 04/29/2024 Height 64 in 04/29/2024 Weight 131 lbs 04/29/2024 BMI 22.48 kg/m2 04/29/2024 Encounters Encounter Location Date Provider Diagnosis Grayson Paredes III, MD [address] [place] [address] [place] [address] 04/29/2024 Grayson Paredes Adenocarcinoma of co bella C18.9 ; Former smoker Z87.891 ; GERD (gastroesophageal reflux disease) K21.9 ; Hypothyroidism E03.9 and Dyslipidemia E78.5 Assessments Encounter Date Diagnosis (ICD Code) Assessment Notes Treatment Notes Treatment Clinical Notes 04/29/2024 Adenocarcinoma of colon (ICD-10 - C18.9) There is no sign of recurrent disease or new primary. Surveillance will continue. She will proceed to see the wire drawing machine tender to discuss colonoscopy. She is up-to-date with that procedure 04/29/2024 Former smoker (ICD-10 - Z87.891) She is highly motivated not to smoke. She has a plan to prevent relapse in times of stress or illness. 04/29/2024 GERD (gastroesophageal reflux disease) (ICD-10 - K21.9) Her reflexes well controlled with fvnj-vkw-ausewyn medications. 04/29/2024 Hypothyroidism (ICD-10 - E03.9) She was advised to continue her thyroid medication. She appeared euthyroid today. 04/29/2024 Dyslipidemia (ICD-10 - E78.5) Her fasting lipid profile shows good control of her lipids and no change in her regimen was made today. Plan Of Treatment Medication Medication Name Sig Start Date Stop Date Notes Tylenol 325 MG 2 tablets as needed Orally every 6 hrs LORazepam 0.5 MG (Schedule IV Drug) T JOSÉ ANTONIO 1 TABLET AT BEDTIME NEEDED Oral ALPRAZolam 0.25 MG 1 tablet Orally Twic e a day Centrum Silver Ultra Womens - Orally Levothyroxine Sodium 100 MCG 1 tablet on an empty stomach in the morning Orally Saturday and Saturday Atorvastatin Calcium 40 MG 1 tablet Orally Once a day Omeprazole Magnesium 20 MG 1 tablet 30 m inutes before morning meal Orally Once a day Probiotic - as directed Orally Vitamin D3 25 MCG (1000 UT) 1 tablet Orally Once a day Calcium 1200+D3 Tylenol PM Extra Strength 50 0-25 MG 1 tablet at bedtime as needed Orally Once a day Next Appt Details Follow Up: 1 Year, Once a ye ar, Reason: OV, Regular checkup Provider Name:Grayson Paredes , 04/30/2025 02:30:00 PM, [address] [place] [address] , [place] [address], [place], [address], Progress Notes * Radha CARRDOB: 8 (84 yo F)Acc No.[id number]:04/29/2024 Progress Notes Patient: Radha GREY Provider: Ciara Paredes MD :1940 A ge:84 Y S ex:Female Date:04/29/2024 Address:[address] [place] [address] [place] [id number] Pcp:Sandip Castro MD Subjective: * Chief Complaints: * C olitis Mayecent diverticulitisHistory of colon cancerImpression fracture L1 * HPI: C OVID-19 Screening: Questions H ave you had any new onset fever, chills, cough, congestion, sore throat, shortness of breath, muscle aches? N o * : The patient, an 84-year-old female, reported a fall in July which resulted in a broken L1 vertebra. She was hospitalized for 10 days following the incident. During her hospital stay, a scan revealed an issue with her colon, initially suspected to be an abscess. However, it was later diagnosed as diverticulitis. She also mentioned a discomfort which is not specified. She has had a colonoscopy and mammogram, both of which were normal. The patient also mentioned a 'glitch' in her heart, as described by her doctor, which might require a pacemaker in the future. * ROS: G eneral/Constitutional: pain o nly normal aches and pains. C hills d enies.?Fatigue a dmits. F ever d enies. E NT: Decreased hearing i n both ears. R espiratory: Cough d enies. C ardiovascular: Chest pain with exertion d enies. D yspnea on exertion?denies. S hortness of breath d enies. G astrointestinal: Constipation a lternating with diarrhea. D ecreased appetite d enies. D iarrhea d enies. H eartburn o ccasional. N ausea d enies. R ectal bleeding d enies. V omiting d enies. H ematology: bruising d enies. p etechiae d enies. S wollen glands n one have been noted. G enitourinary: Frequent urination a small amount. M usculoskeletal: Muscle aches d enies. P ainful joints d enies. S ciatica d enies. W eakness d enies. S kin: Itching d enies. R veronica d enies. S kin lesion(s)?denies. N eurologic: Difficulty speaking d enies. D izziness d enies.?Headache d enies. L ow back pain d enies. P sychiatric: Depressed mood d enies. C ancer Self-Management: Admits C olonoscopy. * Medical History: * Surgical History: K nee replacement 2015Colonoscopy showed a tubular adenoma in the transverse colon 2012basal cell carcinoma on back excised 2016right cataract surgery Dr. Chew 2018Partial colectomy for adenocarcinoma of the hepatic flexure 2017 * Hospitalization/Major Diagno stic Procedure: H ospitalized for 10 days in july due to broken l1 vertebra and diverticulitis. * Family History: F ather: 71 yrs, from a stroke. M other: 80 yrs, diagnosed with CVD, DM. 1 brother(s) . 1 daughter(s) - healthy. . Her brother of a stroke. A niece, [...] of mental illness or substance use disorder. had vertigo and prostate cancer. * Social History: T obacco Use: T obacco Use/Smoking P atient is a f ormer smoker H ow long has it been since you last smoked??> 10 years A dditional Findings: Tobacco Non-User E x-cigarette smoker S he was born in [place]. He has been to [place] for 50 years. They have a daughter Brittny. 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 She has had no toxic exposures. * Medications: T akingTylenol PM Extra Strength 500-25 MG Tablet 1 tablet at bedtime as needed Orally Once a day Calcium 1200+D3 Vitamin D3 25 MCG (1000 UT) Tablet 1 tablet Orally Once a day Probiotic - Tablet Delayed Release as directed Orally Omeprazole Magnesium 20 MG Tablet Delayed Release 1 tablet 30 minutes before morning meal Orally Once a day Atorvastatin Calcium 40 MG Tablet 1 tablet Orally Once a day Levothyroxine Sodium 100 MCG Tablet 1 tablet on an empty stomach in the morning Orally Saturday and Saturday Centrum Silver Ultra Womens - Tablet Orally ALPRAZolam 0.25 MG Tablet 1 tablet Orally Twice a day LORazepam 0.5 MG Tablet (Schedule IV Drug) TAKE 1 TABLET AT BEDTIME NEEDED Oral Tylenol 325 MG Tablet 2 tablets as needed Orally every 6 hrs Taking Tylenol PM Extra Strength 500-25 MG Tablet 1 tablet at bedtime as needed Orally Once a day Taking Calcium 1200+D3 Taking Vitamin D3 25 MCG (1000 UT) Tablet 1 tablet Orally Once a day Taking Probiotic - Tablet Delayed Release as directed Orally Taking Omeprazole Magnesium 20 MG Tablet Delayed Release 1 tablet 30 minutes before morning meal Orally Once a day Taking Atorvastatin Calcium 40 MG Tablet 1 tablet Orally Once a day Taking Levothyroxine Sodium 100 MCG Tablet 1 tablet on an empty stomach in the morning Orally Saturday and Saturday Taking Centrum Silver Ultra Womens - Tablet Orally Taking ALPRAZolam 0.25 MG Tablet 1 tablet Orally Twice a day Taking LORazepam 0.5 MG Tablet (Schedule IV Drug) TAKE 1 TABLET AT BEDTIME NEEDED Oral Taking Tylenol 325 MG Tablet 2 tablets as needed Orally every 6 hrs DiscontinuedVitamin B Complex - Capsule as directed Orally Gas Relief 80 MG Tablet Chewable 1 tablet after meals and at bedtime as needed Orally Four times a day Medication List reviewed and reconciled with the patientDiscontinued Vitamin B Complex - Capsule as directed Orally Discontinued Gas Relief 80 MG Tablet Chewable 1 tablet after meals and at bedtime as needed Orally Four times a day Medication List reviewed and reconciled with the patient * Allergies: C leocinDoxycyclineAtropine SulfateCephalexinSurgical tapeCefazolin Sodium-DextroseClindamycinGentamicintraMADoltiZANidineKeflexno[Allergies Verified] Objective: * Vitals: H t: 64, Wt:131, BMI:22.48, BP:126/68, HR:86, Temp:97.4, Wt-k.42. * Examination: G eneral Examination: GENERAL APPEARANCE: p leasant, well nourished, well developed, in no acute distress, calm and relaxed, elderly woman. HEAD: a traumatic, normocephalic. EYES: e medhat, perrla, anicteric, conjugate. EARS: n ormal. NOSE: s eptum intact. ORAL CAVITY: n ormal, unremarkable. NECK/THYROID: n o jugular venous distention, no carotid bruit, thyroid normal. LYMPH NODES: n o enlarged lymph nodes,spleen normal. SKIN: n o suspicious lesions, anicteric. HEART: n o clicks, gallops, murmurs, or rubs, regular rhythm, S1, S2 normal, no s3, or vascular bruits. LUNGS: c lear to auscultation . BREASTS: N ot examined. ABDOMEN: b owel sounds normal, no ascites, no organomegaly, no mass. RECTAL EXAM: n ot examined. MUSCULOSKELETAL: e xtremities unremarkable, no clubbing, cyanosis or edema. PERIPHERAL PULSES: n ormal. NEUROLOGIC: a lert and oriented, cranial nerves 2-12 grossly intact, deep tendon reflexes 2+ symmetrical, motor strength normal upper and lower extremities, sensory exam intact. PSYCH: a lert, oriented, cognitive function intact, cooperative with exam, speech clear, thought process logical, goal directed. Assessment: * Assessment: 1. A denocarcinoma of colon - C18.9 (Primary) N otes :There is no sign of recurrent disease or new primary. Surveillance will continue. She will proceed to see the wire drawing machine tender to discuss colonoscopy. She is up-to-date with that procedure 2 . F ormer smoker - Z87.891 N otes :She is highly motivated not to smoke. She has a plan to prevent relapse in times of stress or illness. 3 . G ERD (gastroesophageal reflux disease) - K21.9 N otes :Her reflexes well controlled with aqyq-hew-pailedw medications. 4 . H ypothyroidism - E03.9 N otes :She was advised to continue her thyroid medication. She appeared euthyroid today. 5 . D yslipidemia - E78.5 N otes :Her fasting lipid profile shows good control of her lipids and no change in her regimen was made today. Plan: * Treatment: * Procedure Codes: * Preventive Medicine: Counseling: S moking/Tobacco Use Patient counseled on the dangers of tobacco use and urged to quit. 0 04/29/2024 * Follow Up: 1 Year, Once a year (Reason: OV, Regular checkup) * Images: * Sign off status: Completed true * Provider: Ciara Paredes MD Date: 0 04/29/2024 Generated for Gerardo castellano/Marlo/Elvaitting on: 05/01/2024 11:22 AM EST History and Physical Notes * HPI (History of Present Illness) Category Sub-Category Detail Notes COVID-19 Screening Questions Have you had any new onset fever, chills, cough, congestion, sore throat, shortness of breath, muscle aches?: No Examination Category Sub-Category Detail Notes General Examination GENERAL APPEARANCE: pleasant , well nourished, well developed, in no acute distress, calm and relaxed, elderly woman HEAD: atraumatic, normocep halic EYES: eomi, perrla, anicte danial, conjugate EARS: normal NOSE: septum intact NECK/THYROID: no jugular venous di stention, no carotid bruit, thyroid normal HEART: no clicks, gallops, murmurs, or rubs, regular rhythm, S1, S2 normal, no s3, or vascular bruits LUNGS: clear to auscultatio n ABDOMEN: bowel sounds normal, no ascites, no organomegaly, no mass NEUROLOGIC: alert and oriented, cranial nerves 2-12 grossly intact, deep tendon reflexes 2+ symmetrical, motor strength normal upper and lower extremities, sensory exam intact SKIN: no suspicious lesion s, anicteric PERIPHERAL PULSES: normal BREASTS: Not examined MUSCULOSKELETAL: extremities unremark able, no clubbing, cyanosis or edema LYMPH NODES: no enlarged lymph no paige,spleen normal RECTAL EXAM: not examined PSYCH: alert, oriented, cog nitive function intact, cooperative with exam, speech clear, thought process logical, goal directed ORAL CAVITY: normal, unremarkable
--- OUTSIDE RECORDS SUMMARY | 2025-03-01 11:23 | XMS_ITS | Patient Health Record ---
Author Organization [facility] Address [address] [place] [address] Care Team Providers Care Trimmer Climber Name Role Phone Matthew (RETIRED) Sandip JAQUEZ Primary Care Provide Grayson Gottlieb Unavailable [phone] Allergies Allergen (clinical drug ingredient) Drug/Non Drug Allergy documented on EMR Reaction Allergy Type Onset Date Status atropine Atropine Sulfate Unknown Drug Allergy Active cephalexin Cephalexin Unknown Drug Allergy Activ e clindamycin Cleocin Unknown Drug Allergy Activ e Keflex Unknown Drug Allergy Active simvastatin Zocor Unknown Drug Allergy Activ e Garamycin Unknown Drug Allergy Active Adhesive Tape Unknown Drug Allergy Act kellen doxycycline Doxycycline Unknown Drug Allergy Act kellen Reason For Referral No Information Medications Medication SIG (Take, Route, Frequency, Duration) Notes Start Date End Date Status Levothyroxine Sodium 100mcg Tablet 1 capsule Orally Saturday and Saturday Active Vitamin B Complex - Capsule as directed Orally Active Omeprazole 20 MG Capsule Delayed Release 1 capsule Orally QD Activ e Probiotic - Tablet Chewable as directed Orally Active Gas-X 80 MG Tablet Chewable 1 tablet aft er meals and at bedtime as needed Orally prn prn Active Vitamin D-3 125 MCG (5000 UT) Tablet as directed Orally Active PreserVision AREDS 2 2x daily Active ALPRAZolam 0.25 MG Tablet 1 tablet Orall y Twice a day prn anxiety Active Tylenol Extra Strength 500 MG Tablet 1 tablet as needed Orally as needed Active Tylenol PM Extra Strength 500-25 MG Tablet 1 tablet at bedtime as needed Orally Once a day Active Stool Softener 100 MG Capsule 2 capsule as needed Orally Once a day/prn Active Atorvastatin Calcium 40 MG Tablet 1 tablet Orally Once a day Active Multi Vitamin/Minerals - Tablet 1 Orally QD Active LORazepam 0.5 MG Tablet 1 tablet as need ed Orally prn insomnia prn Active Immunizations Vaccine Route Administration Date Status Comme nts Influenza Unknown 12/07/2016 Administered Influenza Unknown 12/10/2017 Administered Influenza Unknown 01/20/2020 Administered Influenza Unknown 01/23/2022 Administered Social History Social History Additional Details Category Social Info Options Details Miscellaneous: Marital status: Occupation: retired Section Notes: Nonsmoker; no significant al cohol Nonsmoker; no significant al cohol Nonsmoker; no significant al cohol Nonsmoker; no significant al cohol Nonsmoker; no significant al cohol Problems Problem Type SNOMED Code ICD Code Onset Dates Problem Status W/U Status Risk Notes Problem Left lower quadrant pain (917412367) Left lower quadrant pain (R10.32) Active confirmed Problem Screening for malignant neoplasm of colon (520217112) Encounter for screening for malignant neoplasm of colon (Z12.11) Active confirmed Problem History of adenomatous polyp of colon (365956631) History of adenomatous polyp of colon (Z86.010) Active confirmed Problem Gastroesophageal reflux disease without esophagitis (301856407) Gastroesophageal reflux disease without esophagitis (K21.9) Active confirmed Problem Preprocedural examination (839701535821132) Preprocedural examination (Z01.818) Active confirmed Problem History of malignant neoplasm of colon (392750951) History of colon cancer (Z85.038) Active confirmed Problem History of malignant neoplasm of colon (358692297) Personal history of colon cancer (Z85.038) Active confirmed Problem Diverticulosis of sigmoid colon (034969352) Diverticulosis of sigmoid colon (K57.30) Active confirmed Problem Flatulence, eructation and gas pain (209804464) Abdominal gas pain (R14.1) Active confirmed Problem Diverticulosis of colon (425656325) Diverticulosis of colon (K57.30) Active confirmed Problem History of gastrointestinal tract bypass (570459040) 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 Problem History of gastrointestinal tract bypass (732331858) 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 Plan Of Treatment Future Test Test Name Order Date COLONOSCOPY 12/07/2011 COLONOSCOPY 06/27/2017 COLONOSCOPY 03/19/2018 COLONOSCOPY 08/10/2020 COLONOSCOPY 09/12/2022 Insurance Providers Payer Name Payer Address Payer Phone Subscriber Number Group Number Insured Name Patient Relationship to Insured Coverage Start Date Coverage End Date MEDICARE OF [place] [address] [place] [address] [id number] HILARIO LOTT Self - patient is the insured [employer] CLAIMS [address] [place] [phone] [id number] HILARIO LOTT Self - patient is the insured Medical [...] polyp and significant sigmoid diverticulosis Hypothyroidism Denies [place],DM,CVA,Lung disease,renal dise ase Colon cancer 06/3016--- adeno carcinoma of the hepatic flexure--underwent surgery with Dr. Alford with a right colectomy--she did not require any postoperative chemotherapy Colonoscopy 07/2017--hyperpla stic polyps only, divertciulosis,and internal hemorrhoids Colonoscopy 07/2018 with inflammatory sahnnan yps in the rectum Colonoscopy 09/2020 with hyperplastic shannan yps removed Shingles in 2021 Fractured pelvis in November of 2021 Surgical History Surgery Date(Month/Year) Partial throidectomy Hysterectomy Breast biopsy-benign Both ovaries removed Heel surgery Right knee replacement 2015 Right colectomy for colon cancer in 06/[address] Alford Cataract-lens implants in both eyes
--- OUTSIDE RECORDS SUMMARY | 2025-03-01 11:23 | XMS_ITS | Patient Health Record ---
Author Organization Grayson Paredes III, MD Address [address] [place] [address] Care Team Providers Care Medical Aide Name Role Phone Sandip Castro MD Primary Care Provider Dr. Grayson Martin III Unavailable Allergies Allergen (clinical drug ingredient) Drug/Non [...] Problem Status W/U Status Risk Notes Problem 4700168 Former smoker (Z87.891) Active confirmed She is highly motivated not to smoke. She has a plan to prevent relapse in times of stress or illness. Problem 621283959 Overweight (BMI 25.0-29.9) (E66.3) Active confirmed Her weight is 1 50 on her scale at home today. This gives a body mass index 25.7. I recommended stabilizing her weight at this level in pursuing good nutrition. Problem 53587344 Hypothyroidism (E03.9) Active confirmed She was advised to continue her thyroid medication. She appeared euthyroid today. Problem 802499387 GERD (gastroesophagea l reflux disease) (K21.9) Active confirmed Her reflexe s well controlled with ilgg-qpx-cyoejtv medications. Problem 06649046 Hypokalemia (E87.6) Active confirmed Problem 989671772 Dyslipidemia (E78.5) Active confirmed Her fasting lip id profile shows good control of her lipids and no change in her regimen was made today. Problem 16796781 Internal hemorrhoids (K64.8) Active confirmed Problem 26836697 Constipation (K59.00) Active confirmed This is an intermittent problem, not present today, which is well controlled with ocyp-ffh-celgulw medications. No hematochezia has been noted. Problem 296255948 Adenocarcinoma of colon (C18.9) Active confirmed There is no sign of recurrent disease or new primary. Surveillance will continue. She will proceed to see the allergist/immunologist to discuss colonoscopy. She is up-to-date with that procedure Problem 73469098 Ischemic colitis (K55.9) Active confirmed She presented initially with pancolitis and diarrhea. This has resolved. She has had no hematochezia or protracted diarrhea or watery stool. No change in her regimen was necessary today. 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 She will proceed to see the allergist/immunologist to discuss colonoscopy. She is up-to-date with that procedure 04/29/2024 GERD (gastroesophageal reflux disease) (ICD-10 - K21.9) Her reflexes well controlled with bmwg-mts-admtkjr medications. 04/29/2024 Hypothyroidism (ICD-10 - E03.9) She [...] SCREEN 01/24 Next Appt Details Provider Name:Grayson Paredes , 04/30/2025 02:30:00 PM, [address] [place] [address] [address] SHARIF Thi, [place], [address], Insurance Providers Payer Name Payer Address Payer Phone Subscriber Number Group Number Insured Name Patient Relationship to Insured Coverage Start Date Coverage End Date MEDICARE NGS [address] [place] [address] [id number] [facility] Radha gonzales Self - patient is the insured [facility] [address] [place], [place] [id number] [phone] [id number] [facility] Radha gonzales Self - patient is [...]
[2025-03-01 12:41] LABS: Free T4 (Free Thyroxine) 1.17 ng/dL (0.71-1.85)
== END 2025-03-01 09:45 | disposition home or self-care (01) ==
LOC: HO.10HDL 09:44
PROVIDERS: Visit Provider Student in an Organized Health Care Education/Training Program
DX: E03.9 Hypothyroidism, unspecified (principal)
CPT/HCPCS: 36415; 84439; 84443

== ENCOUNTER 2025-03-15 13:57 | Outpatient (REF) | payer MEDICARE, SELFPAY ==
[2025-03-15 15:30] LABS: Hematocrit 37.4 % (37.0-47.0); Hemoglobin 11.7 g/dl (12.0-16.0); Mean Corpuscular HGB Conc 31.3 g/dl (31.0-35.0); Mean Corpuscular Hemoglobin 29.6 pg (27.0-33.0); Mean Corpuscular Volume 94.7 fL (80.0-98.0); NRBC Abs Auto 0.000 X10*3/uL (0.0-0.012); NRBC Pct Auto 0.0 /100WBC (0.0-0.2); Red Blood Count 3.95 X10*6/uL (4.20-5.50)
[2025-03-15 15:42] LABS: Platelet Count 59 X10*3/uL (160-400)
[2025-03-15 15:51] LABS: White Blood Count 37.6 X10*3/uL (4.8-10.8)
[2025-03-15 17:33] LABS: Atypical Lymph Absolute Manual 1.1 x10*3/uL; Atypical Lymphs Percent Manual 3 % (0-6); Band Neutrophils Percent 6 % (3-5); Lymphocytes Absolute Manual 3.8 X10*3/uL (1.2-4.9); Lymphocytes Percent Manual 10 % (20-40); Metamyelocytes Absolute 2.3 X10*3/uL; Metamyelocytes Percent 6 %; Monocytes Absolute Manual 5.6 X10*3/uL (0.1-1.2); Monocytes Percent Manual 15 % (2-11); Myelocytes Absolute 1.1 X10*/uL; Myelocytes Percent 3 %; Neutrophils Absolute Manual 21.8 X10*3/uL (2.0-8.3); Neutrophils Percent Manual 52 % (45-73); Promyelocytes Absolute 1.9 X10*3/uL; Promyelocytes Percent 5 %
[2025-03-15 17:39] LABS: Large Platelet PRESENT; RBC Morphology NORMAL
[2025-03-15 17:40] LABS: Polychromasia 1+ (0-2) /OIF
== END 2025-03-15 13:58 | disposition home or self-care (01) ==
LOC: HO.LAB 13:57
PROVIDERS: PCP Student in an Organized Health Care Education/Training Program; Visit Provider Student in an Organized Health Care Education/Training Program
DX: D72.820 Lymphocytosis (symptomatic) (principal); E03.9 Hypothyroidism, unspecified; I10 Essential (primary) hypertension; R53.83 Other fatigue; M79.89 Other specified soft tissue disorders; E78.5 Hyperlipidemia, unspecified
CPT/HCPCS: 36415; 85007; 85027; 99212

== ENCOUNTER 2025-03-15 13:57 | Outpatient (AMB) | payer MEDICARE, SELFPAY ==
--- NOTE | 2025-03-15 13:52 | MHC.PC.OV ---
Vital Signs 03/15/25 14:06 Height 5 ft 1.61 in Weight 126 lb BMI 23.3 BP 146/68 H Blood Pressure Location Lt brachial Position Sitting Respiration 18 Pulse 101 H Pulse Source Pulse Oximeter Temp 98.1 F Temp Source Temporal Artery Scan Pulse Oximetry (%) 97 Oxygen Delivery Method Room Air Intake Visit Reasons: 3 month f/u Train Operations Manager Required: No Accompanied by: Spouse Allergies adhesive tape (ADHESIVE TAPE) Allergy (Intermediate, Verified 03/15/25 13:52) ITCH, Rash cefazolin (From KEFZOL) Allergy (Intermediate, Verified 03/15/25 13:52) RASH clindamycin (From CLEOCIN) Allergy (Intermediate, Verified 03/15/25 13:52) RASH gentamicin (From GARAMYCIN) Allergy (Intermediate, Verified 03/15/25 13:52) RASH atropine Allergy (Unknown, Verified 03/15/25 13:52) localized eye rxn cephalexin Allergy (Unknown, Verified 03/15/25 13:52) Rash tizanidine Adverse Reaction (Verified 03/15/25 13:52) Nausea tramadol Adverse Reaction (Verified 03/15/25 13:52) Nausea Doxycycline Monohydrate Allergy (Intermediate, Uncoded 08/20/24 11:50) Rash Medication List - Last Reconciled 03/15/25 by Brian Jason MD atorvastatin 40 mg PO DAILY 90 days calcium carbonate (Calcium 600) 600 mg PO BID@1200,2100 cholecalciferol (vitamin D3) 10 mcg PO DAILY diphenhydramine-acetaminophen 25-500 mg (Tylenol PM Extra Strength) 1 tab PO BEDTIME PRN lactobacillus combination no.4 (Probiotic) 3,000 mmu cells PO DAILY@1200 levothyroxine (Synthroid) 125 mcg PO DAILY vsxczfxl-pvs-gonp-FA-vit K-lut 8 mg iron-400 mcg-50 mcg (Centrum Silver Women) 1 tab PO DAILY@1200 omeprazole 20 mg PO DAILY@0630 vitamins A,C,Y-zwiv-lkztoo 2,148 mcg-113 mg-45 mg-17.4mg (PreserVision AREDS) 1 tab PO BID Tobacco use date assessed: 08/17/24 Fall risk assessment: No Falls in past year Last assessed Fall Risk: 03/15/25 Dental Screening Dental Screen Date: 08/17/24 HPI HPI Comments History of Present Illness Details History of Present Illness The patient is an 85-year-old female presenting for follow-up and management of chronic conditions, primarily reporting fatigue and back pain. She reports low energy and back pain that limits her activity, forcing her to stop and rest. The patient has a history of hypothyroidism, and her levothyroxine dose was changed in December. Recent blood work showed a TSH of 4.29, indicating she is still undertreated. She has also noticed her hair is getting thinner. Her medical history includes osteoporosis with a prior L1 fracture, arthritis, and hypercholesterolemia. She takes atorvastatin 40 mg, vitamin D, calcium, and omeprazole for acid reflux. She reports easy bruising, which she attributes to age and aspirin use. Her blood pressure has been high on her last three visits. She reports occasional swelling in her feet and has varicose veins. Her last white blood cell count in December was high and has not been rechecked. For health maintenance, a mammogram is scheduled for April 21, and her last bone density test was in April. Medical History: - Hypothyroidism - Osteoporosis with a history of L1 compression fracture - Arthritis - Hypercholesterolemia - Acid reflux - Varicose veins - Hypertension Medications: - Atorvastatin 40 mg for cholesterol - Vitamin D for osteoporosis - Calcium for osteoporosis - Levothyroxine 112 mcg for thyroid - Omeprazole for acid reflux - Aspirin - Tylenol as needed for pain Diagnostic Results: - Labs: - Last week: TSH 4.29. - December: White blood count was high. - Tests and Diagnostics: - Last bone density test: April 10, 2023. Social History - Functional Status: The patient's activity is limited by back pain. - Diet: Reports she very rarely uses salt. Health Maintenance - Mammogram: Scheduled for April 21. - Bone Density Test: Last performed on April 10, 2023. Next test is due in two years. Patient was informed and verbally consented to the use of an ambient scribe for clinic note documentation during this visit. Vital signs reviewed. Comprehensive history, review of systems, and physical exam completed. Medications, allergies, and problem list reviewed and updated. Counseling provided on nutrition, regular exercise, sleep hygiene, and moderation of alcohol use. Discussed age-appropriate screenings (mammogram, colonoscopy, Pap, bone density) and immunizations (flu, COVID, shingles, Tdap). Screened for depression, fall risk, and home safety; no current concerns. Discussed stress management, dental and vision care, and importance of ongoing preventive follow-up. Routine labs ordered for metabolic and lipid screening. Patient educated on healthy lifestyle and agrees with the plan. [facility] Medical History (Updated 03/15/25 @ 14:45 by Brian Jason MD) Swelling of lower extremity Fatigue Hypertension, essential, benign Lymphocytosis Benzodiazepine dependence Urinary tract infection Night sweat Lumbar degenerative disc disease Chronic low back pain Osteoporosis Compression fracture of L1 vertebra Arthritis History of right bundle branch block (RBBB) Anxiety PONV (postoperative nausea and vomiting) GERD (gastroesophageal reflux disease) History of colon cancer Hypothyroidism Barretts esophagus Hyperlipidemia Surgical History History of foot surgery History of cataract extraction with lens replacement Hx of esophagogastroduodenoscopy History of total right knee replacement (TKR) History of breast biopsy History of hysterectomy History of thyroidectomy Hx of colonoscopy (~11/28/22) History of partial colectomy Family History Mother No problems noted. Father No problems noted. Social History Household Members: Spouse Housing: House Are you a primary health and social care teacher to a significant other at home: No Do you presently have visiting nurse or other home services: No Alcohol intake: current Alcohol intake frequency: a few times a month Comment: pt refusing alarms, steady gait encouraged to call for help Patient Tobacco Use Status: Former Tobacco user Tobacco use type: Cigarette e-Cigarette/Vaping Use: Never Used Advance Directives Date on File: 07/22/23 service: No Current occupational status: retired Cognitive needs: No Hearing needs: No Vision needs: Yes (rx glasses) Questionnaire Thrive Questionnaire Date Thrive assessed: 08/17/24 MAYELIN-7 AMB Questionnaire MAYELIN-7 Date MAYELIN - 7 assessed: 08/17/24 Source: Developed by Drs. Grayson Phillips, Mishel Garcia, Michael Fink and colleagues, with an educational mamta from [employer]. Review of Systems Narrative Review of Systems - General: Reports fatigue. - Musculoskeletal: Reports back pain that limits activity. - Endocrine: Denies symptoms other than those related to undertreated hypothyroidism. - Integumentary: Reports hair thinning and easy bruising. - Cardiovascular: Reports occasional foot swelling. - Gastrointestinal: Reports taking medication for acid reflux. All systems reviewed & are unremarkable except as reviewed in HPI and above Physical exam (Primary Care) Vital Signs: Last Vital Signs Temp 98.1 F 03/15/25 14:06 Pulse 101 H 03/15/25 14:06 Resp 18 03/15/25 14:06 BP 146/68 H 03/15/25 14:06 Pulse Ox 97 03/15/25 14:06 Oxygen Delivery Method Room Air 03/15/25 14:06 BMI result Body Mass Index 23.3 Tobacco/Smoking Status: Tobacco use Status Tobacco use date assessed 08/17/24 03/15/25 13:53 Patient Tobacco Use Status Former Tobacco user 03/15/25 13:53 Tobacco use type Cigarette 03/15/25 13:53 e-Cigarette/Vaping Use Never Used 03/15/25 13:53 Thrive Assessment: Date of Thrive Assessment Date Thrive assessed 08/17/24 03/15/25 13:53 Narrative Physical Exam General: +Alert and oriented, Well nourished, No acute distress. Eye: Pupils are equal, round and reactive to light, Intact accommodation, Extraocular movements are intact, Normal conjunctiva, Vision unchanged. HENT: Normocephalic, Atraumatic, Tympanic membranes are clear, Normal hearing, Oral mucosa is moist, No pharyngeal erythema, Ear canals patent. Respiratory: Lungs CTA bilaterally, No wheeze, Respirations are non-labored. Cardiovascular: Regular rate, Regular rhythm, S1 auscultated, S2 auscultated, No murmur, Good pulses equal in all extremities, Normal peripheral perfusion, No edema. Gastrointestinal: Soft, Non-tender, Non-distended, Normal bowel sounds, No organomegaly. Musculoskeletal: Normal range of motion, Normal strength, No tenderness, No swelling, No deformity, Normal gait. Integumentary: Warm, Dry, [place], Intact. Hands are a little dry. Neurologic: Alert, Oriented, Normal sensory, Normal motor function, No focal defects, Cranial Nerves II-XII are grossly intact, Normal deep tendon reflexes. Psychiatric: Cooperative, Appropriate mood & affect, Normal judgment. Coding Level of Care Code Est Pt Level 4 (60267) Complex visit Add On G2211 Diagnoses Hypothyroidism, unspecified type E03.9 Hypothyroidism type: unspecified Hypertension, essential, benign I10 Fatigue, unspecified type R53.83 Fatigue type: unspecified Swelling of lower extremity M79.89 Lymphocytosis D72.820 Hyperlipidemia, unspecified hyperlipidemia type E78.5 Hyperlipidemia type: unspecified Assessment & Plan Assessment & Plan (1) Hypothyroidism: Comment: - The patient has symptoms of fatigue and hair thinning, and recent labs show a TSH of 4.29 despite a recent dose adjustment. - The plan is to increase levothyroxine from 112 mcg to 125 mcg daily. - A repeat TSH level will be checked in three months, one week prior to her next follow-up appointment. Code(s): E03.9 - Hypothyroidism, unspecified Category: Medical Qualifiers: Hypothyroidism type: unspecified Qualified Code(s): E03.9 - Hypothyroidism, unspecified (2) Hypertension, essential, benign: Comment: - The patient's blood pressure is elevated at 146, which has been a trend for the last three visits. - She reports low salt intake. - The plan is to start treatment with amlodipine 2.5 mg daily. Code(s): I10 - Essential (primary) hypertension Category: Medical (3) Fatigue: Comment: - These symptoms are likely multifactorial, possibly related to her undertreated hypothyroidism, arthritis, and history of an L1 fracture. - The plan is to continue Tylenol up to 1000 mg three times a day as needed for pain. - The increased thyroid medication may also help with her energy levels. Code(s): R53.83 - Other fatigue Category: Medical Qualifiers: Fatigue type: unspecified Qualified Code(s): R53.83 - Other fatigue (4) Swelling of lower extremity: Comment: - The patient reports intermittent foot swelling. - The plan is to use compression socks to help with circulation. Code(s): M79.89 - Other specified soft tissue disorders Category: Medical (5) Lymphocytosis: Comment: - Her WBC was noted to be high in December. - The plan is to repeat the CBC with her thyroid labs in three months to re-evaluate. Code(s): D72.820 - Lymphocytosis (symptomatic) Category: Medical (6) Hyperlipidemia: Comment: - Continue atorvastatin as patient demonstrates active lifestyle benefiting from preventative care. Code(s): E78.5 - Hyperlipidemia, unspecified Category: Medical Qualifiers: Hyperlipidemia type: unspecified Qualified Code(s): E78.5 - Hyperlipidemia, unspecified Plan: Health Maintenance: - Mammogram: Scheduled for April 21. - Bone Density Test: Last performed on April 10, 2023. Next test is due in two years. Patient was informed and verbally consented to the use of an ambient scribe for clinic note documentation during this visit. Plan I discussed with the patient that her symptoms of low energy and thinning hair are likely related to her hypothyroidism, which is still undertreated based on her recent TSH level of 4.29. I explained that we will be increasing her levothyroxine dose to 125 mcg and that this should help improve her energy. I also informed her that her blood pressure has been consistently high for the past three visits, and I recommended starting a low-dose medication, amlodipine 2.5mg, to manage it. We discussed her back pain and recommended Tylenol as needed, up to 3000 mg per day. Regarding her foot swelling, I recommended the use of compression socks to help with circulation. We will recheck her thyroid levels and white blood count in three months, before her next visit. Orders: Orders Complete Blood Count Auto Diff Today D72.820 - Lymphocytosis (symptomatic) TSH reflex Free T4 3 Months E03.9 - Hypothyroidism, unspecified Medications: New amlodipine 2.5 mg PO DAILY 90 tabs 0RF levothyroxine (Synthroid) 125 mcg PO DAILY 90 tabs 0RF Discontinued levothyroxine (Synthroid) Discontinued Reason: Doctor's Order 112 mcg PO DAILY 90 tabs 0RF E03.9 - Hypothyroidism, unspecified Patient Instructions: - Your levothyroxine dose is being increased to 125 mcg. Continue to take this medication for your thyroid. - Start taking amlodipine 2.5 mg every morning for your blood pressure. - For pain, you can take 1000 mg of Tylenol up to three times a day as needed. - Continue taking atorvastatin, vitamin D, calcium, and omeprazole as prescribed. - Use compression socks to help with the swelling in your feet and improve blood flow. - Please get your blood work done one week before your next appointment in three months to check your thyroid and white blood cell count. - Your mammogram is scheduled for April 21. You do not need a bone density test at this time.
[2025-03-15 14:06] VITALS: BP 146/68; PULSE 101; RESP 18; TEMP 36.7; O2SAT 97; BMI 23.3
--- OUTSIDE RECORDS SUMMARY | 2025-03-15 22:44 | XMS_ITS | Patient Health Record ---
Author Organization Grayson Paredes III, MD Address [address] [place] [address] Care Team Providers Care Ticker Maintainer Name Role Phone Sandip Castro MD Primary [...] Problem Status W/U Status Risk Notes Problem 9667601 Former smoker (Z87.891) Active confirmed She is highly motivated not to smoke. She has a plan to prevent relapse in times of stress or illness. Problem 405127302 Overweight (BMI 25.0-29.9) (E66.3) Active confirmed Her weight is 1 50 on her scale at home today. This gives a body mass index 25.7. I recommended stabilizing her weight at this level in pursuing good nutrition. Problem 73099349 Hypothyroidism (E03.9) Active confirmed She was advised to continue her thyroid medication. She appeared euthyroid today. Problem 425869015 GERD (gastroesophagea l reflux disease) (K21.9) Active confirmed Her reflexe s well controlled with pdwx-dbs-ilocxyz medications. Problem 81749825 Hypokalemia (E87.6) Active confirmed Problem 696707815 Dyslipidemia (E78.5) Active confirmed Her fasting lip id profile shows good control of her lipids and no change in her regimen was made today. Problem 14094574 Internal hemorrhoids (K64.8) Active confirmed Problem 25500737 Constipation (K59.00) Active confirmed This is an intermittent problem, not present today, which is well controlled with rlfp-jci-ssivnif medications. No hematochezia has been noted. Problem 064730681 Adenocarcinoma of colon (C18.9) Active confirmed There is no sign of recurrent disease or new primary. Surveillance will continue. She will proceed to see the catalyst impregnator to discuss colonoscopy. She is up-to-date with that procedure Problem 19313868 Ischemic colitis (K55.9) Active confirmed She presented initially with pancolitis and diarrhea. This has resolved. She has had no hematochezia or protracted diarrhea or watery stool. No change in her regimen was necessary today. 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 She will proceed to see the catalyst impregnator to discuss colonoscopy. She is up-to-date with that procedure 04/29/2024 GERD (gastroesophageal reflux disease) (ICD-10 - K21.9) Her reflexes well controlled with lmsn-oze-yuzfdbr medications. 04/29/2024 Hypothyroidism (ICD-10 - E03.9) She [...] Provider Name:Grayson Paredes , 04/30/2025 02:30:00 PM, [address] [place] [address] [address] Thi, [place], [address], Insurance Providers Payer Name Payer Address Payer Phone Subscriber Number Group Number Insured Name Patient Relationship to Insured Coverage Start Date Coverage End Date MEDICARE NGS [address] [place] [address] [id number] [facility] Radha gonzales Self - patient is the insured [facility] [address] [place], [place] [phone] [id number] [facility] Radha gonzales Self - patient is the [...]
--- OUTSIDE RECORDS SUMMARY | 2025-03-15 22:44 | XMS_ITS | Patient Health Record ---
Author Organization [facility] Address [address] [place] [address] Care Team Providers Care Manager Policy Name Role Phone Matthew (RETIRED) Sandip JAQUEZ Primary Care Provide r Grayson Fuller Unavailable [phone] Allergies Allergen (clinical drug ingredient) Drug/Non Drug [...] Risk Notes Problem Left lower quadrant pain (779056415) Left lower quadrant pain (R10.32) Active confirmed Problem Screening for malignant neoplasm of colon (027232330) Encounter for screening for malignant neoplasm of colon (Z12.11) Active confirmed Problem History of adenomatous polyp of colon (861247343) History of adenomatous polyp of colon (Z86.010) Active confirmed Problem Gastroesophageal reflux disease without esophagitis (820151919) Gastroesophageal reflux disease without esophagitis (K21.9) Active confirmed Problem Preprocedural examination (414548751236739) Preprocedural examination (Z01.818) Active confirmed Problem History of malignant neoplasm of colon (402492968) History of colon cancer (Z85.038) Active confirmed Problem History of malignant neoplasm of colon (216816556) Personal history of colon cancer (Z85.038) Active confirmed Problem Diverticulosis of sigmoid colon (185814716) Diverticulosis of sigmoid colon (K57.30) Active confirmed Problem Flatulence, eructation and gas pain (481807331) Abdominal gas pain (R14.1) Active confirmed Problem Diverticulosis of colon (829946017) Diverticulosis of colon (K57.30) Active confirmed Problem History of gastrointestinal tract bypass (912996572) 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 Problem History of gastrointestinal tract bypass (113897324) 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 Plan Of Treatment Future Test Test Name Order Date COLONOSCOPY 12/07/2011 COLONOSCOPY 06/27/2017 COLONOSCOPY 03/19/2018 COLONOSCOPY 08/10/2020 COLONOSCOPY 09/12/2022 Insurance Providers Payer Name Payer Address Payer Phone Subscriber Number Group Number Insured Name Patient Relationship to Insured Coverage Start Date Coverage End Date MEDICARE OF [place] [address] [place] [address] [id number] HILARIO LOTT Self - patient is the insured [employer] CLAIM[employer] [address] [place] [address] [id number] HILARIO LOTT Self - patient is the [...]
== END 2025-03-15 14:39 | disposition home or self-care (01) ==
LOC: HO.HMCHD 13:58
PROVIDERS: PCP Student in an Organized Health Care Education/Training Program; Visit Provider Student in an Organized Health Care Education/Training Program
DX: E03.9 Hypothyroidism, unspecified (principal); I10 Essential (primary) hypertension; R53.83 Other fatigue; M79.89 Other specified soft tissue disorders; D72.820 Lymphocytosis (symptomatic); E78.5 Hyperlipidemia, unspecified